=== PATIENT | male | born 1950 | race Caucasian/White ===

== ENCOUNTER 2023-09-01 10:10 | Inpatient (IN) | payer MEDICARE, SELFPAY ==
[2023-09-01] VITALS (9 sets, daily range): BP systolic 142–188; BP diastolic 80–106; PULSE 80–90; RESP 18–20; TEMP 36.8–39.1; O2SAT 91–96; BMI 41.1; BMI 39.6
[2023-09-01 10:21] LABS: Glucometer 213 mg/dL (74-106)
--- NOTE | 2023-09-01 10:24 | XR_ITS ---
The [place] [id number] Patient Name: FABY LEYVA MRN: [id number] date: 1950 Sex: M Assigned Patient Location: ER Current Patient Location: Accession/Order Number: [id number] Exam Date: 09/01/2023 11:20 Report Date: 09/01/2023 11:54 At the request of: HOMERO CEDILLO Procedure: XR shoulder RT min 2V STUDY: XR shoulder RT min 2V, [id number] HISTORY: fall COMPARISON: None FINDINGS: No acute fracture, dislocation, or suspicious osseous lesion. Moderate osteoarthritis of the acromioclavicular joint and mild osteoarthritis of the glenohumeral joint. Mild nonspecific hyperostosis at the deltoid tuberosity. XR/XR shoulder RT min 2V IMPRESSION: No acute osseous abnormality. Electronically authenticated by: ISAIAS NEAL Date: 09/01/2023 11:54
--- NOTE | 2023-09-01 10:24 | XR_ITS ---
The [address] [address] Patient Name: FABY LEYVA MRN: [id number] date: 1950 Sex: M Assigned Patient Location: ER Current Patient Location: ER Accession/Order Number: [id number] Exam Date: 09/01/2023 11:20 Report Date: 09/01/2023 11:46 At the request of: HOMERO CEDILLO Procedure: XR chest 1V EXAMINATION: XR chest 1V 09/01/2023 8:45 AM PST HISTORY: weak TECHNIQUE: Single frontal view of the chest acquired. COMPARISONS: None. FINDINGS: Lines/tubes/other: None. Heart and mediastinum: Cardiac silhouette is within normal limits for size. Bones: No acute osseous abnormality. Lungs: Mild streaky left basilar atelectasis and/or scarring. No pulmonary edema. Pleura: There is no significant pleural effusion or pneumothorax. Other: None. XR/XR chest 1V IMPRESSION: Mild left basilar atelectasis and/or scarring. Electronically authenticated by: ISAIAS NEAL Date: 09/01/2023 11:46
--- NOTE | 2023-09-01 10:24 | ECG_ITS ---
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
--- NOTE | 2023-09-01 10:25 | CT_ITS ---
[address] [address] Patient Name: FABY LEYVA MRN: [id number] date: 1950 Sex: M Assigned Patient Location: ER Current Patient Location: Accession/Order Number: [id number] Exam Date: 09/01/2023 11:20 Report Date: 09/01/2023 11:43 At the request of: HOMERO CEDILLO Procedure: CT head/brain wo con EXAMINATION: CT head/brain wo con 09/01/2023 11:20 AM EST HISTORY: weak COMPARISON: None. TECHNIQUE: Using multidetector thin collimation helical acquisition technique, axial, coronal and sagittal CT images from the skull base to the vertex were obtained without intravenous contrast. Dose reduction techniques were achieved by using automated exposure control and/or adjustment of mA and/or kV according to patient size and/or use of iterative reconstruction technique. FINDINGS: No intracranial hemorrhage, mass effect, or midline shift. The ventricles are proportionate to the cerebral sulci. The dia to white matter differentiation of the cerebral hemispheres is preserved. The basal cisterns are patent.There is moderate cerebral atrophy. The visualized paranasal sinuses are clear. The mastoid air cells are clear. Hyperostosis frontalis internus. Bilateral pseudophakia. CT/CT head/brain wo con IMPRESSION: No acute intracranial pathology. Electronically authenticated by: CLARK BAILEY Date: 09/01/2023 11:43
--- NOTE | 2023-09-01 10:25 | ED.GENADUL1 ---
HPI - General Adult General Chief complaint: Fall Stated complaint: GENERAL WEAKNESS/FALL Time Seen by Provider: 09/01/23 10:18 Mode of arrival: ambulance History of Present Illness HPI narrative: 73-year-old male presents to Emergency Department for weakness and a fall. He was transported here by paramedics, initially unaccompanied by his . He was reportedly on the floor for about five hours but the circumstances are not clear upon arrival. He seems to be complaining of some pain in the right shoulder. No further history is initially obtainable. Related Data Home Medications Medication Instructions Recorded Confirmed allopurinol 300 mg tablet 300 mg PO DAILY 09/01/23 09/01/23 amlodipine 5 mg tablet 5 mg PO DAILY 09/01/23 09/01/23 cholecalciferol (vitamin D3) 25 75 mcg PO DAILY 09/01/23 09/01/23 mcg (1,000 unit) capsule furosemide 20 mg tablet 20 mg PO DAILY 09/01/23 09/01/23 gabapentin 300 mg capsule 300 mg PO TID 09/01/23 09/01/23 glipizide 5 mg tablet 5 mg PO BID 09/01/23 09/01/23 lisinopril 20 mg tablet 20 mg PO DAILY 09/01/23 09/01/23 metoprolol tartrate 100 mg tablet 100 mg PO BID 09/01/23 09/01/23 pravastatin 80 mg tablet 80 mg PO DAILY 09/01/23 09/01/23 Allergies Allergy/AdvReac Type Severity Reaction Status Date / Time No Known Drug Allergies Allergy Verified 09/01/23 10:13 Review of Systems ROS Narrative A ten point review of systems is negative except as noted above. PFSH PFS Social History Smoking status: Never smoker Exam Narrative Exam Narrative: Nurses note and vital signs reviewed and patient is not hypoxic. General: The patient appears in no apparent distress. Patient is resting comfortably on cart. Skin: Warm, dry, no pallor noted. There is no rash noted. Head: Normocephalic, atraumatic Eye: Normal conjunctiva, no drainage, EOMI. PERRL Ears, Nose, Mouth, and Throat: oral mucosa is moist. Nares patent. Cardiovascular: Regular Rate and Rhythm Respiratory: Patient is in no distress, no accessory muscle use, lungs are clear to auscultation, no wheezing, rales or rhonchi. chest wall is nontender Back: non-tender, no CVA tenderness bilaterally to percussion. and no bruise or abrasion to his back GI: no tenderness to palpation, no masses appreciated. No rebound, guarding, or rigidity noted. Musculoskeletal: no palpable tenderness to his ankles knees or hips. Hips have fair range of motion actively. Both shoulders have full range of motion as well but the right shoulder seems to cause him some discomfort. There is no deformity or bruising. tiny abrasion present on the anterior left knee. Neurological: he moves all four extremities well. He is oriented to self and place. He was able to tell me the year but not right away, he had to think about it. He does not know the month. Psychiatric: Cooperative Constitutional Vital Signs, click to edit/add: Last Vital Signs Temp 98.3 F 09/01/23 13:13 Pulse 89 09/01/23 11:57 Resp 20 09/01/23 11:57 BP 142/80 H 09/01/23 11:57 Pulse Ox 95 09/01/23 11:57 O2 Del Method Room Air 09/01/23 11:04 Course Vital Signs Vital signs: Vital Signs Temperature 98.6 F 09/01/23 10:14 Pulse Rate 90 09/01/23 10:14 Respiratory Rate 20 09/01/23 10:14 Blood Pressure 184/99 H 09/01/23 10:14 Pulse Oximetry 91 L 09/01/23 10:14 Oxygen Delivery Method Room Air 09/01/23 10:14 Temperature 98.3 F 09/01/23 13:13 Pulse Rate 89 09/01/23 11:57 Respiratory Rate 20 09/01/23 11:57 Blood Pressure 142/80 H 09/01/23 11:57 Pulse Oximetry 95 09/01/23 11:57 Oxygen Delivery Method Room Air 09/01/23 11:04 Medical Decision Making MDM Narrative Medical decision making narrative: the patient presented with a fever and weakness. He was given antipyretic and now seems to be feeling improved. He was noted to have rhabdomyolysis without acute kidney injury and he's given IV fluids and he is being admitted. Findings are discussed with the patient. Differential Diagnosis Differential Diagnosis: pneumonia, urinary tract infection, dehydration Lab Data Labs: Lab Results 09/01/23 09/01/23 09/01/23 Range/Units 10:20 11:50 12:00 WBC 8.8 (4.0-11.0) 10^3/uL RBC 6.03 (4.70-6.10) 10^6/uL Hgb 19.0 H (14.0-18.0) g/dL Hct 54.1 H (42.0-54.0) % MCV 89.7 (80.0-94.0) fL MCH 31.5 (25.9-34.0) pg MCHC 35.1 (29.9-35.2) g/dL RDW 13.7 (11.0-15.0) % Plt Count 138 L (150-450) 10^3/uL MPV 10.3 (9.5-13.5) fL Seg Neuts % (Manual) 81.0 Band Neutrophils % 3.0 (0-5) % Lymphocytes % (Manual) 10.0 L (20.5-60.0) % Monocytes % (Manual) 6.0 (1.7-12.0) % Eosinophils % (Manual) 0.0 L (0.9-7.0) % Basophils % (Manual) 0.0 L (0.2-2.0) % Neutrophils # (Manual) 7.12 H (1.4-6.5) 10^3/uL Band Neutrophils # 0.3 (0.0-0.3) 10^3/uL Lymphocytes # (Manual) 0.88 L (1.20-3.80) 10^3/uL Monocytes # (Manual) 0.52 (0.30-0.80) 10^3/uL Eosinophils # (Manual) 0.00 (0.00-0.70) 10^3/uL Basophils # (Manual) 0.00 (0.00-0.10) 10^3/uL Sodium 138 (136-145) mmol/L Potassium 3.6 (3.5-5.1) mmol/L Chloride 103 (98-107) mmol/L Carbon Dioxide 23.2 (21.0-32.0) mmol/L Anion Gap 15.4 BUN 21.0 H (7.0-18.0) mg/dL Creatinine 1.30 (0.70-1.30) mg/dL Est GFR ( Amer) >60 (>=60) Est GFR (Non-Af Amer) 54 L (>=60) BUN/Creatinine Ratio 16.2 Glucose 233 H (74-106) mg/dL Calcium 8.9 (8.5-10.1) mg/dL Total Creatine Kinase 1065 H* (39-308) U/L Troponin I High Sens 23.8 (4.0-76.1) pg/mL Urine Color (YELLOW) Urine Clarity (CLEAR) Urine pH (5.0-9.0) Ur Specific [place] (1.005-1.025) Urine Protein (NEG/TRACE) mg/dL Urine Glucose (UA) (NEGATIVE) mg/dL Urine Ketones (NEGATIVE) mg/dL Urine Occult Blood (NEGATIVE) Urine Nitrite (NEGATIVE) Urine Bilirubin (NEGATIVE) Urine Urobilinogen (0.2-1.0) EU/dL Ur Leukocyte Esterase (NEGATIVE) Urine RBC (0-2) #/HPF Urine WBC (NONE SEEN) #/HPF Ur Squamous Epith Cells (NONE/RARE) #/LPF Urine Crystals (None Seen) #/HPF Urine Bacteria (NONE SEEN) #/HPF Urine Casts (NONE SEEN) #/LPF Urine Mucus (NONE SEEN) Ethanol Quant <3 mg/dL SARS-CoV-2 (PCR) Negative (NEGATIVE) POC Glucose 213 H (74-106) mg/dL 09/01/23 Range/Units 12:20 WBC (4.0-11.0) 10^3/uL RBC (4.70-6.10) 10^6/uL Hgb (14.0-18.0) g/dL Hct (42.0-54.0) % MCV (80.0-94.0) fL MCH (25.9-34.0) pg MCHC (29.9-35.2) g/dL RDW (11.0-15.0) % Plt Count (150-450) 10^3/uL MPV (9.5-13.5) fL Seg Neuts % (Manual) Band Neutrophils % (0-5) % Lymphocytes % (Manual) (20.5-60.0) % Monocytes % (Manual) (1.7-12.0) % Eosinophils % (Manual) (0.9-7.0) % Basophils % (Manual) (0.2-2.0) % Neutrophils # (Manual) (1.4-6.5) 10^3/uL Band Neutrophils # (0.0-0.3) 10^3/uL Lymphocytes # (Manual) (1.20-3.80) 10^3/uL Monocytes # (Manual) (0.30-0.80) 10^3/uL Eosinophils # (Manual) (0.00-0.70) 10^3/uL Basophils # (Manual) (0.00-0.10) 10^3/uL Sodium (136-145) mmol/L Potassium (3.5-5.1) mmol/L Chloride (98-107) mmol/L Carbon Dioxide (21.0-32.0) mmol/L Anion Gap BUN (7.0-18.0) mg/dL Creatinine (0.70-1.30) mg/dL Est GFR ( Amer) (>=60) Est GFR (Non-Af Amer) (>=60) BUN/Creatinine Ratio Glucose (74-106) mg/dL Calcium (8.5-10.1) mg/dL Total Creatine Kinase (39-308) U/L Troponin I High Sens (4.0-76.1) pg/mL Urine Color Yellow (YELLOW) Urine Clarity Clear (CLEAR) Urine pH 7.0 (5.0-9.0) Ur Specific [place] 1.020 (1.005-1.025) Urine Protein >=300 A (NEG/TRACE) mg/dL Urine Glucose (UA) Negative (NEGATIVE) mg/dL Urine Ketones Negative (NEGATIVE) mg/dL Urine Occult Blood Small A (NEGATIVE) Urine Nitrite Negative (NEGATIVE) Urine Bilirubin Negative (NEGATIVE) Urine Urobilinogen >=8.0 (0.2-1.0) EU/dL Ur Leukocyte Esterase Negative (NEGATIVE) Urine RBC 5-10 A (0-2) #/HPF Urine WBC 0-2 A (NONE SEEN) #/HPF Ur Squamous Epith Cells None seen (NONE/RARE) #/LPF Urine Crystals None seen (None Seen) #/HPF Urine Bacteria Trace A (NONE SEEN) #/HPF Urine Casts None seen (NONE SEEN) #/LPF Urine Mucus None seen (NONE SEEN) Ethanol Quant mg/dL SARS-CoV-2 (PCR) (NEGATIVE) POC Glucose (74-106) mg/dL Discharge Plan Discharge Chief Complaint: Fall Clinical Impression: Fever, Rhabdomyolysis Patient Disposition: Admitted As Inpatient Time of Disposition Decision: 13:16 Condition: Good Prescriptions / Home Meds: No Action allopurinol 300 mg tablet 300 mg PO DAILY amlodipine 5 mg tablet 5 mg PO DAILY cholecalciferol (vitamin D3) 25 mcg (1,000 unit) capsule 75 mcg PO DAILY furosemide 20 mg tablet 20 mg PO DAILY gabapentin 300 mg capsule 300 mg PO TID glipizide 5 mg tablet 5 mg PO BID lisinopril 20 mg tablet 20 mg PO DAILY metoprolol tartrate 100 mg tablet 100 mg PO BID pravastatin 80 mg tablet 80 mg PO DAILY Stand Alone Forms: Portal Instructions Referrals: Deep Abbasi DO [Primary Care Provider] - 1 week
--- NOTE | 2023-09-01 10:39 | PC.NURSE ---
Patient arrives at this time. She reports patient slid out of bed and was unable to get self up. reports no LOC. reports patient slid on to knees. reports patient had flu and covid vaccine yesterday, she reports patient had similar reaction two years ago after receiving covid vaccine.
--- NOTE | 2023-09-01 10:54 | PC.NURSE ---
On arrival patient slow to respond but does answer questions appropriately. arrives at this time and patient more talkative with present. Continues to be alert and oriented at this time.
[2023-09-01] MEDS: ACETAMINOPHEN 325 MG TABLET 650 MG PO ×2 (11:47→21:49)
[2023-09-01 12:12] LABS: Hematocrit 54.1 % (42.0-54.0); Mean Corpuscular HGB Conc 35.1 g/dL (29.9-35.2); Mean Corpuscular Hemoglobin 31.5 pg (25.9-34.0); Mean Corpuscular Volume 89.7 fL (80.0-94.0); Mean Platelet Volume 10.3 fL (9.5-13.5); Platelet Count 138 10^3/uL (150-450); Red Blood Count 6.03 10^6/uL (4.70-6.10); Red Cell Distribution Width 13.7 % (11.0-15.0); White Blood Count 8.8 10^3/uL (4.0-11.0)
[2023-09-01 12:36] LABS: Bilirubin Urine NEGATIVE (NEGATIVE); Blood Urine SMALL (NEGATIVE); Clarity Urine CLEAR (CLEAR); Color Urine YELLOW (YELLOW); Glucose Urine UA NEGATIVE (NEGATIVE); Ketones Urine NEGATIVE (NEGATIVE); Leukocyte Esterase Urine NEGATIVE (NEGATIVE); Nitrite Urine NEGATIVE (NEGATIVE); Protein Urine >=300 mg/dL (NEG/TRACE); Urobilinogen Urine >=8.0 EU/dL (0.2-1.0)
[2023-09-01 12:39] LABS: Anion Gap 15.4; BUN Creatinine Ratio 16.2; Calcium 8.9 mg/dL (8.5-10.1); Carbon Dioxide 23.2 mmol/L (21.0-32.0); Chloride 103 mmol/L (98-107); Estimated GFR (African America >60 (>=60); Estimated GFR (Non-African Ame 54 (>=60); Ethanol <3 mg/dL; Glucose 233 mg/dL (74-106); Potassium 3.6 mmol/L (3.5-5.1); Sodium 138 mmol/L (136-145); Troponin I High Sensitivity 23.8 pg/mL (4.0-76.1)
[2023-09-01 12:43] LABS: Creatine Kinase 1065 U/L (39-308)
[2023-09-01 12:47] LABS: Band Neutrophils Absolute 0.3 10^3/uL (0.0-0.3); Lymphocytes Absolute Manual 0.88 10^3/uL (1.20-3.80); Monocytes Absolute Manual 0.52 10^3/uL (0.30-0.80); Segmented Neut Absolute Manual 7.12 10^3/uL (1.4-6.5)
[2023-09-01 12:49] LABS: Bacteria Urine TRACE #/HPF (NONE SEEN); Cast Seen? NONE SEEN #/LPF (NONE SEEN); Crystals Seen? None Seen #/HPF (None Seen); Mucus Urine NONE SEEN (NONE SEEN); Squamous Epithelial Cell Urine NONE SEEN #/LPF (NONE/RARE); WBC Urine 0-2 #/HPF (NONE SEEN)
[2023-09-01 12:51] LABS: SARS-CoV-2 Ag NEGATIVE (NEGATIVE)
[2023-09-01] MEDS: 0.9 % SODIUM CHLORIDE 1,000 ML 125 ML IV (12:54)
[2023-09-01 14:01] LABS: Creatine Kinase 2647 U/L (39-308)
[2023-09-01 14:09] LABS: Magnesium 1.6 mg/dL (1.8-2.4); Phosphorus 2.1 mg/dL (2.6-4.7)
--- NOTE | 2023-09-01 14:55 | CM.NOTE ---
Medicare Outpatient Observation Notice discussed with pt, pt verbalizes understanding and signs paper. Original given to pt and copy placed on pt's chart.
[2023-09-01 15:50] LABS: Glucometer 157 mg/dL (74-106)
[2023-09-01] MEDS: GABAPENTIN 300 MG CAPSULE PO ×2 (15:51→21:49)
[2023-09-01] MEDS: ENOXAPARIN SODIUM 40 MG/0.4 ML SYRINGE SUBQ (15:52)
[2023-09-01] MEDS: LACTATED RINGER'S SOLUTION 1,000 ML 125 ML IV (15:52)
--- NOTE | 2023-09-01 15:57 | P.HP_ITS ---
<Statement entered by Shaikh Yasemin MD - 09/01/23 23:13> This documentation has been reviewed and approved. Patient was not seen but his chart reviewed. Case discussed with DARIN Fisher. Presented with weakness after fall at home. W/u consistent with rhabdomyolysis. Assessment and Plan Rhabdomyolysis Fever HTN T2 DM C/w IVF. C/w home meds. Monitor UO, renal fucntion. W/u for source of infection unrevealing. Monitor w/o abx. H&P: HPI History of Present Illness Chief complaint: GENERAL WEAKNESS/FALL Narrative: 09/01/23 1405 This is a 73-year-old male patient with a past medical history as outlined below including DM 2, HTN, peripheral neuropathy, and hyperlipidemia; who presented to the ED today after reportedly falling at home with prolonged downtime up to 5 hours per the ED report. The patient does not have any memory of falling and reports that his first memory after that was when the ambulance came to pick him up at the house. Work-up in the ED revealed mild dehydration, and elevated CPK levels consistent with rhabdomyolysis without NALDO. A COVID swab was negative. He was alert and oriented x3 in the ED. He became febrile after arrival in the ED but no infectious source was identified. A chest x-ray was unremarkable as was his UA. A CT of the head showed no acute disease and an x-ray of his shoulder, as he was complaining of shoulder pain, also showed no acute fracture. He is being admitted to observation to the hospitalist service. At the time of my exam the patient is resting comfortably in bed. He denies any chest pain, shortness of breath, nausea or vomiting, and only has mild right shoulder discomfort with range of motion. He is alert and oriented x3. He continues to have no memory of the events leading to his fall nor can he elicit why he was unable to get up and walk again. Apparently the patient had a COVID and influenza vaccine yesterday. The family reported to nursing that he had a similar episode with fevers and falls after receiving his previous vaccines last year. There is no evidence of focal deficit on exam. He denies any alcohol consumption. Review of Systems ROS Status of ROS 10 or more systems reviewed and unremark able except as noted in history and below [facility] Medical History (Updated 09/01/23 @ 16:15 by Natalia Jim NP) Hyperlipidemia ?E78.5 - Hyperlipidemia, unspecified (ICD-10) Gout ?M10.9 - Gout, unspecified (ICD-10) HTN (hypertension) ?I10 - Essential (primary) hypertension (ICD-10) DM2 (diabetes mellitus, type 2) ?E11.9 - Type 2 diabetes mellitus without complications (ICD-10) Social History Smoking status: Never smoker Meds Home Medications and Allergies Home Medications Medication Instructions Recorded Confirmed Type allopurinol 300 mg tablet 300 mg PO DAILY 09/01/23 09/01/23 History amlodipine 5 mg tablet 5 mg PO DAILY 09/01/23 09/01/23 History cholecalciferol (vitamin D3) 25 75 mcg PO DAILY 09/01/23 09/01/23 History mcg (1,000 unit) capsule cyclobenzaprine 10 mg tablet 10 mg PO DAILY 09/01/23 09/01/23 History furosemide 20 mg tablet 20 mg PO DAILY 09/01/23 09/01/23 History gabapentin 300 mg capsule 300 mg PO TID 09/01/23 09/01/23 History glipizide 5 mg tablet 5 mg PO BID 09/01/23 09/01/23 History lisinopril 20 mg tablet 20 mg PO DAILY 09/01/23 09/01/23 History metoprolol tartrate 100 mg tablet 100 mg PO BID 09/01/23 09/01/23 History pravastatin 80 mg tablet 80 mg PO DAILY 09/01/23 09/01/23 History Allergies Allergy/AdvReac Type Severity Reaction Status Date / Time No Known Drug Allergies Allergy Verified 09/01/23 10:13 Exam Constitutional Vital Signs, click to edit/add: Last Vital Signs Temp 98.3 F 09/01/23 13:13 Pulse 89 09/01/23 11:57 Resp 20 09/01/23 11:57 BP 142/80 H 09/01/23 11:57 Pulse Ox 95 09/01/23 11:57 O2 Del Method Room Air 09/01/23 11:04 Common normals: no apparent distress, oriented x3, alert and well nourished General appearance: cooperative Orientation/consciousness: Yes awake HENMT Common normals: normocephalic, head/scalp atraumatic, hearing grossly normal bilaterally, external nose normal and moist oral mucous membranes Head and scalp: normocephalic and atraumatic Eye Common normals: PERRL, EOMs intact bilaterally, conjunctivae normal and no scleral icterus Alignment: alignment normal Eyelid: eyelids normal Neck & C-Spine Common normals: full ROM, supple and no JVD Chest Common normals: inspection of chest normal Chest: symmetrical chest wall rise Respiratory Common normals: normal respiratory effort, no retractions, no use of accessory muscles and clear to auscultation bilaterally Effort & inspection: able to speak in complete sentences Cardio Common normals: no JVD, regular rate, regular rhythm, S1 normal heart sound, S2 normal heart sound, no gallops, no clicks, no murmurs, no rub and peripheral pulses 2+ throughout GI Common normals: Normal to inspection, nondistended, normoactive bowel sounds present, soft to palpation, non-tender, no hepatosplenomegaly, no masses and no bruits Bladder/kidney exam: bladder normal to palpation Extremity Common normals: normal capillary refill General: normal exam except as noted and edema (Trace bilat insteps); no clubbing and no cyanosis Neuro Matt Coma Scale: GCS not evaluated Common normals: CN's II-XII intact bilaterally, moves all extremities, no focal motor deficits and no sensory deficits noted Speech: speech normal Motor exam: strength 5/5 throughout Psych Common normals: mental status grossly normal, thought process normal, affect normal and activity/motor behavior normal Results Labs Labs: Short CBC 09/01/23 Range/Units 11:50 WBC 8.8 (4.0-11.0) 10^3/uL Hgb 19.0 H (14.0-18.0) g/dL Hct 54.1 H (42.0-54.0) % Plt Count 138 L (150-450) 10^3/uL BMP 09/01/23 11:50 Sodium 138 Potassium 3.6 Chloride 103 Carbon Dioxide 23.2 BUN 21.0 H Creatinine 1.30 Glucose 233 H Calcium 8.9 Cardiac Enzymes 09/01/23 09/01/23 Range/Units 11:50 13:29 Total Creatine Kinase 1065 H* 2647 H* (39-308) U/L Urine 09/01/23 Range/Units 12:20 Urine Color Yellow (YELLOW) Urine Clarity Clear (CLEAR) Urine pH 7.0 (5.0-9.0) Ur Specific [place] 1.020 (1.005-1.025) Urine Protein >=300 A (NEG/TRACE) mg/dL Urine Glucose (UA) Negative (NEGATIVE) mg/dL Pulse Oximetry Attestation: I have reviewed the pertinent pulse oximetry results. Imaging Chest x-ray: Attestation: I have reviewed the pertinent imaging results. Radiologist's impression: IMPRESSION: Mild left basilar atelectasis and/or scarring. Shoulder X-ray: Attestation: I have reviewed the pertinent imaging results. Radiologist's impression: IMPRESSION: No acute osseous abnormality. CT scan - head: Attestation: I have reviewed the pertinent imaging results. Radiologist's impression: IMPRESSION: No acute intracranial pathology. Assessment and Plan Assessment and Plan (1) Rhabdomyolysis: Assessment and Plan: ACUTE * Adm observation * Elevated CPK without NALOD on labs * LR at 125/hr to flush kidneys * Hold all renal toxic meds to avoid NALDO in presence of rhabdo * CMP, CPK in AM Qualifiers: Encounter type: initial encounter Rhabdomyolysis type: traumatic Qualified Code(s): T79.6XXA - Traumatic ischemia of muscle, initial encounter (2) Fall: Assessment and Plan: ACUTE * Unclear etiology * No neurologic deficits * CT brain unremarkable * Consider MRI brain pending clinical course * Neuro checks q4h per nursing * PT/OT eval and treat * Amb w/ assist Qualifiers: Encounter type: initial encounter Qualified Code(s): W19.XXXA - Unspecified fall, initial encounter (3) Fever: Assessment and Plan: ACUTE * Unknown origin * Suspect 2/2 COVID/Influenza vaccinations within 24 hrs * UA and CXR unremarkable * Blood cultures x 2 drawn in ED - pending * No evidence of URI at this time * COVID swab neg * No leukocytosis * CBC in AM Qualifiers: Fever type: post-vaccination Qualified Code(s): R50.83 - Po stvaccination fever
[2023-09-01 16:18] LABS: SARS-CoV-2 NAA NOT DETECTED (NOT DETECTE)
[2023-09-01] MEDS: INSULIN ASPART 300 UNIT/3 ML PEN SUBQ ×2 (17:30→21:49)
[2023-09-01] MEDS: HYDRALAZINE HCL 20 MG/ML VIAL 10 MG IVP (19:14)
[2023-09-01] MEDS: ATORVASTATIN CALCIUM 20 MG TABLET PO (21:49)
[2023-09-01] MEDS: METOPROLOL TARTRATE 100 MG TABLET PO (21:49)
[2023-09-01 21:51] LABS: Glucometer 164 mg/dL (74-106)
[2023-09-02] VITALS (9 sets, daily range): BP systolic 147–188; BP diastolic 76–92; PULSE 64–76; RESP 18–20; TEMP 36.8–37.4; O2SAT 91–95
[2023-09-02] MEDS: LACTATED RINGER'S SOLUTION 1,000 ML 125 ML IV ×2 (00:02→08:44)
[2023-09-02 05:16] LABS: Basophils Absolute Auto 0.1 10^3/uL (0.0-0.1); Basophils Percent Auto 0.8 % (0.2-2.0); Eosinophils Percent Auto 0.1 % (0.9-7.0); Hematocrit 52.3 % (42.0-54.0); Immature Granulocytes Abs Auto 0.03 10^3/uL (0.00-0.03); Immature Granulocytes Pct Auto 0.4 % (0.0-0.5); Lymphocytes Absolute Auto 1.1 10^3/uL (1.2-3.8); Lymphocytes Percent Auto 14.2 % (20.5-60.0); Mean Corpuscular HGB Conc 34.4 g/dL (29.9-35.2); Mean Corpuscular Hemoglobin 31.5 pg (25.9-34.0); Mean Corpuscular Volume 91.6 fL (80.0-94.0); Mean Platelet Volume 10.4 fL (9.5-13.5); Monocytes Absolute Auto 0.9 10^3/uL (0.3-0.8); Monocytes Percent Auto 11.5 % (1.7-12.0); Neutrophils Absolute Auto 5.5 10^3/uL (1.4-6.5); Platelet Count 125 10^3/uL (150-450); Red Blood Count 5.71 10^6/uL (4.70-6.10); Red Cell Distribution Width 13.9 % (11.0-15.0); White Blood Count 7.5 10^3/uL (4.0-11.0)
[2023-09-02] MEDS: GABAPENTIN 300 MG CAPSULE PO ×3 (05:26→21:29)
[2023-09-02 05:28] LABS: Alanine Aminotransferase 38 U/L (16-63); Albumin Globulin Ratio 0.9; Alkaline Phosphatase 126 U/L (46-116); Anion Gap 12.8; Aspartate Amino Transferase 112 U/L (15-37); BUN Creatinine Ratio 16.7; Bilirubin Total 4.8 mg/dL (0.2-1.0); Calcium 8.5 mg/dL (8.5-10.1); Carbon Dioxide 25.8 mmol/L (21.0-32.0); Chloride 101 mmol/L (98-107); Estimated GFR (African America >60 (>=60); Estimated GFR (Non-African Ame 53 (>=60); Globulin 3.2 g/dL; Glucose 159 mg/dL (74-106); Potassium 3.6 mmol/L (3.5-5.1); Sodium 136 mmol/L (136-145); Total Protein 6.2 g/dL (6.4-8.2)
[2023-09-02 05:35] LABS: Estimated Average Glucose 143 mg/dL; Glycohemoglobin A1C 6.6 % (4.5-6.2)
[2023-09-02 05:54] LABS: Creatine Kinase 4187 U/L (39-308)
[2023-09-02] MEDS: ACETAMINOPHEN 325 MG TABLET 650 MG PO ×2 (06:06→21:34)
[2023-09-02 07:33] LABS: Glucometer 155 mg/dL (74-106)
[2023-09-02 07:45] LABS: Adenovirus NOT DETECTED (NOT DETECTE); Bordetella parapertussis NOT DETECTED (NOT DETECTE); Coronavirus 229E NOT DETECTED (NOT DETECTE); Coronavirus HKU1 NOT DETECTED (NOT DETECTE); Coronavirus NL63 NOT DETECTED (NOT DETECTE); Coronavirus OC43 NOT DETECTED (NOT DETECTE); Human Metapneumovirus NOT DETECTED (NOT DETECTE); Human Rhinovirus/Enterovirus NOT DETECTED (NOT DETECTE); Influenza A NOT DETECTED (NOT DETECTE); Influenza B NOT DETECTED (NOT DETECTE); Mycoplasma pneumoniae NOT DETECTED (NOT DETECTE); Parainfluenza Virus 1 NOT DETECTED (NOT DETECTE); Parainfluenza Virus 2 NOT DETECTED (NOT DETECTE); Parainfluenza Virus 3 NOT DETECTED (NOT DETECTE); Parainfluenza Virus 4 NOT DETECTED (NOT DETECTE); Respiratory Syncytial Virus NOT DETECTED (NOT DETECTE); SARS-CoV-2 NOT DETECTED (NOT DETECTE)
[2023-09-02] MEDS: MAGNESIUM SULFATE IN WATER 2 GM/50 ML PREMIX IV (08:44)
[2023-09-02] MEDS: ALLOPURINOL 300 MG TABLET PO (08:45)
[2023-09-02] MEDS: METOPROLOL TARTRATE 100 MG TABLET PO ×2 (08:45→21:29)
[2023-09-02] MEDS: AMLODIPINE BESYLATE 5 MG TABLET PO (08:45)
[2023-09-02] MEDS: CYCLOBENZAPRINE HCL 10 MG TABLET PO (08:45)
[2023-09-02] MEDS: CHOLECALCIFEROL (VITAMIN D3) 25 MCG/1,000 UNITS TABLET 75 MCG PO (08:45)
--- NOTE | 2023-09-02 09:18 | CM.NOTE ---
Spoke with patient asking permission if needed to give information to his son Dave. Pt. voiced he gives permission to give luis felipe Acosta any medical information relating to his hospital stay. Luis Felipe Acosta is in room with patient at this time. PT and OT to evaluate patient later which will assist in determining discharge plan. Patient sitting up in chair with call light in reach and denies any other needs at this time.
[2023-09-02] MEDS: POTASSIUM PHOS/SODIUM PHOS 250 MG TABLET 2 TAB PO ×3 (10:23→17:04)
[2023-09-02 11:06] LABS: Glucometer 202 mg/dL (74-106)
[2023-09-02] MEDS: INSULIN ASPART 300 UNIT/3 ML PEN SUBQ ×3 (11:19→21:29)
--- NOTE | 2023-09-02 11:59 | CM.NOTE ---
Rounds made with Dr. Hazel, no discharge today. PT and OT will evaluate pt and Case Management will follow for any discharge needs.
--- NOTE | 2023-09-02 12:52 | P.PN_ITS ---
<Statement entered by Shaikh Yasemin MD - 09/02/23 13:55> This documentation has been reviewed and approved. Seen and examined. Chart reviewed, case discussed with Natalia. Agree with clinical findings and documentation Doing well. Feels better than yesterday. No CP, SOB, abdominal pain, urinary complaints, diarrhea Exam NAD, sitting on a recliner CTA b/l , normal RR Normal HR, no abnormal heart sounds Assessment and Plan Fever of unknown origin HTN Rhabdomyolysis CKD 2-3 CK continues to trend up. C/w IVF. Monitor UO, renal function closely. No source identified on w/u - likely viral infection vs vaccine related immune response. PT/OT eval Progress Note: Subjective Subjective Interval history: 09/02/23 0935 Patient is sitting up in a bedside chair at the time of my exam visiting with his . He reports feeling improved and stronger than on admission. He has complete memory of the events of the night except when he was sleeping. He denies any chest pain, shortness of breath, abdominal pain, or N/V/D. CK continues to rise today and thus we will continue IV fluid hydration. His renal function is slightly worsened today but remains near his baseline CKD 2/3A. He will remain in the hospital for at least another 24 to 48 hours to receive IV fluid administration. Exam Constitutional Vital Signs, click to edit/add: Last Vital Signs Temp 98.2 F 09/02/23 08:52 Pulse 70 09/02/23 05:44 Resp 18 09/02/23 05:44 BP 166/81 H 09/02/23 05:44 Pulse Ox 93 L 09/02/23 05:44 O2 Del Method Room Air 09/02/23 05:44 Common normals: no apparent distress, oriented x3 and alert General appearance: cooperative Orientation/consciousness: Yes awake HENKS Common normals: normocephalic, head/scalp atraumatic and hearing grossly normal bilaterally Eye Common normals: PERRL, EOMs intact bilaterally, conjunctivae normal and no scleral icterus General eye: normal appearance of both eyes Chest Common normals: inspection of chest normal Chest: symmetrical chest wall rise Respiratory Common normals: normal respiratory effort, no use of accessory muscles and clear to auscultation bilaterally Effort & inspection: able to speak in complete sentences Cardio Common normals: regular rate, regular rhythm, S1 normal heart sound, S2 normal heart sound, no murmurs and peripheral pulses 2+ throughout GI Common normals: Normal to inspection, nondistended, normoactive bowel sounds present, soft to palpation and no hepatosplenomegaly Palpation: tender (Mild, diffuse BLQ) Bladder/kidney exam: bladder normal to palpation Extremity Common normals: normal to inspection and no calf tenderness General: edema (trace bilat insteps/ankles); no clubbing and no cyanosis Neuro Common normals: CN's II-XII intact bilaterally, moves all extremities, no focal motor deficits and no sensory deficits noted Psych Common normals: mental status grossly normal Progress Note: Objective Labs Labs: Short CBC 09/02/23 Range/Units 04:43 WBC 7.5 (4.0-11.0) 10^3/uL Hgb 18.0 (14.0-18.0) g/dL Hct 52.3 (42.0-54.0) % Plt Count 125 L (150-450) 10^3/uL BMP 09/02/23 04:43 Sodium 136 Potassium 3.6 Chloride 101 Carbon Dioxide 25.8 BUN 22.0 H Creatinine 1.32 H Glucose 159 H Calcium 8.5 Cardiac Enzymes 09/01/23 09/02/23 Range/Units 13:29 04:46 Total Creatine Kinase 2647 H* 4187 H* (39-308) U/L Liver Function 09/02/23 Range/Units 04:43 Total Bilirubin 4.8 H (0.2-1.0) mg/dL AST 112 H (15-37) U/L ALT 38 (16-63) U/L Alkaline Phosphatase 126 H (46-116) U/L Albumin 3.0 L (3.4-5.0) g/dL Progress Note: A&P Assessment and Plan (1) Rhabdomyolysis: Assessment and Plan: ACUTE * CK 4187 today, up from 1067 on admission * Renal function remains stable at baseline CKD 2/3a so far * Continue LR at 125/hr this morning, then reduce to 100/hr to avoid fluid overload w/ home furosemide on hold * Continue to hold all renal toxic meds to avoid NALDO in presence of rhabdo * CMP, CPK in AM Qualifiers: Encounter type: initial encounter Rhabdomyolysis type: traumatic Qualified Code(s): T79.6XXA - Traumatic ischemia of muscle, initial encounter (2) Fall: Assessment and Plan: ACUTE * Unclear etiology * No neurologic deficits * CT brain unremarkable * Neuro checks q4h per nursing * PT/OT eval and treat * Amb w/ assist * Experienced similar weakness and fall after last COVID booster Qualifiers: Encounter type: initial encounter Qualified Code(s): W19.XXXA - Unspecified fall, initial encounter (3) Fever: Assessment and Plan: ACUTE * Recurrent isolated temp early this morning of 102.3 * Unknown origin * Suspect 2/2 COVID/Influenza vaccinations within 24 hrs * UA and CXR unremarkable * Blood cultures x 2 drawn in ED - pending * No evidence of URI at this time * Resp panel negative * COVID swab neg * No N/V/D, abdominal pain * No leukocytosis * No ABX administration unless source is identified * CBC in AM Qualifiers: Fever type: post-vaccination Qualified Code(s): R50.83 - Postvaccination fever (4) HTN (hypertension): Assessment and Plan: CHRONIC * Continue home amlodipine/lisinopril/lopressor. * Low threshold to hold KARENA if renal fx worsens Qualifiers: Hypertension type: primary hypertension Qualified Code(s): I10 - Essential (primary) hypertension (5) DM2 (diabetes mellitus, type 2): Assessment and Plan: CHRONIC * Hold home glipizide for now * ACHS glucometer checks * Med dose SSI glucose correction Qualifiers: Diabetes mellitus exterminator helper insulin use: without senior living use Diabetes mellitus complication status: with neurologic complications Diabetes mellitus complication detail: with unspecified neuropathy Qualified Code(s): E11.40 - Type 2 diabetes mellitus with diabetic neuropathy, unspecified (6) Hyperlipidemia: Assessment and Plan: CHRONIC * Continue home statin Qualifiers: Hyperlipidemia type: unspecified Qualified Code(s): E78.5 - Hyperlipidemia, unspecified (7) Gout: Assessment and Plan: CHRONIC * Continue home allpurinol Qualifiers: Gout site: unspecified site Gout etiology: unspecified cause Chronicity: chronic Presence of tophus: without tophus Qualified Code(s): M1A.9XX0 - Chronic gout, unspecified, without tophus (tophi) (8) Peripheral edema: Assessment and Plan: CHRONIC * Hold home furosemide for now d/t IVF administration and risk for NALDO
[2023-09-02] MEDS: ENOXAPARIN SODIUM 40 MG/0.4 ML SYRINGE SUBQ (14:02)
[2023-09-02 16:06] LABS: Glucometer 169 mg/dL (74-106)
--- NOTE | 2023-09-02 16:09 | CM.NOTE ---
Discussed with pt PT recommendations and discharge planning. Pt provided Medicare.gov 5 star rating for companies. Pt would like to discuss with eliud and will let Case Management know in the morning their decision.
[2023-09-02] MEDS: LACTATED RINGER'S SOLUTION 1,000 ML 100 ML IV (16:56)
[2023-09-02 20:49] LABS: Glucometer 181 mg/dL (74-106)
[2023-09-02] MEDS: ATORVASTATIN CALCIUM 20 MG TABLET PO (21:29)
[2023-09-02] MEDS: HYDRALAZINE HCL 20 MG/ML VIAL 10 MG IVP (21:34)
--- NOTE | 2023-09-02 22:50 | PC.NURSE ---
pt stomach is firm. Pt states his lower abdomen is tender. Active bowel sounds in bilateral upper quadrants, hypoactive bowel sounds in bilateral lower quadrants. Pt is passing gas, did not have a bowel movement but did have mucous discharge. tele-hospitalist made aware.
[2023-09-03] VITALS (8 sets, daily range): BP systolic 168–220; BP diastolic 71–100; PULSE 70–88; RESP 18–20; TEMP 36.7–36.9; O2SAT 92–95
[2023-09-03] MEDS: LACTATED RINGER'S SOLUTION 1,000 ML 100 ML IV (02:26)
[2023-09-03 04:53] LABS: Basophils Absolute Auto 0.1 10^3/uL (0.0-0.1); Eosinophils Absolute Auto 0.2 10^3/uL (0.0-0.7); Eosinophils Percent Auto 2.8 % (0.9-7.0); Hematocrit 46.9 % (42.0-54.0); Hemoglobin 16.5 g/dL (14.0-18.0); Immature Granulocytes Abs Auto 0.02 10^3/uL (0.00-0.03); Immature Granulocytes Pct Auto 0.3 % (0.0-0.5); Lymphocytes Absolute Auto 1.5 10^3/uL (1.2-3.8); Lymphocytes Percent Auto 24.2 % (20.5-60.0); Mean Corpuscular HGB Conc 35.2 g/dL (29.9-35.2); Mean Corpuscular Hemoglobin 31.7 pg (25.9-34.0); Mean Platelet Volume 10.4 fL (9.5-13.5); Monocytes Percent Auto 15.7 % (1.7-12.0); Neutrophils Absolute Auto 3.4 10^3/uL (1.4-6.5); Platelet Count 121 10^3/uL (150-450); Red Blood Count 5.21 10^6/uL (4.70-6.10); Red Cell Distribution Width 13.6 % (11.0-15.0); White Blood Count 6.1 10^3/uL (4.0-11.0)
[2023-09-03 05:13] LABS: Alanine Aminotransferase 44 U/L (16-63); Albumin Level 2.7 g/dL (3.4-5.0); Alkaline Phosphatase 101 U/L (46-116); Anion Gap 10.4; Aspartate Amino Transferase 105 U/L (15-37); BUN Creatinine Ratio 20.4; Bilirubin Total 3.1 mg/dL (0.2-1.0); Calcium 8.3 mg/dL (8.5-10.1); Carbon Dioxide 28.7 mmol/L (21.0-32.0); Chloride 101 mmol/L (98-107); Estimated GFR (African America >60 (>=60); Estimated GFR (Non-African Ame >60 (>=60); Globulin 2.8 g/dL; Glucose 149 mg/dL (74-106); Potassium 3.1 mmol/L (3.5-5.1); Sodium 137 mmol/L (136-145); Total Protein 5.5 g/dL (6.4-8.2)
[2023-09-03] MEDS: GABAPENTIN 300 MG CAPSULE PO ×3 (05:41→21:12)
[2023-09-03 07:32] LABS: Glucometer 145 mg/dL (74-106)
[2023-09-03] MEDS: AMLODIPINE BESYLATE 5 MG TABLET PO (08:01)
[2023-09-03] MEDS: CYCLOBENZAPRINE HCL 10 MG TABLET PO (08:01)
[2023-09-03] MEDS: CHOLECALCIFEROL (VITAMIN D3) 25 MCG/1,000 UNITS TABLET 75 MCG PO (08:01)
[2023-09-03] MEDS: ALLOPURINOL 300 MG TABLET PO (08:01)
[2023-09-03] MEDS: METOPROLOL TARTRATE 100 MG TABLET PO ×2 (08:01→21:12)
[2023-09-03] MEDS: INSULIN ASPART 300 UNIT/3 ML PEN SUBQ ×3 (08:04→21:18)
[2023-09-03] MEDS: POTASSIUM CHLORIDE 10 MEQ ER TABLET 40 MEQ PO (08:32)
[2023-09-03 08:38] LABS: Creatine Kinase 3233 U/L (39-308)
--- NOTE | 2023-09-03 10:22 | P.DS_ITS ---
<Statement entered by Shaikh Yasemin MD - 09/04/23 13:44> This documentation has been reviewed and approved. Seen and examined. Case d/w Natalia. Patient was planned for discharge but fell in the bathroom resulting in acute worsening of his low back pain. When seen in the morning, he was doing well and had no complaints to offer. Assessment and Plan Rhabdomyolysis Fall Acute on chronic LBP NALDO HTN Hold discharge. XR LS spine indicate disruption of anterior longitudinal ligament. MRI LS spine ordered as per Radiology Poorly controlled pain - will need continued hospital stay for pain control. DS: Providers Provider Date of admission: 09/01/23 13:13 Primary care physician: Deep Abbasi DO Consults: 09/01/23 13:11 Occupational Therapy Eval and Treat Routine Reason for consultation: Ambulatory dysfunction/weakness Physical Therapy Eval and Treat Routine Reason for consultation: Ambulatory dysfunction/weakness Discharging clinician: Natalia Jim DS: Diagnosis Discharge Diagnosis (1) Rhabdomyolysis: Qualifiers: Encounter type: initial encounter Rhabdomyolysis type: traumatic Qualified Code(s): T79.6XXA - Traumatic ischemia of muscle, initial encounter (2) Fall: Qualifiers: Encounter type: initial encounter Qualified Code(s): W19.XXXA - Unspecified fall, initial encounter (3) Fever: Qualifiers: Fever type: post-vaccination Qualified Code(s): R50.83 - Postvaccination fever (4) HTN (hypertension): Qualifiers: Hypertension type: primary hypertension Qualified Code(s): I10 - Essential (primary) hypertension (5) DM2 (diabetes mellitus, type 2): Qualifiers: Diabetes mellitus complication detail: with unspecified neuropathy Diabetes mellitus complication status: with neurologic complications Diabetes mellitus long chain quiller tender insulin use: without residential use Qualified Code(s): E11.40 - Type 2 diabetes mellitus with diabetic neuropathy, unspecified (6) Hyperlipidemia: Qualifiers: Hyperlipidemia type: unspecified Qualified Code(s): E78.5 - Hyperlipidemia, unspecified (7) Gout: Qualifiers: Chronicity: chronic Gout etiology: unspecified cause Gout site: unspecified site Presence of tophus: without tophus Qualified Code(s): M1A.9XX0 - Chronic gout, unspecified, without tophus (tophi) (8) Peripheral edema: DS: Summary Hospital Course Hospital Course: The patient was admitted with fever of unknown origin, weakness and rhabdomyolysis after suffering a fall at home. He was treated with IV fluids and his CPK and renal function were monitored closely. Once his CPK began to trend down and his renal function returned to baseline he was stable to be discharged. He is being discharged home in stable condition and should follow- up with his PCP within 5 to 7 days. He has had no further fevers for 48 hours and we suspect fevers are secondary to vaccinations obtained shortly before admission. ADDENDUM 1215: The pt was requesting a shower prior to discharge home. He was instructed to wait for nursing staff to assist him with a shower to ensure safety. Staff entered the room and found the pt had ambulated into the bathroom by himself and the door was locked. After unlocking the door they discovered he was lying on the ground. The pt reports he had completed his shower and was attempting to open the BR door when his feet slipped out from under him and he fell onto his buttocks/hip. He denies striking his head, loss of consciousness, prodromal sx including no dizziness. He confirms multiple times a mechanical slip and fall. He c/o lumbar back and pelvic pain. Denies neck or head pain. He is not on anticoagulation. XRs will be obtained of the lumbar spine and pelvis. D/c will be cancelled as pt has severe pain at this time and is unable to ambulate independently. Time Spent with Patient Time attestation: Total time spent providing and/or coordinating discharge services: Time spent: greater than 30 minutes Specific discharge activities: Physical exam, discussion of discharge plan, questions answered. Exam Constitutional Vital Signs, click to edit/add: Last Vital Signs Temp 98.4 F 09/03/23 05:41 Pulse 70 09/03/23 05:41 Resp 18 09/03/23 05:41 BP 168/83 H 09/03/23 05:41 Pulse Ox 92 L 09/03/23 05:41 O2 Del Method Room Air 09/03/23 05:41 Common normals: no apparent distress, oriented x3 and alert General appearance: cooperative Orientation/consciousness: Yes awake HENMT Common normals: normocephalic and head/scalp atraumatic Eye Common normals: PERRL, EOMs intact bilaterally, conjunctivae normal and no scleral icterus Neck & C-Spine Common normals: no JVD Respiratory Common normals: normal respiratory effort, no use of accessory muscles and clear to auscultation bilaterally Effort & inspection: able to speak in complete sentences and symmetric chest movement Cardio Common normals: no JVD, regular rate, regular rhythm, S1 normal heart sound, S2 normal heart sound, no murmurs and peripheral pulses 2+ throughout GI Common normals: Normal to inspection, nondistended, normoactive bowel sounds pre sent, soft to palpation and non-tender Bladder/kidney exam: bladder normal to palpation Extremity Common normals: normal to inspection, full ROM and normal capillary refill General: edema (Tr bilat insteps); no clubbing and no cyanosis Neuro Common normals: moves all extremities, no focal motor deficits and no sensory deficits noted Speech: speech normal Psych Common normals: mental status grossly normal and activity/motor behavior normal DS: Data Data Completed and Pending Labs on day of discharge: Labs from last 24 hours 09/03/23 09/03/23 09/02/23 07:32 04:40 20:47 WBC 6.1 RBC 5.21 Hgb 16.5 Hct 46.9 MCV 90.0 MCH 31.7 MCHC 35.2 RDW 13.6 Plt Count 121 L MPV 10.4 Neut % (Auto) 56.0 Lymph % (Auto) 24.2 Yancey % (Auto) 15.7 H Eos % (Auto) 2.8 Baso % (Auto) 1.0 Neut # (Auto) 3.4 Lymph # (Auto) 1.5 Yancey # (Auto) 1.0 H Eos # (Auto) 0.2 Baso # (Auto) 0.1 Abs Immat Gran (auto) 0.02 Imm/Tot Granulo (auto) 0.3 Sodium 137 Potassium 3.1 L Chloride 101 Carbon Dioxide 28.7 Anion Gap 10.4 BUN 21.0 H Creatinine 1.03 Est GFR ( Amer) >60 Est GFR (Non-Af Amer) >60 BUN/Creatinine Ratio 20.4 Glucose 149 H Calcium 8.3 L Total Bilirubin 3.1 H AST 105 H ALT 44 Alkaline Phosphatase 101 Total Creatine Kinase 3233 H* Total Protein 5.5 L Albumin 2.7 L Globulin 2.8 Albumin/Globulin Ratio 1.0 POC Glucose 145 H 181 H 09/02/23 09/02/23 16:05 11:06 WBC RBC Hgb Hct MCV MCH MCHC RDW Plt Count MPV Neut % (Auto) Lymph % (Auto) Yancey % (Auto) Eos % (Auto) Baso % (Auto) Neut # (Auto) Lymph # (Auto) Yancey # (Auto) Eos # (Auto) Baso # (Auto) Abs Immat Gran (auto) Imm/Tot Granulo (auto) Sodium Potassium Chloride Carbon Dioxide Anion Gap BUN Creatinine Est GFR ( Amer) Est GFR (Non-Af Amer) BUN/Creatinine Ratio Glucose Calcium Total Bilirubin AST ALT Alkaline Phosphatase Total Creatine Kinase Total Protein Albumin Globulin Albumin/Globulin Ratio POC Glucose 169 H 202 H Discharge Plan Discharge Disposition: Home, Self-Care Condition: Good Discharge Medications: Continued allopurinol 300 mg tablet 300 mg PO DAILY amlodipine 5 mg tablet 5 mg PO DAILY cholecalciferol (vitamin D3) 25 mcg (1,000 unit) capsule 75 mcg PO DAILY furosemide 20 mg tablet 20 mg PO DAILY gabapentin 300 mg capsule 300 mg PO TID Rx Instructions: per refill hx: last filled 06/15/23 for QTY 270 for 90 day supply glipizide 5 mg tablet 5 mg PO BID lisinopril 20 mg tablet 20 mg PO DAILY metoprolol tartrate 100 mg tablet 100 mg PO BID pravastatin 80 mg tablet 80 mg PO DAILY cyclobenzaprine 10 mg tablet 10 mg PO DAILY Rx Instructions: per refill hx: last filled 06/15/23 QTY 90 for 90 day supply Activity: increase activity as tolerated Diet: advance to your usual diet Patient Instructions: Rhabdomyolysis (DC), Fall Prevention (DC) Forms: Portal Instructions Follow Up Appointments: Follow up appt. with Dr. Abbasi on @ 10:30 office #: [phone]
--- NOTE | 2023-09-03 10:29 | CM.NOTE ---
Talked with pt and regarding discharge planning, both refuse HH services at this time. Pt and would rather do outpatient PT. Dr. Hazel signed order for pt to do outpatient PT. No other discharge needs at this time.
[2023-09-03 11:11] LABS: Glucometer 192 mg/dL (74-106)
--- NOTE | 2023-09-03 11:45 | PT.DAILY ---
Physical Therapy Daily Note PT Daily Note/Assess Start: 09/03/23 11:18 Freq: Status: Active Protocol: Document 09/03/23 11:18 PRAVINRYAN (Rec: 09/03/23 11:45 KAY [id number]) Physical Therapy Daily Note/Assessment Time In/Time Out Time In 10:45 Time Out 11:20 Pain In Pain N/A Pain Out Pain N/A Subjective Subjective Pt supine upon arrival. Agrees to PT this morning. Reports feeling better and would like to dc home. Therapeutic Exercise Time Therapeutic Exercise Minutes (minutes) 8 Therapeutic Exercise Units 1 Therapeutic Exercise Treatment Therapeutic Exercise Treatment Standing ex complete in // bars in therapy office. HR, marches, HS curls, hip flexion and hip abd 10x ea. Slow to complete these and requires occ rest break. Therapeutic Activity Time Therapeutic Activity Minutes (minutes) 15 Therapeutic Activity Units 1 Therapeutic Activity Treatment Bed Mobility Ability Standby Assistance Chair Transfer Ability Standby Assistance Therapeutic Activity Comments Pt performs supine>sit transfer with SBA but increased time and using handrails. Pt sits EOB 2 min to get bearings and to talk with therapist - unsupported without LOB. Sit>stand to RW SBA. Amb 100' in chambers down to therapy room with SBA and IV pole to follow. Pt performs stair training up/down 4 steps 2x with step to pattern performed and bilat UE support needed. Pt takes standing rest break in // bars before standing ex. Pt performs standing ex in // bars with bilat UE support. Pt then amb back to room 100' with RW, SBA with assist for IV pole. Pt uses restroom and is able to complete toilet transfer to sit SUP and is left using restroom with nursing notified . Total Physical Therapy Time Total Therapy Minutes 23 Total Physical Therapy Units 2 Summary Daily Note Summary Most goals met at this time. Did not attempted repeated sit >stands but was SBA for 1x. Gait endurance/distance improved and pt is safe with stair training while using bilat UE and step to pattern.
--- NOTE | 2023-09-03 12:21 | XR_ITS ---
The [address] [address] Patient Name: FABY LEYVA MRN: [id number] date: 1950 Sex: M Assigned Patient Location: [place] Current Patient Location: [place] Accession/Order Number: [id number] Exam Date: 09/03/2023 12:30 Report Date: 09/03/2023 13:31 At the request of: MARIELENA DOVER Procedure: XR lumbar spine 2-3V EXAMINATION: XR lumbar spine 2-3V HISTORY: slip and fall COMPARISON: No relevant comparison available. FINDINGS: BONES: Mild anterior wedging of the L1 and L2 vertebral bodies. Disruption of the anterior longitudinal ligament suspected at the L1-L2 level with asymmetric widening of the anterior disc space compared to the posterior disc space. Moderate to severe degenerative spondylosis and facet osteoarthropathy most significant L4-S1 DISC SPACES: Asymmetric anterior widening of the L1-L2 interspace PARASPINOUS: Negative. No paraspinous abnormality is seen. OTHER: Findings discussed with the ordering physician Dr. Hazel by telephone 1:26 PM. XR/XR lumbar spine 2-3V IMPRESSION: Asymmetric widening of the anterior L1-L2 interspace findings suspicious for disruption of the anterior longitudinal ligament. MRI follow-up is recommended Electronically authenticated by: JAKE DALLAS Date: 09/03/2023 13:31
--- NOTE | 2023-09-03 12:21 | XR_ITS ---
[address] [address] Patient Name: FABY LEYVA MRN: [id number] date: 1950 Sex: M Assigned Patient Location: [place] Current Patient Location: [place] Accession/Order Number: [id number] Exam Date: 09/03/2023 12:30 Report Date: 09/03/2023 13:23 At the request of: MARIELENA DOVER Procedure: XR hip BI w PEL 1V EXAMINATION: XR hip BI w PEL 1V HISTORY: slip and fall COMPARISON: No relevant comparison available. FINDINGS: RIGHT FINDINGS: BONES: No acute fracture or dislocation. Moderate to severe right hip osteoarthropathy with joint space narrowing sclerosis and marginal osteophyte formation. Moderate to severe degenerative changes of the visualized spine SOFT TISSUES: Negative. No visible soft tissue swelling. OTHER: Negative. LEFT FINDINGS: BONES: No acute fracture or dislocation. Moderate to severe left hip osteoarthropathy with joint space narrowing sclerosis and marginal osteophyte formation. Moderate to severe degenerative changes of the visualized spine SOFT TISSUES: Negative. No visible soft tissue swelling. OTHER: Negative. XR/XR hip BI w PEL 1V IMPRESSION: RIGHT CONCLUSION: Moderate to severe osteoarthritis LEFT CONCLUSION: Moderate to severe osteoarthritis Electronically authenticated by: JAKE DALLAS Date: 09/03/2023 13:23
[2023-09-03] MEDS: OXYCODONE HCL 5 MG TABLET PO (12:57)
[2023-09-03] MEDS: LACTATED RINGER'S SOLUTION 1,000 ML 75 ML IV (13:49)
[2023-09-03] MEDS: BACLOFEN 10 MG TABLET PO ×2 (14:17→21:12)
[2023-09-03] MEDS: LIDOCAINE 5% PATCH 1 PATCH TOPICAL (14:17)
[2023-09-03 16:10] LABS: Glucometer 273 mg/dL (74-106)
[2023-09-03] MEDS: MORPHINE SULFATE 2 MG/ML SYRINGE IV (16:46)
[2023-09-03 19:57] LABS: Glucometer 216 mg/dL (74-106)
[2023-09-03] MEDS: ATORVASTATIN CALCIUM 20 MG TABLET PO (21:12)
[2023-09-03] MEDS: HYDRALAZINE HCL 20 MG/ML VIAL 10 MG IVP (21:13)
[2023-09-04] VITALS (10 sets, daily range): BP systolic 173–199; BP diastolic 75–100; PULSE 80–82; RESP 18; TEMP 36.6–36.8; O2SAT 91–96
--- NOTE | 2023-09-04 | MR_ITS ---
The [address] [address] Patient Name: FABY LEYVA MRN: [id number] date: 1950 Sex: M Assigned Patient Location: MS Current Patient Location: MS Accession/Order Number: [id number] Exam Date: 09/04/2023 11:30 Report Date: 09/04/2023 13:56 At the request of: MARIELENA DOVER Procedure: MR lumbar spine wo con EXAM: MR lumbar spine wo con REASON FOR EXAM: Slip and fall, lumbar pain. TECHNIQUE: Multiplanar, multisequence imaging of the lumbar spine was performed without contrast COMPARISON: Plain radiographs yesterday. FINDINGS: Study degraded by motion limited number sequences. There is straightening normal cervical lordosis. There is widening of the L1-L2 intervertebral disc space. When correlated with recent radiograph, there is likely underlying dish with thin bridging osteophytes. Significant fluid is present within the intervertebral disc space. There is probable avulsion-type fracture involving the posterior L2 superior endplate. There is also fluid equivalent signal insinuating between the lamina of the L1 vertebral body likely reflecting mildly displaced laminar fractures. There is also likely fracture of ligamentum flavum. There is tear of the anterior longitudinal ligament at the L1-L2 level, There is also a tear of the posterior longitudinal ligament at the L1 superior endplate. There is small amount of epidural hematoma along the ventral margin of the spinal canal at the L1-L2 level, which results in mild spinal canal stenosis. This decompresses into the thecal sac with a fluid fluid level noted at the L5-S1 level likely reflecting intrathecal hemorrhage. The remaining vertebral body heights are maintained. The visualized bony pelvis is congruent. Partially imaged sclerotic lesion identified in the right posterior iliac bone, incompletely characterized. L1-L2: Again mild spinal canal stenosis secondary to epidural hematoma. Mild to moderate bilateral neural foraminal stenosis. L2-L3: Mild broad-based disc bulge with a small central disc protrusion. No severe spinal canal stenosis. Mild right and moderate left neural foraminal stenosis secondary to disc osteophyte complex and facet arthropathy. L3-L4: Diffuse broad-based disc bulge with moderate spinal canal stenosis. Moderate bilateral neural foraminal stenosis secondary to disc osteophyte complex and facet arthropathy. L4-L5: Broad-based disc bulge with moderate spinal canal stenosis. Moderate to severe bilateral neural foraminal stenosis. L5-S1: No focal disc herniation identified. Moderate to severe bilateral neural foraminal stenosis. MR/MR lumbar spine wo con IMPRESSION: 1. 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 There are also mildly displaced fractures of the likely L1 lamina and the ligamentum flavum at the L1 level. This is consistent with an unstable fracture and surgical consultation recommended if not already performed. Epidural hematoma is noted, results in mild spinal canal stenosis. Layering fluid at the S1 level likely represents intrathecal hemorrhage. Recommend CT scan for further characterization of the fractures. 2. Moderate multilevel degenerative disc disease and facet arthropathy, most significant at the L3-L4 and L4-L5 levels. No evidence of severe spinal canal stenosis. Electronically authenticated by: APURVA BO Date: 09/04/2023 13:56
[2023-09-04] MEDS: MORPHINE SULFATE 2 MG/ML SYRINGE IV ×2 (02:23→06:41)
[2023-09-04] MEDS: LACTATED RINGER'S SOLUTION 1,000 ML 75 ML IV (03:09)
[2023-09-04] MEDS: HYDRALAZINE HCL 20 MG/ML VIAL 10 MG IVP ×2 (03:09→11:25)
[2023-09-04] MEDS: BACLOFEN 10 MG TABLET PO ×2 (05:30→14:14)
[2023-09-04] MEDS: GABAPENTIN 300 MG CAPSULE PO ×2 (05:30→14:14)
[2023-09-04 06:05] LABS: Basophils Percent Auto 0.3 % (0.2-2.0); Eosinophils Percent Auto 0.1 % (0.9-7.0); Hematocrit 48.2 % (42.0-54.0); Hemoglobin 16.8 g/dL (14.0-18.0); Immature Granulocytes Abs Auto 0.04 10^3/uL (0.00-0.03); Immature Granulocytes Pct Auto 0.4 % (0.0-0.5); Lymphocytes Absolute Auto 0.9 10^3/uL (1.2-3.8); Lymphocytes Percent Auto 8.6 % (20.5-60.0); Mean Corpuscular HGB Conc 34.9 g/dL (29.9-35.2); Mean Corpuscular Hemoglobin 31.2 pg (25.9-34.0); Mean Corpuscular Volume 89.4 fL (80.0-94.0); Mean Platelet Volume 10.9 fL (9.5-13.5); Monocytes Percent Auto 9.6 % (1.7-12.0); Neutrophils Absolute Auto 8.1 10^3/uL (1.4-6.5); Platelet Count 122 10^3/uL (150-450); Red Blood Count 5.39 10^6/uL (4.70-6.10); Red Cell Distribution Width 13.4 % (11.0-15.0); White Blood Count 9.9 10^3/uL (4.0-11.0)
[2023-09-04 06:53] LABS: Alanine Aminotransferase 49 U/L (16-63); Albumin Globulin Ratio 0.8; Alkaline Phosphatase 104 U/L (46-116); Aspartate Amino Transferase 103 U/L (15-37); BUN Creatinine Ratio 19.8; Bilirubin Total 3.1 mg/dL (0.2-1.0); Calcium 8.7 mg/dL (8.5-10.1); Carbon Dioxide 26.7 mmol/L (21.0-32.0); Chloride 100 mmol/L (98-107); Estimated GFR (African America >60 (>=60); Estimated GFR (Non-African Ame >60 (>=60); Globulin 3.6 g/dL; Glucose 212 mg/dL (74-106); Potassium 3.7 mmol/L (3.5-5.1); Sodium 136 mmol/L (136-145); Total Protein 6.6 g/dL (6.4-8.2)
[2023-09-04 08:26] LABS: Glucometer 190 mg/dL (74-106)
[2023-09-04] MEDS: ALLOPURINOL 300 MG TABLET PO (09:27)
[2023-09-04] MEDS: METOPROLOL TARTRATE 100 MG TABLET PO (09:27)
[2023-09-04] MEDS: LISINOPRIL 20 MG TABLET PO (09:27)
[2023-09-04] MEDS: CHOLECALCIFEROL (VITAMIN D3) 25 MCG/1,000 UNITS TABLET 75 MCG PO (09:27)
[2023-09-04] MEDS: INSULIN ASPART 300 UNIT/3 ML PEN SUBQ (09:27)
[2023-09-04] MEDS: OXYCODONE HCL 5 MG TABLET PO (09:28)
[2023-09-04] MEDS: AMLODIPINE BESYLATE 5 MG TABLET 10 MG PO (09:28)
--- NOTE | 2023-09-04 09:30 | CM.NOTE ---
Rounding with Dr. Hazel. Son Dave and at bedside. Pt. complaining of increased back pain. Plan for MRI today. Await result to determine if any change is needed in discharge plan.
[2023-09-04 11:19] LABS: Glucometer 183 mg/dL (74-106)
[2023-09-04] MEDS: MORPHINE SULFATE 4 MG/ML VIAL IV ×3 (11:22→19:16)
--- NOTE | 2023-09-04 12:00 | PM.IMPN1 ---
Progress Note: A&P Assessment and Plan (1) Acute exacerbation of chronic low back pain: Assessment and Plan: Chronic LBP, acutely exacerbated after fall. XR LS spine indicated disruption of anterior longitudinal ligament. MRI LS spine ordered bt could not be done due to patient's inability to lay on his back Poorly controlled pain and has been needing IV narcotics with suboptimal relief. Increase Morphine to 4 mg. Increase Oxycodone to 10 mg. Added baclofen and lidocaine patch for pain F/u MRI LS spine (2) Fall: Assessment and Plan: Mechanical fall, no head trauma or LOC. Qualifiers: Encounter type: initial encounter Qualified Code(s): W19.XXXA - Unspecified fall, initial encounter (3) Rhabdomyolysis: Assessment and Plan: Had resolved with IVF. Plan was to discharge him but he fell in the bathroom Qualifiers: Encounter type: initial encounter Rhabdomyolysis type: traumatic Qualified Code(s): T79.6XXA - Traumatic ischemia of muscle, initial encounter (4) Fever: Assessment and Plan: likely viral etiology. Resolved. Qualifiers: Fever type: post-vaccination Qualified Code(s): R50.83 - Postvaccination fever (5) NALDO (acute kidney injury): Assessment and Plan: Baseline Cr is normal. Presnted with cr of 1.3 - resolved with IV hydration (6) HTN (hypertension): Assessment and Plan: Poorly controlled, above goal. Increase Amlodipine to 10 mg. Resume his Lisinopril that was withheld due to NALDO Hydralazine IV as needed. Qualifiers: Hypertension type: primary hypertension Qualified Code(s): I10 - Essential (primary) hypertension (7) DM2 (diabetes mellitus, type 2): Assessment and Plan: Sliding scale insulin while inpatient Qualifiers: Diabetes mellitus superintendent container terminal insulin use: without superintendent container terminal use Diabetes mellitus complication status: with neurologic complications Diabetes mellitus complication detail: with unspecified neuropathy Qualified Code(s): E11.40 - Type 2 diabetes mellitus with diabetic neuropathy, unspecified (8) Hyperlipidemia: Assessment and Plan: C/w statin Qualifiers: Hyperlipidemia type: unspecified Qualified Code(s): E78.5 - Hyperlipidemia, unspecified (9) Gout: Assessment and Plan: C/w allopurinol Qualifiers: Gout site: unspecified site Gout etiology: unspecified cause Chronicity: chronic Presence of tophus: without tophus Qualified Code(s): M1A.9XX0 - Chronic gout, unspecified, without tophus (tophi) Plan Patient admission status changed to inpatient as he has poorly controlled pain, requiring IV narcotics, poorly controlled HTN (BP in 180s/100) and needs continued hospital stay as a result. Internal Medicine - PN: Subj Subjective Interval history: Seen and examined. Patient was ready for discharge yesterday but slipped in the bathroom and fell. Overnight, he has had poorly controlled pain, and requiring IV narcotics for pain with no improvement. He is uncomfortable, in pain and as a result his BP too is above goal and elevated. Exam Constitutional Vital Signs, click to edit/add: Last Vital Signs Temp 97.8 F 09/04/23 05:20 Pulse 80 09/04/23 05:20 Resp 18 09/04/23 05:20 BP 197/85 H 09/04/23 11:25 Pulse Ox 93 L 09/04/23 11:29 O2 Del Method Room Air 09/04/23 05:20 Common normals: oriented x3 General appearance: in distress Nutritional appearance: obese Respiratory Common normals: normal respiratory effort and clear to auscultation bilaterally Effort & inspection: able to speak in complete sentences Cardio Common normals: regular rate, S1 normal heart sound and S2 normal heart sound Back & Pelvis Other: Severe back pain, unable to move and I was unable to examine his back Extremity Common normals: no clubbing, cyanosis or edema Internal Medicine - PN: Obj Da Labs Labs: Laboratory Results - last 24 hr 09/03/23 09/03/23 09/04/23 16:09 19:55 04:45 WBC 9.9 RBC 5.39 Hgb 16.8 Hct 48.2 MCV 89.4 MCH 31.2 MCHC 34.9 RDW 13.4 Plt Count 122 L MPV 10.9 Neut % (Auto) 81.0 H Lymph % (Auto) 8.6 L [place] % (Auto) 9.6 Eos % (Auto) 0.1 L Baso % (Auto) 0.3 Neut # (Auto) 8.1 H Lymph # (Auto) 0.9 L [place] # (Auto) 1.0 H Eos # (Auto) 0.0 Baso # (Auto) 0.0 Abs Immat Gran (auto) 0.04 H Imm/Tot Granulo (auto) 0.4 Sodium 136 Potassium 3.7 Chloride 100 Carbon Dioxide 26.7 Anion Gap 13.0 BUN 17.0 Creatinine 0.86 Est GFR ( Amer) >60 Est GFR (Non-Af Amer) >60 BUN/Creatinine Ratio 19.8 Glucose 212 H Calcium 8.7 Total Bilirubin 3.1 H AST 103 H ALT 49 Alkaline Phosphatase 104 Total Protein 6.6 Albumin 3.0 L Globulin 3.6 Albumin/Globulin Ratio 0.8 POC Glucose 273 H 216 H 09/04/23 09/04/23 08:25 11:18 WBC RBC Hgb Hct MCV MCH MCHC RDW Plt Count MPV Neut % (Auto) Lymph % (Auto) [place] % (Auto) Eos % (Auto) Baso % (Auto) Neut # (Auto) Lymph # (Auto) [place] # (Auto) Eos # (Auto) Baso # (Auto) Abs Immat Gran (auto) Imm/Tot Granulo (auto) Sodium Potassium Chloride Carbon Dioxide Anion Gap BUN Creatinine Est GFR ( Amer) Est GFR (Non-Af Amer) BUN/Creatinine Ratio Glucose Calcium Total Bilirubin AST ALT Alkaline Phosphatase Total Protein Albumin Globulin Albumin/Globulin Ratio POC Glucose 190 H 183 H
[2023-09-04] MEDS: ENOXAPARIN SODIUM 40 MG/0.4 ML SYRINGE SUBQ (14:14)
[2023-09-04] MEDS: LIDOCAINE 5% PATCH 1 PATCH TOPICAL (14:14)
--- NOTE | 2023-09-04 14:15 | CM.NOTE ---
Important Message from Medicare reviewed with patient and family. Copy place on chart and original given to patient. Denies any questions.
--- NOTE | 2023-09-04 15:25 | PC.NURSE ---
Previous discharge follow up appt with PCP has been cancelled since patient is transferring to [facility]
--- NOTE | 2023-09-04 15:46 | CM.NOTE ---
Pt will be transferred to higher level of care.
[2023-09-04 16:05] LABS: Glucometer 213 mg/dL (74-106)
--- NOTE | 2023-09-04 16:21 | PM.DS1 ---
DS: Providers Provider Date of admission: 09/04/23 11:58 Primary care physician: Deep Abbasi DO Consults: 09/01/23 13:11 Occupational Therapy Eval and Treat Routine Reason for consultation: Ambulatory dysfunction/weakness Physical Therapy Eval and Treat Routine Reason for consultation: Ambulatory dysfunction/weakness Attending physician on discharge: Shaikh Yasemin Discharging clinician: Shaikh Yasemin Anticipated date of discharge: 09/04/23 DS: Diagnosis Discharge Diagnosis (1) Lumbar vertebral fracture: Assessment and plan: due to fall, unstable fracture - accepted for transfer to [facility] Qualifiers: Lumbar vertebra fracture level: L1 Fracture type: closed Fracture morphology: burst- unstable Fracture healing: with nonunion (2) Spinal epidural hematoma: Assessment and plan: Due to trauma/fall. D/c Lovenox. Transfer to [facility] (3) Acute exacerbation of chronic low back pain: Assessment and plan: due to fall resulting in vertebral fracture/hematoma (4) Fall: Assessment and plan: Mechanical fall in the hospital Qualifiers: Encounter type: initial encounter Qualified Code(s): W19.XXXA - Unspecified fall, initial encounter (5) Rhabdomyolysis: Assessment and plan: resolved. Qualifiers: Encounter type: initial encounter Rhabdomyolysis type: traumatic Qualified Code(s): T79.6XXA - Traumatic ischemia of muscle, initial encounter (6) Fever: Assessment and plan: likely viral. No fever now. Negative COVID Qualifiers: Fever type: post-vaccination Qualified Code(s): R50.83 - Postvaccination fever (7) NALDO (acute kidney injury): Assessment and plan: resolved (8) HTN (hypertension): Assessment and plan: Poorly controlled since he was taken off of Lisinopril. Resumed. Qualifiers: Hypertension type: primary hypertension Qualified Code(s): I10 - Essential (primary) hypertension (9) DM2 (diabetes mellitus, type 2): Assessment and plan: On SSI whileinpatient. c Qualifiers: Diabetes mellitus termite exterminator helper insulin use: without termite exterminator helper use Diabetes mellitus complication status: with neurologic complications Diabetes mellitus complication detail: with unspecified neuropathy Qualified Code(s): E11.40 - Type 2 diabetes mellitus with diabetic neuropathy, unspecified (10) Hyperlipidemia: Assessment and plan: /w statinc Qualifiers: Hyperlipidemia type: unspecified Qualified Code(s): E78.5 - Hyperlipidemia, unspecified (11) Gout: Assessment and plan: /w allopurinol Qualifiers: Gout site: unspecified site Gout etiology: unspecified cause Chronicity: chronic Presence of tophus: without tophus Qualified Code(s): M1A.9XX0 - Chronic gout, unspecified, without tophus (tophi) DS: Summary Hospital Course Hospital Course: The patient was admitted with fever of unknown origin, weakness and rhabdomyolysis after suffering a fall at home. He was treated with IV fluids and his CPK and renal function were monitored closely. Once his CPK began to trend down and his renal function returned to baseline he was deemed stable for discharge. Unfortunately, patient had a mechanical fall in the restroom, did not hit his head or lost consciousness but complained of severe back pain for which LS XR and subsequently MRI LS spine was ordered that revealed unstable L1 fracture, epidural hematoma in lumbar region. Patient was on LOVENOX for DVT px. It was discontinued. On strict bed rest. Patient's case d/w NS and then trauma team at [facility]. He is accepted for transfer to [place] [facility] for trauma w/u Status at Discharge Functional status at discharge: bed bound Overall status at discharge: patient is not back to baseline Time Spent with Patient Time attestation: Total time spent providing and/or coordinating discharge services: Time spent: greater than 30 minutes Exam Constitutional Vital Signs, click to edit/add: Last Vital Signs Temp 98.3 F 09/04/23 14:33 Pulse 82 09/04/23 14:33 Resp 18 09/04/23 14:33 BP 173/75 H 09/04/23 14:33 Pulse Ox 92 L 09/04/23 15:00 O2 Del Method Room Air 09/04/23 14:33 Common normals: oriented x3 General appearance: in distress Nutritional appearance: obese Respiratory Common normals: normal respiratory effort and clear to auscultation bilaterally Effort & inspection: able to speak in complete sentences Cardio Common normals: regular rate, S1 normal heart sound and S2 normal heart sound Back & Pelvis Other: Severe back pain, unable to move and I was unable to examine his back Extremity Common normals: no clubbing, cyanosis or edema DS: Data Data Completed and Pending Labs on day of discharge: Labs from last 24 hours 09/04/23 09/04/23 09/04/23 16:03 11:18 08:25 WBC RBC Hgb Hct MCV MCH MCHC RDW Plt Count MPV Neut % (Auto) Lymph % (Auto) [place] % (Auto) Eos % (Auto) Baso % (Auto) Neut # (Auto) Lymph # (Auto) [place] # (Auto) Eos # (Auto) Baso # (Auto) Abs Immat Gran (auto) Imm/Tot Granulo (auto) Sodium Potassium Chloride Carbon Dioxide Anion Gap BUN Creatinine Est GFR ( Amer) Est GFR (Non-Af Amer) BUN/Creatinine Ratio Glucose Calcium Total Bilirubin AST ALT Alkaline Phosphatase Total Protein Albumin Globulin Albumin/Globulin Ratio POC Glucose 213 H 183 H 190 H 09/04/23 09/03/23 04:45 19:55 WBC 9.9 RBC 5.39 Hgb 16.8 Hct 48.2 MCV 89.4 MCH 31.2 MCHC 34.9 RDW 13.4 Plt Count 122 L MPV 10.9 Neut % (Auto) 81.0 H Lymph % (Auto) 8.6 L [place] % (Auto) 9.6 Eos % (Auto) 0.1 L Baso % (Auto) 0.3 Neut # (Auto) 8.1 H Lymph # (Auto) 0.9 L [place] # (Auto) 1.0 H Eos # (Auto) 0.0 Baso # (Auto) 0.0 Abs Immat Gran (auto) 0.04 H Imm/Tot Granulo (auto) 0.4 Sodium 136 Potassium 3.7 Chloride 100 Carbon Dioxide 26.7 Anion Gap 13.0 BUN 17.0 Creatinine 0.86 Est GFR ( Amer) >60 Est GFR (Non-Af Amer) >60 BUN/Creatinine Ratio 19.8 Glucose 212 H Calcium 8.7 Total Bilirubin 3.1 H AST 103 H ALT 49 Alkaline Phosphatase 104 Total Protein 6.6 Albumin 3.0 L Globulin 3.6 Albumin/Globulin Ratio 0.8 POC Glucose 216 H Preliminary micro results at discharge 09/01/23 11:50 - Preliminary Blood NO GROWTH AT 36-48 HOURS. FINAL TO FOLLOW. 09/01/23 11:00 Blood Culture Result 1 - Preliminary Blood NO GROWTH AT 36-48 HOURS. FINAL TO FOLLOW. Discharge Plan Discharge Disposition: [facility] Condition: Good
--- NOTE | 2023-09-04 20:08 | PC.NURSE ---
report called to [facility] ER. Nurse Stephenson. All questions answered.
--- OUTSIDE RECORDS SUMMARY | 2023-09-16 01:24 | XMS_ITS | CCD ---
Author Name Unknown Address [address] [place] [address] Organization [facility] Care Team Providers Care Teletray Operator Name Role Phone REQUEST, NONE LISTED Attending Unavaila ble REQUEST, NONE LISTED Consulting Unavaila ble REQUEST, NONE LISTED Admitting Unavaila ble REQUEST, NONE LISTED Admitting Unavaila ble REQUEST, NONE LISTED Attending Unavaila ble REQUEST, NONE LISTED Consulting Unavaila CADENCE Marina Attending Unavailable CADENCE NINA Consulting Unavailable CADENCE NINA Admitting Unavailable Deep Abbasi Unavailable Richard Escoto Admitting Unavailable NO FAMILY, PHYSICIAN Primary Care Unavailable Ana Dooley Consulting Unavailable Richard Escoto Attending Unavailable Nichole Renteria Consulting Unavailable Kiya Moon Consulting Unavailable Shanda Penn Consulting Unavailable Thalia Rizo Consulting Unavailable Georgina Villalta Consulting Unavailable Jerri Beaulieu Consulting Unavailable Julita Vang Consulting Unavailable Gladys Swann Consulting Unavailable Pawel Andrade Consulting Unavailable Tawanda Ziegler Consulting UnavailAlexandre Denton Consulting Unavailable Donna Ruff Consulting Unavailable Yuliya Mosley Consulting UnavailDuane Sandy Consulting Unavailable J Carlos Owusu Consulting Unavailable Rikki Bland Consulting Unavailable John Cabral Consulting Unavailable Deniz Penn Consulting Unavailable Yogesh Breaux Consulting Unavailable Gabriel Rodriges Consulting Unavailable Paz Stone Consulting Unavailable Joshua Kyle Consulting Unavailab Sergio Saravia Consulting Unavailable Rodney Huff Consulting Unavailable Wiley Mayberry Consulting Unavailable Yoana Ely Consulting Unavailable Sandeep Pineda Consulting Unavailable Chance Bello Consulting Unavailable Irma Peterson Consulting Unavailable Bakari Gao Consulting Unavailable Nabil Friedman Consulting Unavailable Tara Rea Consulting Unavailable Shanique Diaz Consulting Unavailable Jessica Blake Unavailable Nilson Wang Consulting Unavailable Vincenzo Porter Consulting Unavailable Leyda Conde Consulting Unavailable Sharyn Del Angel Consulting Unavailable Taryn Escoto Consulting Unavailable Medications Current Medications Medication Drug Class(es) Dates Sig (Normalized) Sig (Original) allopurinol 100 mg oral tablet (16 sources) Xanthine Oxidase Inhibitor take 1 tablet by mouth every twenty-four hours Allopurinol 100 MG 1 tablet Orally Once a day Active take 1 tablet by santino th every twenty-four hours Allopurinol 300 MG 1 tablet Orally Once a day Active amLODIPine 5 mg oral tablet (3 sources) Dihydropyridine Calcium Channel Gre[place]rio Start: 08-10-2023 take 1 tablet by mouth every twenty-four hours amLODIPine Besylate 5 MG 1 tablet Orally Once a day for 90 days Jul, Active Cholecalciferol (8 sources) Vitamin D take 3 capsules by mouth once daily Cholecalciferol 25 MCG (1000 UT) 3 capsules Orally Once a day for 90 days Active cyclobenzaprine hydrochloride 10 mg oral tablet (8 sources) Muscle Relaxant take 1 tablet by mouth every twenty-four hours Cyclobenzaprine HCl 10 MG 1 Tablet Orally Once a day for 90 days Active furosemide 20 mg oral tablet (8 sources) Loop Diuretic take 1 tablet by mouth every twenty-four hours Furosemide 20 MG 1 tablet Orally Once a day Active gabapentin 300 mg oral capsule (8 sources) Anti-epileptic Agent take 1 capsule by mouth three times daily Gabapentin 300 MG TAKE 1 CAPSULE BY MOUTH THREE TIMES A DAY FOR 90 DAYS Active glipiZIDE 5 mg oral tablet (8 sources) Sulfonylurea take 1 tablet by mouth every twelve hours glipiZIDE 5 MG 1 tablet Orally twice a day Active ammonium lactate 120 mg/ml topical lotion (8 sources) Ammonium Lactate 12 % 1 application Externally Twice a day Active Ammonium Lactate 12 % 1 application Externally Twice a day Active lisinopril 20 mg oral tablet (8 sources) Angiotensin Converting Enzyme Inhibitor take 1 tablet by mouth every twenty-four hours Lisinopril 20 MG 1 tablet Orally Once a day Active metoprolol tartrate 100 mg oral tablet (8 sources) beta-Adrenergic Gregorio take 1 tablet by mouth every twelve hours Metoprolol Tartrate 100 MG 1 tablet with food Orally Twice a day Active pravastatin sodium 80 mg oral tablet (8 sources) HMG-CoA Reductase Inhibitor take 1 tablet by mouth every twenty-four hours Pravastatin Sodium 80 MG 1 tablet Orally Once a day Active Problems Problem Classification Problem Date Documented Date Episodic/Chronic Diabetes mellitus with complications (20 sources) Type 2 diabetes mellitus; Translations: [Type 2 diabetes mellitus with hyperglycemia] Chronic Disorders of lipid metabolism (11 sources) Pure hypercholesterolemia; Translations: [Pure hypercholesterolemia, unspecified] Chronic Essential hypertension (20 sources) Hypertensive disorder; Translations: [Essential (primary) hypertension] Chronic Genitourinary symptoms and ill-defined conditions (1 source) Nocturia Episodic Hyperplasia of prostate (5 sources) Nocturia due to benign prostatic hypertrophy; Translations: [Benign prostatic hyperplasia with lower urinary tract symptoms] Chronic Immunizations and screening for infectious disease (4 sources) Encounter for immunization; Translations: [ENCOUNTER FOR IMMUNIZATION] Onset: 09-17-2021 Episodic Osteoarthritis (9 sources) Osteoarthritis of left knee joint; Translations: [Unilateral primary osteoarthritis, left knee] Chronic Other connective tissue disease (8 sources) H/O: gout; Translations: [Personal history of other diseases of the musculoskeletal system and connective tissue] Episodic Other connective tissue disease (5 sources) Personal history of other diseases of the musculoskeletal system and connective tissue Episodic Other diseases of veins and lymphatics (8 sources) Peripheral venous insufficiency; Translations: [Venous insufficiency (chronic) (peripheral)] Episodic Other diseases of veins and lymphatics (6 sources) Venous insufficiency (chronic) (peripheral) Episodic Other liver diseases (3 sources) Intrahepatic cholestasis; Translations: [Other specified diseases of liver] Chronic Other liver diseases (1 source) Other specified diseases of liver Chronic Other nutritional; endocrine; and metabolic disorders (8 sources) Morbid obesity; Translations: [Morbid (severe) obesity due to excess calories] Chronic Other nutritional; endocrine; and metabolic disorders (2 sources) Morbid (severe) obesity due to excess calories Chronic Other nutritional; endocrine; and metabolic disorders (3 sources) Severe obesity; Translations: [Morbid (severe) obesity due to excess calories] Chronic Other nutritional; endocrine; and metabolic disorders (3 sources) Body mass index 40+ - severely obese; Translations: [Body mass index (BMI) 40.0-44.9, adult] Chronic Other nutritional; endocrine; and metabolic disorders (1 source) Body mass index (BMI) 40.0-44.9, adult Chronic Other screening for suspected conditions (not mental disorders or infectious disease) (12 sources) Raised prostate specific antigen; Translations: [Elevated prostate specific antigen [PSA]] Episodic Spondylosis; intervertebral disc disorders; other back problems (4 sources) Lumbar spondylosis; Translations: [Spondylosis without myelopathy or radiculopathy, lumbar region] Chronic Results Test Name Value Interpretation Reference Range Facil ity Complete Blood Count Auto Di ffon 09-15-2023 Basophils (Bld) [#/Vol] 0.1 10*3/uL Normal 0.0-0.2 [facility] Comment on above: Result Comment: PERF ORMED BY: [place] [address] PATHOLOGIST MANAGER EQUITY SASKIA KENNEDY M.D. Performed By: #### C YAMILET CMP, PAB #### [address] Basophils/100 WBC (Bld) 0.4 % Normal . [facility] Comment on above: Performed By: #### C BC CMP, PAB #### [address] Eosinophils (Bld) [#/Vol] 0.1 10*3/uL Normal 0.0-0.45 [facility] Comment on above: Performed By: #### C BC CMP, PAB #### [address] Eosinophils/100 WBC (Bld) 1.1 % Normal . [facility] Comment on above: Performed By: #### C BC, CMP, PAB #### [address] Erythrocyte distribution wid th (RBC) [Ratio] 14.1 % Normal 12.0-14.8 [facility] Comment on above: Performed By: #### C BC, CMP, PAB #### [address] Hematocrit (Bld) [Volume fraction] 36.8 % Low 38.8-50.0 [facility] Comment on above: Performed By: #### C BC, CMP, PAB #### [facility] [address] [place] [address] [place] Hemoglobin (Bld) [Mass/Vol] 12.9 g/dL Low 13.0-17. 0 [facility] Comment on above: Performed By: #### C BC, CMP, PAB #### [facility] [address] Lymphocytes (Bld) [#/Vol] 1.7 10*3/uL Normal 1.00-4.8 [facility] Comment on above: Performed By: #### C BC, CMP, PAB #### [facility] [address] Lymphocytes/100 WBC (Bld) 12.8 % Normal . [facility] Comment on above: Performed By: #### C BC, CMP, PAB #### [facility] [address] [place] [address] [place] MCH (RBC) [Entitic mass] 31.7 pg Normal 27.5-35.2 [facility] Comment on above: Performed By: #### C BC, CMP, PAB #### [facility] [address] [place] [address] [place] MCV (RBC) [Entitic vol] 90.6 fL Normal 83.5-101 [facility] Comment on above: Performed By: #### C BC, CMP, PAB #### [facility] [address] Mean Corpuscular HGB Conc 35.0 g/dL Normal 32.5-35.6 [facility] Comment on above: Performed By: #### C BC, CMP, PAB #### [facility] [address] [place] [address] [place] Monocytes (Bld) [#/Vol] 1.2 10*3/uL High 0.0-0.8 [facility] Comment on above: Performed By: #### C BC, CMP, PAB #### [facility] [address] [place] [id number] [place] Monocytes/100 WBC (Bld) 9.0 % Normal . [facility] Comment on above: Performed By: #### C BC, CMP, PAB #### [facility] [address] Neutrophils (Bld) [#/Vol] 10.3 10*3/uL High 1.8-7.7 [facility] Comment on above: Performed By: #### C BC, CMP, PAB #### [facility] [address] Neutrophils/100 WBC (Bld) 76.7 % Normal . [facility] Comment on above: Performed By: #### C BC, CMP, PAB #### [facility] [address] NRBC% 0.1 /100{WBC} Normal 0-0.5 [facility] Comment on above: Performed By: #### C BC, CMP, PAB #### [address] Platelet mean volume (Bld) [Entitic vol] 7.7 fL Normal 6.6-10.1 [facility] Comment on above: Performed By: #### C BC, CMP, PAB #### [place] [address] [place] Platelets (Bld) [#/Vol] 300 10*3/uL Normal 150-450 [facility] Comment on above: Performed By: #### C BC, CMP, PAB #### [facility] [address] [place] [address] [place] RBC (Bld) [#/Vol] 4.06 10*6/uL Normal 3.90-5.60 [facility] Comment on above: Performed By: #### C BC, CMP, PAB #### [facility] [address] [place] [address] [place] WBC (Bld) [#/Vol] 13.4 10*3/uL High 4.1-10.5 [facility] Comment on above: Performed By: #### C BC, CMP, PAB #### [address] Comprehensive Metabolic Pane shabbri 09-15-2023 Albumin [Mass/Vol] 3.0 g/dL Low 3.5-5.7 [facility] Comment on above: Performed By: #### C MYLA WOODARD, PAB #### [facility] [address] Albumin/Globulin [Mass ratio] 1.3 {ratio} Normal [facility] Comment on above: Performed By: #### C MYLA WOODARD, PAB #### [facility] [address] ALP [Catalytic activity/Vol] 99 U/L Normal 34-104 [facility] Comment on above: Performed By: #### C MYLA WOODARD, PAB #### [address] ALT [Catalytic activity/Vol] 19 U/L Normal 7-52 [facility] Comment on above: Performed By: #### C MYLA WOODARD, PAB #### [address] Anion gap [Moles/Vol] 10.7 mmol/L Normal 6.0-15.0 [facility] Comment on above: Performed By: #### C MYLA WOODARD, PAB #### [address] AST [Catalytic activity/Vol] 18 U/L Normal 13-39 [facility] Comment on above: Performed By: #### C MYLA WOODARD, PAB #### [address] Bilirubin [Mass/Vol] 1.9 mg/dL High 0.3-1.0 [facility] Comment on above: Result Comment: Samp les from patients who have taken Naproxen have shown spurious elevation in Total Bilirubin levels. A metabolite of Naproxen, O-desmethylnaproxen, has been shown to interfere with the Jendrassik-Grof method for measuring Total Bilirubin. Performed By: #### C YAMILET CMP, PAB #### [address] Calcium [Mass/Vol] 8.9 mg/dL Normal 8.6-10.3 [facility] Comment on above: Performed By: #### C MYLA WOODARD, PAB #### [facility] [address] [place] [address] [place] Chloride [Moles/Vol] 99 mmol/L Normal 98-107 [facility] Comment on above: Performed By: #### C MYLA WOODARD, PAB #### [facility] [address] [place] [address] [place] CO2 [Moles/Vol] 28.2 mmol/L Normal 21.0-31.0 [facility] Comment on above: Performed By: #### C MYLA WOODARD, PAB #### [facility] [address] Creatinine [Mass/Vol] 0.80 mg/dL Normal 0.70-1.30 [facility] Comment on above: Performed By: #### C MYLA WOODARD, PAB #### [facility] [address] [place] [address] [place] Creatinine Clr Calc Pharmacy 118.72 [facility] Comment on above: Performed By: #### C MYLA WOODARD, PAB #### [facility] [address] [place] [address] [place] GFR/1.73 sq M.predicted MDRD (S/P/Bld) [Vol rate/Area] mL/min/{1.73_m2} Normal [facility] Comment on above: Performed By: #### C MYLA WOODARD, PAB #### [facility] [address] [place] [address] [place] Globulin (S) [Mass/Vol] 2.4 g/dL Normal [facility] Comment on above: Performed By: #### C MYLA WOODARD, PAB #### [facility] [address] [place] [address] [place] Glucose [Mass/Vol] 97 mg/dL Normal 70-100 [facility] Comment on above: Result Comment: [facility] Glucose Reference Range is dependent on time and content of last meal. Glucose of more than 200 mg/dL in a nonstressed, ambulatory subject supports the diagnosis of Diabetes Mellitus. ADA recommended reference range Performed By: #### C BC, CMP, PAB #### [facility] [address] [place] [id number] [place] Potassium [Moles/Vol] 3.9 mmol/L Normal 3.5-5.1 [facility] Comment on above: Performed By: #### C BC, CMP, PAB #### [facility] [address] [place] [id number] [facility] Protein [Mass/Vol] 5.4 g/dL Low 6.4-8.9 [facility] Comment on above: Performed By: #### C BC, CMP, PAB #### [facility] [address] Sodium [Moles/Vol] 134 mmol/L Low 136-145 [facility] Comment on above: Performed By: #### C BC, CMP, PAB #### [facility] [address] [place] [id number] [facility] Urea nitrogen [Mass/Vol] 24 mg/dL Normal 7-25 [facility] Comment on above: Performed By: #### C BC, CMP, PAB #### [facility] [address] Glucose Poct Glucometerson 1 11-16-2022 Glucose [Mass/Vol] 89 mg/dL Normal [facility] Comment on above: Result Comment: [facility] Glucose Reference Range is dependent on time and content of last meal. Glucose of more than 200 mg/dL in a nonstressed, ambulatory subject supports the diagnosis of Diabetes Mellitus. PERFORMED BY: [place] [address] PATHOLOGIST MANAGER EQUITY SASKIA KENNEDY M.D. Performed By: #### G LULS #### Point of Care testing , Prealbuminon 09-15-2023 Prealbumin [Mass/Vol] 14.9 mg/dL Low 17.0-34.0 [facility] Comment on above: Result Comment: PERF ORMED BY: [facility] [address] [place] [address] PATHOLOGIST MANAGER EQUITY SASKIA KENNEDY M.D. Performed By: #### C BC, CMP, PAB #### [facility] [address] Glucose Poct Glucometerson 1 11-15-2022 Commemt1 Glu2: Cleaned Meter [facility] Comment on above: Performed By: #### G LULS #### Point of Care testing , Commemt2 WILL NOTIFY DR/RN [facility] Comment on above: Result Comment: PERF ORMED BY: [facility] [address] [place] [address] PATHOLOGIST MANAGER EQUITY SASKIA KENNEDY M.D. Performed By: #### G LULS #### Point of Care testing , Glucose [Mass/Vol] 85 mg/dL [facility] Comment on above: Result Comment: [facility] Glucose Reference Range is dependent on time and content of last meal. Glucose of more than 200 mg/dL in a nonstressed, ambulatory subject supports the diagnosis of Diabetes Mellitus. Performed By: #### G LULS #### Point of Care testing , Vital Signs Date Time Vital Sign Value Performing Clinician Facility 08-10-2023 13:30-0500 Body height 177.8 cm Deep Abbasi Other [facility] Other 08-10-2023 13:30-0500 Body mass index (BMI) [Ratio] 43.59 kg/m2 [email or web address] Other [facility] Other 08-10-2023 13:30-0500 Body weight 137.8 kg [email or web address] Other [facility] Other 08-10-2023 13:30-0500 Diastolic blood pressure 97 mm[Hg] [email or web address] Other [facility] Other 08-10-2023 13:30-0500 Respiratory rate 16 /min [email or web address] Other [facility] Other 08-10-2023 13:30-0500 Systolic blood pressure 185 mm[Hg] Deep Ball Other [facility] Other 04-07-2023 13:30-0400 Body height 177.8 cm Deep Ball Other [facility] Other 04-07-2023 13:30-0400 Body mass index (BMI) [Ratio] 43.93 kg/m2 Deep Ball Other [facility] Other 04-07-2023 13:30-0400 Body weight 138.89 kg Deep Ball Other [facility] Other 04-07-2023 13:30-0400 Diastolic blood pressure 76 mm[Hg] Deep Ball Other [facility] Other 04-07-2023 13:30-0400 Respiratory rate 16 /min Deep Ball Other [facility] Other 04-07-2023 13:30-0400 Systolic blood pressure 130 mm[Hg] Deep Ball Other [facility] Other 10-21-2022 15:30-0500 Body height 177.8 cm Deep Ball Other [facility] Other 10-21-2022 15:30-0500 Body mass index (BMI) [Ratio] 44.36 kg/m2 Deep Ball Other [facility] Other 10-21-2022 15:30-0500 Body weight 140.25 kg Deep Ball Other [facility] Other 10-21-2022 15:30-0500 Diastolic blood pressure 86 mm[Hg] Deep Ball Other [facility] Other 10-21-2022 15:30-0500 Respiratory rate 16 /min Deep Abbasi Other [facility] Other 10-21-2022 15:30-0500 Systolic blood pressure 132 mm[Hg] Deep Abbasi Other [facility] Other Encounters Encounter Date Encounter Type Care Provider Facility Start: 09-14-2023 Evaluation and management of inpatient Richard Escoto Facility:[facility] Start: 09-09-2023 End: 09-09-2023 ambulatory Deep Abbasi Other [facility] Other Start: 09-09-2023 Telephone encounter Deep Ball [facility] Start: 08-10-2023 End: 08-10-2023 ambulatory Deep Ball Other [facility] Other Start: 08-10-2023 Patient encounter procedure Deep Ball [facility] Start: 08-10-2023 Telephone encounter Deep Ball [facility] Start: 04-07-2023 End: 04-07-2023 ambulatory Deep Elroy Other [facility] Other Start: 04-07-2023 Office outpatient vi sit 25 minutes Deep Ball [facility] Start: 01-16-2023 End: 01-16-2023 ambulatory Deep Ball Other [facility] Other Start: 01-16-2023 Telephone encounter Deep Ball [facility] Start: 11-25-2022 End: 11-25-2022 ambulatory Deep Ball Other [facility] Other Start: 11-25-2022 Telephone encounter Deep Ball [facility] Start: 10-28-2022 End: 10-28-2022 ambulatory Deep Ball Other [facility] Other Start: 10-28-2022 Telephone encounter Deep Abbasi [facility] Start: 10-21-2022 End: 10-21-2022 ambulatory Deep Abbasi Other [facility] Other Start: 10-21-2022 Office outpatient ne w 45 minutes Deep Abbasi [facility] Start: 09-17-2021 End: 09-18-2021 ambulatory CADENCE NINA Facility:[facility] Start: 12-18-2020 End: 12-19-2020 ambulatory NONE LISTED REQUEST Facility:[facility] Start: 11-26-2020 End: 11-27-[address] NONE LISTED REQUEST Facility: Payers Date Payer Category Payer Private Health Insurance [id number] 1958 Self-pay Medicare [id number] Unknown [id number] [id number] [id number] Unknown [id number] [id number] [id number] Unknown [id number] [id number] [id number] Unknown [id number] Social History Date Type Detail Facility Sex Assigned At [facility] Other History general Narrative - Reported 08-28-2023 Note Date & Type Note Facility 08-28-2023 History general N arrative - Reported Type Medical History Hypertension Medical History High cholesterol Surgical History Thoracolumbar spinal fusion: T1 1-L4 08/2023 [facility] Other Evaluation note 08-10-2023 Note Date & Type Note Facility 08-10-2023 Evaluation note Encounter Date Diagnosis Assessment Notes Jul, Primary hypertension (ICD-10 - I10) This patient is instructed to consume a healthy, low-fat, low-salt diet. They are also encouraged to continue exercise to achieve/maintain a normal BMI. Patient is instructed on home BP measurements: - rest for 5 minutes w/o talking- positioned w/ feet on floor and arm supported- average best 2/3 readings w/ goal < 135/85 _update office in couple weeks Jul, Type 2 diabetes mellitus with diabetic polyneuropathy, without long-term current use of insulin (ICD-10 - E11.42) Inspect feet daily for cuts and calluses.Recomme nd diabetic shoes and inserts to prevent callus formation.Fall precautions. Jul, Type 2 diabetes mellitus with hyperglycemia, without long-term current use of insulin (ICD-10 - E11.65) This patient is following a comprehensive diabetic treatment plan. They are checking their feet daily for calluses and nonhealing ulcers. They are being seen for yearly dilated eye examinations. Goals: SBP less than 130, LDL less than 100, FBS less than 140, A1C less than 7%. They are checking their BS daily, will which are reviewed at the office visit. Continue regular routine monitoring of A1C,] Microalbumin, Dilated eye exam and Foot exam Jul, Chronic venous insufficiency (ICD-10 - I87.2) Avoid salt and elevate lower extremities, support stockings, inspect legs and feet daily for blisters and ulcerations. Jul, Pure hypercholesterolemia (ICD-10 - E78.00) Instructed on diet and exercise with continued statin therapy.Discusse d the beneficial effects of lowering cholesterol in reducing the risk for cerebrovascular and cardiovascular disease. Jul, Medicare annual wellness visit, subsequent (ICD-10 - Z00.00) Personalized health advice was given to the beneficiary including a written plan for screenings discussed and provided. Advanced care planning reviewed and/or information given as requested. Additional counseling was provided here today in regards to, [ ]. The above visit was performed by [ ], under direct supervision of [ ]. Document reviewed and amended by provider signed below. Jul, Lumbar spondylosis (ICD-10 - M47.816) The patient is instructed to avoid bending, twisting or lifting. They are to use intermittent heat and ice as needed. They may schedule a massage or gentle manipulation. They may safely use Tylenol as needed. Jul, Morbid (severe) obesity due to excess calories (ICD-10 - E66.01) This patient has been instructed on a low-fat, high-fiber diet. They are instructed to reduce calories, portion sizes and snacks. It is recommended that they exercise for 30 minutes, 3-5 times weekly. Jul, Body mass index [BMI] 40.0-44.9, adult (ICD-10 - Z68.41) Jul, Colon cancer screening (ICD-10 - Z12.11) [facility], Screening PSA (prostate specific antigen) (ICD-10 - Z12.5) Will send for PSA and if none done, will schedule. May be ordered by Jul, Intrahepatic cholestasis (ICD-10 - K76.89) Elevate Alk Phos and Bilirubin w/ normal ALT/AST Liver/GB [facility] Other Evaluation note 04-07-2023 Note Date & Type Note Facility 04-07-2023 Evaluation note Encounter Date Diagnosis Assessment Notes Mar, Type 2 diabetes mellitus with hyperglycemia, without long-term current use of insulin (ICD-10 - E11.65) This patient is following a comprehensive diabetic treatment plan. They are checking their feet daily for calluses and nonhealing ulcers. They are being seen for yearly dilated eye examinations. Goals: SBP less than 130, LDL less than 100, FBS less than 140, AC and A1C less than 7%. They are checking their BS daily, will which are reviewed at the office visit. Continue regular routine monitoring of A1C,] Microalbumin, Dilated eye exam and Foot exam Mar, Primary hypertension (ICD-10 - I10) This patient is instructed to consume a healthy, low-fat, low-salt diet. They are also encouraged to continue exercise to achieve/maintai n a normal BMI. Mar, Type 2 diabetes mellitus with diabetic polyneuropathy, without long-term current use of insulin (ICD-10 - E11.42) Inspect feet daily for cuts and calluses.Recomm end diabetic shoes and inserts to prevent callus formation.Fall precautions. Mar, Pure hypercholesterolemia (ICD-10 - E78.00) Mar, Chronic venous insufficiency (ICD-10 - I87.2) Avoid salt and elevate lower extremities, support stockings, inspect legs and feet daily for blisters and ulcerations. Mar, Hx of gout (ICD-10 - Z87.39) Diet instructions, no flares in past year Continue urate lowering treatment Mar, Benign prostatic hyperplasia with lower urinary tract symptoms (ICD-10 - N40.1) Symptoms tolerable, PSA and CARLA yearly Mar, Nocturia (ICD-10 - R35.1) Mar, Elevated PSA (ICD-10 - R97.20) States was given medication to lower PSA He did not ever see a Urologist He denies hx of TRUS/bx or TURP [facility] Other Evaluation note 01-16-2023 Note Date & Type Note Facility 01-16-2023 Evaluation note Encounter Date Diagnosis Assessment Notes Dec, Chronic venous insufficiency (ICD-10 - I87.2) Dec, Hx of gout (ICD-10 - Z87.39) Dec, Type 2 diabetes mellitus with hyperglycemia, without long-term current use of insulin (ICD-10 - E11.65) [facility] Other Evaluation note 11-25-2022 Note Date & Type Note Facility 11-25-2022 Evaluation note Encounter Date Diagnosis Assessment Notes Oct, Hx of gout (ICD-10 - Z87.39) Oct, Type 2 diabetes mellitus with hyperglycemia, without long-term current use of insulin (ICD-10 - E11.65) Oct, Chronic venous insufficiency (ICD-10 - I87.2) Oct, Primary hypertension (ICD-10 - I10) Oct, Type 2 diabetes mellitus with diabetic polyneuropathy, without long-term current use of insulin (ICD-10 - E11.42) [facility] Other Evaluation note 10-28-2022 Note Date & Type Note Facility 10-28-2022 Evaluation note Encounter Date Diagnosis Assessment Notes Sep, Hx of gout (ICD-10 - Z87.39) Sep, Type 2 diabetes mellitus with hyperglycemia, without long-term current use of insulin (ICD-10 - E11.65) Sep, Chronic venous insufficiency (ICD-10 - I87.2) [facility] Other Evaluation note 10-21-2022 Note Date & Type Note Facility 10-21-2022 Evaluation note Encounter Date Diagnosis Assessment Notes Sep, Primary hypertension (ICD-10 - I10) This patient is instructed to consume a healthy, low-fat, low-salt diet. They are also encouraged to continue exercise to achieve/maintai n a normal BMI. Sep, Pure hypercholesterolemia (ICD-10 - E78.00) Diet and exercise Sep, Type 2 diabetes mellitus with hyperglycemia, without long-term current use of insulin (ICD-10 - E11.65) This patient is following a comprehensive diabetic treatment plan. They are checking their feet daily for calluses and nonhealing ulcers. They are being seen for yearly dilated eye examinations. Goals: SBP less than 130, LDL less than 100, FBS less than 140, AC and A1C less than 7%. They are checking their BS daily, will which are reviewed at the office visit. Last A1C 6.5% Jun, 2022 Sep, Type 2 diabetes mellitus with diabetic polyneuropathy, without long-term current use of insulin (ICD-10 - E11.42) Inspect feet daily for calluses and ulcerations. Recommended proper shoes and inserts to prevent callus formation. Fall precautions Sep, Chronic venous insufficiency (ICD-10 - I87.2) Avoid salt and elevate lower extremities, support stockings, inspect legs and feet daily for blisters and ulcerations. Sep, Primary osteoarthritis of left knee (ICD-10 - M17.12) Quad exercises, ice/heat and Voltaren Gel. XR to assess joint space Sep, Morbid obesity (ICD-10 - E66.01) This patient has been instructed on a low-fat, high-fiber diet. They are instructed to reduce calories, portion sizes and snacks. It is recommended that they exercise for 30 minutes, 3-5 times weekly. Sep, Elevated PSA (ICD-10 - R97.20) Hx of Urology referral w/o TRUS/Bx Sep, Hx of gout (ICD-10 - Z87.39) No acute gout attacks in past year. Diet instructions, continue urate lowering therapy [facility] Other Evaluation note Note Date & Type Note Facility Evaluation note No Information [facility] Other History general Narrative - Reported Note Date & Type Note Facility History general Narrative - Reported Type Medical History Hypertension Medical History High cholesterol [facility] Other Summary Purpose Family History No Family History Records FoundNo Family History Records Found Advance Directives No Advanced Directives Records FoundNo Advanced Directives Records Found Additional Source Comments (unrecognized sect ion and content) No Status Records FoundNo Status Records Found INFORMATION SOURCE (unrecogn ized section and content) DATE CREATED AUTHOR 10/11/2021 [facility] DATE CREATED AUTHOR AUTHOR'S ORGANIZ ATION 09/15/2023 [facility] REASON FOR VISIT (unrecogniz ed section and content) new/old patientPRESCRIPTION REFILLSprescription refillRefillsIndiana [facility] ResultsNo Information FOR RECORDS PERTAINING TO PATIENTS WHO ARE OR HAVE BEEN ENROLLED IN A CHEMICAL DEPENDENCY/SUBSTANCEABUSE PROGRAM, SOME INFORMATION MAY BE OMITTED. This clinical summary was aggregated from multiple sources. Caution should be exercised in using it in the provision of clinical care. This summary normalizes information from multiple sources, and as a consequence, information in this document may materially change the coding, format and clinical context of patient data. In addition, data may be omitted in some cases. CLINICAL DECISIONS SHOULD BE BASED ON THE PRIMARY CLINICAL RECORDS. [employer] provides no warranty or guarantee of the accuracy or completeness of information in this document.
== END 2023-09-04 20:09 | disposition short-term general hospital (02) | DRG 964 ==
LOC: ER 15:50 → MS 15:50
PROVIDERS: Nurse Practitioner; Admitting Provider Internal Medicine; Emergency Provider Emergency Medicine; PCP Internal Medicine; Visit Provider Internal Medicine
DX: T79.6XXA Traumatic ischemia of muscle, initial encounter (principal); N17.9 Acute kidney failure, unspecified; S34.101A Unspecified injury to L1 level of lumbar spinal cord, initial encounter; S32.012A Unstable burst fracture of first lumbar vertebra, initial encounter for closed fracture; M54.9 Dorsalgia, unspecified; G89.11 Acute pain due to trauma; G89.29 Other chronic pain; R29.6 Repeated falls; I10 Essential (primary) hypertension; R50.9 Fever, unspecified; E11.40 Type 2 diabetes mellitus with diabetic neuropathy, unspecified; E78.5 Hyperlipidemia, unspecified; M1A.9XX0 Chronic gout, unspecified, without tophus (tophi); M25.511 Pain in right shoulder; E86.0 Dehydration; W01.0XXA Fall on same level from slipping, tripping and stumbling without subsequent striking against object, initial encounter; Y93.E1 Activity, personal bathing and showering; Y92.231 Patient bathroom in hospital as the place of occurrence of the external cause; Z79.84 Long term (current) use of oral hypoglycemic drugs; Z79.899 Other long term (current) drug therapy
CPT/HCPCS: 0202U; 36415; 70450; 71045; 72100; 72148; 73030; 73523; 80048; 80053; 80320; 81001; 82550; 82948; 83036; 83735; 84100; 84484; 85025; 85027; 87040; 87635; 87811; 93005; 96361; 96365; 96372; 96375; 96376; 97110; 97163; 97165; 97530; 99285; G0378

== ENCOUNTER 2024-01-12 12:40 | Outpatient (OUT) | payer OTHER, SELFPAY ==
--- NOTE | 2024-01-12 12:55 | US_ITS ---
[address] [address] Patient Name: FABY LEYVA MRN: [id number] date: 1950 Sex: M Assigned Patient Location: US Current Patient Location: US Accession/Order Number: [id number] Exam Date: 01/12/2024 12:56 Report Date: 01/12/2024 14:40 At the request of: YEVGENIY SCHOFIELD Procedure: US venous doppler LE LT EXAM: US venous doppler LE LT HISTORY: Swelling Of Left Lower Extremity COMPARISON: None. TECHNIQUE: Grayscale, color and Doppler FINDINGS: Region: Left leg Thrombus: None Flow: Normal Compressibility: Normal Augmentation: Normal Other: Mild to moderate subcutaneous edema US/US venous doppler LE LT IMPRESSION: No deep or superficial vein thrombus in the left leg Electronically authenticated by: JAKE DALLAS Date: 01/12/2024 14:40
== END 2024-01-12 12:41 | disposition home or self-care (01) ==
LOC: US 12:41
PROVIDERS: PCP Internal Medicine; Visit Provider Internal Medicine
DX: M79.89 Other specified soft tissue disorders (principal)
CPT/HCPCS: 93971

== ENCOUNTER 2024-01-13 11:06 | Outpatient (RCR) | payer OTHER, SELFPAY | END 2024-02-09 12:41 | disposition home or self-care (01) | LOC: PT 11:06 | PROVIDERS: PCP Internal Medicine; Visit Provider Internal Medicine | DX: M54.50 Low back pain, unspecified (principal); R53.1 Weakness | CPT/HCPCS: 97110; 97112; 97162; 97530; G0283 ==

== ENCOUNTER 2025-01-31 14:43 | Outpatient (OUT) | payer OTHER, SELFPAY ==
[2025-01-31 15:47] LABS: Alanine Aminotransferase 28 U/L (16-63); Anion Gap 7.2; Aspartate Amino Transferase 15 U/L (15-37); BUN Creatinine Ratio 22.2; Calcium 9.1 mg/dL (8.5-10.1); Carbon Dioxide 29.8 mmol/L (21.0-32.0); Chloride 107 mmol/L (98-107); Chol HDL Ratio 3.1; Cholesterol 110 mg/dL (<=200); Estimated GFR (African America >60 (>=60 mL/min/1.73m^2); Estimated GFR (Non-African Ame 56 (>=60 mL/min/1.73m^2); Glucose 144 mg/dL (74-106); HDL Cholesterol 35 mg/dL (40-60); Sodium 140 mmol/L (136-145); Triglycerides 75 mg/dL (<=150)
== END 2025-01-31 14:44 | disposition home or self-care (01) ==
LOC: LAB 14:45
PROVIDERS: PCP Internal Medicine; Visit Provider Internal Medicine
DX: E78.00 Pure hypercholesterolemia, unspecified (principal); I10 Essential (primary) hypertension; E11.65 Type 2 diabetes mellitus with hyperglycemia
CPT/HCPCS: 36415; 80048; 80061; 84450; 84460

== ENCOUNTER 2025-08-07 14:07 | Outpatient (OUT) | payer MEDICARE, SELFPAY ==
--- OUTSIDE RECORDS SUMMARY | 2025-08-07 14:14 | XMS_ITS | Clinical Summary ---
Author Organization [employer] tem Address [id number] 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 [employer] Name Role Phone Deep Abbasi Primary Care Provider [phone] Allergies No known active allergies Medications MedicationSigDispense QuantityRefillsLast FilledStart DateEnd DateStatus allopurinoL (ZYLOPRIM) 300 mg tablet Take 1 tablet (300 mg total) by mouth in the morning.Active furosemide (LASIX) 20 mg tablet Take 1 tablet (20 mg total) by mouth daily.Active glipiZIDE (GLUCOTROL XL) 5 mg 24 hr tablet Take 2 tablets (10 mg total) by mouth in the morning.Active polyethylene glycol (GLYCOLAX) 17 gram packet Take 17 g by mouth in the morning and 17 g before bedtime.09/14/2023ctive Additional Information Patient not taking.Reported on 11/03/2023 sennosides-docusate sodium (SENOKOT-S) 8.6-50 mg Take 2 tablets by mouth nightly.09/14/2023ctive Additional Information Patient not taking.Reported on 02/02/2024 lidocaine (LIDODERM) 5 % Place 2 patches on the skin in the morning. Remove & Discard patch within 12 hours or as directed by MD.09/14/2023ctive Additional Information Patient not taking.Reported on 11/03/2023 famotidine (PEPCID) 20 mg tablet Take 1 tablet (20 mg total) by mouth in the morning and 1 tablet (20 mg total) before bedtime.09/14/2023ctive Additional Information Patient not taking.Reported on 11/03/2023 enoxaparin (LOVENOX) 40 mg/0.4 mL syringe Inject 0.4 mL (40 mg total) under the skin in the morning.09/14/2023ctive Additional Information Patient not taking.Reported on 11/03/2023 calcium carbonate-vitamin D3 (OSCAL 500 + D) 500 mg(1,250mg) -200 units per tablet Take 1 tablet by mouth in the morning and 1 tablet in the evening. Take with meals.09/14/2023ctive acetaminophen (TYLENOL EXTRA STRENGTH) 500 mg tablet Take 2 tablets (1,000 mg total) by mouth every 6 (six) hours.09/14/2023ctive amLODIPine (NORVASC) 5 mg tablet Take 2 tablets (10 mg total) by mouth in the morning.09/14/2023ctive Additional Information Patient not taking.Reported on 11/03/2023 carvediloL (COREG) 12.5 mg tablet Take 1 tablet (12.5 mg total) by mouth in the morning and 1 tablet (12.5 mg total) before bedtime.09/14/2023ctive hydrALAZINE (APRESOLINE) 10 mg tablet Take 1 tablet (10 mg total) by mouth every 6 (six) hours.09/14/2023ctive Additional Information Patient not taking.Reported on 02/02/2024 methocarbamoL (ROBAXIN-750) 750 mg tablet Indications:Muscle spasmTake 1 tablet (750 mg total) by mouth 3 (three) times a day. 90 tablet ctive cyclobenzaprine (FLEXERIL) 10 mg tablet Indications:S/P lumbar fusionTAKE 1 TABLET BY MOUTH 3 TIMES A DAY NEEDED FOR MUSCLE SPASMS FOR UP TO 10 DAYS. 30 tablet ctive celecoxib (CeleBREX) 200 mg capsule Indications:S/P lumbar fusiontake 1 capsule by mouth in the morning 30 capsule ctive Active Problems ProblemNoted DateDiagnosed DateClosed compression fracture of L1 lumbar vertebra, initial zgkfajvwl45/08/2023losed compression fracture of L2 lumbar vertebra, initial ytyhgeswa87/08/2023rimary minzdizesunm03/08/2023iabetes mellitus type 2 in obese09/04/2023 Overview (12/28/2023): replacing diagnoses that were inactivated after the 12/27 regulatory import Lumbar compression qepbpajg61/08/2023 Immunizations ImmunizationAdministration DatesNext DuePneumococcal Conjugate 20-valent 2023 Social History Tobacco UseTypesPacks/DayYears UsedDateSmoking Tobacco: FormerCigarettes Smokeless Tobacco: Never Tobacco Cessation:Counseling Given: Not Answered Alcohol UseStandard Drinks/WeekCommentsNot Currently0 (1 standard drink = 0.6 oz pure alcohol)AUDIT-CAnswerDate RecordedQ1: How often do you have a drink containing alcohol?Monthly or less09/05/2023Q2: How many drinks containing alcohol do you have on a typical day when you are drinking?1 or Q3: How often do you have six or more drinks on one occasion?Never09/05/2023HQ-2 AnswerDate RecordedTotal Arzyq96811/06/2022Housing InstabilityAnswerDate Recorded Are you worried or concerned that in the next two months you may not have stable housing that you own, rent or stay in as a part of a household?No09/05/2023 Hunger ScreeningAnswerDate RecordedWithin the past 12 months we worried whether our food would run out before we got money to buy more.Never True02/02/2024 Within the past 12 months the food we bought just didn't last and we didn't have money to get more.Never True02/02/2024Sex and Gender InformationValueDate RecordedSex Assigned at BirthNot on fileLegal VxtMxqq50/08/2023 3:15 PM EST Gender IdentityNot on fileSexual OrientationNot on file Last Filed Vital Signs Vital SignReadingTime TakenCommentsBlood Drbvsshw638/6602 2:09 PM EST Dkbbe637411/03/2023 2:09 PM BQLRarxkogprqe15.4 ??C (97.5 ??F)09/14/2023 3:37 PM ESTRespiratory Efak184811/14/2022 4:03 AM ESTOxygen Tdvjhklbbz15%09/14/2023 6:00 PM ESTInhaled Oxygen Concentration--Tzubjk677.1 kg (289 lb)02/02/2024 2:14 PM NDJGfrfuv986.9 cm (6')02/02/2024 2:14 PM EDTBody Mass Index39. 2:14 PM EDT Plan of Treatment Health MaintenanceDue DateLast DoneCommentsDiabetic Ophthalmology Exam1950 Statin Use: Huxuwael1950iabetic Foot Exam1969DTaP,Tdap and Td Vaccines (1 - Tdap)1970Abdominal Aortic Aneurysm (AAA) Ocezon6101/09/2016 Fall Risk Wqciyvfzt82/13/2016Zoster (Shingles) Vaccine (2 of 3)05/18/2019 03/23/2019, 11/23/2018Depression Ehtyvzrei74/dult BMI Tzrozyfgl21/03/2024Tobacco Jygcvdtcp67/OVID-19 Vaccine ( - season)/12/2022, 08/28/2023, 09/17/2021, Additional history existsInfluenza Rjxfomr78/09/2022RSV ( or age 60+ yrs) (1 - 1-dose 75+ series)2026 Goals GoalPatient Goal TypeAssociated ProblemsRecent ProgressPatient-Stated?Author home with self care Mckenzie Clark RN Note: Evaluation of progress towards goal: Patient stated he hopes he can go home after surgery, but we will wait for determination after surgery. Medical Devices ImplantedTypeAreaManufacturerDevice IdentifierShelf Expiration DateModel / Serial / LotCreo Fenestrated 30mm Implanted:Qty: 12 [facility] CapN/A: Spine [id number] / / Creo Tulip Fenestrated 6.5x45mm Implanted:Qty: 6 on 09/08/2023 by Lucio Green MD at [facility] CapN/A: Spine [id number] / / Cap Lck Creo Mis Spnl Ns - [id number] Implanted:Qty: 12 on 09/08/20[facility] ImplantN/A: Spine NxuqxkYzyhpr6778.0010 / / Creo Indra 5.4b202uw Implanted:Qty: 2 on 09/08/2023 [facility]: Spine [id number] / / Creo Fenestrated Screw Implanted:Qty: 6 on 09/08/2023 [facility]/A: Spine [id number] / / ExplantedTypeAreaManufacturerDevice IdentifierShelf Expiration DateModel / Serial / LotPin Perc Ster 150mm - [id number] Explanted:Qty: 1 [facility] ImplantN/A: Spine LumbarUSE MDTR MISSY FOR [id number] / / [id number] Insurance Advance Directives * Full Code (Latest Code Status on File) Date ActivatedDate HfgwlqhrfxrWajjlqmn85/8/2023 9:49 PM09/14/2023 8:26 PM Care Teams Team MemberRelationshipSpecialtyStart DateEnd Date Deep Abbasi DO [address] [place] [address] PCP - GeneralInternal Oauuyagg21/8/23
--- OUTSIDE RECORDS SUMMARY | 2025-08-07 14:21 | XMS_ITS | CCD ---
Author Organization [facility] Care Team Providers Care Receiving Supervisor Name Role Phone REQUEST, DR NONE LISTED Attending Unavaila ble REQUEST, NONE LISTED Consulting Unavaila ble REQUEST, NONE LISTED Admitting Unavaila ble REQUEST, NONE LISTED Admitting Unavaila ble REQUEST, NONE LISTED Attending Unavaila ble REQUEST, NONE LISTED Consulting Unavaila ble CADENCE NINA Attending Unavailable KELLE, CADENCE Consulting Unavailable CADENCE NINA Admitting Unavailable Deep Abbasi Unavailable NO FAMILY, PHYSICIAN Primary Care Provider Unava ilable MD Richard Escoto Admit Provider MD Richard Escoto Attending Provider LEEROY Dooley Other Provider Unavailable Dexter RN Nichole Other Provider Unavailable Red RN Kiya Other Provider Unavailable Isamar RN Shanda Other Provider Unavailable LEEROY Rizo Other Provider Unavailable LEEROY Villalta Other Provider Unavailable MD Jerri Beaulieu Other Provider Raisas, FERMÍN Rock Other Provider DO Gladys Swann Other Provider MD Pawel Andrade Other Provider DO Tawanda Ziegler Other Provider MD Alexandre Dunn Other Provider [phone] MD Donna Ruff Other Provider FERMÍN Mosley Other Provider MD Duane Aguila Other Provider MD J Carlos Owusu Other Provider MD Rikki Bland Other Provider MD John Cabral Other Provider DO Deniz Penn Other Provider MD Yogesh Breaux Other Provider MD Gabriel Rodriges Other Provider DARIN Stone-C Paz Slater Other Provider MD Joshua Kyle Other Provider MD Sergio Castro Other Provider MD Rodeny Huff Other Provider MD Wiley Mayberry Other Provider DO Yoana Ely Other Provider DO Sandeep Pineda Other Provider DO Chance Bello Other Provider FERMÍN Peterson Other Provider DO Bakari Gao Other Provider MD Nabil Friedman M Other Provider FERMÍN Rea Other Provider FERMÍN Diaz Other Provider MD Jessica Blake Other Provider MD Nilson Wang Other Provider FERMÍN Conde Other Provider DO Bean Yajuan Other Provider LEEROY Escoto Other Provider Unavailable Deep Abbasi DO Primary Care Provider DEEP ABBASI Primary Care Physician Deep Abbasi DO Primary Care Provider [phone] Deep Abbasi DO Attending Provider Cassius SIMS Attending Unavailable Cassius SIMS Attending Unavailable Cassius SIMS Attending Unavailable Cassius SIMS Admitting Unavailable Deep Abbasi DO Primary Care Provider Deep Abbasi DO Attending Provider [phone] Cassius Sims MD Attending Provider [phone] Deep Abbasi Primary Care Unavailable Celia, Cassius Attending Unavailable Celia, Cassius Admitting Unavailable DEEP ABBASI Referring Unavailable Cassius SIMS Attending Unavailable Cassius SIMS Attending Unavailable Cassius SIMS Attending Unavailable Cassius SIMS Admitting Unavailable Cassius SIMS Attending Unavailable Medications Current Medications MedicationDrug Class(es)DatesSig (Normalized)Sig (Original)allopurinol 100 mg oral tablet (20 sources)Xanthine Oxidase InhibitorStart: 27-49-7531vfrsbgwnonm 100 mg Tab 100 mg = 1 tab(s), Refills(s) 0 Start Date: 12/16/24 Status: Ordered Repeat nu mber: 1Start: 28-29-5427yske 1 tablet by mouth once dailyStart: 06-23-2024 End: 45-24-4501dkqf 1 tablet by mouth once dailyStart: 04-27-2024 End: 49-15-0532lxet 1 tablet by mouth once dailyAllopurinol 100 mg tablet Discontinued 100 MG PO Daily April 27, 2024 2:51pm June 23, 2024 2:40pm Start: 04-27-2024 End: 73-10-8906mvca 1 tablet by mouth once dailyAllopurinol 300 mg tablet Discontinued 300 MG PO Daily April 27, 2024 12:00am June 2342:40pm Start: 03-21-2024 End: 22-88-3136bjgi 1 tablet by mouth once dailyAllopurinol 100 mg tablet Discontinued 0 .ROUTE .COMPLEX March 21, 2024 1:09pm April 27, 2024 2:54pm TAKE 1 TABLET BY MOUTH EVERY DAY FOR 90 DAYSStart: 09-14-2023 End: 28-18-6889uqwb 1 tablet by mouth once dailyAllopurinol 300 mg Tablet Discontinued 300 MG PO Daily September 14, 2023 1:00am March 21, 2024 1:09pm take 1 tablet by mouth every twenty-four hoursAllopurinol 100 MG 1 tablet Orally Once a day ActiveamLODIPine 10 mg oral tablet (20 sources)Dihydropyridine Calcium Channel BlockerStart: 59-17-3654tyvh 1 tablet by mouth once dailyStart: 69-33-2205owzc 2 tablets by mouth in the morningamLODIPine (NORVASC) 5 mg tablet Take 2 tablets (10 mg total) by mouth in the morning. 09/14/2023 ActiveStart: 09-14-2023 End: 18-94-9541nfjr 1 tablet by mouth once dailyAmlodipine 10 mg Tablet Discontinued 10 MG PO Daily September 14, 2023 1:00am January 04, 2025 5:21pm Start: 17-26-2165enzn 1 tablet by mouth every twenty-four hoursamLODIPine Besylate 5 MG 1 tablet Orally Once a day for 90 days Jul, Activecalcium carbonate 1250 mg / cholecalciferol 200 unt oral tablet (8 sources)Vitamin DStart: 60-06-9933kakm 1 tablet by mouth once in the morning calcium carbonate-vitamin D3 (OSCAL 500 + D) 500 mg(1,250mg) -200 units per tablet Take 1 tablet bymouth in the morning and 1 tablet in the evening. Take with meals. 09/14/2023 ActiveStart: 09-14-2023 End: 87-44-7171uagm 1 tablet by mouth twice dailyCalcium Carbonate-Vitamin D3 500 mg-5 mcg (200 unit) Tablet Discontinued 1 TAB PO Twice daily September 14, 2023 1:00am April 27, 2024 2:51pmCalcium Carbonate / Vitamin D (8 sources)Calcium Carbonate-Vitamin D 500mg- Activecarvedilol 12.5 mg oral tablet (20 sources)alpha-Adrenergic Gregorio, beta-Adrenergic BlockerStart: 01-04-2025 take 1 tablet by mouth twice dailyStart: 09-14-2023 End: 03-06-3655ejtq 1 tablet by mouth twice daily at mealtimeCarvedilol 12.5 mg Tablet Discontinued 12.5 MG PO Twice daily September 14, 2023 1:00am January 04, 2025 5:22pm must administer with a meal/foodcelecoxib 200 mg oral capsule (12 sources)Nonsteroidal Anti-inflammatory DrugStart: 04-54-1762vzrj 1 capsule by mouth once dailycelecoxib 200 mg Cap 200 mg = 1 cap(s), Oral, Daily, # 90 cap(s), Refills(s) 0 Start Date: 12/16/24 Status: Ordered Quantity: 90.0 Unit: cap(s) Repeat number: 1Start: 32-07-0413khmc 1 capsule by mouth in the morning celecoxib (CeleBREX) 200 mg capsule Indications: S/P lumbar fusion take 1 capsule by mouth in the morning 30 capsule 2 06/22/2024 ActiveStart: 02-02-2024 End: 96-84-6918drmy 1 capsule by mouth once dailycholecalciferol 0.025 mg oral capsule (17 sources)Vitamin DStart: 39-86-9055ehpc 3 capsules by mouth once dailyStart: 04-27-2024 End: 64-75-6634xwjm 1 capsule by mouth once dailyCholecalciferol (Vitamin D3) 25 mcg (1,000 unit) capsule Discontinued 75 MCG PO Daily April 27, 2024 12:00am February 04, 2025 8:20amtake 3 capsules by mouth once dailyCVS D3 25 MCG (1000 UT) TAKE 3 CAPSULES BY MOUTH DAILY for 90 Activetake 3 capsules by mouth once daily Cholecalciferol 25 MCG (1000 UT) 3 capsules Orally Once a day for 90 days Active dutasteride 0.5 mg oral capsule (1 source)5-alpha Reductase InhibitorStart: 25-05-4295cjfl 1 capsule by mouth once dailydutasteride 0.5 mg Cap 0.5 mg = 1 cap(s), Oral, Daily, # 90 cap(s), Refills(s) 3, Pharmacy: [facility]/pharmacy #[id number], 178, cm, 04/24/25 11:24:00 EDT, Height/Length Dosing, 131.8, kg, 04/24/25 11:24:00 EDT,Weight Dosing Start Date: 04/24/25 Status: Ordered Quantity: 90.0 Unit: cap(s) Repeat number: 4 Indic ations: Benign prostatic hyperplasia with lower urinary tract symptoms;0.4 ml enoxaparin sodium 100 mg/ml prefilled syringe (15 sources)Low Molecular Weight HeparinStart: 93-81-4012kxlokr 0.4 mL by subcutaneous injection in the morningenoxaparin (LOVENOX) 40 mg/0.4 mL syringe Inject 0.4 mL (40 mg total) under the skin in the morning. 09/14/2023 Active Start: 09-14-2023 End: 52-16-8907worani 40 mg by subcutaneous injection once dailyEnoxaparin 40 mg/0.4 mL Syringe Discontinued 40 MG SUBCUT Daily September 14, 2023 1:00am 2023 1:38pmgabapentin 300 mg oral capsule (8 sources)Anti-epileptic Agenttake 1 capsule by mouth three times daily Gabapentin 300 MG TAKE 1 CAPSULE BY MOUTH THREE TIMES A DAY FOR 90 DAYS Active glipiZIDE 10 mg oral tablet (20 sources)SulfonylureaStart: 75-66-6386oejn 1 tablet by mouth once daily glipiZIDE 10 mg Tab 10 mg = 1 tab(s), Oral, Daily, # 90 tab(s), Refills(s) 0 Start Date: 12/16/24 Status: Ordered Quantity: 90.0 Unit: tab(s) Repeat number: 1 Start: 29-58-6666ltrz 1 tablet by mouth once daily at breakfastStart: 09-14-2023 End: 83-54-8564lblv 1 tablet by mouth once dailyGlipizide 10 mg Tablet Discontinued 10 MG PO Daily September 14, 2023 1:00am July 14, 2024 3:13pm take 2 tablets by mouth every twenty-four hours in the morningglipiZIDE (GLUCOTROL XL) 5 mg 24 hr tablet Take 2 tablets (10 mg total) by mouth in the morning. Activetake 1 tablet by mouth every twelve hoursglipiZIDE 5 MG 1 tablet Orally twice a day ActivehydrALAZINE hydrochloride 10 mg oral tablet (20 sources)Arteriolar VasodilatorStart: 15-93-8799avuo 1 tablet by mouth four times dailyhydrALAZINE 10 mg Tab 10 mg = 1 tab(s), Oral, QID, # 120 tab(s), Refills(s) 0 Start Date: 12/16/24 Status: Ordered Quantity: 120.0 Unit: tab(s) Repeat number: 1Start: 10-08-2024 End: 73-75-1970nspe 1 tablet by mouth every six hoursHydralazine 10 mg tablet Discontinued 0 .ROUTE .COMPLEX 360 October 08, 2024 9:59am December 08, 2024 12:51pm TAKE 1 TABLET BY MOUTH EVERY 6 HOURSStart: 10-06-2023 End: 80-43-3371gexv 1 tablet by mouth three times dailyHydralazine 50 mg Tablet Discontinued 50 MG PO Three times daily 0 October 06, 2023 1:00am November 07, 2023 1:38pmStart: 09-14-2023 End: 14-91-4938efrj 1 tablet by mouth every six hoursHydralazine 10 mg tablet Discontinued 10 MG PO Every 6 hours November 07, 2023 1:38pm October 08, 2024 9:59amStart: 09-14-2023 End: 93-95-8222uiok 1 tablet by mouth four times dailyHydralazine 10 mg Tablet Discontinued 10 MG PO Four times daily September 14, 2023 1:00am 2023 1:42pmammonium lactate 120 mg/ml topical lotion (8 sources)Ammonium Lactate 12 % 1 application Externally Twice a day Active Ammonium Lactate 12 % 1 application Externally Twice a day Activelisinopril 20 mg oral tablet (8 sources)Angiotensin Converting Enzyme Inhibitortake 1 tablet by mouth every twenty-four hoursLisinopril 20 MG 1 tablet Orally Once a day Activelosartan potassium 25 mg oral tablet (5 sources)Angiotensin 2 Receptor BlockerStart: 76-93-3933dxir 1 tablet by mouth twice dailyStart: 12-08-2024 End: 90-07-4425fxly 1 tablet by mouth twice dailyLosartan 25 mg tablet Discontinued 25 MG PO Twice daily 60 30 December 08, 2024 2:26pm May 26, 2 025 7:38ammetoprolol tartrate 100 mg oral tablet (8 sources)beta-Adrenergic Blockertake 1 tablet by mouth every twelve hours Metoprolol Tartrate 100 MG 1 tablet with food Orally Twice a day Active pantoprazole 40 mg delayed release oral tablet (20 sources)Proton Pump InhibitorStart: 84-00-5657Wyxolnrxfipb [address] Tab 40 mg = 1 tab(s), Refills(s) 0 Start Date: 12/16/24 Status: Ordered Repeatnumber: 1 Start: 33-53-0028jdfr 1 tablet by mouth twice dailyStart: 01-12-2024 End: 14-32-9155qgmc 1 tablet by mouth once dailyPantoprazole 40 mg tablet,delayed release (DR/EC) Discontinued 40 MG PO Daily 90 90 January 12, 2024 12:00am May 13, 2024 2:04pmStart: 68-50-9462Fyehsbpnsmuc Sodium 40 MG 1 tablet Orally Once a day, on an empty stomach, 30 minutes prior to bkfst for 30 days Sep, ActiveStart: 10-06-2023 End: 56-00-6883vkmz 1 tablet by mouth twice dailyPantoprazole 40 mg Tablet,Delayed Release (Dr/Ec) Discontinued 40 MG PO Twice daily 0 October 06, 2023 1:00am November 07, 2023 1:40pmPolyethylene Glycols (8 sources)Polyethylene Glycol - as directed Activepravastatin sodium 80 mg oral tablet (8 sources)HMG-CoA Reductase Inhibitortake 1 tablet by mouth every twenty-four hoursPravastatin Sodium 80 MG 1 tablet Orally Once a day Activetamsulosin hydrochloride 0.4 mg oral capsule (1 source)alpha-Adrenergic BlockerStart: 12-16-2024 End: 38-91-6021qbvomdnncz 0.4 mg Cap 0.4 mg = 1 cap(s), Oral, BID, Decrease to once a day if experiencing dizziness or lightheadedness., X 30 day(s), # 60 cap(s), Refills(s) 11, Pharmacy: [facility]/pharmacy #[id number], 178, cm, 12/16/24 10:11:00 EDT, Height/Length Dosing, 132, kg, 12/16/24 10:11:00 EDT, Weight Dosing Start D ate: 12/16/24 Stop Date: 12/11/25 Status: Ordered Quantity: 60.0 Unit: cap(s) Repeat number: 12 Completed/Discontinued Medications MedicationDrug Class(es)DatesSig (Normalized)Sig (Original)acetaminophen 500 mg oral tablet (20 sources)Start: 10-06-2023 End: 39-09-3130fxxd 2 tablets by mouth three times dailyAcetaminophen 500 mg Tablet Discontinued 1000 MG PO Three times daily 0 October 06, 2023 1:00am April 27, 2024 2:50pmStart: 10-06-2023 End: 75-07-1478hrzq 1000 mg by mouth three times dailyAcetaminophen Discontinued 1000 MG PO Three times daily 0 October 06, 2023 1:00am April 27, 2024 2:50pm Start: 48-69-6406hsiw 2 tablets by mouth every six hoursacetaminophen (TYLENOL EXTRA STRENGTH) 500 mg tablet Take 2 tablets (1,000 mg total) by mouth every6 (six) hours. 09/14/2023 Activealuminum hydroxide 40 mg/ml / magnesium hydroxide 40 mg/ml / simethicone 4 mg/ml oral suspension (6 sources)Start: 10-06-2023 End: 04-01-1393dief 1 mL by mouth every four hours as neededAlum-Mag Hydroxide- Simeth (Mag-Al Plus) 200-200-20 mg/5 mL Suspension Discontinued 30 ML PO Q4H as needed for Indigestion 0 October 06, 2023 1:00am November 07, 2023 1:37pm atorvastatin 20 mg oral tablet (8 sources)HMG-CoA Reductase InhibitorStart: 12-08-2024 End: 06-25-9476frrm 1 tablet by mouth once daily in the eveningAtorvastatin 20 mg tablet Discontinued 20 MG PO Every evening December 08, 2024 2:26pm December 18, 2024 4:29pmCalcium Carbonate / vitamin D3 (3 sources)Start: 09-14-2023 End: 51-83-3882tebx 1 tablet by mouth twice dailyCalcium Carbonate-Vitamin D3 Discontinued 1 TAB PO Twice daily September 14, 2023 1:00am April 27, 2024 2:51pmStart: 08-53-0530iwoo 1 tablet by mouth twice dailyCalcium Carbonate- Vitamin D3 Active 1 TAB PO Twice daily September 14, 2023 1:00amStart: 80-05-1317ssop 1 tablet by mouth twice dailyCalcium Carbonate-Vitamin D3 Active 1 TAB PO Twice daily September 14, 2023 12:00amCalcium Carbonate-Vitamin D3 500 mg-5 mcg (200 unit) Tablet (1 source)Start: 09-14-2023 End: 24-31-5196tvob 1 tablet by mouth twice dailyCalcium Carbonate-Vitamin D3 500 mg-5 mcg (200 unit) Tablet Discontinued 1 TAB PO Twice daily September 14, 2023 1:00am April 27, 2024 2:51pmCVS VITAMIN D3 25 MCG SOFTGEL (2 sources)Start: 10-32-5054gzzp 3 capsules by mouth once dailyCVS VITAMIN D3 25 MCG SOFTGEL CVS VITAMIN D3 25 MCG SOFTGEL, TAKE 3 CAPSULES BY MOUTH DAILY Start Date: 12/16/24 Status: Ordered Repeat number: 1cyclobenzaprine hydrochloride 10 mg oral tablet (20 sources)Muscle RelaxantStart: 06-23-2024 End: 88-33-4417vejd 1 tablet by mouth once dailyCyclobenzaprine 10 mg tablet Discontinued 0 .ROUTE .COMPLEX June 23, 2024 2:40pm July 04, 2024 4:49pm TAKE 1 TABLET BY MOUTH EVERY DAY FOR 90 DAYSStart: 05-06-2024 End: 73-60-0975ebee 1 tablet by mouth three times daily as needed for muscle spasmsCyclobenzaprine 10 mg tablet Discontinued 0 .ROUTE .COMPLEX May 06, 2024 8:56am June 23, 2024 2:40pm TAKE 1 TABLET BY MOUTH THREE TIMES A DAY NEEDED FOR MUSCLE SPASM FOR UP TO 10 DAYSStart: 03-01-2024 End: 81-64-5076pnpt 1 tablet by mouth three times dailyCyclobenzaprine 10 mg tablet Discontinued 10 MG PO Three times daily April 27, 2024 12:00am May 06, 2024 8:56amStart: 02-02-2024 End: 00-90-7954syouhkyingvqgts (FLEXERIL) 10 mg tablet Indications: S/P lumbar fusion Take 1 tablet (10 mg total) by mouth 3 (three) times a day as needed for muscle spasms for up to 10 days. This is an 10 day supply 30 tablet 1 02/02/2024 02/12/2024 ActiveStart: 10-06-2023 End: 76-81-9523jqwj 1 tablet by mouth every eight hours as needed for muscle spasmsCyclobenzaprine 10 mg Tablet Discontinued 10 MG PO Every 8 hours as needed for Spasms 0 October 06, 2023 1:00am November 07, 2023 1:37pmtake 1 tablet by mouth every twenty-four hoursCyclobenzaprine HCl 10 MG 1 Tablet Orally Once a day for 90 days Activediclofenac sodium 0.01 mg/mg topical gel (6 sources)Nonsteroidal Anti-inflammatory DrugStart: 10-06-2023 End: 14-23-9369auqio 1 g topically twice daily as needed for painDiclofenac Sodium 1 % Gel Discontinued 1 GM TOPICAL Twice daily as needed for pain 0 October 06, 2023 1:00am November 07, 2023 1:37pmStart: 10-06-2023 End: 60-69-9722hzlyx 1 g topically twice dailyDiclofenac Sodium Discontinued 1 GM TOPICAL Twice daily 0 October 06, 2023 1:00am November 07, 2023 1:37pm docusate sodium 100 mg oral capsule (12 sources)Start: 10-06-2023 End: 55-74-3751kggh 1 capsule by mouth twice dailyDocusate Sodium 100 mg Capsule Discontinued 100 MG PO Twice daily 0 October 06, 2023 1:00am November 07, 2023 1:38pmStart: 10-06-2023 End: 02-83-2078Xojdwukq Sodium (Enemeez) 283 mg/5 mL Enema Discontinued 283 MG MD Daily as needed for Constipation0 October 06, 2023 1:00am November 07, 2023 1:38pmdocusate sodium 50 mg / sennosides, halfway 8.6 mg oral tablet (20 sources)Start: 09-14-2023 End: 09-14-3457foij 2 tablets by mouth once daily at bedtimeSennosides-Docusate Sodium 8.6-50 mg Tablet Discontinued 2 TAB-CAP PO Daily at bedtime August 1:00am April 27, 2024 2:52pmtake 1 tablet by mouth every twelve hours Sennosides-Docusate Sodium 8.6-50 MG 1 tablet as needed Orally Twice a day Activefamotidine 20 mg oral tablet (15 sources)Histamine-2 Receptor AntagonistStart: 09-14-2023 End: 84-46-4706wipy 1 tablet by mouth twice dailyFamotidine 20 mg Tablet Discontinued 20 MG PO Twice daily September 14, 2023 1:00am October 06, 2023 10:21amFamotidine 20 MG 1 tablet Orally once in the am and once ion the pm Activefurosemide 20 mg oral tablet (20 sources)Loop DiureticStart: 09-14-2023 End: 87-99-7409fbbd 1 tablet by mouth once dailyFurosemide 20 mg Tablet Discontinued 20 MG PO Daily September 14, 2023 1:00am January 12, 2024 12:24pm L.Acid,Para-B.Bifidum-S.Therm (Risaquad) 8 billion cell Capsule (6 sources)Start: 10-06-2023 End: 67-58-7185dgvn 8 capsules by mouth once dailyL.Acid,Para-B.Bifidum-S.Therm (Risaquad) 8 billion cell Capsule Discontinued 1 CAP PO Daily 0 October 06, 2023 1:00am November 07, 2023 1:39pmStart: 59-28-7600hddb 8 capsules by mouth once dailyL.Acid,Para-B.Bifidum-S.Therm (Risaquad) 8 billion cell Capsule Active 1 CAP PO Daily 0 October 06, 2023 12:00amlactulose 667 mg/ml oral solution (6 sources)Osmotic LaxativeStart: 10-06-2023 End: 78-62-0268dekx 30 g by mouth once daily as needed for constipationLactulose 20 gram/30 mL Solution Discontinued 30 GM PO Daily as needed for Constipation 0 October 06, 2023 1:00am November 07, 2023 1:39pmlidocaine 0.05 mg/mg medicated patch (20 sources)Antiarrhythmic, Amide Local AnestheticStart: 09-14-2023 End: 46-69-1736Diznygkfy 5 % Adhesive Patch,Medicated Discontinued 2 PATCH September 14, 2023 1:00am September 14, 2023 6:49pmStart: 09-14-2023 End: 23-43-7261oetvewsiw (LIDODERM) 5 % Place 2 patches on the skin in the morning. Remove & Discard patch within 12 hours or as directed by . 09/14/2023 Activemelatonin 5 mg oral tablet (6 sources)Start: 10-06-2023 End: 22-88-2078qstu 1 tablet by mouth once daily at bedtimeMelatonin 5 mg Tablet Discontinued 5 MG PO Daily at bedtime 0 October 06, 2023 1:00am November 07, 2023 1:40pmmethocarbamol 750 mg oral tablet (20 sources)Muscle RelaxantStart: 64-73-4896exvh 1 tablet by mouth three times dailymethocarbamol 750 mg Tab 750 mg = 1 tab(s), TAKE 1 TABLET BY MOUTH 3 TIMES A DAY FOR 90 DAYS Start Date: 12/16/24 Status: Ordered Repeat number: 1Start: 01-74-0449grxg 1 tablet by mouth three times dailyStart: 06-27-2024 End: 12-24-1646pmew 1 tablet by mouth three times dailyMethocarbamol 750 mg tablet Discontinued 750 MG PO Three times daily June 27, 2024 12:00am Se ptember 2023 12:37pmStart: 11-03-2023 End: 10-02-9511vvzk 1 tablet by mouth three times dailyMethocarbamol 750 mg tablet Discontinued 750 MG PO Three times daily 270 90 January 12, 2024 12:00am February 17, 2024 6:09pmStart: 09-14-2023 End: 65-28-1877tezg 1 tablet by mouth three times dailyMethocarbamol 500 mg Tablet Discontinued 500 MG PO Three times daily September 14, 2023 1:00am Spenser langley 2023 10:21amoxyCODONE hydrochloride 5 mg oral tablet (9 sources)Opioid AgonistStart: 09-14-2023 End: 22-23-8290kigs 1 tablet by mouth every four hours as needed for pain Oxycodone (Roxicodone) 5 mg Tablet Discontinued 5 MG PO Q4H as needed for Pain September 14, 2023 1:00am October 06, 2023 10:21ampolyethylene glycol 3350 86890 mg powder for oral solution (17 sources)Osmotic LaxativeStart: 09-14-2023 End: 68-96-7025dbrx 17 g by mouth once dailyPolyethylene Glycol 3350 17 gram/dose powder Discontinued 17 GM PO Daily November 07, 2023 1:00amApril 2023 12:24pmStart: 09-14-2023 End: 63-06-0934brun 17 g by mouth twice dailyPolyethylene Glycol 3350 17 gram Powder In Packet Discontinued 17 GM PO Twice daily September 14, 2023 1:00am October 06, 2023 10:21ampotassium chloride 10 meq extended release oral tablet (19 sources)Start: 11-07-2023 End: 54-84-9123wuns 1 tablet by mouth twice dailyPotassium Chloride 10 mEq tablet extended release Discontinued 10 MEQ PO Twice daily October 1:40pm January 12, 2024 12:24pmStart: 09-14-2023 End: 45-93-1337gdxe 1 tablet by mouth once dailyPotassium Chloride 10 mEq Tablet Extended Release Discontinued 10 MEQ PO Daily September 14, 2023 1:00am November 07, 2023 1:42pmSennosides (Senna Laxative) 8.6 mg Tablet (4 sources)Start: 10-06-2023 End: 08-62-9408sxoi 2 tablets by mouth once daily as neededSennosides (Senna Laxative) 8.6 mg Tablet Discontinued 2 TAB PO DAILY@12 as needed for If no BM in 2 days 0 October 06, 2023 1:00am November 07, 2023 1:41pmStart: 10-06-2023 End: 06-20-8885kyik 2 tablets by mouth once dailySennosides (Senna Laxative) 8.6 mg Tablet Discontinued 2 TAB PO DAILY@12 0 October 06, 2023 1:00amFebr2023 1:41pmStart: 97-17-8897faua 2 tablets by mouth once dailySennosides (Senna Laxative) 8.6 mg Tablet Active 2 TAB PO DAILY@12 October 06, 2023 12:00amsennosides, halfway 8.6 mg oral tablet (2 sources)Start: 10-06-2023 End: 82-19-8255lcfl 2 tablets by mouth once daily as neededSennosides (Senna Laxative) 8.6 mg Tablet Discontinued 2 TAB PO DAILY@12 as needed for If no BM in 2 days 0 October 06, 2023 1:00am November 07, 2023 1:41pmtraZODone hydrochloride 50 mg oral tablet (3 sources)Serotonin Reuptake InhibitorStart: 12-05-2024 End: 94-27-4744lhxv 1 tablet by mouth once daily at bedtimeTrazodone 50 mg tablet Discontinued 50 MG PO Daily at bedtime December 05, 2024 12:00am April 19, 2025 2:56pm Problems Active Problems Problem ClassificationProblemDateDocumented DateEpisodic/ChronicAcute and unspecified renal failure (1 source)Acute renal failure ggdduuzz64-40-2712QgsbuitbYrjiqbkocdcmxc/social admission (7 sources)Other reduced mobility; Translations: [Impaired mobility and activities of daily living]22-34-0474GtldleogJqrmjolr mellitus with complications (20 sources)Type 2 diabetes mellitus; Translations: [Type 2 diabetes mellitus with hyperglycemia]Onset: 34-02-4843UdvqjjxMdwtslle mellitus without complication (1 source)Type 2 diabetes mellitus without complications; Translations: [Diabetes mellitus without mention ofcomplication, type II or unspecified type, not stated as uncontrolled]19-64-5921SehsrqjBmlsatrp of white blood cells (13 sources)Leukocytosis; Translations: [Elevated white blood cell count, unspecified]12-87-1770TksbrwuUmqbrzkfa of lipid metabolism (20 sources)Pure hypercholesterolemia; Translations: [Pure hypercholesterolemia, unspecified]Onset: 60-57-1306ZutassqMganpvbgul disorders (15 sources)Gastro-esophageal reflux disease with esophagitis; Translations: [Gastroesophageal reflux disease with esophagitis without hemorrhage]11-07-2023 ChronicEssential hypertension (20 sources)Hypertensive disorder; Translations: [Essential (primary) hypertension]Onset: 74-37-8613DxujyevWignzcpabrdpy symptoms and ill-defined conditions (1 source)NocturiaEpisodicGout and other crystal arthropathies (1 source)Hofl96-96-1662VfmmxsoOahngfavxvy of prostate (18 sources)Nocturia due to benign prostatic hypertrophy; Translations: [Benign prostatic hyperplasia with lower urinary tract symptoms]Onset: 29-11-8431Tljgeck Immunizations and screening for infectious disease (4 sources)Encounter for immunization; Translations: [ENCOUNTER FOR IMMUNIZATION]Onset: 54-64-8120BdejwawgOemyyesveyybxn (17 sources)Osteoarthritis of left knee joint; Translations: [Unilateral primary osteoarthritis, left knee]ChronicOther connective tissue disease (16 sources)H/O: gout; Translations: [Personal history of other diseases of the musculoskeletal system and connective tissue]EpisodicOther connective tissue disease (5 sources)Personal history of other diseases of the musculoskeletal system and connective tissueEpisodicOther connective tissue disease (11 sources)History of lumbar fusion; Translations: [Arthrodesis status] 88-11-9680CecnxtrvPowac connective tissue disease (1 source)Arthrodesis status; Translations: [Arthrodesis status]10-07-2023 EpisodicOther connective tissue disease (5 sources)Swelling of left lower limb; Translations: [Other specified soft tissue disorders]60-77-6176XditovoqAkodp diseases of veins and lymphatics (20 sources)Peripheral venous insufficiency; Translations: [Venous insufficiency (chronic) (peripheral)]34-79-5045UrlgjgbxRcuyl diseases of veins and lymphatics (11 sources)Venous insufficiency (chronic) (peripheral); Translations: [Venous (peripheral) insufficiency, unspecified]EpisodicOther fractures (6 sources)Fracture of lumbar spine; Translations: [Unspecified fracture of unspecified lumbar vertebra, initial encounter for closed fracture]09-15-2023 EpisodicOther fractures (1 source)Unspecified fracture of unspecified lumbar vertebra, initial encounter for closed fracture; Translations: [Closed fracture of lumbar vertebra without mention of spinal cord injury]88-56-3042QpoxkitcMpvoq fractures (2 sources)Wedge compression fracture of first lumbar vertebra, subsequent encounter for fracture with routinehealingEpisodicOther fractures (1 source)Wedge compression fracture of second lumbar vertebra, subsequent encounter for fracture with routine healingEpisodicOther liver diseases (11 sources)Intrahepatic cholestasis; Translations: [Other specified diseases of liver]ChronicOther liver diseases (1 source)Other specified diseases of liverChronicOther nutritional; endocrine; and metabolic disorders (16 sources)Morbid obesity; Translations: [Morbid (severe) obesity due to excess calories]ChronicOther nutritional; endocrine; and metabolic disorders (3 sources)Morbid (severe) obesity due to excess calories; Translations: [Morbid obesity]ChronicOther nutritional; endocrine; and metabolic disorders (11 sources)Severe obesity; Translations: [Morbid (severe) obesity due to excess calories]ChronicOther nutritional; endocrine; and metabolic disorders (12 sources)Body mass index 40+ - severely obese; Translations: [Body mass index (BMI) 40.0-44.9, adult]17-63-6265DbnudcxClkrp nutritional; endocrine; and metabolic disorders (1 source)Body mass index (BMI) 40.0-44.9, adultChronicOther screening for suspected conditions (not mental disorders or infectious disease) (20 sources)Raised prostate specific antigen; Translations: [Elevated prostate specific antigen [PSA]]Onset: 20-82-4696BdvmwphkYduewqhx codes; unclassified (2 sources)Tobacco ywpe34-90-1098YgynevarCchpnscxioe; intervertebral disc disorders; other back problems (20 sources)Lumbar spondylosis; Translations: [Spondylosis without myelopathy or radiculopathy, lumbar region]Chronic Past or Other Problems Problem ClassificationProblemDateDocumented DateEpisodic/ChronicEsophageal disorders (1 source)Esophageal disordersMood disorders (6 sources)Mood disordersOnset: [id number] connective tissue disease (1 source)Spasm; Translations: [Other muscle spasm]11-01-8048KxmpfyjmJoich fractures (12 sources)Compression fracture of lumbar spine; Translations: [Wedge compression fracture of first lumbar vertebra, initial encounter for closed fracture]Onset: [id number] fractures (6 sources)Compression fracture of L2; Translations: [Wedge compression fracture of second lumbar vertebra, initial encounter for closed fracture]Onset: [id number] Results Test NameValueInterpretationReference RangeFacilityPatient Letter FTMCon 04-45-4385Uahmhqr Letter FTMCPatient Letter FT July 05, 20[address]A [address] [place] [id number] : 1950 Dear Faby , We have been trying to reach you with no success. We have tried to get in contact with you regarding your MRI results, we have printed the results for you and they are enclosed. If you have any questions or concerns upon receiving this letter don't hesitate to reach out. We have you scheduled for an appointment with Dr. Sims on 10/30/2025. Sincerely, [facility] [address] [place] [id number] NormalPremier Health [facility] Hospital SouthProvider Letteron 06-08-2025 Provider LetterProvider Letter June 08, 2025 FABY HERRERA [address] [place] [address] : 1950 Dear Faby, We have been trying to reach you with no success. It is important that you return our call regarding a message from your provider upon receiving this letter. Also, at the time of your call, please provide us with your current information. Thank you for your prompt attention to this matter. Sincerely, [facility] [address] [place] [address] JifbfuWmvftoSelect Medical OhioHealth Rehabilitation Hospital - DublinMR prostate wo/w conon [id number] prostate wo/w [facility] [address] [place] [address] MRI Report Signed Patient: Faby Herrera MR#: [id number] : 1950 Acct:[id number] Age/Sex: 75 / M ADM Date: 05/30/25 Loc: Room: Type: [facility] Attending Dr: Cassius Sims MD Copies to: Cassius Sims MD Ordering Provider: Cassius Sims MD Date of Service: 05/30/25 MR/MR prostate wo/w con: R97.20 EXAMINATION: MR prostate wo/w con HISTORY: Elevated PSA. COMPARISON: NONE TECHNIQUE: Multiparametric imaging of the prostate gland was performed with IV contrast. FINDINGS: Prostate Dimensions: 6.3 x 5.4 x 6.8 cm. Prostate Volume: 120 mL. Peripheral Zone: Heterogenous inT2 signal suggestive of prior prostatitis. No suspicious T2 or ADC map abnormality is identified to suggest prostate malignancy. Central/Transitional Zone: BPH changes. Seminal Vesicles: Unremarkable Neurovascular bundles: Unremarkable. Lymphadenopathy: No evidence of lymphadenopathy. Bladder: No focal lesion. Bowel: Diverticulosis. Peritoneal Cavity: No free fluid. Bones: Sclerotic lesion involving the right iliac bone. MR/MR prostate wo/w con IMPRESSION: No MRI evidence of clinically significant prostate cancer. Sclerotic lesion involving the right iliac bone. Finding is nonspecific. A bony metastatic lesion cannot be excluded. Impression dictated by: Richard Gomez Jr., D.O. 05/31/2025 10:54 AM Dictation Location: [place] [address] Transcribed By: ANTHONY 05/31/25 1054 Dictated By: Richard Gomez Jr, DO 05/31/25 1050 Signed By: 05/31/25 1054NormC[facility] Clinic Tradition Hospital Physician GroupISTAT XRay CREon [id number] GFR>60.0NoECU Health Bertie Hospital Physician GroupComment on above:Result Comment: PERFORMED BY: [place] [address] PATHOLOGIST MEDIA THEORIST AND AUTHOR OF KERON RIZZO M.D.Performed By: #### ISCRE #### [facility] [address] [place] [address] USANo Panel InformationOrdered By: Cassius Sims on 45-45-2833Xymggvb Estimated GFR (eGFR)> 60.0[facility] Whole blood creatinine measurementOrdered By: Cassius Sims on 05-30-2025 Creatinine [Mass/Vol]1.2 mg/dLNormal0.6-1.3FDoctors Hospital Comment on above:ER/ESD physician is notified/shown all ISTAT results.Critical values may be confirmed by laboratorytesting ifdeemed necessary by ER attending doctor.Result Comment: ER/ESD physician is notified/shown all ISTAT results. Critical values may be confirmed by laboratory testing if deemed necessary by ER attending doctor.Performed By: #### ISCRE #### [facility] [address] [place], [place] [id number] USAAmbulatory Visit Summaryon [id number] Visit SummaryAmbulatory Visit Summary FABY HERRERA :1950 Visit Date:04/24/2025 Ambulatory Visit Instructions Your Diagnosis Elevated PSA BPH with obstruction/lower urinary tract symptoms Tests Performed MRI Pelvis (Soft Tissue) w/ + w/o contrast -- Results Pending -- Please visit your patient portal for your results or contact your primary care physician. Your Care Team Attending Physician - CELIA HINDS, Cassius Hawk Primary Care Physician - DEEP ABBASI DO This Is Your Medications List dutasteride (dutasteride 0.5 mg Cap) Contact prescribing physician if questions or concerns Misc Prescription ([facility] VITAMIN D3 25 MCG SOFTGEL) allopurinol (allopurinol 100 mg Tab) amlodipine (amLODIPine 10 mg Tab) carvedilol (carvedilol 12.5 mg Tab) celecoxib (celecoxib 200 mg Cap) glipiZIDE (glipiZIDE 10 mg Tab) hydrALAZINE (hydrALAZINE 10 mg Tab) methocarbamol (methocarbamol 750 mg Tab) pantoprazole (Pantoprazole [address] Tab) Procedures Performed History of lumbar spine surgery. Discharge Vitals Heart Rate (Peripheral) 70 Respiratory Rate 18 Blood Pressure 130/78 Height 178 cm Height 70 in Weight 131.8 kg Weight 290.569 lb BMI 41.6 What to do next Scheduled Follow-Up Appointments Thursday2025 10:00 AM EST With: Where: [facility] [address] [address]- Thursday2025 10:45 AM EST With: Cassius SIMS MD Where: [facility] [address] [address]- You Need to Schedule the Following Appointments Follow Up with Cassius SIMS MD, URL When: Comments: 6 mos w/ PSA and MRI Where: [facility] [address] [place] [address] , [facility] [place] [phone] You Need to Complete the Following PSA Free & Total, Blood, Routine collect, *Est. 10/25/25 +/- 28 day(s), Order for future visit,Lab Collect, Elevated PSA, Print Label By Order Location Medications What How Much When Why Instructions New dutasteride (dutasteride 0.5 mg Cap) 1 Capsules By Mouth Every day BPH with obstruction/lower urinary tract symptoms Refills: 3 Pickup at [facility]/pharmacy #[id number] Unchanged allopurinol (allopurinol 100 mg Tab) 1 Tablets Contact prescribing physician if questionsor concerns Unchanged amlodipine (amLODIPine 10 mg Tab) 1 Tablets By Mouth Every day Contact prescribing physician if questions or concerns Unchanged carvedilol (carvedilol 12.5 mg Tab) 1 Tablets By Mouth 2 times a day Contact prescribing physician if questions or concerns Unchanged celecoxib (celecoxib 200 mg Cap) 1 Capsules By Mouth Every day Contact prescribing physician if questions or concerns Unchanged glipiZIDE (glipiZIDE 10 mg Tab) 1 Tablets By Mouth Every day Contact prescribing physician if questions or concerns Unchanged hydrALAZINE (hydrALAZINE 10 mg Tab) 1 Tablets By Mouth 4 times a day Contact prescribing physician if questions or concerns Unchanged methocarbamol (methocarbamol 750 mg Tab) 1 Tablets TAKE 1 TABLET BY MOUTH 3 TIMES A DAY FOR 90 DAYS Contact prescribing physician if questions or concerns Unchanged Misc Prescription ([facility] VITAMIN D3 25 MCG SOFTGEL) TAKE 3 CAPSULES BY MOUTH DAILY Contact prescribing physician if questions or concerns Unchanged pantoprazole (Pantoprazole [address] Tab) 1 Tablets Contact prescribing physician if questions or concerns Pharmacy Information [facility]/pharmacy #[id number]: [address], [place] [phone] Allergies No Known Allergies Problems Ongoing - Any problem that you are currently receiving treatment for. Acute kidney injury BPH with obstruction/lower urinary tract symptoms Elevated PSA Gout Hypertensive disorder Morbid obesity with BMI of 40.0-44.9, adult Pure hypercholesterolemia Type 2 diabetes mellitus Patient Survey You may receive a survey via text or e-mail asking about your office visit. Please share your experience with us by completing your survey. We appreciate your feedback and thank you for choosing us for your care. Education Materials Magnetic Resonance Imaging Magnetic resonance imaging (MRI) is a painless test that produces detailed images of organs and tissues inside the body without using X-rays. During an MRI, strong magnets and radio waves work together to form images. MRI images may provide more details about a medical condition than X-rays, CT scans, and ultrasounds can provide. For a standard MRI, you will lie on a table that slides into a tunnel. In an open MRI, the tunnel will be open at the sides. In some cases, dye (contrast material) may be injected into your bloodstream to make the MRI images even clearer. Tell a health care provider about: ??? Any allergies you have. ??? All medicines you are taking, including vitamins, herbs, eye drops, creams, and zbon-apy-rzuhavv medicines. ??? A (more content not included)...[facility] DublinUrology Office/Clinic Noteon [id number] Office/Clinic NoteUrology Office/Clinic Note Chief Complaint pt here for follow up with PSA HPI Staff 75 year old male 4 month follow up with PSA Previous Dx: elevated PSA, BPH w/obstruction/ lower urinary tract symptoms PSA: 04/14/25 6.3 & 34.9% 09/07/24 - 5.85 05/07/22 - 5.13 11/06/21 - 5.84 Flomax BID pt is no longer taking as of 1 week ago due to irritation pt unable to give urine sample Pt complains of intermittent burning denies visible blood denies flank pain IPSS:12 History of Present Illness Tests reviewed: reviewed UA I have reviewed the previous health record information and history for this patient from Dr. Sims. I have reviewed and verified the staff HPI to be accurate for this encounter. Review of Systems PHQ Score Initial Depression Screen Score: 0 SCORE ROS - Provider Constitutional: denies weight loss, denies hot flashes. Eyes: denies eye problems. Gastrointestinal: denies nausea, denies vomiting. Cardiovascular: denies chest pain or angina. Integumentary: no dryness Musculoskeletal: denies musculoskeletal symptoms. ENMT: denies otolaryngeal symptoms. Respiratory: no shortness of breath. Heme/Lymph: denies easy bleeding tendency, denies easy bruising tendency. Psychiatric: no confusion, no anxiety. Genitourinary: See HPI. Physical Exam Vitals & Measurements HR: 70(Peripheral) RR: 18 BP: 130/78 HT: 70 in HT: 178 cm WT: 290.569 lb WT: 131.8 kg BMI: 41.6 General Appearance: alert, no distress, well nourished, well developed male. Assessment/Plan PMH: DMII, back surgery 1. Elevated PSA (R97.20: Elevated prostate specific antigen [PSA]) PSA: 11/06/21 - 5.84 05/07/22 - 5.13 09/07/24 - 5.85 04/14/25 - 6.3 & 35% CARLA 12/16/24: ~ 40 g, distant, no nodules. No prior prostate MRI or bx. PSA has increased from prior. Discussed management options including closer PSA monitoring vs prostate MRI which could lead to fusion bx if lesion was found. May proceed with prostate bx regardless given prostate MRIs can miss prostate cancer in 12-16% of patients. R/Bsof options discussed. Pt elects to proceed with prostate MRI. -Schedule prostate MRI. Will call pt w results. -F/u in 6 mos w/ PSA 2. BPH with obstruction/lower urinary tract symptoms (N40.1: Benign prostatic hyperplasia with lower urinary tract symptoms) IPSS 12 (14). Started Flomax 0.4 mg bid at prior OV. Noted a scrotal rash so decreased dosage to qd. Then stopped Flomax completely a few days ago, and rash appears to be subsiding. Discussed trying Dutasteride instead to help w urination. Advised pt max efficacy takes ~6 mos. Possible SEs discussed. -Start Dutasteride 0.5 mg qd. Rx sent to [facility]. Follow-up With When Contact Information CELIA HINDS, Cassius Hawk, URL [facility] [address], [place] [phone] Additional Instructions: 6 mos w/ PSA and MRI Patient Education Magnetic Resonance Imaging Prostate Cancer Screening I, Marie Javed, personally scribed for Dr. Sims on 04/24/2025 12:12:28. . Documentation recorded by the scribe, Marie Javed, accurately reflects the services(s) I performed and decisions made by me. Authenticated by Dr. Sims on 04/24/2025 12:13:11. Problem List/Past Medical History Ongoing Acute kidney injury BPH with obstruction/lower urinary tract symptoms Elevated PSA Gout Hypertensive disorder Morbid obesity with BMI of 40.0-44.9, adult Pure hypercholesterolemia Type 2 diabetes mellitus Historical No qualifying data Procedure/Surgical History History of lumbar spine surgery. Medications allopurinol 100 mg Tab, 100 mg= 1 tab(s) amLODIPine 10 mg Tab, 10 mg= 1 tab(s), Oral, Daily carvedilol 12.5 mg Tab, 12.5 mg= 1 tab(s), Oral, BID celecoxib 200 mg Cap, 200 mg= 1 cap(s), Oral, Daily [facility] VITAMIN D3 25 MCG SOFTGEL dutasteride 0.5 mg Cap, 0.5 mg= 1 cap(s), Oral, Daily, 3 refills glipiZIDE 10 mg Tab, 10 mg= 1 tab(s), Oral, Daily hydrALAZINE 10 mg Tab, 10 mg= 1 tab(s), Oral, QID methocarbamol 750 mg Tab, 750 mg= 1 tab(s) Pantoprazole [address] Tab, 40 mg= 1 tab(s) Allergies No Known Allergies Social History Tobacco 10 or more cigarettes (1/2 pack or more)/day in last 30 days Tobacco Use:. Never Smokeless Tobacco Use:. Cigarettes, Ready to change: No. Household tobacco concerns: No. Yes, 04/24/2025 Immunizations Vaccine Date Status pneumococcal 20-valent conjugate vaccine 2023 Recorded diphtheria/pertussis, acel/tetanus adult 06/04/2022 Recorded SARS-CoV-2 (COVID-19) mRNA BNT-162b2 vax 09/17/2021 Recorded SARS-CoV-2 (COVID-19) mRNA BNT-162b2 vax 12/18/2020 Recorded SARS-CoV-2 (COVID-19) mRNA BNT-162b2 vax 11/26/2020 Recorded zoster vaccine, inactivated 03/23/2019 Recorded zoster vaccine, inactivated 11/23/2018 Recorded pneumococcal 23-valent vaccine 04/16/2018 Recorded pneumococcal 13-valent vaccine 03/26/2016 RecordedSelect Medical OhioHealth Rehabilitation Hospital - DublinComment on above:Result Comment: Electronically Signed By: CELIA HINDS, Cassius Hawk\.br\Date and Time Signed: 04/24/25 12:13 EDT\.br\Electronically Co- Signed By: Marie Javed\.br\Date and Time Co-Signed: 04/24/25 12:12 EDT Cholesterol in LDL Calc [Mass/Vol]on 71-31-2246Qymncipqcki in LDL [Mass/Vol]60.0 mg/dLUniversity Hospitals Ahuja Medical CenterComment on above:<100 mg/dl AGTJOXF780- 129 mg/dl NEAR OR ABOVE CYYXLLA701-976 mg/dl BORDERLINE YFXZ938-771 mg/dl H IGH>190 mg/dl VERY HIGHCholesterol in VLDL Calc [Mass/Vol]on 01-31-2025 Cholesterol in VLDL [Mass/Vol]15.0 mg/dLUniversity Hospitals Ahuja Medical Center Estimated glomerular filtration rate (GFR) non- Americanon 01-31-2025 GFR/1.73 sq M.predicted among non-blacks MDRD (S/P/Bld) [Vol rate/Area]56 mL/min/{1.73_m2}Low>=60 mL/min/1.73m 2FDoctors Hospital Laboratory - Chemistry and Chemistry - challengeon 05-15-1783XPR [Catalytic activity/Vol]28 U/U67-12CmlpruukrUniversity Hospitals Ahuja Medical CenterAST [Catalytic activity/Vol]15 U/V73-98QfxfreubqUniversity Hospitals Ahuja Medical CenterCalcium [Mass/Vol]9.1 mg/dL8.5-10.1FDoctors HospitalChloride [Moles/Vol]107 mmol/L 98-107[facility]ja Medical CenterCholesterol [Mass/Vol]110 mg/dL<=200 [facility]huja Medical CenterCholesterol in HDL [Mass/Vol]35 mg/wZSuc21-32 [facility] Medical CenterComment on above:> or =60 mg/dl - LOW CARDIOVASCULAR RISK<40 mg/dl - HIGH CARDIOVASCULAR RISKCO2 [Moles/Vol]29.8 mmol/L21.0-32.0[facility]huja Medical CenterCreatinine [Mass/Vol]1.26 mg/dL 0.70-1.30[facility]huja Medical CenterGFR/1.73 sq M.predicted MDRD (S/P/Bld) [Vol rate/Area]mL/min/{1.73_m2}>=60 mL/min/1.73m 2FDoctors HospitalGlucose [Mass/Vol]144 mg/tGUryl50-406LkfocsatfUniversity Hospitals Ahuja Medical Center Potassium [Moles/Vol]4.0 mmol/L3.5-5.1FCity Hospitalodium [Moles/Vol]140 mmol/L901-076NbwyfeafhUniversity Hospitals Ahuja Medical CenterTriglyceride [Mass/Vol]75 mg/dL<=150University [facility]als Ahuja Medical CenterUrea nitrogen [Mass/Vol] 28.0 mg/dLHigh7.0-18.0[facility]ja Medical CenterUrea nitrogen/Creatinine [Mass ratio]22.2 mg/mgProMedica Flower Hospitalerum or plasma anion gap determinationon 24-83-2023Zzbqc gap [Moles/Vol]7.2 mmol/LFCity Hospitalerum or plasma total cholesterol/high density lipoprotein (HDL) cholesterol mass flavia 54-45-7841Wywoknbzyoi.total/Cholesterol in HDL [Mass ratio]3.1 {ratio}[facility]ja Medical CenterComment on above:3.3 - 4.4 LOW RISK4.4 - 7.1 AVERAGE RISK7.1 - 11.0 MODERATE RISK>11.0 HIGH RISKAmbulatory Visit Summaryon 47-44-3603Bnxwkbzylc Visit SummaryAmbulatory Visit Summary FABY HERRERA :1950 Visit Date:12/16/2024 Ambulatory Visit Instructions Your Diagnosis Elevated PSA BPH with obstruction/lower urinary tract symptoms Your Care Team Attending Physician - Cassius SIMS MD Primary Care Physician - DEEP ABBASI DO Referring Physician - DEEP ABBASI DO This Is Your Medications List tamsulosin (tamsulosin 0.4 mg Cap) Contact prescribing physician if questions or concerns Misc Prescription ([facility] VITAMIN D3 25 MCG SOFTGEL) allopurinol (allopurinol 100 mg Tab) amlodipine (amLODIPine 10 mg Tab) carvedilol (carvedilol 12.5 mg Tab) celecoxib (celecoxib 200 mg Cap) glipiZIDE (glipiZIDE 10 mg Tab) hydrALAZINE (hydrALAZINE 10 mg Tab) methocarbamol (methocarbamol 750 mg Tab) pantoprazole (Pantoprazole [address] Tab) Discharge Vitals Temperature (Oral) 37 ???C Heart Rate (Peripheral) 78 Respiratory Rate 18 Blood Pressure 132/68 Height 178 cm Height 70 in Weight 132 kg Weight 291.01 lb BMI 41.66 What to do next Scheduled Follow-Up Appointments Thursday 10:30 AM EDT With: Where: [facility] [address] [address]- Thursday 11:15 AM EDT With: Cassius SIMS MD Where: [facility] [address] [address]- You Need to Schedule the Following Appointments Follow Up with Cassius SIMS MD, URL When: Where: [facility] [address] [place] [address] , [facility] [place] [address] You Need to Complete the Following PSA Free & Total, Blood, Routine collect, 12/16/24, Order for future visit, Lab Collect, Elevated PSA BPH with obstruction/lower urinary tract symptoms, Print Label By Order Location Medications What How Much When Instructions New tamsulosin (tamsulosin 0.4 mg Cap) 1 Capsules By Mouth 2 times a day Duration: 30 Days Refills:11 Decrease to once a day if experiencing dizziness or lightheadedness. Pickup at [facility]/pharmacy #[id number] Unchanged allopurinol (allopurinol 100 mg Tab) 1 Tablets Contact prescribing physician if questionsor concerns Unchanged amlodipine (amLODIPine 10 mg Tab) 1 Tablets By Mouth Every day Contact prescribing physician if questions or concerns Unchanged carvedilol (carvedilol 12.5 mg Tab) 1 Tablets By Mouth 2 times a day Contact prescribing physician if questions or concerns Unchanged celecoxib (celecoxib 200 mg Cap) 1 Capsules By Mouth Every day Contact prescribing physician if questions or concerns Unchanged glipiZIDE (glipiZIDE 10 mg Tab) 1 Tablets By Mouth Every day Contact prescribing physician if questions or concerns Unchanged hydrALAZINE (hydrALAZINE 10 mg Tab) 1 Tablets By Mouth 4 times a day Contact prescribing physician if questions or concerns Unchanged methocarbamol (methocarbamol 750 mg Tab) 1 Tablets TAKE 1 TABLET BY MOUTH 3 TIMES A DAY FOR 90 DAYS Contact prescribing physician if questions or concerns Unchanged Misc Prescription ([facility] VITAMIN D3 25 MCG SOFTGEL) TAKE 3 CAPSULES BY MOUTH DAILY Contact prescribing physician if questions or concerns Unchanged pantoprazole (Pantoprazole [address] Tab) 1 Tablets Contact prescribing physician if questions or concerns Pharmacy Information [facility]/pharmacy #[id number]: [address], [place] [phone] Allergies No Known Allergies Problems Ongoing - Any problem that you are currently receiving treatment for. BPH with obstruction/lower urinary tract symptoms Patient Survey You may receive a survey via text or e-mail asking about your office visit. Please share your experience with us by completing your survey. We appreciate your feedback and thank you for choosing us for your care. Education Materials Prostate Cancer Screening Prostate cancer screening is testing that is done to check for the presence of prostate cancer in men. The prostate gland is a walnut-sized gland that is located below the bladder and in front of therectum in males. The function of the prostate is to add fluid to semen during ejaculation. Prostatecancer is one of the most common types of cancer in men. Who should have prostate cancer screening? Screening recommendations vary based on age and other risk factors, as well as between the professional organizations who make the recommendations. In general, screening is recommended if: ??? You are age 50 to 70 and have an average risk for prostate cancer. You should talk with your healthcare provider about your need for screening and how often screening should be done. Because most prostate cancers are slow growing and will not cause , screening in this age group is generally reserved for men who have a 10- to 15-year life expectancy. ??? You are younger than age 50, and you have these risk factors: ? Having a father, brother, (more content not included)...NormalFormerly [facility], [facility]er [facility] HospitalGlucose Glucometer (BldC) [Mass/Vol]Ordered By: Richard Esctoo on 69-23-1539Rkzpsjx [Mass/Vol]110 mg/dLUniversity Hospitals Ahuja Medical CenterComment on above:Random Glucose Reference Range is dependent on time and content of last meal. Glucose of more than 200 mg/dL in a nonstressed, ambulatory subject supports the diagnosis of Diabetes Mellitus.No Panel InformationOrdered By: Richard Escoto on 13-19-1156Wtiyivs Glucose CommentGlu2: cleaned meterUniversity Hospitals Ahuja Medical CenterBasophils Auto (Bld) [#/Vol]Ordered By: Richard Escoto on 94-04-1372Urfgyrfbs (Bld) [#/Vol]0.1 10*3/uL0.0-0.2FDoctors HospitalBasophils/100 WBC Auto (Bld)Ordered By: Richard Escoto on 09-30-2023 Basophils/100 WBC (Bld)0.9 %.[facility] Medical CenterCalcium [Mass/volume] in Serum or PlasmaOrdered By: Richard Escoto on 51-75-0292Sbvvzse [Mass/Vol]9.3 mg/dL8.6-10.3FDoctors HospitalCarbon dioxide, total [Moles/volume] in Serum or PlasmaOrdered By: Richard Escoto on 10-71-4472TF2 [Moles/Vol]30.5 mmol/L21.0-31.0[facility] Medical CenterChloride [Moles/volume] in Serum or PlasmaOrdered By: Richard Escoto on 00-79-1165Autifeqq [Moles/Vol]102 mmol/D10-725GkriaflbcUniversity Hospitals Ahuja Medical CenterCreatinine [Mass/volume] in Serum or PlasmaOrdered By: Richard Escoto on 95-52-5307Tapeiwggbs [Mass/Vol]1.08 mg/dL0.70-1.30[facility] Ahuja Medical CenterEosinophils Auto (Bld) [#/Vol]Ordered By: Richard Escoto on 98-46-3537Ghmejghvsac (Bld) [#/Vol]0.2 10*3/uL0.0-0.45[facility] Ahuja Medical CenterEosinophils/100 WBC Auto (Bld) Ordered By: Richard Escoto on 31-37-2129Ypdpyriwayv/100 WBC (Bld)3.5 %.[facility] Ahuja Medical CenterErythrocyte distribution width Auto (RBC) [Ratio]Ordered By: Richard Escoto on 79-94-6725Dqhptsbtbsp distribution width (RBC) [Ratio]14.7 % 12.0-14.8[facility]huja Medical CenterGlucose [Mass/volume] in Serum or PlasmaOrdered By: Richard Escoto on 78-07-8298Phlhndw [Mass/Vol]113 mg/hT94-357 [facility]ja Medical CenterComment on above:ADA recommended reference rangeRandom Glucose Reference Range is dependent on time and content of last meal. Glucose of more than 200 mg/dL in a nonstressed, ambulatory subject supports the diagnosisof Diabetes Mellitus.Hematocrit Auto (Bld) [Volume fraction]Ordered By: Richard Escoto on 92-23-5687Loljuprphs (Bld) [Volume fraction]37.1 %38.8-50.0[facility] Ahuja Medical CenterHemoglobin [Mass/volume] in BloodOrdered By: Richard Escoto on 81-11-2385Njpkqzxiwz (Bld) [Mass/Vol]12.8 g/dL13.0-17.0[facility]huja Medical CenterLeukocytes [#/volume] corrected for nucleated erythrocytes in Blood by Automated coun Ordered By: Richard Escoto on 62-03-5198GCU corrected for nucl RBC Auto (Bld) [#/Vol]5.9 10*3/uL4.1-10.5FDoctors HospitalLymphocytes Auto (Bld) [#/Vol]Ordered By: Richard Escoto on 20-07-8583Sppckvwihtd (Bld) [#/Vol]1.4 10*3/uL1.00-4.8[facility] Ahuja Medical CenterLymphocytes/100 WBC Auto (Bld) Ordered By: Richard Escoto on 75-91-5442Nrssugzkrgr/100 WBC (Bld)23.0 %.[facility] HospitalH Auto (RBC) [Entitic mass]Ordered By: Richard Escoto on 48-51-9599UOG (RBC) [Entitic mass]32.5 pg27.5-35.2FDoctors HospitalMCHC Auto (RBC) [Mass/Vol]Ordered By: Richard Escoto on 78-39-1801ZCCT (RBC) [Mass/Vol]34.4 g/dL32.5-35.6FDoctors HospitalMCV Auto (RBC) [Entitic vol]Ordered By: Richard Escoto on 18-32-6789LSM (RBC) [Entitic vol]94.4 fL83.5-101[facility] Medical CenterMonocytes Auto (Bld) [#/Vol]Ordered By: Richard Escoto on 29-05-6361Pkpaagxnj (Bld) [#/Vol]0.6 10*3/uL0.0-0.8[facility] Medical CenterMonocytes/100 WBC Auto (Bld)Ordered By: Richard Escoto on 18-92-5133Tbdtbmety/100 WBC (Bld)10.5 %.[facility] Neutrophils Auto (Bld) [#/Vol]Ordered By: Richard Escoto on 30-79-0602Kxdqfyoyhkv (Bld) [#/Vol]3.7 10*3/uL1.8-7.7FDoctors HospitalNeutrophils/100 WBC Auto (Bld)Ordered By: Richard Escoto on 05-24-3601Uzrlbwlvvmd/100 WBC (Bld) 62.1 %.[facility] Medical CenterNo Panel InformationOrdered By: Richard Escoto on 79-87-6250Kpzzzvhuo GFR (CKD-EPI)> 60.0 mL/MinUniversity Hospitals Ahuja Medical CenterPharmacy Creatinine Clearance (Chem86.85[facility]ja Medical CenterNucleated erythrocytes [Presence] in Blood by Automated countOrdered By: Richard Escoto on 06-07-6876Alindkuyv RBC Auto Ql (Bld)0.0 /100{WBC}0-0.5FDoctors HospitalPlatelet mean volume Auto (Bld) [Entitic vol]Ordered By: Richard Escoto on 68-20-5038Mdnkzmak mean volume (Bld) [Entitic vol]7.3 fL6.6-10.1 [facility] Medical CenterPlatelets Auto (Bld) [#/Vol]Ordered By: Richard Escoto on 80-48-2357Pfotqzpen (Bld) [#/Vol]206 10*3/tG967-082KicvpgoirUniversity Hospitals Ahuja Medical CenterPotassium [Moles/volume] in Serum or PlasmaOrdered By: Richard Escoto on 97-47-2435Onvpkgmrl [Moles/Vol]4.6 mmol/L3.5-5.1FDoctors HospitalRBC Auto (Bld) [#/Vol]Ordered By: Richard Escoto on 53-60-3952BVB (Bld) [#/Vol]3.93 10*6/uL3.90-5.60[facility]lower Hospitalerum or plasma anion gap determinationOrdered By: Richard Escoto on 50-92-7483Jepkd gap [Moles/Vol]10.1 mmol/L6.0-15.0[facility]lower Hospitalodium [Moles/volume] in Serum or PlasmaOrdered By: Richard Escoto on 09-91-3454Xarejm [Moles/Vol]138 mmol/K007-180YmfnipdptUniversity Hospitals Ahuja Medical CenterUrea nitrogen [Mass/volume] in Serum or PlasmaOrdered By: Richard Escoto on 92-65-4415Itbv nitrogen [Mass/Vol]26 mg/dL7-25[facility] Medical CenterWBC Auto (Bld) [#/Vol]Ordered By: Richard Escoto on 95-97-3133GZY (Bld) [#/Vol]5.9 10*3/uL 4.1-10.5FDoctors HospitalAutomated erythrocytes count in urine sediment (number/area)Ordered By: Richard Escoto on 87-92-9839KPE Auto (Urine sed) [#/Area]3-4 [HPF]0-4FDoctors HospitalAutomated leukocytes count in urine sediment (number/area)Ordered By: Richard Escoto on 23-66-2279KVL Auto (Urine sed) [#/Area]0-1 [HPF]0-4FDoctors HospitalBilirubin Test strip Ql (U)Ordered By: Richard Escoto on 81-28-8859Sjrdbipte Ql (U)Negative NegativeUniversity Hospitals Ahuja Medical CenterColor Auto (U)Ordered By: Richard Escoto on 42-23-2085Kohga (U)YellowYellowUniversity Hospitals Ahuja Medical CenterKetones Auto test strip (U) [Mass/Vol]Ordered By: Richard Escoto on 48-17-4496Zwkiiwl (U) [Mass/Vol]NegativeNegBrecksville VA / Crille HospitalLaboratory - UrinalysisOrdered By: Richard Escoto on 38-07-2096Vnqigcg casts LM Ql (Urine sed) None seen [LPF]0-8[facility]huja Medical CenterNitrite Test strip Ql (U) Ordered By: Richard Escoto on 56-68-5439Yrxamxb Ql (U)NegativeNegBrecksville VA / Crille HospitalProtein Auto test strip (U) [Mass/Vol]Ordered By: Richard Escoto on 06-18-2447Chnubpf (U) [Mass/Vol]NegativeNegAvita Health System Bucyrus Hospitalpecific gravity Auto test strip (U) [Rel density]Ordered By: Richard Escoto on 73-73-3186Lerhqbtd gravity (U) [Rel density]1.0181.001-1.030 [facility] Hospitalquamous epithelial cells detection in urine sediment by light microscopyOrdered By: Richard Escoto on 76-74-0691Trevjlusrx cells.squamous LM Ql (Urine sed)0-1 [HPF]0-2FDoctors Hospital Urine bacteria detection by automated methodOrdered By: Richard Escoto on 93-19-0767Eljeckaq Auto Ql (U)None seenNone SeenUniversity Hospitals Ahuja Medical CenterUrine clarity by refractometry automatedOrdered By: Richard Escoto on 46-40-4716Ayvnvwu Refractometry automated (U)ClearClearFDoctors HospitalUrine glucose measurement by automated test strip (mass/volume) Ordered By: Richard Escoto on 92-08-2032Wgmtfga Auto test strip (U) [Mass/Vol] Normal mg/dLNormUniversity Hospitals Cleveland Medical CenterUrine hemoglobin detection by automated test stripOrdered By: Richard Escoto on 56-50-1510Juxkwloedg Auto test strip Ql (U)NegativeNegativeUniversity Hospitals Ahuja Medical CenterUrine leukocyte esterase detection by automated test stripOrdered By: Richard Escoto on 09-29-2023 Leukocyte esterase Auto test strip Ql (U)1+NegativeUniversity Hospitals Ahuja Medical CenterUrobilinogen Auto test strip (U) [Mass/Vol]Ordered By: Richard Escoto on 29-23-7621Ttiefmupsded (U) [Mass/Vol]Normal mg/dLNormUniversity Hospitals Cleveland Medical CenterpH Auto test strip (U)Ordered By: Richard Escoto on 27-64-3748bZ (U) 5.5 [pH]5.0-9.0[facility] CenterNo Panel InformationOrdered By: Richard Escoto on 96-98-7672Ygvxbmn Glucose #[address]/[facility] HospitalUrine culture routineOrdered By: Ada Segura on 80-18-9695Oyglzgpj identified Cx Nom (U)Klebsiella variicolaUniversity Hospitals Ahuja Medical CenterAlanine aminotransferase [Enzymatic activity/volume] in Serum or PlasmaOrdered By: Richard Escoto on 19-75-6293VRP [Catalytic activity/Vol]19 U/L 7-52[facility] Medical CenterAlbumin [Mass/volume] in Serum or Plasma by Bromocresol green (BCG) dye binding methoOrdered By: Richard Ecsoto on 09-15-2023 Albumin BCG dye [Mass/Vol]3.0 g/dL3.5-5.7FDoctors Hospital Alkaline phosphatase [Enzymatic activity/volume] in Serum or PlasmaOrdered By: Richard Escoto on 41-33-4034AGR [Catalytic activity/Vol]99 U/T79-253GsnjdpqtgUniversity Hospitals Ahuja Medical CenterAspartate aminotransferase [Enzymatic activity/volume] in Serum or PlasmaOrdered By: Richard Escoto on 77-72-2164SHU [Catalytic activity/Vol]18 U/G34-98YybozignmUniversity Hospitals Ahuja Medical CenterBilirubin.total [Mass/volume] in Serum or PlasmaOrdered By: Richard Escoto on 03-31-3105Dcqisykah [Mass/Vol]1.9 mg/dL0.3-1.0[facility]ja Medical CenterComment on above: Samples from patients who have taken Naproxen have shown spurious elevation in Total Bilirubin levels. A metabolite of Naproxen, O-desmethylnaproxen, has been shown to interfere with the Jenbelaik-Michele method for measuring Total Bilirubin.Globulin Calc (S) [Mass/Vol]Ordered By: Richard Escoto on 09-15-2023 Globulin (S) [Mass/Vol]2.4 g/dLUniversity Hospitals Ahuja Medical CenterGlucose mean value [Mass/volume] in Blood Estimated from glycated hemoglobinOrdered By: Yuliya Mosley on 66-43-4391Thkthiv glucose Estimated from glycated hemoglobin (Bld) [Mass/Vol]151 mg/dLUniversity Hospitals Ahuja Medical CenterHemoglobin A1c percentageOrdered By: Yuliya Mosley on 39-33-2671SfH9h (Bld) [Mass fraction]6.9 %4.3-5.6FDoctors HospitalComment on above:Increased risk for diabetes: 5.7 - 6.4diabetes: >6.4glycemic control for adults with diabetes: <7.0Prealbumin [Mass/volume] in Serum or PlasmaOrdered By: Richard Escoto on 75-62-4736Lvjqjqodgb [Mass/Vol]14.9 mg/dL17.0-34.0[facility] Medical CenterProtein [Mass/volume] in Serum or PlasmaOrdered By: Richard Escoto on 91-15-3659Ukivzpw [Mass/Vol]5.4 g/dL6.4-8.9[facility] Serum or plasma albumin/globulin mass ratioOrdered By: Richard Escoto on 49-70-9555Vximvgl/Globulin [Mass ratio]1.3 {ratio}[facility] Vital Signs Date TimeVital SignValuePerforming DelmeaukvXzijxmff97-61-2627 16:10-0400Body .88 cmBenjamin Ball DO Work Phone: [facility]09-02-2025 16:10-0400 Body cfkjke258.82 kgBenjamin Ball DO Work Phone: [facility]07-23-2025 14:38-0400 Body bszirj283.8 cmBenjamin Ball DO Work Phone: [facility]07-23-2025 14:38-0400 Body mass index (BMI) [Ratio]41.6 kg/i7Vicgroos Ball DO Work Phone: [facility]07-23-2025 14:38-0400 Body juiprf818.65 kgBenjamin Ball DO Work Phone: [facility]07-23-2025 14:38-0400 Diastolic blood gazcssna80 mm[Hg]Deep Ball DO Work Phone: [facility]07-23-2025 14:38-0400 Heart rate77 /minBenjamin Ball DO Work Phone: [facility]07-23-2025 14:38-0400 Respiratory rate20 /minBenjamin Ball DO Work Phone: [phone]07-23-2025 14:38-0400 Systolic blood yfpflhbj780 mm[Hg]Deep Ball DO Work Phone: [facility]03-10-2025 13:29-0400 Body ypavxe748.8 cmUniversity Hospitals Ahuja Medical Center03-10-2025 13:29-0400Body mass index (BMI) [Ratio]41.8 kg/p4QceksejfvUniversity Hospitals Ahuja Medical Center03-10-2025 13:29-0400Body loghae649.44 kgUniversity Hospitals Ahuja Medical Center03-10-2025 13:29-0400Diastolic blood mm[Hg][facility] 12-05-2024 13:29-0400Heart rate74 /[facility] 12-05-2024 13:29-0400Respiratory rate12 /[facility] 12-05-2024 13:29-0400Systolic blood qyswgjis134 mm[Hg][facility]07-31-2024 14:22-0400Body zliilv333.8 cmUniversity Hospitals Ahuja Medical Center 04-27-2024 14:22-0400Body mass index (BMI) [Ratio]39.9 kg/w9AxizgcghmUniversity Hospitals Ahuja Medical Center07-31-2024 14:22-0400Body .09 [facility]07-31-2024 14:22-0400Diastolic blood qysjegim40 mm[Hg][facility]07-31-2024 14:22-0400Heart rate73 /[facility]07-31-2024 14:22-0400Respiratory rate12 /[facility]07-31-2024 14:22-0400Systolic blood mgclxigz425 mm[Hg][facility]05-07-2024 14:14-0400Body vkvuzk261.9 cmLucio Green MD Work Phone: [facility]05-07-2024 14:14-0400Body mass index (BMI) [Ratio]39.2 kg/c7RlcouLucio Green MD Work Phone: [facility]05-07-2024 14:140400Body ajsnhj573.09 kgLucio Green MD Work Phone: [facility]04-16-2024 11:52-0400Body asrtwr808.8 cmUniversity Hospitals Ahuja Medical Center04-16-2024 11:52-0400Body mass index (BMI) [Ratio]40.4 kg/s0QiinfqogqUniversity Hospitals Ahuja Medical Center04-16-2024 11:52-0400Body qpoqyc631.62 kgUniversity Hospitals Ahuja Medical Center04-16-2024 11:52-0400Diastolic blood qsyfjzbb98 mm[Hg][facility] 01-12-2024 11:52-0400Heart rate58 /[facility] 01-12-2024 11:52-0400Respiratory rate20 /[facility] 01-12-2024 11:52-0400Systolic blood nrhykifz983 mm[Hg][facility]02-06-2024 14:09-0500Body ofmtpn389.9 cmPjavier Garces 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 Phone: [facility]02-06-2024 14:09-0500Body mass index (BMI) [Ratio]39.2 kg/l5Ygcucaxu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 Phone: [facility]02-06-2024 14:09-0500Body vnwzur038.09 kg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 Phone: [facility]02-06-2024 14:090500Diastolic blood mm[Hg]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 Phone: [facility]02-06-2024 14:09-0500Heart rate 65 /min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 Phone: [facility]02-06-2024 14:090500Systolic blood mm[Hg]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 Phone: [facility]01-29-2024 15:00-0500Body xtusbz523.8 cmBenjamin Ball Other [facility]01-29-2024 15:00-0500 Body mass index (BMI) [Ratio]37.33 kg/n9Wgtodjat Ball Other [facility] [employer] Other 01-29-2024 15:00-0500Body hyuqpt384.03 kgBenjamin Ball Other [facility] [employer] Other 01-29-2024 15:00-0500Body .02 kgUniversity Hospitals Ahuja Medical Center01-29-2024 15:00-0500Diastolic blood uvxoikbu07 mm[Hg] Deep Ball Other [facility]01-29-2024 15:00-0500 Respiratory rate20 /minBenjamin Ball Other [employer] Other 01-29-2024 15:00-0500Systolic blood ybplaahr400 mm[Hg] Deep Chandu Other [facility]01-10-2024 11:08-0500 Body powxugvfzlt61.8 [degF]PHYSICIAN NO [facility] 10-07-2023 11:08-0500Diastolic blood eaqigpia72 mm[Hg]PHYSICIAN NO [facility]01-10-2024 11:08-0500Heart rate87 /minPHYSICIAN [facility]01-10-2024 11:08-0500Respiratory rate 18 /minPHYSICIAN [facility]01-10-2024 11:08-0500 SaO2% (BldA) [Mass fraction]97 %PHYSICIAN NO [facility]01-10-2024 11:08-0500Systolic blood pnphmeig458 mm[Hg]PHYSICIAN NO [facility]01-10-2024 07:03-0500Body yqzejm560.88 cm PHYSICIAN [facility]01-07-2024 05:54-0500Body vazvam659.9 kgPHYSICIAN [facility]11-13-2023 13:30-0500Body rsqokk729.8 cmBendhara Ball Other [employer] Other 11-13-2023 13:30-0500Body mass index (BMI) [Ratio] 43.59 kg/p5Oqbyryqa Ball Other [employer] Other 11-13-2023 13:30-0500Body zivupp687.8 kgBenjamin Ball Other [employer] Other 11-13-2023 13:30-0500Diastolic blood bdrqqufv12 mm[Hg] Deep Abbasi Other [employer] Other 11-13-2023 13:30-0500Respiratory rate16 /minBenjamin Ball Other [employer] Other 11-13-2023 13:30-0500Systolic blood wtjvkcry441 mm[Hg] Deep Ball Other [facility] [employer] Other 07-11-2023 13:30-0400Body jmqogv658.8 cmBenjamin Ball Other [employer] Other 07-11-2023 13:30-0400Body mass index (BMI) [Ratio] 43.93 kg/c4Lemffwua Ball Other [facility] [employer] Other 07-11-2023 13:30-0400Body .89 kgBenjamin Ball Other [employer] Other 07-11-2023 13:30-0400Diastolic blood ptykoqhh41 mm[Hg] Deep Ball Other [employer] Other 07-11-2023 13:30-0400Respiratory rate16 /minBenjamin Ball Other [employer] Other 07-11-2023 13:30-0400Systolic blood huryngsx666 mm[Hg] Deep Ball Other [employer] Other 01-24-2023 15:30-0500Body qqcaox013.8 cmBenjamin Ball Other [employer] Other 01-24-2023 15:30-0500Body mass index (BMI) [Ratio] 44.36 kg/q7Rcjaypgb Ball Other [place] [employer] Other 01-24-2023 15:30-0500Body bfmzup224.25 kgBenjamin Ball Other [facility] [employer] Other 01-24-2023 15:30-0500Diastolic blood mm[Hg] Deep Ball Other [facility] [employer] Other 01-24-2023 15:30-0500Respiratory rate16 /minBenjamin Ball Other [facility] [employer] Other 01-24-2023 15:30-0500Systolic blood ohdsugoh902 mm[Hg] Deep Ball Other [facility] [employer] Other Encounters Encounter DateEncounter TypeCare ProviderFacilityStart: 25-87-1646fiwhrzezsf Cassius SIMSFacility:[place]Start: 53-26-6717hhtvrsrbbePnbpcxt R WATERS Facility:[place]Start: 05-30-2025 End: 48-38-4706Uhegmwz encounter procedureCassius Sims MD-[facility] [place] Work Phone: Start: 05-30-2025 End: 26-11-4051xfidoakmkfGonwpuao Ball DO Work Phone: [facility] Work Phone: Start: 04-24-2025 End: 89-13-5843hlzfxivywgZweancc R WATERSFacility:[place]Start: 04-24-2025 End: 51-60-8468Cconyej encounter procedureCassius SIMS [facility] start: 04-19-2025 End: 37-11-7499ituuiduvkvGtrgzdxi Ball DO Work Phone: [facility] Work Phone: Start: 04-19-2025 End: 50-08-1857Kvtxnjk encounter procedureDeep Chandu DOOur [facility] Work Phone: Start: 04-14-2025 End: 46-90-6977qgnkuzlaxyTbsljfg R WATERSFacility:FTMCStart: 04-14-2025 End: 17-71-0036Itldrbt encounter procedureCassius SIMS [facility] [place] start: 81-88-9932Qjf-patient / Non-visitBeshlomo Chandu -[facility] [employer] Work Phone: Start: 12-16-2024 End: 52-55-5597glnaasjnxnXHJDKOJS CHANDUHaicility:[place]Start: 12-07-2024 ambulatoryBESHLOMO CHANDUcility:[place]Start: 12-05-2024 End: 42-99-7823llsndwsgdiSzeevhwgaCherrington Hospital Work Phone: Start: 12-05-2024 End: 61-90-8263Abzlpfl encounter procedureBlowing [facility] Physician GroupOur [facility] Work Phone: Start: 93-34-8693Ynexchy encounter procedureProMedica Flower Hospitaltart: 06-21-2024 End: 19-87-2670KbhrzhDmdoaDana Green MD Work Phone: [facility] NeuroSurgeryComment on above:S/P lumbar fusionStart: 04-27-2024 End: 20-98-4679dsiejlqcstBscmorlboClinton Memorial Hospital Work Phone: Start: 04-27-2024 End: 83-42-4822Cvstrhh encounter procedureBlowing Rock Hospital Physician GroupOur [facility] Work Phone: Start: 04-16-2024 End: 39-95-4849RivnxvBperbDana Green MD Work Phone: [facility] Physicians NeuroSurgeryComment on above:S/P lumbar fusionStart: 02-27-2024 End: 15-15-9907AhvateDniqk A Reinard MD Work Phone: [facility] Physicians NeuroSurgeryComment on above:S/P lumbar fusionStart: 02-02-2024 End: 19-53-5801Pwdwwt outpatient visit 15 minutesLucio Green MD Work Phone: [facility] Physicians NeuroSurgeryComment on above:S/P lumbar fusion (Primary Dx)Start: 01-12-2024 End: 02-49-8007aiepfqgwejTextojiqeCherrington Hospital Work Phone: Start: 01-12-2024 End: 66-14-4797Mhixolo encounter procedureYaneli Physician Group-[facility] Work Phone: Start: 11-09-2023 End: 29-03-5320dcxpsztdhnVwlugmkz Ball Other [employer] Other Start: 52-90-8619Sjecljkgz encounterBenjamin BallFPG [facility] Medical ClinicStart: 11-03-2023 End: 64-29-5997Vfqksp follow up visit related to original pxPatricia Garces 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 Phone: [facility] Physicians NeuroSurgeryComment on above:S/P lumbar fusion (Primary Dx); Muscle spasmStart: 10-26-2023 End: 54-33-3674izskmpkpedNnavsqkk Ball Other [employer] Other Start: 11-38-5146Kvkawn outpatient visit 25 minutes Deep BallFPG Ball Medical ClinicStart: 29-02-7267Arfhupvsm encounterBenjamin BallFPG [facility] ClinicStart: 10-26-2023 End: 82-97-1363Hkfhnwj encounter procedureYaneli Physician Group-Start: 10-13-2023 End: 22-12-8782nxjuisrdpqWwayzygu Ball Other [employer] Other Start: 30-50-0315Nncdtznqg encounterBenjamin BallFPG [facility] Medical ClinicStart: 10-08-2023 End: 69-16-8487zqccnzdncdHfkmifyy Ball Other [employer] Other Start: 99-39-4869Fqqtnyi nursing facility care/day 35 minutesBenjamin BallBellevue Care CenterStart: 10-07-2023 End: 74-26-1648kueacteffdToirjuaf Ball Other [employer] Other Start: 11-93-9024Biihffxnj encounterBenjamin BallFPG [facility] Medical ClinicStart: 75-20-4549Qtuxltcba encounterKrista Suraj RNProMedica Physicians NeuroSurgeryComment on above:AppointmentStart: 09-14-2023 End: 09-05-5778Oyqzwwkzbl and management of inpatientPHYSICIAN [facility] Work Phone: Start: 09-09-2023 End: 84-97-6999vddwgrhjkfRqzpgeeq Ball Other [employer] Other Start: 70-47-0425Fwympewew encounterBenjamin BallFPG [facility] Medical ClinicStart: 08-10-2023 End: 79-93-0058kfrmsovyrnYpgliexa Ball Other [employer] Other Start: 22-68-0827Grjcfcp encounter procedureBenjamin [facility] ClinicStart: 80-95-7050Sdhxfuthh encounterBenjamin [facility] ClinicStart: 04-07-2023 End: 32-08-3923axhoazyqeaVlvrbmhv Ball Other [employer] Other Start: 13-53-2203Xavrge outpatient visit 25 minutes [facility]: [facility]23 End: 45-32-9465impcjwlyikCwszewim Ball Other [employer] Other Start: 53-07-9438Xegglhnlz encounterBenjamin [facility] ClinicStart: 11-25-2022 End: 73-76-8302bxkglyddlqPjguzvtv Ball Other [employer] Other Start: 33-13-4129Tngeibdzv encounterBenjamin PatriceG [facility] ClinicStart: 10-28-2022 End: 30-87-8657kihwwtjtkpMzmjtfdp Ball Other [employer] Other Start: 34-33-4481Zxzqwtzkm encounterBenjamin BallLUDIVINAG [facility] ClinicStart: 10-21-2022 End: 42-27-0091plpymvozuyQgkffjgt Ball Other [employer] Other Start: 21-89-2845Kgbwgy outpatient new 45 minutes [facility]Start: 09-17-2021 End: 24-61-5523xqrhiwfbaoZLCPFG ROSSFacility:L5Obxzp: 12-18-2020 End: 17-93-4050epyufmhlcsKN NONE LISTED REQUESTFacility:C9Ixtvv: 11-26-2020 End: 14-76-8941apbuvunwyeWS NONE LISTED REQUESTFacility:H1 Procedures DateProcedureProcedure DetailPerforming ClinicianStart: 35-62-9003Amykfssorng of thoracic spinePHYSICIAN NO FAMILYStart: 51-63-2496Y-ray of lumbar spine, two or three viewsPHYSICIAN NO FAMILYStart: 62-22-5292Jtwgd X-ray of right hip PHYSICIAN NO FAMILYStart: 16-91-7823Xygud culturePHYSICIAN NO FAMILYStart: 91-08-0416YD of abdomen and pelvis without contrastPHYSICIAN NO FAMILYStart: 32-25-4641Zixva depression screening assessmentCher Ruelas RNHistory of operative procedure on lumbar spinal structurePajose SIMS Plan of Treatment DateCare ActivityDetailAuthorStart: 41-99-8750XQ Prostate WO and W contrast [facility]: 24-16-7323MO prostate wo/w conMR prostate wo/w [facility]: 67-53-9969Awocw BMI ScreeningAdult BMI ScreeningWVUMedicine [facility] Health SystemStart: 12-58-9531Pgwoijo ScreeningTobacco ScreeningWVUMedicine Barnesville Hospital Health SystemStart: 99-40-8478Fwibd BMI ScreeningAdult BMI ScreeningWVUMedicine Barnesville Hospital Health SystemStart: 40-19-9939Vgdxugt ScreeningTobacco ScreeningWVUMedicine [facility] Health SystemStart: 99-63-8254Dujuq BMI ScreeningAdult BMI ScreeningWVUMedicine Barnesville Hospital Health SystemStart: 37-26-7522Cfzkbsq ScreeningTobacco ScreeningWVUMedicine [facility] Health SystemStart: 69-82-7736Hkzanxoyvo ScreeningDepression ScreeningWVUMedicine [facility] Hospital Health SystemStart: 40-88-9333WKPDR-19 Vaccine ( season)COVID-19 Vaccine ( season)[facility] SystemStart: 07-58-8867Xwaozwqfz vaccinationInfluenza VaccineKnox Community Hospital SystemStart: 02-02-2024 End: 78-70-3392Ubpxzbj encounter zzhihklbd01/07/2024 2:10 PM EDT Office Visit [facility] [address] [place] [phone] Lucio Green MD [address] [place] [address] [address] [place] [phone] [facility] Start: 02-01-2024 End: 13-59-7571AX Lumbar spine Views AP W right bending and W left bendingX-ray spine lumbar flexion and extension only 2 to 3 views Imaging Routine S/P lumbar fusion Expected: 02/01/2024 (Approximate), Expires: 11/03/2024Pro[facility] Shicon SystemComment on above:Expected: 02/01/2024 (Approximate), Expires: 11/03/2024 Start: 02-01-2024 End: 94-08-5793UM Thoracic spine 2 ViewsX-ray spine thoracic 2 views Imaging Routine S/P lumbar fusion Expected: 02/01/2024 (Approximate), Expires: 11/03/2024[facility] Work Phone: Comment on above:Expected: 02/01/2024 (Approximate), Expires: 11/03/2024Start: 98-10-3133QMHWI-19 Vaccine ()COVID- 19 Vaccine ()[facility]: 10-27-2023 End: 43-93-2480Egilhuc encounter gkbnnnaji01/30/2024 1:45 PM EST Office Visit [facility] [address] [place] [phone] Lucio Green MD [address] [place] [address] [address] [place] [phone] [facility] Start: 65-38-8485WjjgfirquProMedica Flower Hospitaltart: 09-22-2023 Administration of prophylactic treatmentProMedica Flower Hospitaltart: 11-29-9538MznunjbcmProMedica Flower Hospitaltart: 81-12-7738Wevknltf admission [facility]: 94-88-1507Gqvpbgiw to 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 [facility]: 67-62-9744Bqwvqwxnz vaccinationInfluenza VaccineProSouthview Medical Center SystemStart: 73-54-5311Cyvhhmavhamxam of varicella zoster vaccineZoster (Shingles) Vaccine (2 of 3)[facility] SystemStart: 71-73-3921Pyapvbmac aortic aneurysm screeningAbdominal Aortic Aneurysm (AAA) ScreenKnox Community Hospital SystemStart: 13-26-3995Gunl Risk ScreeningFall Risk ScreeningKnox Community Hospital SystemStart: 11-44-6645Uisdlitiskzxwb of varicella zoster vaccineZoster (Shingles) Vaccine (1 of 2)[facility] SystemStart: 13-74-3916WMnO,Tdap and Td Vaccines (1 - Tdap)DTaP,Tdap and Td Vaccines (1 - Tdap)[facility] SystemStart: 62-89-4032Tmahg BMI Follow Up PlanAdult BMI Follow Up PlanProSouthview Medical Center SystemStart: 81-22-6123Kyzlhlcp foot examination Diabetic Foot ExamProSouthview Medical Center SystemStart: 21-15-8162Tvtbrgcp screening Diabetic Ophthalmology ExamKnox Community Hospital SystemStart: 1951Medicare Annual Wellness VisitMedicare Annual Wellness VisitTriHealth [facility]The [facility] Work Phone: us Lower extremity vein [facility] Immunizations Immunization DateImmunizationNotesCare BmofjyrqUspvurnk96-50-2162lcqpypsww virus vaccine, unspecified formulationLucio Green MD Work Phone: [facility] HospitalDamurr38-03-7191Xlzgzczeleeh Conjugate 20-valentKrista [facility]09-07-2022tetanus toxoid, reduced diphtheria toxoid, and acellular pertussis vaccine, adsorbed Cassius SIMS [facility]12-21-2021SARS-CoV-2 (COVID-19) mRNA BNT-162b2 williamxBrysonFactabasesegundo SIMS [facility]03-23-2021SARS-CoV-2 (COVID-19) mRNA BNT-162b2 williamxBrysonFactabasesegundo SIMS [facility]03-01-2021SARS-CoV-2 (COVID-19) mRNA BNT-162b2 williamxCassius SIMS [facility]06-26-2019zoster vaccine recombinantCassius SIMS [facility]06-26-2019zoster vaccine, unspecified formulationPaiain Garces 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 Phone: [facility]02-26-2019zoster vaccine recombinantCassius SIMS [facility]07-20-2018pneumococcal polysaccharide vaccine, 23 valentPatrick SIMS [facility]06-29-2016pneumococcal conjugate vaccine, 13 valentPatrick SIMS [facility] Payers DatePayer CategoryPayerPolicy [id number] [id number] [id number] 2023Medicare [id number] [id number] 2.840.1.754057.3.57[id number] 2.16840.1.097887.3.57[id number] 2.16.840.1.741355.3.57[id number] 2.16.840.1.624076.3.57[id number] 2.16840.1.709553.3.57[id number] 2.16.840.1.59[id number] 2.16.840.1.699773.3.579.2.593 [id number] 2.16.840.1.8[id number] 2.16.840.1.1[id number] 2.16.840.1.054078.3.579.2.531 Social History DateTypeDetailFacilityStart: 09-05-2023 End: 32-69-1633Agx Assigned At [facility] [employer] Other Start: 09-15-2023 End: 93-71-4432Nlbnktu smoking status NHISNeeating [facility] smoked tobacco (finding) [facility]: 00-26-1189Mue [facility] At [facility]art: 09-08-2023 End: 02-83-3007Swwoifu smoking status NHISEx-smokerProRiverview Regional [facility] Health System History of tobacco useCurrent smokerProRiverview Regional Medical Center Health SystemHistory of tobacco useCigarette SmokerProSouthview Medical Center SystemStart: 09-08-2023 End: 95-41-2011Zebxqoe use and exposureSmokeless tobacco non-userProRiverview Regional [facility] Health SystemStart: 09-09-2023 End: 88-85-2478Nspdcsm intakeEx-drinker (finding)[facility] SystemStart: 09-05-2023 End: 13-11-3992Yarcvui of Social functionProMedica Health SystemHow often to you have a drink containing alcohol?Monthly or lessProMedica Health SystemHow many standard drinks containing alcohol do you have on a typical day?1 or 2ProMedmonroe county hospital Health SystemHow often do you have 6 or more drinks on 1 occasion?NeverProMedica Health SystemAdolescent depression screening mevpgqoylk9FxiPzeaaoTriHealth [facility]ull[facility] Start: 84-40-4869Ghl Assigned At BirthNot on fileNovant Health / NHRMCtart: 03-27-2021 End: 14-10-2227KqqHfjo (finding)[facility]tart: 12-16-2024 End: 24-85-2875Btjnevt smoking statusHeavy tobacco smoker (finding)[facility] Centerexual OrientationExec[facility] Medical Equipment Procedure CodeEquipment CodeEquipment Original TextEquipment IdentifierDatesCreo Tulip Fenestrated [id number]: 99-36-0269Ojp Lck Creo Mis Spnl Ns - [id number]_thnDgkbw: 97-69-2943Dgai Indra [id number]_impStart: 18-37-4215Oiyu Fenestrated [id number]_qzoKppar: 97-90-4783Aohm Fenestrated 30mm [id number]: 09-08-2023 Goals DatePatient GoalDesired Activity/StatePersonal health goalComment on above: Evaluation of progress towards goal: Patient stated he hopes he can go home after surgery, but we will wait for determination after surgery. Functional Status KonaTyhxrrvzxlTyuvwnRunqbrrw11-20-4865Mfronlnyxb statusPatient is Progressing Toward [facility] Work Phone: [phone]zgrblf statusDisability Status Patient is Progressing Toward [facility] Work Phone: Mental Status PtexEmlojbslckHykapgYwqabwai87-33-3801Thzbbsvyr functionCognitive Status Patient at [facility] Work Phone: Clinical Notes 10-21-2022 to 04-24-2025 Note Date & BwtkYdufSulpbred48-98-9691 Hospital Discharge instructions Patient Education 04/24/2025 12:11:50 Magnetic Resonance Imaging Magnetic Resonance Imaging Magnetic resonance imaging (MRI) is a painless test that produces detailed images of organs and tissues inside the body without using X-rays. During an MRI, strong magnets and radio waves work together to form images. MRI images may provide more details about a medical condition than X-rays, CT scans, and ultrasounds can provide. For a standard MRI, you will lie on a table that slides into a tunnel. In an open MRI, the tunnel will be open at the sides. In some cases, dye (contrast material) may be injected into your bloodstream to make the MRI images even clearer. Tell a health care provider about: Any allergies you have. All medicines you are taking, including vitamins, herbs, eye drops, creams, and exjz-eds-lqkxdal medicines. Any surgeries you have had. Any medical conditions you have. Any metal you may have in your body. The magnets used in an MRI can cause metal objects in your body to move. Metal can also make it difficult to get clear images. Objects that may contain metal include: ?Any joint replacement (prosthesis), such as an artificial knee or hip. ?An implanted defibrillator, pacemaker, or neurostimulator. ?A metallic ear implant (cochlear implant). ?An artificial heart valve. ?A metallic object in the eye. ?Metal splinters. ?Bullet fragments. ?A port for delivering insulin or chemotherapy. Any tattoos you have. Some of the darker inks can cause problems with testing. Whether you are using a control implant such as an intrauterine device (IUD). Whether you are , may be , or are . Any fear of cramped spaces (claustrophobia). If this is a problem, it usually can be managed with medicines given prior to the MRI. What are the risks? Generally, this is a safe test. However, problems may occur, such as: If you have metal in your body and it is close to the area being tested, it may be hard to get high-quality images. If you are , you should avoid MRI tests during the first three months of . An MRI may affect an unborn baby. If dye is used: ?You may need to stop until the dye leaves your body naturally, if this applies. ?There is a risk of an allergic reaction to the dye. You can take medicines to prevent this reaction or to treat it if you have allergy symptoms. ?The dye can cause damage to your kidneys. Drinking plenty of water before and after the procedure can help prevent this problem. What happens before the procedure? You will be asked to remove all metal, including: ?A watch, jewelry (including jewelry in piercings), and other metal objects. ?Hearing aids. ?Dentures. ?An underwire bra. ?Makeup. Some makeup contains small amounts of metal. Braces and fillings are normally not a problem. If you are , ask your health care provider if you need to pump before your test. You may need to stop temporarily if dye will be used. What happens during the procedure? You may be given earplugs or headphones to listen to music. The MRI machine can be noisy. You will lie flat on your back on a long table. If dye will be used, an IV will be inserted into one of your veins. Dye will be injected into your IV and travel through your bloodstream. The table will slide into a tunnel that has magnets inside. When you are inside the tunnel, you will still be able to talk to your health care provider. You will be asked to lie very still while images are taken. Your health care provider will tell youwhen you can move. You may have to wait a few minutes to make sure that the images produced during the test are clear. When all images are produced, the table will slide out of the tunnel. The procedure can last from 30 minutes to over an hour. The procedure may vary among health care providers and hospitals. What can I expect after the procedure? You may be taken to a recovery area if sedation medicines were used. Your blood pressure, heart rate, breathing rate, and blood oxygen level will be monitored until you leave the hospital or clinic. If dye was used: ?It will leave your body through your urine within a day. You may be told to drink plenty of fluidsto help flush the dye out of your system. ?Do not breastfeed your child until your health care provider says that this is safe. Follow these instructions at home: You may return to your normal activities right away, or as told by your health care provider. It is up to you to get your test results. Ask your health care provider, or the department that is doing the test, when your results will be ready. Keep all follow-up visits. This is important. Talk with your health care provider about what your test results mean. Summary Magnetic resonance imaging (MRI) is a painless test that produces detailed pictures of the inside of your body without using X-rays. Strong magnets and radio waves work together to form very detailedand clear images. In some cases, dye (contrast material) may be injected into your body to make MRI images even clearer. Before your MRI, be sure to tell your health care provider about any metal you may have in your body. Talk with your health care provider about what your test results mean. This information is not intended to replace advice given to you by your health care provider. Make sure you discuss any questions you have with your health care provider. Document Revised: 05/28/2022 Document Reviewed: 01/16/2021 [employer] Patient Education 2023 [employer]. 04/24/2025 12:11:41 Prostate Cancer Screening Prostate Cancer Screening Prostate cancer screening is testing that is done to check for the presence of prostate cancer in men. The prostate gland is a walnut-sized gland that is located below the bladder and in front of therectum in males. The function of the prostate is to add fluid to semen during ejaculation. Prostatecancer is one of the most common types of cancer in men. Who should have prostate cancer screening? Screening recommendations vary based on age and other risk factors, as well as between the professional organizations who make the recommendations. In general, screening is recommended if: You are age 50 to 70 and have an average risk for prostate cancer. You should talk with your healthcare provider about your need for screening and how often screening should be done. Because most prostate cancers are slow growing and will not cause , screening in this age group is generally reserved for men who have a 10- to 15-year life expectancy. You are younger than age 50, and you have these risk factors: ?Having a father, brother, or uncle who has been diagnosed with prostate cancer. The risk is higherif your family member's cancer occurred at an early age or if you have multiple family members withprostate cancer at an early age. ?Being a male who is Black or is of [place] or sub-Saharan descent. In general, screening is not recommended if: You are younger than age 40. You are between the ages of 40 and 49 and you have no risk factors. You are 70 years of age or older. At this age, the risks that screening can cause are greater than the benefits that it may provide. If you are at high risk for prostate cancer, your health care provider may recommend that you have screenings more often or that you start screening at a younger age. How is screening for prostate cancer done? The recommended prostate cancer screening test is a blood test called the prostate-specific antigen(PSA) test. PSA is a protein that is made in the prostate. As you age, your prostate naturally produces more PSA. Abnormally high PSA levels may be caused by: Prostate cancer. An enlarged prostate that is not caused by cancer (benign prostatic hyperplasia, or BPH). This condition is very common in older men. A prostate gland infection (prostatitis) or urinary tract infection. Certain medicines such as male hormones (like testosterone) or other medicines that raise testosterone levels. A rectal exam may be done as part of prostate cancer screening to help provide information about the size of your prostate gland. When a rectal exam is performed, it should be done after the PSA level is drawn to avoid any effect on the results. Depending on the PSA results, you may need more tests, such as: A physical exam to check the size of your prostate gland, if not done as part of screening. Blood and imaging tests. A procedure to remove tissue samples from your prostate gland for testing (biopsy). This is the only way to know for certain if you have prostate cancer. What are the benefits of prostate cancer screening? Screening can help to identify cancer at an early stage, before symptoms start and when the cancer can be treated more easily. There is a small chance that screening may lower your risk of dying from prostate cancer. The chance is small because prostate cancer is a slow-growing cancer, and most men with prostate cancer from a different cause. What are the risks of prostate cancer screening? The main risk of prostate cancer screening is diagnosing and treating prostate cancer that would never have caused any symptoms or problems. This is called overdiagnosisand overtreatment. PSA screening cannot tell you if your PSA is high due to cancer or a different cause. A prostate biopsy is the only procedure to diagnose prostate cancer. Even the results of a biopsy may not tell you if your cancer needs to be treated. Slow-growing prostate cancer may not need any treatment other than monitoring, so diagnosing and treating it may cause unnecessary stress or other side effects. Questions to ask your health care provider When should I start prostate cancer screening? What is my risk for prostate cancer? How often do I need screening? What type of screening tests do I need? How do I get my test results? What do my results mean? Do I need treatment? Where to find more information The [employer]: www.cancer.org [employer]: www.auanet.org Contact a health care provider if: You have difficulty urinating. You have pain when you urinate or ejaculate. You have blood in your urine or semen. You have pain in your back or in the area of your prostate. Summary Prostate cancer is a common type of cancer in men. The prostate gland is located below the bladder and in front of the rectum. This gland adds fluid to semen during ejaculation. Prostate cancer screening may identify cancer at an early stage, when the cancer can be treated more easily and is less likely to have spread to other areas of the body. The prostate-specific antigen (PSA) test is the recommended screening test for prostate cancer, butit has associated risks. Discuss the risks and benefits of prostate cancer screening with your health care provider. If you are age 70 or older, the risks that screening can cause are greater than the benefits that it may provide. This information is not intended to replace advice given to you by your health care provider. Make sure you discuss any questions you have with your health care provider. Document Revised: 03/10/2022 Document Reviewed: 03/10/2022 [employer] Patient Education 2023 [employer]. Follow Up Care 12/16/2024 10:56:59 With:CELIA HINDS, Cassius Hawk, URL Address: [facility] [address] , [place] [address]- [phone] When: Unknown Comments:6 mos w/ PSA and MRI [facility] Jazmine 07-28-2025 NotePatient Education Oncology Prostate Cancer Screening Prostate cancer screening is testing that is done to check for the presence of prostate cancer in men. The prostate gland is a walnut-sized gland that is located below the bladder and in front of therectum in males. The function of the prostate is to add fluid to semen during ejaculation. Prostatecancer is one of the most common types of cancer in men. Who should have prostate cancer screening? Screening recommendations vary based on age and other risk factors, as well as between the professional organizations who make the recommendations. In general, screening is recommended if: ??? You are age 50 to 70 and have an average risk for prostate cancer. You should talk with your health care provider about your need for screening and how often screening should be done. Because most prostate cancers are slow growing and will not cause , screening in this age group is generally reserved for men who have a 10- to 15-year life expectancy. ??? You are younger than age 50, and you have these risk factors: ? Having a father, brother, or uncle who has been diagnosed with prostate cancer. The risk is higher if your family member's cancer occurred at an early age or if you have multiple family members with prostate cancer at an early age. ? Being a male who is Black or is of [place] or sub-Saharan descent. In general, screening is not recommended if: ??? You are younger than age 40. ??? You are between the ages of 40 and 49 and you have no risk factors. ??? You are 70 years of age or older. At this age, the risks that screening can cause are greater than the benefits that it may provide. If you are at high risk for prostate cancer, your health care provider may recommend that you have screenings more often or that you start screening at a younger age. How is screening for prostate cancer done? The recommended prostate cancer screening test is a blood test called the prostate-specific antigen(PSA) test. PSA is a protein that is made in the prostate. As you age, your prostate naturally produces more PSA. Abnormally high PSA levels may be caused by: ??? Prostate cancer. ??? An enlarged prostate that is not caused by cancer (benign prostatic hyperplasia, or BPH). This condition is very common in older men. ??? A prostate gland infection (prostatitis) or urinary tract infection. ??? Certain medicines such as male hormones (like testosterone) or other medicines that raise testosterone levels. A rectal exam may be done as part of prostate cancer screening to help provide information about the size of your prostate gland. When a rectal exam is performed, it should be done after the PSA level is drawn to avoid any effect on the results. Depending on the PSA results, you may need more tests, such as: ??? A physical exam to check the size of your prostate gland, if not done as part of screening. ??? Blood and imaging tests. ??? A procedure to remove tissue samples from your prostate gland for testing (biopsy). This is theonly way to know for certain if you have prostate cancer. What are the benefits of prostate cancer screening? Screening can help to identify cancer at an early stage, before symptoms start and when the cancer can be treated more easily. ??? There is a small chance that screening may lower your risk of dying from prostate cancer. The chance is small because prostate cancer is a slow-growing cancer, and most men with prostate cancer from a different cause. What are the risks of prostate cancer screening? The main risk of prostate cancer screening is diagnosing and treating prostate cancer that would never have caused any symptoms or problems. This is called overdiagnosisand overtreatment. PSA screening cannot tell you if your PSA is high due to cancer or a different cause. A prostate biopsy is the only procedure to diagnose prostate cancer. Even the results of a biopsy may not tell you if your cancer needs to be treated. Slow-growing prostate cancer may not need any treatment other than monitoring, so diagnosing and treating it may cause unnecessary stress or other side effects. Questions to ask your health care provider ??? When should I start prostate cancer screening? What is my risk for prostate cancer? How often do I need screening? What type of screening tests do I need? How do I get my test results? What do my results mean? Do I need treatment? Where to find more information ??? The [place] [employer]: www.cancer.org ??? [place] [employer]: www.auanet.org Contact a health care provider if: ??? You have difficulty urinating. ??? You have pain when you urinate or ejaculate. ??? You have blood in your urine or semen. ??? You have pain in your back or in the area of your prostate. Summary ??? Prostate cancer is a common type of cancer in men. The prostate gland (more content not included)...[facility]07-23[facility] Evaluation note* Diagnosis Onset Date Resolution Status Admit Date Benign prostatic hyperplasia with lower urinary tract symptoms acuteJuly 2024 2:28pmElevated cholesterolacuteJuly 2024 2:28pm Elevated PSAacuteJuly 2024 2:28pmGastroesophageal reflux disease with esophagitis without hemorrhageacuteJuly 2024 2:28pmLumbar spondylosisacute April 19, 2025 2:28pmPrimary hypertensionacuteJuly 2024 2:28pmType 2 diabetes mellitus with diabetic polyneuropathyacuteJuly 2024 2:28pmType 2 diabetes mellitus with hyperglycemiaacuteJuly 2024 2:28pm [facility] Work Phone: [phone] 157-886403-21-2025 NoteUrology Office/Clinic Note Chief Complaint referral- elevated PSA HPI Staff Referral for elevated PSA. PSA: 09/07/24 - 5. pt denies any urinary issues. pt states he usually gets up around 3x nightly. History of Present Illness Tests reviewed: UA, referral records, PSAs I have reviewed the previous health record information and history for this patient from external provider. I have reviewed and verified the staff HPI to be accurate for this encounter. Review of Systems PHQ Score Initial Depression Screen Score: 0 SCORE ROS - Provider Constitutional: denies weight loss, denies hot flashes. Eyes: denies eye problems. Gastrointestinal: denies nausea, denies vomiting. Cardiovascular: denies chest pain or angina. Integumentary: no dryness Musculoskeletal: denies musculoskeletal symptoms. ENMT: denies otolaryngeal symptoms. Respiratory: no shortness of breath. Heme/Lymph: denies easy bleeding tendency, denies easy bruising tendency. Psychiatric: no confusion, no anxiety. Genitourinary: See HPI. Physical Exam Vitals & Measurements T: 37 ???C(Oral) HR: 78(Peripheral) RR: 18 BP: 132/68 HT: 70 in HT: 178 cm WT: 291.01 lb WT: 132 kg BMI: 41.66 General Appearance: alert, no distress, well nourished, well developed male. CARLA ~ 40 g, distant, no nodules. Assessment/Plan Faby is a 74 yo M new pt referred by Dr Abbasi d/t elevated PSA. PMH: DMII, back surgery 1. Elevated PSA (R97.20: Elevated prostate specific antigen [PSA]) PSA: [place]07[place] [facility] [place] PSA is elevated for his age. Has been following with Dr Elder Abbasi since 2022, [facility]. Will cont monitoring to establish a longer track record. Pt agreeable. CARLA ~ 40 g, distant, no nodules. Follow up 4 mos with PSA F&T (nurse visit) or sooner if needed. Pt understands and agrees with plan. -Obtain other PSA levels either from [place] or through Dr Abbasi 2. BPH with obstruction/lower urinary tract symptoms (N40.1: Benign prostatic hyperplasia with lower urinary tract symptoms) UA neg. IPSS 14. No BPH or bladder meds. Denies gross hematuria. No hx of UTI. Offered to start Flomax which will help his stream. Pt would like to try. -Start Flomax 0.4 mg bid. SEs discussed. Stop taking and notify office if experiencing persistent dizziness/lightheadedness. Sent to [facility]. Follow-up With When Contact Information CELIA HINDS, Cassius Hawk, [facility] [address], [place] [address]- Additional Instructions: 4 mos with PSA F&T (nurse visit) Patient Education Prostate Cancer Screening Benign Prostatic Hyperplasia ILexi, personally scribed for Dr. Sims on 12/16/2024 10:56:11. . Documentation recorded by the scribe, Lexi Esparza, accurately reflects the services(s) I performed and decisions made by me. Authenticated by Dr. Sims on 12/16/2024 10:57:42. Problem List/Past Medical History Ongoing BPH with obstruction/lower urinary tract symptoms Historical No qualifying data Medications allopurinol 100 mg Tab, 100 mg= 1 tab(s) amLODIPine 10 mg Tab, 10 mg= 1 tab(s), Oral, Daily carvedilol 12.5 mg Tab, 12.5 mg= 1 tab(s), Oral, BID celecoxib 200 mg Cap, 200 mg= 1 cap(s), Oral, Daily [facility] VITAMIN D3 25 MCG SOFTGEL glipiZIDE 10 mg Tab, 10 mg= 1 tab(s), Oral, Daily hydrALAZINE 10 mg Tab, 10 mg= 1 tab(s), Oral, QID methocarbamol 750 mg Tab, 750 mg= 1 tab(s) Pantoprazole [address] Tab, 40 mg= 1 tab(s) Allergies No Known Allergies Social History Tobacco 10 or more cigarettes (1/2 pack or more)/day in last 30 days Tobacco Use:. Never Smokeless Tobacco Use:. Cigarettes, Ready to change: No. Household tobacco concerns: No. Yes, 12/16/2024 Lab Results Ambulatory Point of Care Results Bilirubin Urine Dipstick: Negative (12/16/24 09:56:00) Blood Urine Dipstick: Negative (12/16/24 09:56:00) Glucose Urine Dipstick: Negative (12/16/24 09:56:00) Ketones Urine Dipstick: Negative (12/16/24 09:56:00) Leukocytes Urine Dipstick: Negative (12/16/24 09:56:00) Nitrite Urine Dipstick: Negative (12/16/24 09:56:00) Protein Urine Dipstick: 2+ (100 mg/dl) (12/16/24 09:56:00) Specific [place] Urine Dipstick: >=1.030 (12/16/24 09:56:00) Urine Appearance Urine Dipstick: Clear (12/16/24 09:56:00) Urine Color Urine Dipstick: Yellow (12/16/24 09:56:00) Urobilinogen Urine Dipstick: Normal 0.2-1 EU/dl (12/16/24 09:56:00) pH Urine Dipstick: 5.5 (12/16/24 09:56:00)[facility] above:Result Comment: Electronically Signed By: Cassius SIMS MD\.br\Date and Time Signed: 12/16/24 10:57 EDT\.br\Electronically Co-Signed By: Lexi Esparza\.br\Date and Time Co-Signed: 12/16/24 10:56 [id number] NotePatient Education Oncology Prostate Cancer Screening Prostate cancer screening is testing that is done to check for the presence of prostate cancer in men. The prostate gland is a walnut-sized gland that is located below the bladder and in front of therectum in males. The function of the prostate is to add fluid to semen during ejaculation. Prostatecancer is one of the most common types of cancer in men. Who should have prostate cancer screening? Screening recommendations vary based on age and other risk factors, as well as between the professional organizations who make the recommendations. In general, screening is recommended if: ??? You are age 50 to 70 and have an average risk for prostate cancer. You should talk with your health care provider about your need for screening and how often screening should be done. Because most prostate cancers are slow growing and will not cause , screening in this age group is generally reserved for men who have a 10- to 15-year life expectancy. ??? You are younger than age 50, and you have these risk factors: ? Having a father, brother, or uncle who has been diagnosed with prostate cancer. The risk is higher if your family member's cancer occurred at an early age or if you have multiple family members with prostate cancer at an early age. ? Being a male who is Black or is of [place] or sub-Saharan descent. In general, screening is not recommended if: ??? You are younger than age 40. ??? You are between the ages of 40 and 49 and you have no risk factors. ??? You are 70 years of age or older. At this age, the risks that screening can cause are greater than the benefits that it may provide. If you are at high risk for prostate cancer, your health care provider may recommend that you have screenings more often or that you start screening at a younger age. How is screening for prostate cancer done? The recommended prostate cancer screening test is a blood test called the prostate-specific antigen(PSA) test. PSA is a protein that is made in the prostate. As you age, your prostate naturally produces more PSA. Abnormally high PSA levels may be caused by: ??? Prostate cancer. ??? An enlarged prostate that is not caused by cancer (benign prostatic hyperplasia, or BPH). This condition is very common in older men. ??? A prostate gland infection (prostatitis) or urinary tract infection. ??? Certain medicines such as male hormones (like testosterone) or other medicines that raise testosterone levels. A rectal exam may be done as part of prostate cancer screening to help provide information about the size of your prostate gland. When a rectal exam is performed, it should be done after the PSA level is drawn to avoid any effect on the results. Depending on the PSA results, you may need more tests, such as: ??? A physical exam to check the size of your prostate gland, if not done as part of screening. ??? Blood and imaging tests. ??? A procedure to remove tissue samples from your prostate gland for testing (biopsy). This is theonly way to know for certain if you have prostate cancer. What are the benefits of prostate cancer screening? Screening can help to identify cancer at an early stage, before symptoms start and when the cancer can be treated more easily. ??? There is a small chance that screening may lower your risk of dying from prostate cancer. The chance is small because prostate cancer is a slow-growing cancer, and most men with prostate cancer from a different cause. What are the risks of prostate cancer screening? The main risk of prostate cancer screening is diagnosing and treating prostate cancer that would never have caused any symptoms or problems. This is called overdiagnosisand overtreatment. PSA screening cannot tell you if your PSA is high due to cancer or a different cause. A prostate biopsy is the only procedure to diagnose prostate cancer. Even the results of a biopsy may not tell you if your cancer needs to be treated. Slow-growing prostate cancer may not need any treatment other than monitoring, so diagnosing and treating it may cause unnecessary stress or other side effects. Questions to ask your health care provider ??? When should I start prostate cancer screening? What is my risk for prostate cancer? How often do I need screening? What type of screening tests do I need? How do I get my test results? What do my results mean? Do I need treatment? Where to find more information ??? The [place] Cancer [employer]: www.cancer.org ??? [place] U[employer] Association: www.auanet.org Contact a health care provider if: ??? You have difficulty urinating. ??? You have pain when you urinate or ejaculate. ??? You have blood in your urine or semen. ??? You have pain in your back or in the area of your prostate. Summary ??? Prostate cancer is a common type of cancer in men. The prostate gland (more content not included)...[facility]05-07-2024 History of Present illness Narrative* Lucio Green MD - 02/02/2024 2:10 PM EDT Images from the original note were not included. [facility] [address] [place] [address], [address] [place] [address] * CHART NOTE ? 02/02/2024 Patient: Faby Herrera 1950 [id number] Nurse Practitioner: 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 SIGN BUILDER SUPERVISOR Physician: Lucio Green MD, FAANS IMPRESSION / PLAN 74 y.o. male with routine post-op recovery and resolution of pre-operative symptoms. HISTORY OF PRESENT ILLNESS 74 y.o. male presents to the clinic as a follow up S/P T11-L4 fusion on 09-08-2023. Patient notes that he has been feeling well and recovering well with resolution of his pre-operative symptoms. Patient's imaging was discussed and reviewed to their understanding in office today. Denies loss of public relations associate strength, saddle anesthesia, urinary or bowel dysfunction, weakness, numbness or tingling, radicular symptoms, and loss of balance. Patient presents in a wheelchair. Patient is diabetic and a former smoker. PAST MEDICAL HISTORY Past Medical History: Diagnosis Date Arrhythmia pvcs Arthritis Benign prostatic hyperplasia Cataract Chronic constipation Dental disease upper and lower full set Diabetes mellitus type 2, controlled (CMS-HCC) Difficult intravenous access Fractures back GERD (gastroesophageal reflux disease) Gout Hematoma back Hyperlipidemia Hypertension Injury of back Obesity Peripheral edema Rash Snoring PAST SURGICAL HISTORY Past Surgical History: Procedure Laterality Date CATARACT EXTRACTION, BILATERAL EYE SURGERY STEALTH POSTERIOR PERCUTANEOUS FUSION LUMBAR T11-L4 N/A 09/08/2023 Performed by Lucio Green MD at [facility] SOCIAL HISTORY Social History Socioeconomic History Marital status: Spouse name: Not on file Number of children: Not on file Years of education: Not on file Highest education level: Not on file Occupational History Not on file Tobacco Use Smoking status: Former Types: Cigarettes Smokeless tobacco: Never Vaping Use Vaping status: Never Used Substance and Sexual Activity Alcohol use: Not Currently Drug use: Never Sexual activity: Yes Partners: Female Other Topics Concern Not on file Social History Narrative Not on file Social Determinants of Health Financial Resource Strain: Not on file Food Insecurity: No Food Insecurity (09/05/2023) Hunger Screening Food Insecurity - Worry: Never True Food Insecurity - Inability: Never True Transportation Needs: Not on file Physical Activity: Not on file Stress: Not on file Social Connections: Not on file Interpersonal Safety: Not on file Housing Instability: Low Risk (09/05/2023) Housing Instability Housing Instability: No REVIEW OF SYSTEMS ROS Positive Findings: Negative otherwise noted in the HPI PHYSICAL EXAMINATION Alert Oriented No percussion tenderness along spine Absent Lhermitte's Absent Spurling ROM of the neck is normal No weakness No pathological reflexes No atrophy No fasciculations Sensation to light touch is normal in anderson dermatomes Gait is within normal limits BAYLEE is negative SLR is negative MRI / IMAGES I reviewed the imaging studies independently and critical findings were anotated for the patient. Xray of thoracic and lumbar spine demonstrated stable postoperative changes. Electronically Signed By: Lucio Green MD This note was created with the assistance of a speech recognition program with the goal of generating a timely record of the patient encounter. Inadvertent computerized tram operator errors related to syntax, spelling, homophones, and/or inaudibility may be present. Scribe Statement: Scribed for and in the presence of Lucio Green MD by Jackson Morales. Provider Statement: I, Lucio Green MD personally performed the services described in the documentation, as scribedby Jackson Morales in my presence, and it is both accurate and complete documented in this encounterTri[facility] History of Present illness Narrative* 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 APRN-SIGN BUILDER SUPERVISOR - 11/03/2023 1:30 PM EST Images from the original note were not included. [facility] [address] [place] [address], [address] [place] [address] * CHART NOTE ? 11/03/2023 Patient: Faby Herrera 1950 [id number] Physician: Lucio Green MD CHIEF COMPLAINT Post-op. HISTORY OF PRESENT ILLNESS 73 year old male presents to the clinic as a post-op patient S/P T11-L4 fusion on 09-08-2023. He states his low back feel tight and solid . He denies any numbness, tingling or weakness. Denies loss of public relations associate strength, saddle anesthesia, urinary or bowel dysfunction, weakness, numbness or tingling, radicular symptoms, and loss of balance. Patient uses walker for ambulation. Patient is diabetic and former smoker. No relevant surgical Hx. ALLERGIES No Known Allergies MEDICATIONS Current Outpatient Medications: acetaminophen (TYLENOL EXTRA STRENGTH) 500 mg tablet, Take 2 tablets (1,000 mg total) by mouth every 6 (six) hours., Disp: , Rfl: allopurinoL (ZYLOPRIM) 300 mg tablet, Take 1 tablet (300 mg total) by mouth in the morning., Disp: , Rfl: calcium carbonate-vitamin D3 (OSCAL 500 + D) 500 mg(1,250mg) -200 units per tablet, Take 1 tablet by mouth in the morning and 1 tablet in the evening. Take with meals., Disp: , Rfl: carvediloL (COREG) 12.5 mg tablet, Take 1 tablet (12.5 mg total) by mouth in the morning and 1 tablet (12.5 mg total) before bedtime., Disp: , Rfl: furosemide (LASIX) 20 mg tablet, Take 1 tablet (20 mg total) by mouth daily., Disp: , Rfl: glipiZIDE (GLUCOTROL XL) 5 mg 24 hr tablet, Take 2 tablets (10 mg total) by mouth in the morning., Disp: , Rfl: hydrALAZINE (APRESOLINE) 10 mg tablet, Take 1 tablet (10 mg total) by mouth every 6 (six) hours., Disp: , Rfl: sennosides-docusate sodium (SENOKOT-S) 8.6-50 mg, Take 2 tablets by mouth nightly., Disp: , Rfl: amLODIPine (NORVASC) 5 mg tablet, Take 2 tablets (10 mg total) by mouth in the morning. (Patient not taking: Reported on 11/03/2023), Disp: , Rfl: enoxaparin (LOVENOX) 40 mg/0.4 mL syringe, Inject 0.4 mL (40 mg total) under the skin in the morning. (Patient not taking: Reported on 11/03/2023), Disp: , Rfl: famotidine (PEPCID) 20 mg tablet, Take 1 tablet (20 mg total) by mouth in the morning and 1 tablet (20 mg total) before bedtime. (Patient not taking: Reported on 11/03/2023), Disp: , Rfl: lidocaine (LIDODERM) 5 %, Place 2 patches on the skin in the morning. Remove & Discard patch within 12 hours or as directed by MD. (Patient not taking: Reported on 11/03/2023), Disp: , Rfl: methocarbamoL (ROBAXIN-750) 750 mg tablet, Take 1 tablet (750 mg total) by mouth 3 (three) times a day., Disp: 90 tablet, Rfl: 1 polyethylene glycol (GLYCOLAX) 17 gram packet, Take 17 g by mouth in the morning and 17 g before bedtime. (Patient not taking: Reported on 11/03/2023), Disp: , Rfl: VITAL SIGNS BP 116/66 (BP Site: Left Arm, BP Postition: Sitting, BP CUFF SIZE: L (13-17 inches)) Pulse 65 Ht 182.9 cm (6') Wt 131.1 kg (289 lb) BMI 39.20 kg/m PHYSICAL EXAMINATION Neurologic Exam Mental Status Oriented to person, place, and time. Level of consciousness: alert Knowledge: good. Motor Exam Muscle bulk: normal Overall muscle tone: normal Strength Strength 5/5 throughout. Sensory Exam Light touch normal. Gait, Coordination, and Reflexes Reflexes Reflexes 2+ except as noted. Right patellar: 1+ Left patellar: 1+ Right Esparza: absent Left Esparza: absent Right ankle clonus: absent Left ankle clonus: absent Antalgic gait - in wheelchair for office visit. Using walker at home. Surgical wound is well approximated well healed without signs or symptoms of infection. There is noredness, edema or drainage. MRI / IMAGES X-ray lumbar spine 09-08-2023 IMPRESSION: [place], intraoperative imaging of the spinal hardware without convincing evidence of hardware-related complication or malalignment. L1 fracture is better assessed on the prior CT. IMPRESSION / PLAN 73 year old male presents to the clinic as a post-op patient S/P T11-L4 fusion on 09-08-2023. He states his low back feel tight and solid . He denies any numbness, tingling or weakness. PLAN: 1. Robaxin 750 mg 3 times a day as needed. 2. Lumbar flexion-extension x-rays to be completed in 3 months. 3. Thoracic x-rays to be completed in 3 months. 4. Refer to physical therapy. Follow up in 3 months. Electronically Signed By: 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 CNP This note was created with the assistance of a speech recognition program with the goal of generating a timely record of the patient encounter. Inadvertent computerized tram operator errors related to syntax, spelling, homophones, and/or inaudibility may be present. Scribe Statement: Scribed for and in the presence of HALEY Caputo by Jackson Morales. HALEY Caputo 11/03/23 1648 HALEY Caputo 11/03/23 1649 documented in this encounterProMedica Bay Park HospitalCapee group [id number] Evaluation note* Encounter Date Diagnosis Assessment Notes Treatment Notes Treatment Clinical Notes Sep, Primary hypertension (ICD-10 - I 10) This patient is instructed to consume a healthy, low-fat, low-salt diet. They are also encouraged to continue exercise to achieve/maintain a normal BMI. Patient is instructed on home BP measurements: - rest for 5 minutes w/o talking.- positioned w/ feet on floor and arm supported.- average best 2/3 readings w/ goal < 135/85.- update office w/ homereadings in 2 weeks. Will attempt to d/c Hydralazine. Recheck labs to assess GFR Sep,Type 2 diabetes mellitus with hyperglycemia, without long-term current use of insulin (ICD-10 - E11.65)This patient is following a comprehensive diabetic treatment [...] office visit. Continue regular routine monitoring of A1C,Microalbumin, Dilated eye exam and Foot exam May be due for A1C Sep,Type 2 diabetes mellitus with diabetic polyneuropathy, without long- term current use of insulin (ICD-10 - E11.42)Inspect feet daily for cuts and calluses.Recommend diabetic shoes and inserts to prevent callus formation.Fall precautions. Sep,ompression fracture of L1 vertebra with routine healing, subsequent encounter (ICD-10 - S32.010D)Slowly improving Fall precautions, MRADL w/ walker. Encouraged to walk every hour at home. Continue PT/OT Sep,ure hypercholesterolemia (ICD-10 - E78.00)Instructed on diet and exercise with continued statin therapy.Discussed the beneficial effects of lo wering cholesterol in reducing the risk for cerebrovascular and cardiovascular disease. Sep,hronic venous insufficiency (ICD-10 - I87.2)Avoid salt and elevate lower extremities, support stockings, inspect legs and feet daily for blisters and ulcerations. Moisturizers daily, Cortisone OTC for itching and erythematous rash Sep,Gastroesophageal reflux disease with esophagitis without hemorrhage (ICD-10 - K21.00)Avoid lying flat after eating. Avoid eating 2 hours prior to bedtime. Smaller, frequent meals may be better tolerated.Weight loss if overweight.PPI with any heartburn.Monitor for dysphagia. Sep,Lumbar spondylosis (ICD-10 - M47.816)The patient is instructed to avoid bending, twisting or lifting. They are to use intermittent heat and ice as needed. They may schedule a massage or gentle manipulation. They may safely use Tylenol as needed. Sep,Leukocytosis, unspecified type (ICD-10 - D72.829)Initially discovered in [place] after transfer. No s/s intercurrent infection. Denies use of steroids as well as any fever or chills. Repeat CBC while recovering in [place] was normal w/ normal differential [employer] Other 01-11-2024 Evaluation note* Encounter Date Diagnosis Assessment Notes Treatment Notes Treatment Clinical Notes Sep, Compression fracture of L1 vertebra with routine healing, subsequent encounter (ICD-10 - S32.010D) Continue aggressive therapy. Increase activity as tolerated. Use assistive device for stability Fall precautions. Sep,ompression fracture of L2 vertebra with routine healing, subsequent encounter (ICD-10 - S32.020D)Continue aggressive therapy. Increase activity as tolerated. Use assistive device for stability Fall precautions. Sep,rimary hypertension (ICD-10 - I10)This patient is instructed to consume a healthy, low-fat, low-salt diet. They are also encouraged to continue exercise to achieve/maintain a normal BMI. Sep,Type 2 diabetes mellitus with hyperglycemia, without long-term current use of insulin (ICD-10 - E11.65)This patient is following a comprehensive diabetic treatment [...] Microalbumin, Dilated eye exam and Foot exam Sep,Type 2 diabetes mellitus with diabetic polyneuropathy, without long- term current use of insulin (ICD-10 - E11.42)Inspect feet daily for cuts and calluses.Recommend diabetic shoes and inserts to prevent callus formation.Fall precautions. Sep,ure hypercholesterolemia (ICD-10 - E78.00)Instructed on diet and exercise with continued statin therapy.Discussed the beneficial effects of lo wering cholesterol in reducing the risk for cerebrovascular and cardiovascular disease. Sep,hronic venous insufficiency (ICD-10 - I87.2)Avoid salt and elevate lower extremities, support stockings, inspect legs and feet daily for blisters and ulcerations. Sep,Lumbar spondylosis (ICD-10 - M47.816)The patient is instructed to avoid bending, twisting or lifting. They are to use intermittent heat and ice as needed. They may schedule a massage or gentle manipulation. They may safely use Tylenol as needed. [employer] Other 2024 Progress note Author Richard Escoto [facility] October 05, 2023 1:00pmNote Date/TimeJan2023 12:31[place] [id number] Physiatry(Rehab) Progress Note Signed Patient: Faby Herrera MR#: [id number] : 1950 Acct:[id number] Age/Sex: 73 / M Adm Date: 3 Loc: 5T Room: 9P4585-5 Type: ADM IN Attending Dr: Richard Escoto MD Copies to: ~ <Ada Segura APRN - Last Filed: 10/05/23 12:31> Date of Service: 10/05/2023 Subjective <Ada Segura APRN - Last Filed: 10/05/23 12:31> Subjective Narrative: Mr. Herrera is a 73 year old male with past medical history of hypertension, hyperlipidemia, type 2 diabetes, obesity, admitted to [facility] inpatient rehab with functional decline secondary to L1-L2 fracture s/p T11-L4 fusion. Patient reports sustaining a fall at home after receiving COVID and flu boosters. He was unable to get off the floor even with assistance from his family. Patient was [facility] andadmitted for further workup. Unfortunately, he sustained another fall while in the hospital bathroom. He thinks he is lost his footing and fell onto his right side. Denies head injury/loss of consciousness. Imaging was obtained which demonstrated acute transverse fracture of the lower endplate of L1 with findingshighly suggestive of interruption of anterior spinal ligament. He was transferred to [facility] for neurosurgical services. On 09/08/2023 patient underwent percutaneous T11-L4 fusion with pedicle screws and dual rods. No major complications postoperatively. Antihypertensive regimen was adjusted by inpatient cardiology. Patient had also developed mild leukocytosis with unremarkable infectious workup. Patient was recommended acute rehab for strengthening. On arrival he is alert, oriented, cooperative with assessment. He is resting in bed on his right side reports no major discomfort at rest. Back incision is covered with dry dressingwith scant sanguinous drainage on the dressing and surrounding p ostoperative ecchymosis.. He denies tenderness to palpation. Reports no cardiopulmonary complaints. BP reasonably controlled at this time. Admits to constipation for 4 to 5 days. Some abdominal discomfort but no nauseaor vomiting. He willreceive a laxative today. Abdominal x-ray if no result orpersisting abdominal discomfort or other GI symptoms. Interval History: Patient seen and evaluated in his room. Alert, oriented, pleasant. Reports no acute events over theweekend. Back pain is mild. Incisions appear healed. His vitals are stable. No cardiopulmonary concerns. No GI/ complaints. Planning to discharge to SNF per patient/family request. Pre-CERT pending. Review of Systems <Ada SeguraFERMÍN - Last Filed: 10/05/23 12:31> Review of Systems All other systems reviewed & are negative unless noted below or in HPI Exam <Ada SeguraFERMÍN - Last Filed: 10/05/23 12:31> Physical Exam Vital Signs: Temp Pulse Resp BP Pulse Ox O2 Del Method 97.7 F 90 18 128/66 95 Room Air 10/05/23 05:12 10/05/23 05:12 10/05/23 05:12 10/05/23 05:12 10/05/23 05:12 10/05/23 11:02 Narrative: General: Awake, alert, oriented x3 HENT: Normal to inspection, normocephalic, atraumatic Eyes: PERRL, normal conjunctiva and sclera Neck: Normal ROM, normal visual inspection. Trachea midline. Cardio: Regular heart rate and rhythm Respiratory: Clear to auscultation bilaterally. Normal respiratory effort. No respiratory distress. GI: Abdomen soft, nontender, nondistended, active bowel sounds x4 quadrants : No issues Skin: Thoracic back incisions healed without signs of drainage, surrounding erythema or tenderness on palpation. Neuro: CN II-XII intact. Strength 3+ /5 bilateral lower extremities, some numbness bilaterally. Extremities: No edema, erythema, cyanosis Psych: Mood and affect appropriate. Normal speech. Objective <Ada SeguraFERMÍN - Last Filed: 10/05/23 12:31> Labs 09/30/23 05:41 09/30/23 05:41 Labs: Laboratory Results - last 24 hr 10/04/23 10/05/23 15:45 05:12 POC Glucose 97 119 POC Glucose Comment Glu2: cleaned meter Medications and Allergies Allergies and Active Meds: Allergies No Known Allergies Allergy (Verified 09/14/23 21:24) Active Medications Generic Name Dose Route Start Last Admin Trade Name Freq PRN Reason Stop Dose Admin Acetaminophen 1,000 mg 09/18/23 14:00 10/05/23 09:52 Acetaminophen 500 Mg Tablet PO 09/17/24 13:59 1,000 mg TID HOMER Administration Al Hydrox/Mg Hydrox/Simethicone 30 ml 09/14/23 17:55 Mag Hydrox/Al Hydrox/Simeth 30 Ml Udc PO 09/13/24 17:54 Q4H PRN Indigestion Allopurinol 300 mg 09/15/23 09:00 10/05/23 09:52 Allopurinol 300 Mg Tablet PO 09/14/24 08:59 300 mg DAILY HOMER Administration Amlodipine Besylate 10 mg 09/15/23 09:00 10/05/23 09:52 Amlodipine 10 Mg Tablet PO 09/14/24 08:59 10 mg DAILY HOMER Administration Bisacodyl 10 mg 09/14/23 17:55 Bisacodyl 10 Mg Supp.Rect MD 09/13/24 17:54 DAILY PRN Constipation Calcium Carbonate 1 tab 09/14/23 21:00 10/05/23 09:52 Calcium Carbonate/Vitamin D3 500 Mg/200 Unit Tablet PO 09/13/24 20:59 1 tab BID HOMER Administration Carvedilol 12.5 mg 09/14/23 21:00 10/05/23 09:52 Carvedilol 12.5 Mg Tablet PO 09/13/24 20:59 12.5 mg BID HOMER Administration Cyclobenzaprine HCl 10 mg 09/25/23 12:18 10/02/23 22:09 Cyclobenzaprine 10 Mg Tablet PO 09/23/24 13:59 10 mg Q8HR PRN Administration Spasms Diclofenac Sodium 1 gm 09/17/23 11:45 10/01/23 21:53 Diclofenac Sodium 1% Gel 100 Gm Tube TOPICAL 09/16/24 11:44 1 gm BID PRN Administration pain Docusate Sodium 283 mg 09/14/23 17:55 Docusate Enema 283 Mg/5 Ml Enema MD 09/13/24 17:54 DAILY PRN Constipation Docusate Sodium 100 mg 09/22/23 21:00 10/05/23 09:51 Docusate 100 Mg Capsule PO 09/21/24 20:59 100 mg BID HOMER Administration Enoxaparin Sodium 40 mg 09/15/23 09:00 10/05/23 09:52 Enoxaparin 40 Mg/0.4 Ml Syringe SUBCUT 09/14/24 08:59 40 mg DAILY HOMER Administration Furosemide 20 mg 09/15/23 09:00 10/05/23 09:51 Furosemide 20 Mg Tablet PO 09/14/24 08:59 20 mg DAILY HOMER Administration Glipizide 10 mg 09/15/23 08:00 10/05/23 09:51 Glipizide 5 Mg Tablet PO 09/14/24 07:59 10 mg DAILY@0800 HOMER Administration Hydralazine HCl 50 mg 10/04/23 22:00 10/05/23 09:51 Hydralazine 50 Mg Tablet PO 10/03/24 21:59 50 mg TID HOMER Administration Lact Acid/Bifidobact/Lact Paracas/Streptoc Th 1 cap 09/20/23 11:30 10/05/23 09:52 L. Acidophilus/Strept/La P-Carter 1 Cap Capsule PO 09/19/24 11:29 1 cap DAILY HOMER Administration Lactulose 30 gm 09/14/23 17:55 09/23/23 12:05 Lactulose 20 Gm/30 Ml Udc PO 09/13/24 17:54 30 gm DAILY PRN Administration Constipation Lidocaine 2 patch 10/03/23 12:11 Lidocaine 4% Adh..Patch TOPICAL 09/14/24 08:59 DAILY PRN Pain Melatonin 5 mg 09/27/23 22:00 10/04/23 21:47 Melatonin 5 Mg Tablet PO 09/26/24 21:59 5 mg QHS HOMER Administration Oxycodone HCl 5 mg 09/16/23 09:37 09/26/23 08:48 Oxycodone Ir 5 Mg Tablet PO 5 mg Q4H PRN Administration Pain Scale 7 - 10 Pantoprazole Sodium 40 mg 09/16/23 10:00 10/05/23 09:52 Pantoprazole 40 Mg Tablet.Dr PO 09/15/24 09:59 40 mg BID HOMER Administration Polyethylene Glycol 17 gm 09/14/23 21:00 09/20/23 08:30 Polyethylene Glycol 3350 17 Gm Powd.Pack PO 09/13/24 20:59 17 gm BID HOMER Administration Potassium Chloride 10 meq 09/15/23 09:00 10/05/23 09:52 Potassium Chloride Er 10 Meq Tablet.Er PO 09/14/24 08:59 10 meq DAILY HOMER Administration Senna/Docusate Sodium 2 tab 09/14/23 22:00 10/04/23 21:47 Sennosides/Docusate 8.6-50mg 1 Tab Tablet PO 09/13/24 21:59 2 tab QHS HOMER Administration Sennosides 2 tab 09/15/23 12:00 Sennosides 8.6 Mg Tablet PO 09/14/24 11:59 DAILY@12 PRN If no BM in 2 days Sodium Chloride 0 ml 09/14/23 17:55 Sodium Chloride 0.9 % 10 Ml Syringe IV-PUSH 09/13/24 17:54 PRN PRN Flush Assessment/Plan <Ada Segura APRN - Last Filed: 10/05/23 12:31> Assessment/Plan (1) Lumbar vertebral fracture: (2) S/P lumbar fusion: (3) Diabetes mellitus, type 2: (4) Hypertension: (5) Obesity, morbid, BMI 40.0-49.9: (6) Impaired mobility and activities of daily living: (7) Leukocytosis: Plan Patient is a 73-year-old male presented to acute inpatient rehabilitation unit with functional decline secondary to L1 and L2 fracture s/p T11-L4 fusion. * Clinically stable. * Improving in therapy. SBA with transfers. Ambulatory functional distances using a walker. Able todo stairs. * Still requesting SNF placement. Insurance pre-CERT pending. Patient education Pressure ulcer prophylaxis; encourage mobilization, frequent postural changes, pressure-relief techniques DVT prophylaxis Encourage deep breathing exercise incentive spirometry. Monitor bladder. Toileting schedule. Continue current bladder management, with scans as needed and CIC if needed. Start bowel care program every day to obtain continence, prevent ileus. Maintain fall precautions Gait and balance retraining Functional training and self-care and home management, including activities of daily living and instrumental activities of daily living Provision of the necessary gait aids and functional adaptive equipment to enhance the patient's a functional mandaen Ensure adequate nutrition and hydration Sleep: No issues Discharge planning: SNF pending insurance per family request due to limited support at home. I spent greater than 15 minutes for services, including [id number] encounter with the patient, discussion of the case, plan of care, and exam; and [id number] activities, such as reviewing pertinent risk management consultant documentation, recent therapy notes, laboratory and radiology studies, and discussion of case with care team including physician, nursing, pillowcase folder, and therapists. More than 50 % of time was spent on patient/family counseling or coordination ofcare. <Richard Escoto MD - Last Filed: 01/08/24 13:00> Assessment/Plan (1) Lumbar vertebral fracture: (2) S/P lumbar fusion: (3) Diabetes mellitus, type 2: (4) Hypertension: (5) Obesity, morbid, BMI 40.0-49.9: (6) Impaired mobility and activities of daily living: (7) Leukocytosis: Plan Patient is a 73-year-old male presented to acute inpatient rehabilitation unit with functional decline secondary to L1 and L2 fracture s/p T11-L4 fusion. * Clinically stable. * Improving in therapy. SBA with transfers. Ambulatory functional distances using a walker. Able todo stairs. * Still requesting SNF placement. Insurance pre-CERT pending. Patient education Pressure ulcer prophylaxis; encourage mobilization, frequent postural changes, pressure-relief techniques DVT prophylaxis Encourage deep breathing exercise incentive spirometry. Monitor bladder. Toileting schedule. Continue current bladder management, with scans as needed and CIC if needed. Start bowel care program every day to obtain continence, prevent ileus. Maintain fall precautions Gait and balance retraining Functional training and self-care and home management, including activities of daily living and instrumental activities of daily living Provision of the necessary gait aids and functional adaptive equipment to enhance the patient's a functional mandaen Ensure adequate nutrition and hydration Sleep: No issues Discharge planning: SNF pending insurance per family request due to limited support at home. I spent greater than 15 minutes for services, including [id number] encounter with the patient, discussion of the case, plan of care, and exam; and [id number]-fy-[id number] activities, such as reviewing pertinent risk management consultant documentation, recent therapy notes, laboratory and radiology studies, and discussion of case with care team including physician, nursing, pillowcase folder, and therapists. More than 50 % of time was spent on patient/family counseling or coordination ofcare. I completed a substantive portion of this encounter, the medical decision makingportion of this note in its entirety, including Allied health note review, nursing note review, risk management consultant note review,discussion with nursing and case management, and more than 50% of my time was spent on counseling and coordination of care, time spent 30 minutes Patient was personally seen by me, Dr. Escoto, on the day of encounter, reviewed the history and therelevant portions of the chart, including current orders, allied health and risk management consultant notes, labs/imaging and performed anderson elements of exam and I formulated the plan of care and facilitated the medical decision making. Documented By: Ada Segura APRN 10/05/23 1 225 Signed By: <Electronically signed by FERMÍN Segura> 10/05/23 1231 <Electronically signed by Richard Escoto MD> 10/05/23 1300 [facility] Work Phone: 1(901) 906-568201-07-2024 Progress note Author Yuliya Mosley [facility] October 04, 2023 6:22pmNote Date/TimeJan2023 6:21[place] [address] Hospitalist Progress Note Signed Patient: Faby Herrera MR#: [id number] : 1950 Acct:[id number] Age/Sex: 73 / M Adm Date: 3 Loc: Room: [address] [place] [address] Type: ADM IN Attending Dr: Richard Escoto MD Copies to: ~ Date of Service: 10/04/2023 Subjective Subjective Narrative: Patient is seen and examined on follow-up. He continues to work with therapy. He endorses low back pain however is not taking any narcotics since September 26 vitals reviewed BP is not optimally controlled 140s to 160s over the last coupleof days, afebrile no hypoxia. Labs reviewed from September 30 hemoglobin stable at12.8 and no leukocytosis, BMP normal electrolytes and renal function. Exam Physical Exam Vital Signs: Temp Pulse Resp BP Pulse Ox O2 Del Method 98.2 F 83 17 165/83 H 97 Room Air 10/04/23 16:10/04/23 16:10/04/23 16:10/04/23 16:10/04/23 16:10/04/23 16:00 Narrative: CONST- alert, in bed, no acute distress CARDIAC- RRR no abnormal heart tones PULM- diminished without wheeze or rhonchi, RA, no accessory muscle use or coughnoted ABD- S/NT, NABS, obese EXTREM- no edema BLE, calves nontender SKIN- W/D, good turgor, mid back spinal incision well-approximated with evolvingecchymosis Objective Lab Results 09/30/23 05:41 09/30/23 05:41 Meds Allergies and Active Meds Allergies No Known Allergies Allergy (Verified 09/14/23 21:24) Active Meds: Active Medications Generic Name Dose Route Start Last Admin Trade Name Natalie PRN Reason Stop Dose Admin Acetaminophen 1,000 mg 09/18/23 14:00 10/04/23 15:12 Acetaminophen 500 Mg Tablet PO 09/17/24 13:59 1,000 mg TID HOMER Administration Al Hydrox/Mg Hydrox/Simethicone 30 ml 09/14/23 17:55 Mag Hydrox/Al Hydrox/Simeth 30 Ml Udc PO 09/13/24 17:54 Q4H PRN Indigestion Allopurinol 300 mg 09/15/23 09:00 10/04/23 08:55 Allopurinol 300 Mg Tablet PO 09/14/24 08:59 300 mg DAILY HOMER Administration Amlodipine Besylate 10 mg 09/15/23 09:00 10/04/23 08:55 Amlodipine 10 Mg Tablet PO 09/14/24 08:59 10 mg DAILY HOMER Administration Bisacodyl 10 mg 09/14/23 17:55 Bisacodyl 10 Mg Supp.Rect MD 09/13/24 17:54 DAILY PRN Constipation Calcium Carbonate 1 tab 09/14/23 21:00 10/04/23 08:56 Calcium Carbonate/Vitamin D3 500 Mg/200 Unit Tablet PO 09/13/24 20:59 1 tab BID HOMER Administration Carvedilol 12.5 mg 09/14/23 21:00 10/04/23 08:55 Carvedilol 12.5 Mg Tablet PO 09/13/24 20:59 12.5 mg BID HOMER Administration Cyclobenzaprine HCl 10 mg 09/25/23 12:18 10/02/23 22:09 Cyclobenzaprine 10 Mg Tablet PO 09/23/24 13:59 10 mg Q8HR PRN Administration Spasms Diclofenac Sodium 1 gm 09/17/23 11:45 10/01/23 21:53 Diclofenac Sodium 1% Gel 100 Gm Tube TOPICAL 09/16/24 11:44 1 gm BID PRN Administration pain Docusate Sodium 283 mg 09/14/23 17:55 Docusate Enema 283 Mg/5 Ml Enema MD 09/13/24 17:54 DAILY PRN Constipation Docusate Sodium 100 mg 09/22/23 21:00 10/04/23 08:55 Docusate 100 Mg Capsule PO 09/21/24 20:59 100 mg BID HOMER Administration Enoxaparin Sodium 40 mg 09/15/23 09:00 10/04/23 08:54 Enoxaparin 40 Mg/0.4 Ml Syringe SUBCUT 09/14/24 08:59 40 mg DAILY HOMER Administration Furosemide 20 mg 09/15/23 09:00 10/04/23 08:55 Furosemide 20 Mg Tablet PO 09/14/24 08:59 20 mg DAILY HOMER Administration Glipizide 10 mg 09/15/23 08:00 10/04/23 08:55 Glipizide 5 Mg Tablet PO 09/14/24 07:59 10 mg DAILY@0800 HOMER Administration Hydralazine HCl 25 mg 09/15/23 22:00 10/04/23 14:04 Hydralazine 25 Mg Tablet PO 09/14/24 21:59 25 mg TID HOMER Administration Lact Acid/Bifidobact/Lact Paracas/Streptoc Th 1 cap 09/20/23 11:30 10/04/23 08:55 L. Acidophilus/Strept/La P-Carter 1 Cap Capsule PO 09/19/24 11:29 1 cap DAILY HOMER Administration Lactulose 30 gm 09/14/23 17:55 09/23/23 12:05 Lactulose 20 Gm/30 Ml Udc PO 09/13/24 17:54 30 gm DAILY PRN Administration Constipation Lidocaine 2 patch 10/03/23 12:11 Lidocaine 4% Adh..Patch TOPICAL 09/14/24 08:59 DAILY PRN Pain Melatonin 5 mg 09/27/23 22:00 10/03/23 20:10 Melatonin 5 Mg Tablet PO 09/26/24 21:59 5 mg QHS HOMER Administration Oxycodone HCl 5 mg 09/16/23 09:37 09/26/23 08:48 Oxycodone Ir 5 Mg Tablet PO 5 mg Q4H PRN Administration Pain Scale 7 - 10 Pantoprazole Sodium 40 mg 09/16/23 10:00 10/04/23 08:55 Pantoprazole 40 Mg Tablet.Dr PO 09/15/24 09:59 40 mg BID HOMER Administration Polyethylene Glycol 17 gm 09/14/23 21:00 09/20/23 08:30 Polyethylene Glycol 3350 17 Gm Powd.Pack PO 09/13/24 20:59 17 gm BID HOMER Administration Potassium Chloride 10 meq 09/15/23 09:00 10/04/23 08:55 Potassium Chloride Er 10 Meq Tablet.Er PO 09/14/24 08:59 10 meq DAILY HOMER Administration Senna/Docusate Sodium 2 tab 09/14/23 22:00 10/03/23 20:11 Sennosides/Docusate 8.6-50mg 1 Tab Tablet PO 09/13/24 21:59 Not Given QHS HOMER Sennosides 2 tab 09/15/23 12:00 Sennosides 8.6 Mg Tablet PO 09/14/24 11:59 DAILY@12 PRN If no BM in 2 days Sodium Chloride 0 ml 09/14/23 17:55 Sodium Chloride 0.9 % 10 Ml Syringe IV-PUSH 09/13/24 17:54 PRN PRN Flush A&P - Hospitalist Assessment/Plan (1) Hypertension: (2) Diabetes mellitus, type 2: (3) S/P lumbar fusion: Plan [place] Lumbar vertebral fracture s/p T11-L4 fusion 09/08/2023 -Further POC per PMR team for rehabilitative therapy, pain control bowel regimen, DVT PPx, surgicalwound care -please address any postoperative questions/concerns to neurosurgery team at [facility] Chronic conditions 1. Hypertension-on amlodipine, carvedilol, furosemide, hydralazine, BP not optimally controlled will increase hydralazine 2. Diabetes-glipizide, SSI coverage and fingerstick, check A1c 6.9. Blood sugars reviewed, controlled, continue to monitor 3. Gout?allopurinol Documented By: Yuliya Mosley APRN 04/20 1735 Signed By: <Electronically signed by FERMÍN Mosley> 10/04/23 1822 [facility] Work Phone: 1(889) 406-652901-06-2024 Progress note Author Richard Escoto [facility] October 03, 2023 10:54amNote Date/TimeJanuary 2023 7:58[place] [address] Physiatry(Rehab) Progress Note Signed Patient: Faby Herrera MR#: [id number] : 1950 Acct:[id number] Age/Sex: 73 / M Adm Date: 3 Loc: 5T Room: 2X7666-2 Type: ADM IN Attending Dr: Richard Escoto MD Copies to: ~ Date of Service: 10/03/2023 Subjective Subjective Narrative: Mr. Herrera is a 73 year old male with past medical history of hypertension, hyperlipidemia, type 2 diabetes, obesity, admitted to [facility] inpatient rehab with functional decline secondary to L1-L2 fracture s/p T11-L4 fusion. Patient reports sustaining a fall at home after receiving COVID and flu boosters. He was unable to get off the floor even with assistance from his family. Patient was [facility] andadmitted for further workup. Unfortunately, he sustained another fall while in the hospital bathroom. He thinks he is lost his footing and fell onto his right side. Denies head injury/loss of consciousness. Imaging was obtained which demonstrated acute transverse fracture of the lower endplate of L1 with findingshighly suggestive of interruption of anterior spinal ligament. He was transferred to [facility] for neurosurgical services. On 09/08/2023 patient underwent percutaneous T11-L4 fusion with pedicle screws and dual rods. No major complications postoperatively. Antihypertensive regimen was adjusted by inpatient cardiology. Patient had also developed mild leukocytosis with unremarkable infectious workup. Patient was recommended acute rehab for strengthening. On arrival he is alert, oriented, cooperative with assessment. He is resting in bed on his right side reports no major discomfort at rest. Back incision is covered with dry dressingwith scant sanguinous drainage on the dressing and surrounding p ostoperative ecchymosis.. He denies tenderness to palpation. Reports no cardiopulmonary complaints. BP reasonably controlled at this time. Admits to constipation for 4 to 5 days. Some abdominal discomfort but no nauseaor vomiting. He willreceive a laxative today. Abdominal x-ray if no result orpersisting abdominal discomfort or other GI symptoms. Interval History: No new issues overnight. Vitals stable. Family requesting SNF for additional therapy. Ambulatory SBA. Moving bowel/bladder. Pain worse when lying flat. Review of Systems Review of Systems All other systems reviewed & are negative unless noted below or in HPI Exam Physical Exam Vital Signs: Temp Pulse Resp BP Pulse Ox O2 Del Method 98.1 F 97 H 18 123/69 96 Room Air 10/03/23 06:13 10/03/23 06:13 10/03/23 06:13 10/03/23 06:13 10/03/23 06:13 10/03/23 06:13 Narrative: General: Awake, alert, oriented x3 HENT: Normal to inspection, normocephalic, atraumatic Eyes: PERRL, normal conjunctiva and sclera Neck: Normal ROM, normal visual inspection. Trachea midline. Cardio: Regular heart rate and rhythm Respiratory: Clear to auscultation bilaterally. Normal respiratory effort. No respiratory distress. GI: Abdomen soft, nontender, nondistended, active bowel sounds x4 quadrants : No issues Skin: Thoracic back incision, covered with dry dressing. Neuro: CN II-XII intact. Strength 5 /5 bilateral lower extremities, some numbness bilaterally. Limited ROM. Extremities: No edema, erythema, cyanosis Psych: Mood and affect appropriate. Normal speech. Objective Labs 09/30/23 05:41 09/30/23 05:41 Labs: Laboratory Results - last 24 hr 10/02/23 10/03/23 16:36 06:12 POC Glucose 131 114 POC Glucose Comment Glu2: cleaned meter Glu2: cleaned meter Medications and Allergies Allergies and Active Meds: Allergies No Known Allergies Allergy (Verified 09/14/23 21:24) Active Medications Generic Name Dose Route Start Last Admin Trade Name Freq PRN Reason Stop Dose Admin Acetaminophen 1,000 mg 09/18/23 14:00 10/02/23 22:09 Acetaminophen 500 Mg Tablet PO 09/17/24 13:59 1,000 mg TID HOMER Administration Al Hydrox/Mg Hydrox/Simethicone 30 ml 09/14/23 17:55 Mag Hydrox/Al Hydrox/Simeth 30 Ml Udc PO 09/13/24 17:54 Q4H PRN Indigestion Allopurinol 300 mg 09/15/23 09:00 10/02/23 08:58 Allopurinol 300 Mg Tablet PO 09/14/24 08:59 300 mg DAILY HOMER Administration Amlodipine Besylate 10 mg 09/15/23 09:00 10/02/23 08:57 Amlodipine 10 Mg Tablet PO 09/14/24 08:59 10 mg DAILY HOMER Administration Bisacodyl 10 mg 09/14/23 17:55 Bisacodyl 10 Mg Supp.Rect MD 09/13/24 17:54 DAILY PRN Constipation Calcium Carbonate 1 tab 09/14/23 21:00 10/02/23 22:10 Calcium Carbonate/Vitamin D3 500 Mg/200 Unit Tablet PO 09/13/24 20:59 1 tab BID HOMER Administration Carvedilol 12.5 mg 09/14/23 21:00 10/02/23 22:10 Carvedilol 12.5 Mg Tablet PO 09/13/24 20:59 12.5 mg BID HOMER Administration Cyclobenzaprine HCl 10 mg 09/25/23 12:18 10/02/23 22:09 Cyclobenzaprine 10 Mg Tablet PO 09/23/24 13:59 10 mg Q8HR PRN Administration Spasms Diclofenac Sodium 1 gm 09/17/23 11:45 10/01/23 21:53 Diclofenac Sodium 1% Gel 100 Gm Tube TOPICAL 09/16/24 11:44 1 gm BID PRN Administration pain Docusate Sodium 283 mg 09/14/23 17:55 Docusate Enema 283 Mg/5 Ml Enema MD 09/13/24 17:54 DAILY PRN Constipation Docusate Sodium 100 mg 09/22/23 21:00 10/02/23 22:10 Docusate 100 Mg Capsule PO 09/21/24 20:59 100 mg BID HOMER Administration Enoxaparin Sodium 40 mg 09/15/23 09:00 10/02/23 08:59 Enoxaparin 40 Mg/0.4 Ml Syringe SUBCUT 09/14/24 08:59 40 mg DAILY HOMER Administration Furosemide 20 mg 09/15/23 09:00 10/02/23 08:57 Furosemide 20 Mg Tablet PO 09/14/24 08:59 20 mg DAILY HOMER Administration Glipizide 10 mg 09/15/23 08:00 10/02/23 08:58 Glipizide 5 Mg Tablet PO 09/14/24 07:59 10 mg DAILY@0800 HOMER Administration Hydralazine HCl 25 mg 09/15/23 22:00 10/02/23 22:10 Hydralazine 25 Mg Tablet PO 09/14/24 21:59 25 mg TID HOMER Administration Lact Acid/Bifidobact/Lact Paracas/Streptoc Th 1 cap 09/20/23 11:30 10/02/23 08:58 L. Acidophilus/Strept/La P-Carter 1 Cap Capsule PO 09/19/24 11:29 1 cap DAILY HOMER Administration Lactulose 30 gm 09/14/23 17:55 09/23/23 12:05 Lactulose 20 Gm/30 Ml Udc PO 09/13/24 17:54 30 gm DAILY PRN Administration Constipation Lidocaine 2 patch 09/15/23 09:00 10/02/23 08:59 Lidocaine 4% Adh..Patch TOPICAL 09/14/24 08:59 2 patch DAILY HOMER Administration Melatonin 5 mg 09/27/23 22:00 10/02/23 22:08 Melatonin 5 Mg Tablet PO 09/26/24 21:59 5 mg QHS HOMER Administration Oxycodone HCl 5 mg 09/16/23 09:37 09/26/23 08:48 Oxycodone Ir 5 Mg Tablet PO 5 mg Q4H PRN Administration Pain Scale 7 - 10 Pantoprazole Sodium 40 mg 09/16/23 10:00 10/02/23 22:10 Pantoprazole 40 Mg Tablet.Dr PO 09/15/24 09:59 40 mg BID HOMER Administration Polyethylene Glycol 17 gm 09/14/23 21:00 09/20/23 08:30 Polyethylene Glycol 3350 17 Gm Powd.Pack PO 09/13/24 20:59 17 gm BID HOMER Administration Potassium Chloride 10 meq 09/15/23 09:00 10/02/23 08:57 Potassium Chloride Er 10 Meq Tablet.Er PO 09/14/24 08:59 10 meq DAILY HOMER Administration Senna/Docusate Sodium 2 tab 09/14/23 22:00 10/02/23 22:10 Sennosides/Docusate 8.6-50mg 1 Tab Tablet PO 09/13/24 21:59 2 tab QHS HOMER Administration Sennosides 2 tab 09/15/23 12:00 Sennosides 8.6 Mg Tablet PO 09/14/24 11:59 DAILY@12 PRN If no BM in 2 days Sodium Chloride 0 ml 09/14/23 17:55 Sodium Chloride 0.9 % 10 Ml Syringe IV-PUSH 09/13/24 17:54 PRN PRN Flush Assessment/Plan Assessment/Plan (1) Lumbar vertebral fracture: (2) S/P lumbar fusion: (3) Diabetes mellitus, type 2: (4) Hypertension: (5) Obesity, morbid, BMI 40.0-49.9: (6) Impaired mobility and activities of daily living: (7) Leukocytosis: Plan Patient is a 73-year-old male presented to acute inpatient rehabilitation unit with functional decline secondary to L1 and L2 fracture s/p T11-L4 fusion. * Progressed, nearly at functional goals. * Ambulatory 220' standby assist, advised of likely SNF denial by insurance. Patient education Pressure ulcer prophylaxis; encourage mobilization, frequent postural changes, pressure-relief techniques DVT prophylaxis Encourage deep breathing exercise incentive spirometry. Monitor bladder. Toileting schedule. Continue current bladder management, with scans as needed and CIC if needed. Start bowel care program every day to obtain continence, prevent ileus. Maintain fall precautions Gait and balance retraining Functional training and self-care and home management, including activities of daily living and instrumental activities of daily living Provision of the necessary gait aids and functional adaptive equipment to enhance the patient's a functional mandaen Ensure adequate nutrition and hydration Sleep: No issues Discharge planning: SNF pending insurance per family request due to limited support at home. I spent greater than 25 minutes for services, including [id number] encounter with the patient, discussion of the case, plan of care, and exam; and [id number] activities, such as reviewing pertinent risk management consultant documentation, recent therapy notes, laboratory and radiology studies, and discussion of case with care team including physician, nursing, pillowcase folder, and therapists. More than 50 % of time was spent on patient/family counseling or coordination ofcare. Documented By: Richard Escoto MD 10/03/23 0758 Signed By: <Electronically signed by Richard Escoto MD> 10/03/23 105 [facility] Work Phone: [phone]) 979-946701-04-2024 Progress note Author Alejandro Jeong [facility] October 01, 2023 12:53pmNote Date/TimeJan2023 12:53pm[place] [address] Physiatry(Rehab) Progress Note Signed Patient: Faby Herrera MR#: [id number] : 1950 Acct:[id number] Age/Sex: 73 / M Adm Date: 3 Loc: Room: 0V3552-6 Type: ADM IN Attending Dr: Richard Escoto MD Copies to: ~ Date of Service: 10/01/2023 Subjective Subjective Narrative: Mr. Herrera is a 73 year old male with past medical history of hypertension, hyperlipidemia, type 2 diabetes, obesity, admitted to [facility] inpatient rehab with functional decline secondary to L1-L2 fracture s/p T11-L4 fusion. Patient reports sustaining a fall at home after receiving COVID and flu boosters. He was unable to get off the floor even with assistance from his family. [facility] andad[facility] for further workup. Unfortunately, he sustained another fall while in the hospital bathroom. He thinks he is lost his footing and fell onto his right side. Denies head injury/loss of consciousness. Imaging was obtained which demonstrated acute transverse fracture of the lower endplate of L1 with findingshighly suggestive of interruption of anterior spinal ligament. He was transferred to [facility] for neurosurgical services. On 09/08/2023 patient underwent percutaneous T11-L4 fusion with pedicle screws and dual rods. No major complications postoperatively. Antihypertensive regimen was adjusted by inpatient cardiology. Patient had also developed mild leukocytosis with unremarkable infectious workup. Patient was recommended acute rehab for strengthening. On arrival he is alert, oriented, cooperative with assessment. He is resting in bed on his right side reports no major discomfort at rest. Back incision is covered with dry dressingwith scant sanguinous drainage on the dressing and surrounding p ostoperative ecchymosis.. He denies tenderness to palpation. Reports no cardiopulmonary complaints. BP reasonably controlled at this time. Admits to constipation for 4 to 5 days. Some abdominal discomfort but no nauseaor vomiting. He willreceive a laxative today. Abdominal x-ray if no result orpersisting abdominal discomfort or other GI symptoms. Interval History: Don was seen and evaluated at bedside. Sitting comfortably in recliner in no distress today. He hasno major concerns. Notes that pain is better controlled. Tolerating therapy. Review of Systems Review of Systems All other systems reviewed & are negative unless noted below or in HPI Exam Physical Exam Vital Signs: Temp Pulse Resp BP Pulse Ox O2 Del Method 97.7 F 88 16 101/65 96 Room Air 10/01/23 06:00 10/01/23 06:00 10/01/23 06:00 10/01/23 09:17 10/01/23 06:00 10/01/23 09:00 Narrative: General: Awake, alert, oriented x3 HENT: Normal to inspection, normocephalic, atraumatic Eyes: PERRL, normal conjunctiva and sclera Neck: Normal ROM, normal visual inspection. Trachea midline. Cardio: Extremities well perfused Respiratory: Normal respiratory effort. No respiratory distress. GI: Abdomen soft, nontender, nondistended : No issues Skin: Clean, dry, intact Neuro: CN II-XII intact. Strength 4+ /5 bilateral lower extremities, some numbness bilaterally. Extremities: No edema, erythema, cyanosis Psych: Mood and affect appropriate. Normal speech. Objective Labs 09/30/23 05:41 09/30/23 05:41 Labs: Laboratory Results - last 24 hr 09/30/23 10/01/23 16:45 05:54 POC Glucose 87 105 Medications and Allergies Allergies and Active Meds: Allergies No Known Allergies Allergy (Verified 09/14/23 21:24) Active Medications Generic Name Dose Route Start Last Admin Trade Name Freq PRN Reason Stop Dose Admin Acetaminophen 1,000 mg 09/18/23 14:00 10/01/23 09:13 Acetaminophen 500 Mg Tablet PO 09/17/24 13:59 1,000 mg TID HOMER Administration Al Hydrox/Mg Hydrox/Simethicone 30 ml 09/14/23 17:55 Mag Hydrox/Al Hydrox/Simeth 30 Ml Udc PO 09/13/24 17:54 Q4H PRN Indigestion Allopurinol 300 mg 09/15/23 09:00 10/01/23 09:14 Allopurinol 300 Mg Tablet PO 09/14/24 08:59 300 mg DAILY HOMER Administration Amlodipine Besylate 10 mg 09/15/23 09:00 10/01/23 10:29 Amlodipine 10 Mg Tablet PO 09/14/24 08:59 Not Given DAILY HOMER Bisacodyl 10 mg 09/14/23 17:55 Bisacodyl 10 Mg Supp.Rect MD 09/13/24 17:54 DAILY PRN Constipation Calcium Carbonate 1 tab 09/14/23 21:00 10/01/23 09:14 Calcium Carbonate/Vitamin D3 500 Mg/200 Unit Tablet PO 09/13/24 20:59 1 tab BID HOMER Administration Carvedilol 12.5 mg 09/14/23 21:00 10/01/23 10:30 Carvedilol 12.5 Mg Tablet PO 09/13/24 20:59 Not Given BID HOMER Cyclobenzaprine HCl 10 mg 09/25/23 12:18 10/01/23 05:58 Cyclobenzaprine 10 Mg Tablet PO 09/23/24 13:59 10 mg Q8HR PRN Administration Spasms Diclofenac Sodium 1 gm 09/17/23 11:45 09/29/23 22:15 Diclofenac Sodium 1% Gel 100 Gm Tube TOPICAL 09/16/24 11:44 1 gm BID PRN Administration pain Docusate Sodium 283 mg 09/14/23 17:55 Docusate Enema 283 Mg/5 Ml Enema MD 09/13/24 17:54 DAILY PRN Constipation Docusate Sodium 100 mg 09/22/23 21:00 10/01/23 09:14 Docusate 100 Mg Capsule PO 09/21/24 20:59 100 mg BID HOMER Administration Enoxaparin Sodium 40 mg 09/15/23 09:00 10/01/23 09:14 Enoxaparin 40 Mg/0.4 Ml Syringe SUBCUT 09/14/24 08:59 40 mg DAILY HOMER Administration Furosemide 20 mg 09/15/23 09:00 10/01/23 09:13 Furosemide 20 Mg Tablet PO 09/14/24 08:59 20 mg DAILY HOMER Administration Glipizide 10 mg 09/15/23 08:00 10/01/23 09:14 Glipizide 5 Mg Tablet PO 09/14/24 07:59 10 mg DAILY@0800 HOMER Administration Hydralazine HCl 25 mg 09/15/23 22:00 10/01/23 10:30 Hydralazine 25 Mg Tablet PO 09/14/24 21:59 Not Given TID HOMER Lact Acid/Bifidobact/Lact Paracas/Streptoc Th 1 cap 09/20/23 11:30 10/01/23 09:13 L. Acidophilus/Strept/La P-Carter 1 Cap Capsule PO 09/19/24 11:29 1 cap DAILY HOMER Administration Lactulose 30 gm 09/14/23 17:55 09/23/23 12:05 Lactulose 20 Gm/30 Ml Udc PO 09/13/24 17:54 30 gm DAILY PRN Administration Constipation Lidocaine 2 patch 09/15/23 09:00 10/01/23 09:15 Lidocaine 4% Adh..Patch TOPICAL 09/14/24 08:59 2 patch DAILY HOMER Administration Melatonin 5 mg 09/27/23 22:00 09/30/23 20:41 Melatonin 5 Mg Tablet PO 09/26/24 21:59 5 mg QHS HOMER Administration Oxycodone HCl 5 mg 09/16/23 09:37 09/26/23 08:48 Oxycodone Ir 5 Mg Tablet PO 5 mg Q4H PRN Administration Pain Scale 7 - 10 Pantoprazole Sodium 40 mg 09/16/23 10:00 10/01/23 09:15 Pantoprazole 40 Mg Tablet. PO 09/15/24 09:59 40 mg BID HOMER Administration Polyethylene Glycol 17 gm 09/14/23 21:00 09/20/23 08:30 Polyethylene Glycol 3350 17 Gm Powd.Pack PO 09/13/24 20:59 17 gm BID HOMER Administration Potassium Chloride 10 meq 09/15/23 09:00 10/01/23 09:15 Potassium Chloride Er 10 Meq Tablet.Er PO 09/14/24 08:59 10 meq DAILY HOMER Administration Senna/Docusate Sodium 2 tab 09/14/23 22:00 09/30/23 20:40 Sennosides/Docusate 8.6-50mg 1 Tab Tablet PO 09/13/24 21:59 2 tab QHS HOMER Administration Sennosides 2 tab 09/15/23 12:00 Sennosides 8.6 Mg Tablet PO 09/14/24 11:59 DAILY@12 PRN If no BM in 2 days Sodium Chloride 0 ml 09/14/23 17:55 Sodium Chloride 0.9 % 10 Ml Syringe IV-PUSH 09/13/24 17:54 PRN PRN Flush Assessment/Plan Assessment/Plan (1) Lumbar vertebral fracture: (2) S/P lumbar fusion: (3) Diabetes mellitus, type 2: (4) Hypertension: (5) Obesity, morbid, BMI 40.0-49.9: (6) Impaired mobility and activities of daily living: (7) Leukocytosis: Plan Patient is a 73-year-old male presented to acute inpatient rehabilitation unit with functional decline secondary to L1 and L2 fracture s/p T11-L4 fusion. * Interval imaging t/l spine unremarkable, redemonstrates fracture at L1 * DC planned 10/04, Home vs SNF. FI today * Difficulty obtaining hospital bed due to insurance barrier. * Ambulatory 150' Patient education Pressure ulcer prophylaxis; encourage mobilization, frequent postural changes, pressure-relief techniques DVT prophylaxis Encourage deep breathing exercise incentive spirometry. Monitor bladder. Toileting schedule. Continue current bladder management, with scans as needed and CIC if needed. Start bowel care program every day to obtain continence, prevent ileus. Maintain fall precautions Gait and balance retraining Functional training and self-care and home management, including activities of daily living and instrumental activities of daily living Provision of the necessary gait aids and functional adaptive equipment to enhance the patient's a functional mandaen Ensure adequate nutrition and hydration Sleep: No issues Discharge planning: Home with family 10/04 pending hospital bed. I spent greater than 25 minutes for services, including [id number] encounter with the patient, discussion of the case, plan of care, and exam; and [id number] activities, such as reviewing pertinent risk management consultant documentation, recent therapy notes, laboratory and radiology studies, and discussion of case with care team including physician, nursing, pillowcase folder, and therapists. More than 50 % of time was spent on patient/family counseling or coordination ofcare. Documented By: Alejandro Jeong MD [id number] Signed By: <Electronically signed by Alejandro Jeong MD> 10/01/23 1253 [facility] Work Phone: [phone]) 446-135601-03-2024 Progress note Author Richard Escoto [facility] September 30, 2023 1:04pmNote Date/TimeJan2023 10:51[place] [address] Physiatry(Rehab) Progress Note Signed Patient: Faby Herrera MR#: [id number] : 1950 Acct:[id number] Age/Sex: 73 / M Adm Date: 3 Loc: Room: [id number] Type: ADM IN Attending Dr: Richard Escoto MD Copies to: ~ Date of Service: 09/30/2023 Subjective Subjective Narrative: Mr. Herrera is a 73 year old male with past medical history of hypertension, hyperlipidemia, type 2 diabetes, obesity, admitted to [facility] inpatient rehab with functional decline secondary to L1-L2 fracture s/p T11-L4 fusion. Patient reports sustaining a fall at home after receiving COVID and flu boosters. He was unable to get off the floor even with assistance from his family. Patient was brought to [facility] andadmitted for further workup. Unfortunately, he sustained another fall while in the hospital bathroom. He thinks he is lost his footing and fell onto his right side. Denies head injury/loss of consciousness. Imaging was obtained which demonstrated acute transverse fracture of the lower endplate of L1 with findingshighly suggestive of interruption of anterior spinal ligament. He was transferred to [facility] for neurosurgical services. On 09/08/2023 patient underwent percutaneous T11-L4 fusion with pedicle screws and dual rods. No major complications postoperatively. Antihypertensive regimen was adjusted by inpatient cardiology. Patient had also developed mild leukocytosis with unremarkable infectious workup. Patient was recommended acute rehab for strengthening. On arrival he is alert, oriented, cooperative with assessment. He is resting in bed on his right side reports no major discomfort at rest. Back incision is covered with dry dressingwith scant sanguinous drainage on the dressing and surrounding p ostoperative ecchymosis.. He denies tenderness to palpation. Reports no cardiopulmonary complaints. BP reasonably controlled at this time. Admits to constipation for 4 to 5 days. Some abdominal discomfort but no nauseaor vomiting. He willreceive a laxative today. Abdominal x-ray if no result orpersisting abdominal discomfort or other GI symptoms. Interval History: Repeat UA negative. Labs stable. Imaging reviewed, unremarkable. Stable hardware. Spasms persist. Difficulty lying flat. Ambulatory 150'. Review of Systems Review of Systems All other systems reviewed & are negative unless noted below or in HPI Exam Physical Exam Vital Signs: Temp Pulse Resp BP Pulse Ox O2 Del Method 97.8 F 80 18 152/77 H 96 Room Air 09/30/23 04:59 09/30/23 04:59 09/30/23 04:59 09/30/23 06:40 09/30/23 04:59 09/30/23 04:59 Narrative: General: Awake, alert, oriented x3 HENT: Normal to inspection, normocephalic, atraumatic Eyes: PERRL, normal conjunctiva and sclera Neck: Normal ROM, normal visual inspection. Trachea midline. Cardio: Regular heart rate and rhythm Respiratory: Clear to auscultation bilaterally. Normal respiratory effort. No respiratory distress. GI: Abdomen soft, nontender, nondistended, active bowel sounds x4 quadrants : No issues Skin: Thoracic back incision, covered with dry dressing. Neuro: CN II-XII intact. Strength 5 /5 bilateral lower extremities, some numbness bilaterally. Limited ROM. Extremities: No edema, erythema, cyanosis Psych: Mood and affect appropriate. Normal speech. Objective Labs 09/30/23 05:41 09/30/23 05:41 Labs: Laboratory Results - last 24 hr 09/29/23 09/29/23 09/30/23 12:15 16:02 05:36 Corrected WBC Uncorrected WBC Count RBC Hgb Hct MCV MCH MCHC RDW Plt Count MPV Neut % (Auto) Lymph % (Auto) [place] % (Auto) Eos % (Auto) Baso % (Auto) Nucleat RBC Rel Count Neut # (Auto) Lymph # (Auto) [place] # (Auto) Eos # (Auto) Baso # (Auto) PHA Creatinine Clear Sodium Potassium Chloride Carbon Dioxide Anion Gap BUN Creatinine Est GFR (CKD-EPI) Glucose POC Glucose 105 102 POC Glucose Comment Glu2: cleaned meter Calcium Urine Color Yellow Urine Appearance Clear Urine pH 5.5 Ur Specific [place] 1.018 Urine Protein Negative Urine Glucose (UA) Normal Urine Ketones Negative Urine Occult Blood Negative Urine Nitrite Negative Urine Bilirubin Negative Urine Urobilinogen Normal Ur Leukocyte Esterase 1+ H Urine RBC 3-4 Urine WBC 0-1 Ur Squamous Epith Cells 0-1 Urine Bacteria None seen Hyaline Casts None seen 09/30/23 09/30/23 05:41 05:41 Corrected WBC 5.9 Uncorrected WBC Count 5.9 RBC 3.93 Hgb 12.8 L Hct 37.1 L MCV 94.4 MCH 32.5 MCHC 34.4 RDW 14.7 Plt Count 206 MPV 7.3 Neut % (Auto) 62.1 Lymph % (Auto) 23.0 [place] % (Auto) 10.5 Eos % (Auto) 3.5 Baso % (Auto) 0.9 Nucleat RBC Rel Count 0.0 Neut # (Auto) 3.7 Lymph # (Auto) 1.4 [place] # (Auto) 0.6 Eos # (Auto) 0.2 Baso # (Auto) 0.1 PHA Creatinine Clear 86.85 Sodium 138 Potassium 4.6 Chloride 102 Carbon Dioxide 30.5 Anion Gap 10.1 BUN 26 H Creatinine 1.08 Est GFR (CKD-EPI) > 60.0 Glucose 113 H POC Glucose POC Glucose Comment Calcium 9.3 Urine Color Urine Appearance Urine pH Ur Specific [place] Urine Protein Urine Glucose (UA) Urine Ketones Urine Occult Blood Urine Nitrite Urine Bilirubin Urine Urobilinogen Ur Leukocyte Esterase Urine RBC Urine WBC Ur Squamous Epith Cells Urine Bacteria Hyaline Casts Medications and Allergies Allergies and Active Meds: Allergies No Known Allergies Allergy (Verified 09/14/23 21:24) Active Medications Generic Name Dose Route Start Last Admin Trade Name Freq PRN Reason Stop Dose Admin Acetaminophen 1,000 mg 09/18/23 14:00 09/30/23 08:12 Acetaminophen 500 Mg Tablet PO 09/17/24 13:59 1,000 mg TID HOMER Administration Al Hydrox/Mg Hydrox/Simethicone 30 ml 09/14/23 17:55 Mag Hydrox/Al Hydrox/Simeth 30 Ml Udc PO 09/13/24 17:54 Q4H PRN Indigestion Allopurinol 300 mg 09/15/23 09:00 09/30/23 08:11 Allopurinol 300 Mg Tablet PO 09/14/24 08:59 300 mg DAILY HOMER Administration Amlodipine Besylate 10 mg 09/15/23 09:00 09/30/23 05:40 Amlodipine 10 Mg Tablet PO 09/14/24 08:59 10 mg DAILY HOMER Administration Bisacodyl 10 mg 09/14/23 17:55 Bisacodyl 10 Mg Supp.Rect MD 09/13/24 17:54 DAILY PRN Constipation Calcium Carbonate 1 tab 09/14/23 21:00 09/30/23 08:12 Calcium Carbonate/Vitamin D3 500 Mg/200 Unit Tablet PO 09/13/24 20:59 1 tab BID HOMER Administration Carvedilol 12.5 mg 09/14/23 21:00 09/30/23 08:11 Carvedilol 12.5 Mg Tablet PO 09/13/24 20:59 12.5 mg BID HOMER Administration Cyclobenzaprine HCl 10 mg 09/25/23 12:18 09/30/23 08:12 Cyclobenzaprine 10 Mg Tablet PO 09/23/24 13:59 10 mg Q8HR PRN Administration Spasms Diclofenac Sodium 1 gm 09/17/23 11:45 09/29/23 22:15 Diclofenac Sodium 1% Gel 100 Gm Tube TOPICAL 09/16/24 11:44 1 gm BID PRN Administration pain Docusate Sodium 283 mg 09/14/23 17:55 Docusate Enema 283 Mg/5 Ml Enema MD 09/13/24 17:54 DAILY PRN Constipation Docusate Sodium 100 mg 09/22/23 21:00 09/30/23 08:11 Docusate 100 Mg Capsule PO 09/21/24 20:59 100 mg BID HOMER Administration Enoxaparin Sodium 40 mg 09/15/23 09:00 09/30/23 08:10 Enoxaparin 40 Mg/0.4 Ml Syringe SUBCUT 09/14/24 08:59 40 mg DAILY HOMER Administration Furosemide 20 mg 09/15/23 09:00 09/30/23 08:11 Furosemide 20 Mg Tablet PO 09/14/24 08:59 20 mg DAILY HOMER Administration Glipizide 10 mg 09/15/23 08:00 09/30/23 08:11 Glipizide 5 Mg Tablet PO 09/14/24 07:59 10 mg DAILY@0800 HOMER Administration Hydralazine HCl 25 mg 09/15/23 22:00 09/30/23 08:11 Hydralazine 25 Mg Tablet PO 09/14/24 21:59 25 mg TID HOMER Administration Lact Acid/Bifidobact/Lact Paracas/Streptoc Th 1 cap 09/20/23 11:30 09/30/23 08:11 L. Acidophilus/Strept/La P-Carter 1 Cap Capsule PO 09/19/24 11:29 1 cap DAILY HOMER Administration Lactulose 30 gm 09/14/23 17:55 09/23/23 12:05 Lactulose 20 Gm/30 Ml Udc PO 09/13/24 17:54 30 gm DAILY PRN Administration Constipation Lidocaine 2 patch 09/15/23 09:00 09/30/23 08:10 Lidocaine 4% Adh..Patch TOPICAL 09/14/24 08:59 2 patch DAILY HOMER Administration Melatonin 5 mg 09/27/23 22:00 09/29/23 22:12 Melatonin 5 Mg Tablet PO 09/26/24 21:59 5 mg QHS HOMER Administration Oxycodone HCl 5 mg 09/16/23 09:37 12/30/23 08:48 Oxycodone Ir 5 Mg Tablet PO 5 mg Q4H PRN Administration Pain Scale 7 - 10 Pantoprazole Sodium 40 mg 09/16/23 10:00 09/30/23 08:11 Pantoprazole 40 Mg Tablet.Dr PO 09/15/24 09:59 40 mg BID HOMER Administration Polyethylene Glycol 17 gm 09/14/23 21:00 09/20/23 08:30 Polyethylene Glycol 3350 17 Gm Powd.Pack PO 09/13/24 20:59 17 gm BID HOMER Administration Potassium Chloride 10 meq 09/15/23 09:00 09/30/23 08:12 Potassium Chloride Er 10 Meq Tablet.Er PO 09/14/24 08:59 10 meq DAILY HOMER Administration Senna/Docusate Sodium 2 tab 09/14/23 22:00 09/29/23 22:12 Sennosides/Docusate 8.6-50mg 1 Tab Tablet PO 09/13/24 21:59 2 tab QHS HOMER Administration Sennosides 2 tab 09/15/23 12:00 Sennosides 8.6 Mg Tablet PO 09/14/24 11:59 DAILY@12 PRN If no BM in 2 days Sodium Chloride 0 ml 09/14/23 17:55 Sodium Chloride 0.9 % 10 Ml Syringe IV-PUSH 09/13/24 17:54 PRN PRN Flush Assessment/Plan Assessment/Plan (1) Lumbar vertebral fracture: (2) S/P lumbar fusion: (3) Diabetes mellitus, type 2: (4) Hypertension: (5) Obesity, morbid, BMI 40.0-49.9: (6) Impaired mobility and activities of daily living: (7) Leukocytosis: Plan Patient is a 73-year-old male presented to acute inpatient rehabilitation unit with functional decline secondary to L1 and L2 fracture s/p T11-L4 fusion. * Interval imaging t/l spine unremarkable, redemonstrates fracture at L1 * UA negative * CBC/BMP stable. * Goal is home this weekend * Difficulty obtaining hospital bed due to insurance barrier. * Ambulatory 150' Patient education Pressure ulcer prophylaxis; encourage mobilization, frequent postural changes, pressure-relief techniques DVT prophylaxis Encourage deep breathing exercise incentive spirometry. Monitor bladder. Toileting schedule. Continue current bladder management, with scans as needed and CIC if needed. Start bowel care program every day to obtain continence, prevent ileus. Maintain fall precautions Gait and balance retraining Functional training and self-care and home management, including activities of daily living and instrumental activities of daily living Provision of the necessary gait aids and functional adaptive equipment to enhance the patient's a functional mandaen Ensure adequate nutrition and hydration Sleep: No issues Discharge planning: Home with family 1/7 pending hospital bed. I spent greater than 35 minutes for services, including [id number] encounter with the patient, discussion of the case, plan of care, and exam; and npcjzem-qk-[id number] activities, such as reviewing pertinent risk management consultant documentation, recent therapy notes, laboratory and radiology studies, and discussion of case with care team including physician, nursing, pillowcase folder, and therapists. More than 50 % of time was spent on patient/family counseling or coordination ofcare. Documented By: Richard Escoto MD 09/30/23 1050 Signed By: <Electronically signed by Richard Escoto MD> 09/30/23 1304 [facility] Work Phone: 1(353) 251-167501-03-2024 Hospital Discharge instructionsAmbulatory Orders* Initiate Home Health Time Frame: 09/30/23, Location: Determined By Patient Additional Instructions -Code status: Full code. -Allergies: NKA/NKDA. -Activity: Ambulate as tolerated. No lifting, bending, carrying, twisting, or bending for 2 weeks after surgery. Avoid strenuous activity. No driving until cleared by physician, may ride in car. -Diet: Diabetic, 2000 calories a day, carb consistent diet. -Check fingerstick blood sugars twice daily, prior to breakfast and dinner. -Administer pills whole in applesauce. -Wound care to posterior back incision: May leave open to air as long as there is no drainage present. May shower, but no soaking/submerging, or scrubbing incision until fully healed, or told otherwise by Surgeon. -PT/OT to evaluate and treat at shelter facility.[facility] Work Phone: 1(248) 465-700801-02-2024 Progress note Author Richard Escoto [facility] September 29, 2023 2:10pmNote Date/TimeJan2023 2:10pm[place] [address] Physiatry(Rehab) Progress Note Signed Patient: Faby Herrera MR#: [id number] : 1950 Acct:[id number] Age/Sex: 73 / M Adm Date: 3 Loc: 5T Room: 9S9224-5 Type: ADM IN Attending Dr: Richard Escoto MD Copies to: ~ Date of Service: 09/29/2023 Subjective Subjective Narrative: Mr. Herrera is a 73 year old male with past medical history of hypertension, hyperlipidemia, type 2 diabetes, obesity, admitted to [facility] inpatient rehab with functional decline secondary to L1-L2 fracture s/p T11-L4 fusion. Patient reports sustaining a fall at home after receiving COVID and flu boosters. He was unable to get off the floor even with assistance from his family. Patient was [facility] andadmitted for further workup. Unfortunately, he sustained another fall while in the hospital bathroom. He thinks he is lost his footing and fell onto his right side. Denies head injury/loss of consciousness. Imaging was obtained which demonstrated acute transverse fracture of the lower endplate of L1 with findingshighly suggestive of interruption of anterior spinal ligament. He was transferred to [facility] for neurosurgical services. On 09/08/2023 patient underwent percutaneous T11-L4 fusion with pedicle screws and dual rods. No major complications postoperatively. Antihypertensive regimen was adjusted by inpatient cardiology. Patient had also developed mild leukocytosis with unremarkable infectious workup. Patient was recommended acute rehab for strengthening. On arrival he is alert, oriented, cooperative with assessment. He is resting in bed on his right side reports no major discomfort at rest. Back incision is covered with dry dressingwith scant sanguinous drainage on the dressing and surrounding p ostoperative ecchymosis.. He denies tenderness to palpation. Reports no cardiopulmonary complaints. BP reasonably controlled at this time. Admits to constipation for 4 to 5 days. Some abdominal discomfort but no nauseaor vomiting. He willreceive a laxative today. Abdominal x-ray if no result orpersisting abdominal discomfort or other GI symptoms. Interval History: Family instruction went well today. Reviewed at team meeting. Goal is home end of week/weekend pending obtaining hospital bed. CM working to arrange. Otherwise stable and improving. Review of Systems Review of Systems All other systems reviewed & are negative unless noted below or in HPI Exam Physical Exam Vital Signs: Temp Pulse Resp BP Pulse Ox O2 Del Method 98.0 F 82 18 158/80 H 95 Room Air 09/29/23 04:28 09/29/23 04:28 09/29/23 04:28 09/29/23 08:58 09/29/23 04:28 09/29/23 08:50 Narrative: General: Awake, alert, oriented x3 HENT: Normal to inspection, normocephalic, atraumatic Eyes: PERRL, normal conjunctiva and sclera Neck: Normal ROM, normal visual inspection. Trachea midline. Cardio: Regular heart rate and rhythm Respiratory: Clear to auscultation bilaterally. Normal respiratory effort. No respiratory distress. GI: Abdomen soft, nontender, nondistended, active bowel sounds x4 quadrants : No issues Skin: Thoracic back incision, covered with dry dressing. Neuro: CN II-XII intact. Strength 4+ /5 bilateral lower extremities, some numbness bilaterally. Extremities: No edema, erythema, cyanosis Psych: Mood and affect appropriate. Normal speech. Objective Labs 09/25/23 05:05 09/25/23 05:05 Labs: Laboratory Results - last 24 hr 09/28/23 09/29/23 09/29/23 16:31 06:33 12:15 POC Glucose 240 120 POC Glucose Comment Glu2: cleaned meter Urine Color Yellow Urine Appearance Clear Urine pH 5.5 Ur Specific [place] 1.018 Urine Protein Negative Urine Glucose (UA) Normal Urine Ketones Negative Urine Occult Blood Negative Urine Nitrite Negative Urine Bilirubin Negative Urine Urobilinogen Normal Ur Leukocyte Esterase 1+ H Urine RBC 3-4 Urine WBC 0-1 Ur Squamous Epith Cells 0-1 Urine Bacteria None seen Hyaline Casts None seen Medications and Allergies Allergies and Active Meds: Allergies No Known Allergies Allergy (Verified 09/14/23 21:24) Active Medications Generic Name Dose Route Start Last Admin Trade Name Freq PRN Reason Stop Dose Admin Acetaminophen 1,000 mg 09/18/23 14:00 09/29/23 08:53 Acetaminophen 500 Mg Tablet PO 09/17/24 13:59 1,000 mg TID HOMER Administration Al Hydrox/Mg Hydrox/Simethicone 30 ml 09/14/23 17:55 Mag Hydrox/Al Hydrox/Simeth 30 Ml Udc PO 09/13/24 17:54 Q4H PRN Indigestion Allopurinol 300 mg 09/15/23 09:00 09/29/23 08:53 Allopurinol 300 Mg Tablet PO 09/14/24 08:59 300 mg DAILY HOMER Administration Amlodipine Besylate 10 mg 09/15/23 09:00 09/29/23 08:53 Amlodipine 10 Mg Tablet PO 09/14/24 08:59 10 mg DAILY HOMER Administration Bisacodyl 10 mg 09/14/23 17:55 Bisacodyl 10 Mg Supp.Rect MD 09/13/24 17:54 DAILY PRN Constipation Calcium Carbonate 1 tab 09/14/23 21:00 09/29/23 08:53 Calcium Carbonate/Vitamin D3 500 Mg/200 Unit Tablet PO 09/13/24 20:59 1 tab BID HOMER Administration Carvedilol 12.5 mg 09/14/23 21:00 09/29/23 08:53 Carvedilol 12.5 Mg Tablet PO 09/13/24 20:59 12.5 mg BID HOMER Administration Cyclobenzaprine HCl 10 mg 09/25/23 12:18 09/29/23 08:53 Cyclobenzaprine 10 Mg Tablet PO 09/23/24 13:59 10 mg Q8HR PRN Administration Spasms Diclofenac Sodium 1 gm 09/17/23 11:45 09/19/23 09:59 Diclofenac Sodium 1% Gel 100 Gm Tube TOPICAL 09/16/24 11:44 1 gm BID PRN Administration pain Docusate Sodium 283 mg 09/14/23 17:55 Docusate Enema 283 Mg/5 Ml Enema MD 09/13/24 17:54 DAILY PRN Constipation Docusate Sodium 100 mg 09/22/23 21:00 09/29/23 08:52 Docusate 100 Mg Capsule PO 09/21/24 20:59 100 mg BID HOMER Administration Enoxaparin Sodium 40 mg 09/15/23 09:00 09/29/23 08:53 Enoxaparin 40 Mg/0.4 Ml Syringe SUBCUT 09/14/24 08:59 40 mg DAILY HOMER Administration Furosemide 20 mg 09/15/23 09:00 09/29/23 08:53 Furosemide 20 Mg Tablet PO 09/14/24 08:59 20 mg DAILY HOMER Administration Glipizide 10 mg 09/15/23 08:00 09/29/23 08:53 Glipizide 5 Mg Tablet PO 09/14/24 07:59 10 mg DAILY@0800 HOMER Administration Hydralazine HCl 25 mg 09/15/23 22:00 09/29/23 08:53 Hydralazine 25 Mg Tablet PO 09/14/24 21:59 25 mg TID HOMER Administration Lact Acid/Bifidobact/Lact [place]as/Streptoc Th 1 cap 09/20/23 11:30 09/29/23 08:53 L. Acidophilus/Strept/La P-Carter 1 Cap Capsule PO 09/19/24 11:29 1 cap DAILY HOMER Administration Lactulose 30 gm 09/14/23 17:55 09/23/23 12:05 Lactulose 20 Gm/30 Ml Udc PO 09/13/24 17:54 30 gm DAILY PRN Administration Constipation Lidocaine 2 patch 09/15/23 09:00 09/29/23 08:53 Lidocaine 4% Adh..Patch TOPICAL 09/14/24 08:59 2 patch DAILY HOMER Administration Melatonin 5 mg 09/27/23 22:00 09/28/23 20:33 Melatonin 5 Mg Tablet PO 09/26/24 21:59 5 mg QHS HOMER Administration Oxycodone HCl 5 mg 09/16/23 09:37 09/26/23 08:48 Oxycodone Ir 5 Mg Tablet PO 5 mg Q4H PRN Administration Pain Scale 7 - 10 Pantoprazole Sodium 40 mg 09/16/23 10:00 09/29/23 08:53 Pantoprazole 40 Mg Tablet.Dr PO 09/15/24 09:59 40 mg BID HOMER Administration Polyethylene Glycol 17 gm 09/14/23 21:00 09/20/23 08:30 Polyethylene Glycol 3350 17 Gm Powd.Pack PO 09/13/24 20:59 17 gm BID HOMER Administration Potassium Chloride 10 meq 09/15/23 09:00 09/29/23 08:52 Potassium Chloride Er 10 Meq Tablet.Er PO 09/14/24 08:59 10 meq DAILY HOMER Administration Senna/Docusate Sodium 2 tab 09/14/23 22:00 09/28/23 20:33 Sennosides/Docusate 8.6-50mg 1 Tab Tablet PO 09/13/24 21:59 2 tab QHS HOMER Administration Sennosides 2 tab 09/15/23 12:00 Sennosides 8.6 Mg Tablet PO 09/14/24 11:59 DAILY@12 PRN If no BM in 2 days Sodium Chloride 0 ml 09/14/23 17:55 Sodium Chloride 0.9 % 10 Ml Syringe IV-PUSH 09/13/24 17:54 PRN PRN Flush Assessment/Plan Assessment/Plan (1) Lumbar vertebral fracture: (2) S/P lumbar fusion: (3) Diabetes mellitus, type 2: (4) Hypertension: (5) Obesity, morbid, BMI 40.0-49.9: (6) Impaired mobility and activities of daily living: (7) Leukocytosis: Plan Patient is a 73-year-old male presented to acute inpatient rehabilitation unit with functional decline secondary to L1 and L2 fracture s/p T11-L4 fusion. * Can repeat UA, still symptomatic per patient * Check interval imaging T/L spine prior to discharge * Reviewed at team meeting and progressing * Goal is home this weekend Patient education Pressure ulcer prophylaxis; encourage mobilization, frequent postural changes, pressure-relief techniques DVT prophylaxis Encourage deep breathing exercise incentive spirometry. Monitor bladder. Toileting schedule. Continue current bladder management, with scans as needed and CIC if needed. Start bowel care program every day to obtain continence, prevent ileus. Maintain fall precautions Gait and balance retraining Functional training and self-care and home management, including activities of daily living and instrumental activities of daily living Provision of the necessary gait aids and functional adaptive equipment to enhance the patient's a functional mandaen Ensure adequate nutrition and hydration Sleep: No issues Discharge planning: Home with family 1/7 pending hospital bed. I spent greater than 35 minutes for services, including [id number] encounter with the patient, discussion of the case, plan of care, and exam; and nycipoh-vz-[id number] activities, such as reviewing pertinent risk management consultant documentation, recent therapy notes, laboratory and radiology studies, and discussion of case with care team including physician, nursing, pillowcase folder, and therapists. More than 50 % of time was spent on patient/family counseling or coordination ofcare. Documented By: Richard Escoto MD 09/29/23 5777 Signed By: <Electronically signed by Richard Escoto MD> 09/29/23 1410 [facility] Work Phone: [phone] 251-433601-02-2024 Progress note Author Richard Escoto [facility] Joanna 2nd, 2024 12:42pmNote Date/TimeDecember 2022 12:18pm[place] [address] Physiatry(Rehab) Progress Note Signed with Addenda Patient: Faby Herrera MR#: [id number] : 1950 Acct:[id number] Age/Sex: 73 / M Adm Date: 3 Loc: Room: [address] [place] [address] Type: ADM IN Attending Dr: Richard Escoto MD Copies to: ~ ADDENDUM1 Hospital bed was prescribed due to patient requiring frequent and immediate changes in body positioning for pain alleviation that is not feasible in a standard bed due impaired bed mobility related to L1-L2 fracture s/p T11-L4 fusion. Addendum Documented By: Richard Escoto MD 09/29/23 1242 Addendum Signed By: <Electronically signed by Richard Escoto MD> 09/29/23 1242 Date of Service: 09/25/2023 Subjective Subjective Narrative: Mr. Herrera is a 73 year old male with past medical history of hypertension, hyperlipidemia, type 2 diabetes, obesity, admitted to [facility] inpatient rehab with functional decline secondary to L1-L2 fracture s/p T11-L4 fusion. Patient reports sustaining a fall at home after receiving COVID and flu boosters. He was unable to get off the floor even with assistance from his family. Patient was brought to [facility] andadmitted for further workup. Unfortunately, he sustained another fall while in the hospital bathroom. He thinks he is lost his footing and fell onto his right side. Denies head injury/loss of consciousness. Imaging was obtained which demonstrated acute transverse fracture of the lower endplate of L1 with findingshighly suggestive of interruption of anterior spinal ligament. He was transferred to [facility] for neurosurgical services. On 09/08/2023 patient underwent percutaneous T11-L4 fusion with pedicle screws and dual rods. No major complications postoperatively. Antihypertensive regimen was adjusted by inpatient cardiology. Patient had also developed mild leukocytosis with unremarkable infectious workup. Patient was recommended acute rehab for strengthening. On arrival he is alert, oriented, cooperative with assessment. He is resting in bed on his right side reports no major discomfort at rest. Back incision is covered with dry dressingwith scant sanguinous drainage on the dressing and surrounding p ostoperative ecchymosis.. He denies tenderness to palpation. Reports no cardiopulmonary complaints. BP reasonably controlled at this time. Admits to constipation for 4 to 5 days. Some abdominal discomfort but no nauseaor vomiting. He willreceive a laxative today. Abdominal x-ray if no result orpersisting abdominal discomfort or other GI symptoms. Interval History: / back pain, reports some intermittent pain with urination. Otherwise no events overnight. Stable. Improving slowly with therapy. Review of Systems Review of Systems All other systems reviewed & are negative unless noted below or in HPI Exam Physical Exam Vital Signs: Temp Pulse Resp BP Pulse Ox O2 Del Method 98.0 F 75 16 163/82 H 98 Room Air 09/25/23 06:26 09/25/23 08:30 09/25/23 06:26 09/25/23 08:30 09/25/23 08:30 09/25/23 08:30 Narrative: General: Awake, alert, oriented x3 HENT: Normal to inspection, normocephalic, atraumatic Eyes: PERRL, normal conjunctiva and sclera Neck: Normal ROM, normal visual inspection. Trachea midline. Cardio: Regular heart rate and rhythm Respiratory: Clear to auscultation bilaterally. Normal respiratory effort. No respiratory distress. GI: Abdomen soft, nontender, nondistended, active bowel sounds x4 quadrants : No issues Skin: Thoracic back incision, covered with dry dressing. Scant dried sanguinousdrainage noted on the dressing. Neuro: CN II-XII intact. Strength 4+ /5 bilateral lower extremities, some numbness bilaterally. Extremities: No edema, erythema, cyanosis Psych: Mood and affect appropriate. Normal speech. Objective Labs 09/25/23 05:05 09/25/23 05:05 Labs: Laboratory Results - last 24 hr 09/24/23 09/24/23 09/25/23 16:50 17:50 05:05 Corrected WBC 7.4 Uncorrected WBC Count 7.4 RBC 3.88 L Hgb 12.4 L Hct 35.8 L MCV 92.3 MCH 32.0 MCHC 34.6 RDW 15.1 H Plt Count 282 MPV 7.3 Neut % (Auto) 64.7 Lymph % (Auto) 21.2 [place] % (Auto) 11.5 Eos % (Auto) 1.7 Baso % (Auto) 0.9 Nucleat RBC Rel Count 0.0 Neut # (Auto) 4.8 Lymph # (Auto) 1.6 [place] # (Auto) 0.9 H Eos # (Auto) 0.1 Baso # (Auto) 0.1 PHA Creatinine Clear Sodium Potassium Chloride Carbon Dioxide Anion Gap BUN Creatinine Est GFR (CKD-EPI) Glucose POC Glucose 61 100 POC Glucose Comment Cleaned meter Will notify dr/rn Calcium 09/25/23 09/25/23 05:05 06:23 Corrected WBC Uncorrected WBC Count RBC Hgb Hct MCV MCH MCHC RDW Plt Count MPV Neut % (Auto) Lymph % (Auto) [place] % (Auto) Eos % (Auto) Baso % (Auto) Nucleat RBC Rel Count Neut # (Auto) Lymph # (Auto) [place] # (Auto) Eos # (Auto) Baso # (Auto) PHA Creatinine Clear 72.07 Sodium 131 L Potassium 4.5 Chloride 98 Carbon Dioxide 27.0 Anion Gap 10.5 BUN 30 H Creatinine 1.29 Est GFR (CKD-EPI) 58.912 Glucose 100 POC Glucose 101 POC Glucose Comment Calcium 8.9 Medications and Allergies Allergies and Active Meds: Allergies No Known Allergies Allergy (Verified 09/14/23 21:24) Active Medications Generic Name Dose Route Start Last Admin Trade Name Freq PRN Reason Stop Dose Admin Acetaminophen 1,000 mg 09/18/23 14:00 09/25/23 08:33 Acetaminophen 500 Mg Tablet PO 09/17/24 13:59 1,000 mg TID HOMER Administration Al Hydrox/Mg Hydrox/Simethicone 30 ml 09/14/23 17:55 Mag Hydrox/Al Hydrox/Simeth 30 Ml Udc PO 09/13/24 17:54 Q4H PRN Indigestion Allopurinol 300 mg 09/15/23 09:00 09/25/23 08:33 Allopurinol 300 Mg Tablet PO 09/14/24 08:59 300 mg DAILY HOMER Administration Amlodipine Besylate 10 mg 09/15/23 09:00 09/25/23 08:32 Amlodipine 10 Mg Tablet PO 09/14/24 08:59 10 mg DAILY HOMER Administration Bisacodyl 10 mg 09/14/23 17:55 Bisacodyl 10 Mg Supp.Rect MD 12/17/24 17:54 DAILY PRN Constipation Calcium Carbonate 1 tab 09/14/23 21:00 09/25/23 08:33 Calcium Carbonate/Vitamin D3 500 Mg/200 Unit Tablet PO 09/13/24 20:59 1 tab BID HOMER Administration Carvedilol 12.5 mg 09/14/23 21:00 09/25/23 08:33 Carvedilol 12.5 Mg Tablet PO 09/13/24 20:59 12.5 mg BID HOMER Administration Cyclobenzaprine HCl 10 mg 09/24/23 14:00 09/25/23 06:26 Cyclobenzaprine 10 Mg Tablet PO 09/23/24 13:59 10 mg Q8HR HOMER Administration Diclofenac Sodium 1 gm 09/17/23 11:45 09/19/23 09:59 Diclofenac Sodium 1% Gel 100 Gm Tube TOPICAL 09/16/24 11:44 1 gm BID PRN Administration pain Docusate Sodium 283 mg 09/14/23 17:55 Docusate Enema 283 Mg/5 Ml Enema MD 09/13/24 17:54 DAILY PRN Constipation Docusate Sodium 100 mg 09/22/23 21:00 09/25/23 08:33 Docusate 100 Mg Capsule PO 09/21/24 20:59 100 mg BID HOMER Administration Enoxaparin Sodium 40 mg 09/15/23 09:00 09/25/23 08:32 Enoxaparin 40 Mg/0.4 Ml Syringe SUBCUT 09/14/24 08:59 40 mg DAILY HOMER Administration Furosemide 20 mg 09/15/23 09:00 09/25/23 08:33 Furosemide 20 Mg Tablet PO 09/14/24 08:59 20 mg DAILY HOMER Administration Glipizide 10 mg 09/15/23 08:00 09/25/23 08:33 Glipizide 5 Mg Tablet PO 09/14/24 07:59 10 mg DAILY@0800 HOMER Administration Hydralazine HCl 25 mg 09/15/23 22:00 09/25/23 08:32 Hydralazine 25 Mg Tablet PO 09/14/24 21:59 25 mg TID HOMER Administration Lact Acid/Bifidobact/Lact [place]/Streptoc Th 1 cap 09/20/23 11:30 09/25/23 08:33 L. Acidophilus/Strept/La P-Carter 1 Cap Capsule PO 09/19/24 11:29 1 cap DAILY HOMER Administration Lactulose 30 gm 09/14/23 17:55 09/23/23 12:05 Lactulose 20 Gm/30 Ml Udc PO 09/13/24 17:54 30 gm DAILY PRN Administration Constipation Lidocaine 2 patch 09/15/23 09:00 09/25/23 08:32 Lidocaine 4% Adh..Patch TOPICAL 09/14/24 08:59 2 patch DAILY HOMER Administration Oxycodone HCl 5 mg 09/16/23 09:37 09/24/23 09:01 Oxycodone Ir 5 Mg Tablet PO 5 mg Q4H PRN Administration Pain Scale 7 - 10 Pantoprazole Sodium 40 mg 09/16/23 10:00 09/25/23 08:32 Pantoprazole 40 Mg Tablet.Dr PO 09/15/24 09:59 40 mg BID HOMER Administration Polyethylene Glycol 17 gm 09/14/23 21:00 09/20/23 08:30 Polyethylene Glycol 3350 17 Gm Powd.Pack PO 09/13/24 20:59 17 gm BID HOMER Administration Potassium Chloride 10 meq 09/15/23 09:00 09/25/23 08:32 Potassium Chloride Er 10 Meq Tablet.Er PO 09/14/24 08:59 10 meq DAILY HOMER Administration Senna/Docusate Sodium 2 tab 09/14/23 22:00 09/24/23 21:38 Sennosides/Docusate 8.6-50mg 1 Tab Tablet PO 09/13/24 21:59 2 tab QHS HOMER Administration Sennosides 2 tab 09/15/23 12:00 Sennosides 8.6 Mg Tablet PO 09/14/24 11:59 DAILY@12 PRN If no BM in 2 days Sodium Chloride 0 ml 09/14/23 17:55 Sodium Chloride 0.9 % 10 Ml Syringe IV-PUSH 09/13/24 17:54 PRN PRN Flush Trimethoprim/Sulfamethoxazole 1 tab 09/19/23 10:30 09/25/23 08:32 Sulfamethoxazole/Tmp 800-160mg 1 Tab Tablet PO 09/26/23 10:29 1 tab BID HOMER Administration Assessment/Plan Assessment/Plan (1) Lumbar vertebral fracture: (2) S/P lumbar fusion: (3) Diabetes mellitus, type 2: (4) Hypertension: (5) Obesity, morbid, BMI 40.0-49.9: (6) Impaired mobility and activities of daily living: (7) Leukocytosis: Plan Patient is a 73-year-old male presented to acute inpatient rehabilitation unit with functional decline secondary to L1 and L2 fracture s/p T11-L4 fusion. * Change flexeril to prn to avoid oversedation * Complete abx for UTI * Labs reviewed/stable * Ambulatory and able to do a few stairs. Patient education Pressure ulcer prophylaxis; encourage mobilization, frequent postural changes, pressure-relief techniques DVT prophylaxis Encourage deep breathing exercise incentive spirometry. Monitor bladder. Toileting schedule. Continue current bladder management, with scans as needed and CIC if needed. Start bowel care program every day to obtain continence, prevent ileus. Maintain fall precautions Gait and balance retraining Functional training and self-care and home management, including activities of daily living and instrumental activities of daily living Provision of the necessary gait aids and functional adaptive equipment to enhance the patient's a functional mandaen Ensure adequate nutrition and hydration Sleep: No issues Discharge planning: Home with family next week. I spent greater than 35 minutes for services, including kjul-[id number] encounter with the patient, discussion of the case, plan of care, and exam; and [id number] activities, such as reviewing pertinent risk management consultant documentation, recent therapy notes, laboratory and radiology studies, and discussion of case with care team including physician, nursing, pillowcase folder, and therapists. More than 50 % of time was spent on patient/family counseling or coordination ofcare. Documented By: Richard Escoto MD 09/25/231216 Signed By: <Electronically signed by Richard Escoto MD> 09/25/231217 [facility] Work Phone: 1([phone]) 674-785712-31-2023 Progress note Author Alejandro Jeong [facility] September 27, 2023 5:27pmNote Date/TimeDecemb2022 5:27pm[place] [address] Physiatry(Rehab) Progress Note Signed Patient: Faby Herrera MR#: [id number] : 1950 Acct:[id number] Age/Sex: 73 / M Adm Date: 3 Loc: Room: [address] [place] [address] Type: ADM IN Attending Dr: Richard Escoto MD Copies to: ~ Date of Service: 09/27/2023 Subjective Subjective Narrative: Mr. Herrera is a 73 year old male with past medical history of hypertension, hyperlipidemia, type 2 diabetes, obesity, admitted to [facility] inpatient rehab with functional decline secondary to L1-L2 fracture s/p T11-L4 fusion. Patient reports sustaining a fall at home after receiving COVID and flu boosters. He was unable to get off the floor even with assistance from his family. Patient was brought to [facility] andad[facility] for [facility]up. Unfortunately, he sustained another fall while in the hospital bathroom. He thinks he is lost his footing and fell onto his right side. Denies head injury/loss of consciousness. Imaging was obtained which demonstrated acute transverse fracture of the lower endplate of L1 with findingshighly suggestive of interruption of anterior spinal ligament. He was transferred to [facility] for neurosurgical services. On 09/08/2023 patient underwent percutaneous T11-L4 fusion with pedicle screws and dual rods. No major complications postoperatively. Antihypertensive regimen was adjusted by inpatient cardiology. Patient had also developed mild leukocytosis with unremarkable infectious workup. Patient was recommended acute rehab for strengthening. On arrival he is alert, oriented, cooperative with assessment. He is resting in bed on his right side reports no major discomfort at rest. Back incision is covered with dry dressingwith scant sanguinous drainage on the dressing and surrounding p ostoperative ecchymosis.. He denies tenderness to palpation. Reports no cardiopulmonary complaints. BP reasonably controlled at this time. Admits to constipation for 4 to 5 days. Some abdominal discomfort but no nauseaor vomiting. He willreceive a laxative today. Abdominal x-ray if no result orpersisting abdominal discomfort or other GI symptoms. Interval History: Patient seen and evaluated today. In no distress. Continues to admit to back pain, although improves with pain medication. No SOB, chest pain, fever, chills.Admits to poor sleep. Tolerating therapy. Review of Systems Review of Systems All other systems reviewed & are negative unless noted below or in HPI Exam Physical Exam Vital Signs: Temp Pulse Resp BP Pulse Ox O2 Del Method 97.2 F L 78 18 123/70 96 Room Air 09/27/23 15:12 09/27/23 15:12 09/27/23 15:12 09/27/23 15:12 09/27/23 15:12 09/27/23 15:12 Narrative: General: Awake, alert, oriented x3 HENT: Normal to inspection, normocephalic, atraumatic Eyes: PERRL, normal conjunctiva and sclera Neck: Normal ROM, normal visual inspection. Trachea midline. Cardio: Extremities well perfused Respiratory: Normal respiratory effort. No respiratory distress. GI: Abdomen soft, nontender, nondistended, active bowel sounds x4 quadrants : No issues Skin: Thoracic back incision, covered with dry dressing. Scant dried sanguinousdrainage noted on the dressing. Neuro: CN II-XII intact. Strength 4+ /5 bilateral lower extremities, some numbness bilaterally. Extremities: No edema, erythema, cyanosis Psych: Mood and affect appropriate. Normal speech. Objective Labs 09/25/23 05:05 09/25/23 05:05 Labs: Laboratory Results - last 24 hr 09/27/23 09/27/23 05:33 16:49 POC Glucose 101 71 POC Glucose Comment Glu2: cleaned meter Medications and Allergies Allergies and Active Meds: Allergies No Known Allergies Allergy (Verified 09/14/23 21:24) Active Medications Generic Name Dose Route Start Last Admin Trade Name Freq PRN Reason Stop Dose Admin Acetaminophen 1,000 mg 09/18/23 14:00 09/27/23 15:13 Acetaminophen 500 Mg Tablet PO 09/17/24 13:59 1,000 mg TID HOMER Administration Al Hydrox/Mg Hydrox/Simethicone 30 ml 09/14/23 17:55 Mag Hydrox/Al Hydrox/Simeth 30 Ml Udc PO 09/13/24 17:54 Q4H PRN Indigestion Allopurinol 300 mg 09/15/23 09:00 09/27/23 08:50 Allopurinol 300 Mg Tablet PO 09/14/24 08:59 300 mg DAILY HOMER Administration Amlodipine Besylate 10 mg 09/15/23 09:00 09/27/23 08:51 Amlodipine 10 Mg Tablet PO 09/14/24 08:59 10 mg DAILY HOMER Administration Bisacodyl 10 mg 09/14/23 17:55 Bisacodyl 10 Mg Supp.Rect MD 09/13/24 17:54 DAILY PRN Constipation Calcium Carbonate 1 tab 09/14/23 21:00 09/27/23 08:50 Calcium Carbonate/Vitamin D3 500 Mg/200 Unit Tablet PO 09/13/24 20:59 1 tab BID HOMER Administration Carvedilol 12.5 mg 09/14/23 21:00 09/27/23 08:50 Carvedilol 12.5 Mg Tablet PO 09/13/24 20:59 12.5 mg BID HOMER Administration Cyclobenzaprine HCl 10 mg 09/25/23 12:18 09/27/23 06:29 Cyclobenzaprine 10 Mg Tablet PO 09/23/24 13:59 10 mg Q8HR PRN Administration Spasms Diclofenac Sodium 1 gm 09/17/23 11:45 09/19/23 09:59 Diclofenac Sodium 1% Gel 100 Gm Tube TOPICAL 09/16/24 11:44 1 gm BID PRN Administration pain Docusate Sodium 283 mg 09/14/23 17:55 Docusate Enema 283 Mg/5 Ml Enema MD 09/13/24 17:54 DAILY PRN Constipation Docusate Sodium 100 mg 09/22/23 21:00 09/27/23 08:50 Docusate 100 Mg Capsule PO 09/21/24 20:59 100 mg BID HOMER Administration Enoxaparin Sodium 40 mg 09/15/23 09:00 09/27/23 08:51 Enoxaparin 40 Mg/0.4 Ml Syringe SUBCUT 09/14/24 08:59 40 mg DAILY HOMER Administration Furosemide 20 mg 09/15/23 09:00 09/27/23 08:51 Furosemide 20 Mg Tablet PO 09/14/24 08:59 20 mg DAILY HOMER Administration Glipizide 10 mg 09/15/23 08:00 09/27/23 08:51 Glipizide 5 Mg Tablet PO 09/14/24 07:59 10 mg DAILY@0800 HOMER Administration Hydralazine HCl 25 mg 09/15/23 22:00 09/27/23 15:13 Hydralazine 25 Mg Tablet PO 09/14/24 21:59 25 mg TID HOMER Administration Lact Acid/Bifidobact/Lact Paracas/Streptoc Th 1 cap 09/20/23 11:30 09/27/23 08:50 L. Acidophilus/Strept/La P-Carter 1 Cap Capsule PO 09/19/24 11:29 1 cap DAILY HOMER Administration Lactulose 30 gm 09/14/23 17:55 12/27/23 12:05 Lactulose 20 Gm/30 Ml Udc PO 09/13/24 17:54 30 gm DAILY PRN Administration Constipation Lidocaine 2 patch 09/15/23 09:00 09/27/23 08:51 Lidocaine 4% Adh..Patch TOPICAL 09/14/24 08:59 2 patch DAILY HOMER Administration Melatonin 5 mg 09/27/23 22:00 Melatonin 5 Mg Tablet PO 09/26/24 21:59 QHS HOMER Oxycodone HCl 5 mg 09/16/23 09:37 09/26/23 08:48 Oxycodone Ir 5 Mg Tablet PO 5 mg Q4H PRN Administration Pain Scale 7 - 10 Pantoprazole Sodium 40 mg 09/16/23 10:00 09/27/23 08:51 Pantoprazole 40 Mg Tablet.Dr PO 09/15/24 09:59 40 mg BID HOMER Administration Polyethylene Glycol 17 gm 09/14/23 21:00 09/20/23 08:30 Polyethylene Glycol 3350 17 Gm Powd.Pack PO 09/13/24 20:59 17 gm BID HOMER Administration Potassium Chloride 10 meq 09/15/23 09:00 09/27/23 08:51 Potassium Chloride Er 10 Meq Tablet.Er PO 09/14/24 08:59 10 meq DAILY HOMER Administration Senna/Docusate Sodium 2 tab 09/14/23 22:00 09/26/23 22:16 Sennosides/Docusate 8.6-50mg 1 Tab Tablet PO 09/13/24 21:59 2 tab QHS HOMER Administration Sennosides 2 tab 09/15/23 12:00 Sennosides 8.6 Mg Tablet PO 09/14/24 11:59 DAILY@12 PRN If no BM in 2 days Sodium Chloride 0 ml 09/14/23 17:55 Sodium Chloride 0.9 % 10 Ml Syringe IV-PUSH 09/13/24 17:54 PRN PRN Flush Assessment/Plan Assessment/Plan (1) Lumbar vertebral fracture: (2) S/P lumbar fusion: (3) Diabetes mellitus, type 2: (4) Hypertension: (5) Obesity, morbid, BMI 40.0-49.9: (6) Impaired mobility and activities of daily living: (7) Leukocytosis: Plan Patient is a 73-year-old male presented to acute inpatient rehabilitation unit with functional decline secondary to L1 and L2 fracture s/p T11-L4 fusion. * Add melatonin for poor sleep * Labs reviewed/stable * Continue current pain regimen * Ambulatory and able to do a few stairs. Patient education Pressure ulcer prophylaxis; encourage mobilization, frequent postural changes, pressure-relief techniques DVT prophylaxis Encourage deep breathing exercise incentive spirometry. Monitor bladder. Toileting schedule. Continue current bladder management, with scans as needed and CIC if needed. Start bowel care program every day to obtain continence, prevent ileus. Maintain fall precautions Gait and balance retraining Functional training and self-care and home management, including activities of daily living and instrumental activities of daily living Provision of the necessary gait aids and functional adaptive equipment to enhance the patient's a functional mandaen Ensure adequate nutrition and hydration Sleep: No issues Discharge planning: Home with family next week. I spent greater than 25 minutes for services, including [id number] encounter with the patient, discussion of the case, plan of care, and exam; and [id number] activities, such as reviewing pertinent risk management consultant documentation, recent therapy notes, laboratory and radiology studies, and discussion of case with care team including physician, nursing, pillowcase folder, and therapists. More than 50 % of time was spent on patient/family counseling or coordination ofcare. Documented By: Alejandro Jeong MD [id number] Signed By: <Electronically signed by Alejandro Jeong MD> 09/27/231726 [facility] Work Phone: [phone]) 150-694312-28-2023 Progress note Author Richard Escoto [facility] September 24, 2023 12:31pmNote Date/TimeDecemb2022 10:18[place] [address] Physiatry(Rehab) Progress Note Signed Patient: Faby Herrera MR#: [id number] : 1950 Acct:[id number] Age/Sex: 73 / M Adm Date: 3 Loc: 5T Room: [address] [place] [address] Type: ADM IN Attending Dr: Richard Escoto MD Copies to: ~ Date of Service: 09/24/2023 Subjective Subjective Narrative: Mr. Herrera is a 73 year old male with past medical history of hypertension, hyperlipidemia, type 2 diabetes, obesity, admitted to [facility] inpatient rehab with functional decline secondary to L1-L2 fracture s/p T11-L4 fusion. Patient reports sustaining a fall at home after receiving COVID and flu boosters. He was unable to get off the floor even with assistance from his family. Patient was brought to [facility] andadmitted for further workup. Unfortunately, he sustained another fall while in the hospital bathroom. He thinks he is lost his footing and fell onto his right side. Denies head injury/loss of consciousness. Imaging was obtained which demonstrated acute transverse fracture of the lower endplate of L1 with findingshighly suggestive of interruption of anterior spinal ligament. He was transferred to [facility] for neurosurgical services. On 09/08/2023 patient underwent percutaneous T11-L4 fusion with pedicle screws and dual rods. No major complications postoperatively. Antihypertensive regimen was adjusted by inpatient cardiology. Patient had also developed mild leukocytosis with unremarkable infectious workup. Patient was recommended acute rehab for strengthening. On arrival he is alert, oriented, cooperative with assessment. He is resting in bed on his right side reports no major discomfort at rest. Back incision is covered with dry dressingwith scant sanguinous drainage on the dressing and surrounding p ostoperative ecchymosis.. He denies tenderness to palpation. Reports no cardiopulmonary complaints. BP reasonably controlled at this time. Admits to constipation for 4 to 5 days. Some abdominal discomfort but no nauseaor vomiting. He willreceive a laxative today. Abdominal x-ray if no result orpersisting abdominal discomfort or other GI symptoms. Interval History: No acute events overnight. Reports increased back tightness despite scheduled robaxin. Neuro examunchanged, bowel/bladder intact. Vitals stable. Afebrile. Review of Systems Review of Systems All other systems reviewed & are negative unless noted below or in HPI Exam Physical Exam Vital Signs: Temp Pulse Resp BP Pulse Ox O2 Del Method 97.9 F 72 16 118/70 96 Room Air 09/24/23 06:26 09/24/23 08:55 09/24/23 06:26 09/24/23 08:55 09/24/23 08:55 09/24/23 08:55 Narrative: General: Awake, alert, oriented x3 HENT: Normal to inspection, normocephalic, atraumatic Eyes: PERRL, normal conjunctiva and sclera Neck: Normal ROM, normal visual inspection. Trachea midline. Cardio: Regular heart rate and rhythm Respiratory: Clear to auscultation bilaterally. Normal respiratory effort. No respiratory distress. GI: Abdomen soft, nontender, nondistended, active bowel sounds x4 quadrants : No issues Skin: Thoracic back incision, covered with dry dressing. Scant dried sanguinousdrainage noted on the dressing. Neuro: CN II-XII intact. Strength 4+ /5 bilateral lower extremities, some numbness bilaterally. Extremities: No edema, erythema, cyanosis Psych: Mood and affect appropriate. Normal speech. Objective Labs 09/19/23 04:57 09/19/23 04:57 Labs: Laboratory Results - last 24 hr 09/23/23 09/23/23 09/24/23 11:04 16:04 06:18 POC Glucose 163 104 87 Medications and Allergies Allergies and Active Meds: Allergies No Known Allergies Allergy (Verified 09/14/23 21:24) Active Medications Generic Name Dose Route Start Last Admin Trade Name Freq PRN Reason Stop Dose Admin Acetaminophen 1,000 mg 09/18/23 14:00 09/24/23 09:00 Acetaminophen 500 Mg Tablet PO 09/17/24 13:59 1,000 mg TID HOMER Administration Al Hydrox/Mg Hydrox/Simethicone 30 ml 09/14/23 17:55 Mag Hydrox/Al Hydrox/Simeth 30 Ml Udc PO 09/13/24 17:54 Q4H PRN Indigestion Allopurinol 300 mg 09/15/23 09:00 09/24/23 09:00 Allopurinol 300 Mg Tablet PO 09/14/24 08:59 300 mg DAILY HOMER Administration Amlodipine Besylate 10 mg 09/15/23 09:00 09/24/23 09:00 Amlodipine 10 Mg Tablet PO 09/14/24 08:59 10 mg DAILY HOMER Administration Bisacodyl 10 mg 09/14/23 17:55 Bisacodyl 10 Mg Supp.Rect MD 09/13/24 17:54 DAILY PRN Constipation Calcium Carbonate 1 tab 09/14/23 21:00 09/24/23 08:59 Calcium Carbonate/Vitamin D3 500 Mg/200 Unit Tablet PO 09/13/24 20:59 1 tab BID HOMER Administration Carvedilol 12.5 mg 09/14/23 21:00 09/24/23 09:00 Carvedilol 12.5 Mg Tablet PO 09/13/24 20:59 12.5 mg BID HOMER Administration Diclofenac Sodium 1 gm 09/17/23 11:45 09/19/23 09:59 Diclofenac Sodium 1% Gel 100 Gm Tube TOPICAL 09/16/24 11:44 1 gm BID PRN Administration pain Docusate Sodium 283 mg 09/14/23 17:55 Docusate Enema 283 Mg/5 Ml Enema MD 09/13/24 17:54 DAILY PRN Constipation Docusate Sodium 100 mg 09/22/23 21:00 09/24/23 08:59 Docusate 100 Mg Capsule PO 09/21/24 20:59 100 mg BID HOMER Administration Enoxaparin Sodium 40 mg 09/15/23 09:00 09/24/23 09:01 Enoxaparin 40 Mg/0.4 Ml Syringe SUBCUT 09/14/24 08:59 40 mg DAILY HOMER Administration Furosemide 20 mg 09/15/23 09:00 09/24/23 09:00 Furosemide 20 Mg Tablet PO 09/14/24 08:59 20 mg DAILY HOMER Administration Glipizide 10 mg 09/15/23 08:00 09/24/23 08:59 Glipizide 5 Mg Tablet PO 09/14/24 07:59 10 mg DAILY@0800 HOMER Administration Hydralazine HCl 25 mg 09/15/23 22:00 09/24/23 08:59 Hydralazine 25 Mg Tablet PO 09/14/24 21:59 25 mg TID HOMER Administration Lact Acid/Bifidobact/Lact Paracas/Streptoc Th 1 cap 09/20/23 11:30 09/24/23 09:00 L. Acidophilus/Strept/La P-Carter 1 Cap Capsule PO 09/19/24 11:29 1 cap DAILY HOMER Administration Lactulose 30 gm 09/14/23 17:55 09/23/23 12:05 Lactulose 20 Gm/30 Ml Udc PO 09/13/24 17:54 30 gm DAILY PRN Administration Constipation Lidocaine 2 patch 09/15/23 09:00 09/24/23 09:01 Lidocaine 4% Adh..Patch TOPICAL 09/14/24 08:59 2 patch DAILY HOMER Administration Methocarbamol 500 mg 09/14/23 22:00 09/24/23 09:01 Methocarbamol 500 Mg Tablet PO 09/13/24 21:59 500 mg TID HOMER Administration Oxycodone HCl 5 mg 09/16/23 09:37 09/24/23 09:01 Oxycodone Ir 5 Mg Tablet PO 5 mg Q4H PRN Administration Pain Scale 7 - 10 Pantoprazole Sodium 40 mg 09/16/23 10:00 09/24/23 09:00 Pantoprazole 40 Mg Tablet.Dr PO 09/15/24 09:59 40 mg BID HOMER Administration Polyethylene Glycol 17 gm 09/14/23 21:00 09/20/23 08:30 Polyethylene Glycol 3350 17 Gm Powd.Pack PO 09/13/24 20:59 17 gm BID HOMER Administration Potassium Chloride 10 meq 09/15/23 09:00 09/24/23 09:00 Potassium Chloride Er 10 Meq Tablet.Er PO 09/14/24 08:59 10 meq DAILY HOMER Administration Senna/Docusate Sodium 2 tab 09/14/23 22:00 09/23/23 21:29 Sennosides/Docusate 8.6-50mg 1 Tab Tablet PO 09/13/24 21:59 Not Given QHS HOMER Sennosides 2 tab 09/15/23 12:00 Sennosides 8.6 Mg Tablet PO 09/14/24 11:59 DAILY@12 PRN If no BM in 2 days Sodium Chloride 0 ml 09/14/23 17:55 Sodium Chloride 0.9 % 10 Ml Syringe IV-PUSH 09/13/24 17:54 PRN PRN Flush Trimethoprim/Sulfamethoxazole 1 tab 09/19/23 10:30 09/24/23 09:00 Sulfamethoxazole/Tmp 800-160mg 1 Tab Tablet PO 09/26/23 10:29 1 tab BID HOMER Administration Assessment/Plan Assessment/Plan (1) Lumbar vertebral fracture: (2) S/P lumbar fusion: (3) Diabetes mellitus, type 2: (4) Hypertension: (5) Obesity, morbid, BMI 40.0-49.9: (6) Impaired mobility and activities of daily living: (7) Leukocytosis: Plan Patient is a 73-year-old male presented to acute inpatient rehabilitation unit with functional decline secondary to L1 and L2 fracture s/p T11-L4 fusion. * D/c Robaxin, start flexeril, monitor for improvement in spasms * If no improvement consider repeat imaging, if unremarkable could think about TrP injections * Check labs tomorrow. Patient education Pressure ulcer prophylaxis; encourage mobilization, frequent postural changes, pressure-relief techniques DVT prophylaxis Encourage deep breathing exercise incentive spirometry. Monitor bladder. Toileting schedule. Continue current bladder management, with scans as needed and CIC if needed. Start bowel care program every day to obtain continence, prevent ileus. Maintain fall precautions Gait and balance retraining Functional training and self-care and home management, including activities of daily living and instrumental activities of daily living Provision of the necessary gait aids and functional adaptive equipment to enhance the patient's a functional mandaen Ensure adequate nutrition and hydration Sleep: No issues Discharge planning: Home with family next week. I spent greater than 35 minutes for services, including [id number] encounter with the patient, discussion of the case, plan of care, and exam; and [id number] activities, such as reviewing pertinent risk management consultant documentation, recent therapy notes, laboratory and radiology studies, and discussion of case with care team including physician, nursing, pillowcase folder, and therapists. More than 50 % of time was spent on patient/family counseling or coordination ofcare. Documented By: Richard Escoto MD 09/24/23 1018 Signed By: <Electronically signed by Richard Escoto MD> 09/24/23 1231 [facility] Work Phone: [phone] 767-658912-28-2023 Progress note Author Richard Escoto [facility] September 24, 2023 8:52amNote Date/TimeDecemb2022 12:57pm[place] [address] Physiatry(Rehab) Progress Note Signed Patient: Faby Herrera MR#: [id number] : 1950 Acct:[id number] Age/Sex: 73 / M Adm Date: 3 Loc: Room: 9X7914-3 Type: ADM IN Attending Dr: Richard Escoto MD Copies to: ~ Date of Service: 09/23/2023 Subjective Subjective Narrative: Mr. Herrera is a 73 year old male with past medical history of hypertension, hyperlipidemia, type 2 diabetes, obesity, admitted to [facility] inpatient rehab with functional decline secondary to L1-L2 fracture s/p T11-L4 fusion. Patient reports sustaining a fall at home after receiving COVID and flu boosters. He was unable to get off the floor even with assistance from his family. Patient was brought to [facility] andadmitted for further workup. Unfortunately, he sustained another fall while in the hospital bathroom. He thinks he is lost his footing and fell onto his right side. Denies head injury/loss of consciousness. Imaging was obtained which demonstrated acute transverse fracture of the lower endplate of L1 with findingshighly suggestive of interruption of anterior spinal ligament. He was transferred to [facility] for neurosurgical services. On 09/08/2023 patient underwent percutaneous T11-L4 fusion with pedicle screws and dual rods. No major complications postoperatively. Antihypertensive regimen was adjusted by inpatient cardiology. Patient had also developed mild leukocytosis with unremarkable infectious workup. Patient was recommended acute rehab for strengthening. On arrival he is alert, oriented, cooperative with assessment. He is resting in bed on his right side reports no major discomfort at rest. Back incision is covered with dry dressingwith scant sanguinous drainage on the dressing and surrounding p ostoperative ecchymosis.. He denies tenderness to palpation. Reports no cardiopulmonary complaints. BP reasonably controlled at this time. Admits to constipation for 4 to 5 days. Some abdominal discomfort but no nauseaor vomiting. He willreceive a laxative today. Abdominal x-ray if no result orpersisting abdominal discomfort or other GI symptoms. Interval History: No acute events this weekend. Pain is improving, vitals are stable. He states abdominal pain is better with moving lovenox injections to different location. He is improving with therapy. [id number]' standby assist. Review of Systems Review of Systems All other systems reviewed & are negative unless noted below or in HPI Exam Physical Exam Vital Signs: Temp Pulse Resp BP Pulse Ox O2 Del Method 97.8 F 71 20 149/77 H 94 L Room Air 09/23/23 05:00 09/23/23 05:00 09/23/23 05:00 09/23/23 05:00 09/23/23 05:00 09/23/23 05:00 Narrative: General: Awake, alert, oriented x3 HENT: Normal to inspection, normocephalic, atraumatic Eyes: PERRL, normal conjunctiva and sclera Neck: Normal ROM, normal visual inspection. Trachea midline. Cardio: Regular heart rate and rhythm Respiratory: Clear to auscultation bilaterally. Normal respiratory effort. No respiratory distress. GI: Abdomen soft, nontender, nondistended, active bowel sounds x4 quadrants : No issues Skin: Thoracic back incision, covered with dry dressing. Scant dried sanguinousdrainage noted on the dressing. Neuro: CN II-XII intact. Strength 4+ /5 bilateral lower extremities, some numbness bilaterally. Extremities: No edema, erythema, cyanosis Psych: Mood and affect appropriate. Normal speech. Objective Labs 09/19/23 04:57 09/19/23 04:57 Labs: Laboratory Results - last 24 hr 09/22/23 09/22/23 09/22/23 16:13 20:16 20:42 POC Glucose 98 59 L* 97 POC Glucose Comment Will repeat test Glu2: cleaned meter 09/23/23 09/23/23 09/23/23 05:06 07:19 11:04 POC Glucose 88 101 163 POC Glucose Comment Medications and Allergies Allergies and Active Meds: Allergies No Known Allergies Allergy (Verified 09/14/23 21:24) Active Medications Generic Name Dose Route Start Last Admin Trade Name Freq PRN Reason Stop Dose Admin Acetaminophen 1,000 mg 09/18/23 14:00 09/23/23 08:11 Acetaminophen 500 Mg Tablet PO 09/17/24 13:59 1,000 mg TID HOMER Administration Al Hydrox/Mg Hydrox/Simethicone 30 ml 09/14/23 17:55 Mag Hydrox/Al Hydrox/Simeth 30 Ml Udc PO 09/13/24 17:54 Q4H PRN Indigestion Allopurinol 300 mg 09/15/23 09:00 09/23/23 09:23 Allopurinol 300 Mg Tablet PO 09/14/24 08:59 300 mg DAILY HOMER Administration Amlodipine Besylate 10 mg 09/15/23 09:00 09/23/23 09:22 Amlodipine 10 Mg Tablet PO 09/14/24 08:59 10 mg DAILY HOMER Administration Bisacodyl 10 mg 09/14/23 17:55 Bisacodyl 10 Mg Supp.Rect MD 09/13/24 17:54 DAILY PRN Constipation Calcium Carbonate 1 tab 09/14/23 21:00 09/23/23 09:22 Calcium Carbonate/Vitamin D3 500 Mg/200 Unit Tablet PO 09/13/24 20:59 1 tab BID HOMER Administration Carvedilol 12.5 mg 09/14/23 21:00 09/23/23 09:22 Carvedilol 12.5 Mg Tablet PO 09/13/24 20:59 12.5 mg BID HOMER Administration Diclofenac Sodium 1 gm 09/17/23 11:45 09/19/23 09:59 Diclofenac Sodium 1% Gel 100 Gm Tube TOPICAL 09/16/24 11:44 1 gm BID PRN Administration pain Docusate Sodium 283 mg 09/14/23 17:55 Docusate Enema 283 Mg/5 Ml Enema MD 09/13/24 17:54 DAILY PRN Constipation Docusate Sodium 100 mg 09/22/23 21:00 09/23/23 09:23 Docusate 100 Mg Capsule PO 09/21/24 20:59 100 mg BID HOMER Administration Enoxaparin Sodium 40 mg 09/15/23 09:00 09/23/23 09:23 Enoxaparin 40 Mg/0.4 Ml Syringe SUBCUT 09/14/24 08:59 40 mg DAILY HOMER Administration Furosemide 20 mg 09/15/23 09:00 09/23/23 09:22 Furosemide 20 Mg Tablet PO 09/14/24 08:59 20 mg DAILY HOMER Administration Glipizide 10 mg 09/15/23 08:00 09/23/23 09:22 Glipizide 5 Mg Tablet PO 09/14/24 07:59 10 mg DAILY@0800 HOMER Administration Hydralazine HCl 25 mg 09/15/23 22:00 09/23/23 09:22 Hydralazine 25 Mg Tablet PO 09/14/24 21:59 25 mg TID HOMER Administration Insulin Aspart 0 units 09/15/23 22:00 09/23/23 12:00 Insulin Aspart 300 Units/3 Ml Insuln.Pen SUBCUT 09/14/24 21:59 2 units ACHS HOMER Administration Protocol Lact Acid/Bifidobact/Lact Paracas/Streptoc Th 1 cap 09/20/23 11:30 09/23/23 09:21 L. Acidophilus/Strept/La P-Carter 1 Cap Capsule PO 09/19/24 11:29 1 cap DAILY HOMER Administration Lactulose 30 gm 09/14/23 17:55 09/23/23 12:05 Lactulose 20 Gm/30 Ml Udc PO 09/13/24 17:54 30 gm DAILY PRN Administration Constipation Lidocaine 2 patch 09/15/23 09:00 09/23/23 08:11 Lidocaine 4% Adh..Patch TOPICAL 09/14/24 08:59 2 patch DAILY HOMER Administration Methocarbamol 500 mg 09/14/23 22:00 09/23/23 09:22 Methocarbamol 500 Mg Tablet PO 09/13/24 21:59 500 mg TID HOMER Administration Oxycodone HCl 5 mg 09/16/23 09:37 09/23/23 08:08 Oxycodone Ir 5 Mg Tablet PO 5 mg Q4H PRN Administration Pain Scale 7 - 10 Pantoprazole Sodium 40 mg 09/16/23 10:00 09/23/23 09:21 Pantoprazole 40 Mg Tablet.Dr PO 09/15/24 09:59 40 mg BID HOMER Administration Polyethylene Glycol 17 gm 09/14/23 21:00 09/20/23 08:30 Polyethylene Glycol 3350 17 Gm Powd.Pack PO 09/13/24 20:59 17 gm BID HOMER Administration Potassium Chloride 10 meq 09/15/23 09:00 09/23/23 09:22 Potassium Chloride Er 10 Meq Tablet.Er PO 09/14/24 08:59 10 meq DAILY HOMER Administration Senna/Docusate Sodium 2 tab 09/14/23 22:00 09/22/23 21:21 Sennosides/Docusate 8.6-50mg 1 Tab Tablet PO 09/13/24 21:59 2 tab QHS HOMER Administration Sennosides 2 tab 09/15/23 12:00 Sennosides 8.6 Mg Tablet PO 09/14/24 11:59 DAILY@12 PRN If no BM in 2 days Sodium Chloride 0 ml 09/14/23 17:55 Sodium Chloride 0.9 % 10 Ml Syringe IV-PUSH 09/13/24 17:54 PRN PRN Flush Trimethoprim/Sulfamethoxazole 1 tab 09/19/23 10:30 09/23/23 09:21 Sulfamethoxazole/Tmp 800-160mg 1 Tab Tablet PO 09/26/23 10:29 1 tab BID HOMER Administration Assessment/Plan Assessment/Plan (1) Lumbar vertebral fracture: (2) S/P lumbar fusion: (3) Diabetes mellitus, type 2: (4) Hypertension: (5) Obesity, morbid, BMI 40.0-49.9: (6) Impaired mobility and activities of daily living: (7) Leukocytosis: Plan Patient is a 73-year-old male presented to acute inpatient rehabilitation unit with functional decline secondary to L1 and L2 fracture s/p T11-L4 fusion. * Continues to progress to goals * Pain control improving * Can d/c achs finger stick and sliding scale insulin. * Complete bactrim 09/26 * Ambulatory 60' * Discharge planning for next week ongoing * CBC/BMP this week Patient education Pressure ulcer prophylaxis; encourage mobilization, frequent postural changes, pressure-relief techniques DVT prophylaxis Encourage deep breathing exercise incentive spirometry. Monitor bladder. Toileting schedule. Continue current bladder management, with scans as needed and CIC if needed. Start bowel care program every day to obtain continence, prevent ileus. Maintain fall precautions Gait and balance retraining Functional training and self-care and home management, including activities of daily living and instrumental activities of daily living Provision of the necessary gait aids and functional adaptive equipment to enhance the patient's a functional mandaen Ensure adequate nutrition and hydration Sleep: No issues Discharge planning: Home with family in 7 to 14 days. I spent greater than 25 minutes for services, including [id number] encounter with the patient, discussion of the case, plan of care, and exam; and [id number] activities, such as reviewing pertinent risk management consultant documentation, recent therapy notes, laboratory and radiology studies, and discussion of case with care team including physician, nursing, pillowcase folder, and therapists. More than 50 % of time was spent on patient/family counseling or coordination ofcare. Documented By: Richard Escoto MD 09/23/23 1257 Signed By: <Electronically signed by Richard Escoto MD> 09/24/23 0852 [facility] Work Phone: [phone]) 898-416212-28-2023 Miscellaneous Notes* Telephone Encounter - Cher Ruelas RN - 09/24/2023 9:49 AM EST Ashley from [facility] calls stating that Fbay will still be in rehab- asking to take out sutures. Informed that this will be fine as long as incision is healing without signs of infection and is wellapproximated. She states that his incision is healing well. [facility] Telephone encounter Note* Telephone Encounter - Cher Ruelas RN - 09/24/2023 9:49 AM EST Ashley from [facility] calls stating that Faby will still be in rehab- asking to take out sutures. Informed that this will be fine as long as incision is healing without signs of infection and is wellapproximated. She states that his incision is healing well. [facility]12-27-2023 Progress note Author Richard Escoto [facility] September 23, 2023 12:49pmNote Date/TimeDecember 2022 11:53[place] [address] Physiatry(Rehab) Progress Note Signed Patient: Faby Herrera MR#: [id number] : 1950 Acct:[id number] Age/Sex: 73 / M Adm Date: 3 Loc: Room: [address] [place] [address] Type: ADM IN Attending Dr: Richard Escoto MD Copies to: ~ Date of Service: 09/20/2023 Subjective Subjective Narrative: Mr. Herrera is a 73 year old male with past medical history of hypertension, hyperlipidemia, type 2 diabetes, obesity, admitted to [facility] inpatient rehab with functional decline secondary to L1-L2 fracture s/p T11-L4 fusion. Patient reports sustaining a fall at home after receiving COVID and flu boosters. He was unable to get off the floor even with assistance from his family. Patient [facility] andad[facility] for further workup. Unfortunately, he sustained another fall while in the hospital bathroom. He thinks he is lost his footing and fell onto his right side. Denies head injury/loss of consciousness. Imaging was obtained which demonstrated acute transverse fracture of the lower endplate of L1 with findingshighly suggestive of interruption of anterior spinal ligament. He was transferred to [facility] for neurosurgical services. On 09/08/2023 patient underwent percutaneous T11-L4 fusion with pedicle screws and dual rods. No major complications postoperatively. Antihypertensive regimen was adjusted by inpatient cardiology. Patient had also developed mild leukocytosis with unremarkable infectious workup. Patient was recommended acute rehab for strengthening. On arrival he is alert, oriented, cooperative with assessment. He is resting in bed on his right side reports no major discomfort at rest. Back incision is covered with dry dressingwith scant sanguinous drainage on the dressing and surrounding p ostoperative ecchymosis.. He denies tenderness to palpation. Reports no cardiopulmonary complaints. BP reasonably controlled at this time. Admits to constipation for 4 to 5 days. Some abdominal discomfort but no nauseaor vomiting. He willreceive a laxative today. Abdominal x-ray if no result orpersisting abdominal discomfort or other GI symptoms. Interval History: Is resting in bed on exam. Family at the bedside. Patient reports no acute concerns or complaints this morning. He is still having mid back pain, more so with activity. Abdominal pain is resolving. He had been asking nurses to administer Lovenox into his arms which zack is helping. Discussed UA results and the need for antibiotic, verbalizes understanding. Complaining of loose BMs. No nausea, vomiting, abdominal cramping. Will adjustbowel regimen. May also add probiotic while on Bactrim. Review of Systems Review of Systems All other systems reviewed & are negative unless noted below or in HPI Exam Physical Exam Vital Signs: Temp Pulse Resp BP Pulse Ox O2 Del Method 97.6 F 69 18 165/82 H 96 Room Air 09/20/23 05:00 09/20/23 05:00 09/20/23 05:00 09/20/23 05:00 09/20/23 05:00 09/20/23 07:13 Narrative: General: Awake, alert, oriented x3 HENT: Normal to inspection, normocephalic, atraumatic Eyes: PERRL, normal conjunctiva and sclera Neck: Normal ROM, normal visual inspection. Trachea midline. Cardio: Regular heart rate and rhythm Respiratory: Clear to auscultation bilaterally. Normal respiratory effort. No respiratory distress. GI: Abdomen soft, nontender, nondistended, active bowel sounds x4 quadrants : No issues Skin: Thoracic back incision, covered with dry dressing. Scant dried sanguinousdrainage noted on the dressing. Neuro: CN II-XII intact. Strength 3+ /5 bilateral lower extremities, some numbness bilaterally. Extremities: No edema, erythema, cyanosis Psych: Mood and affect appropriate. Normal speech. Objective Labs 09/19/23 04:57 09/19/23 04:57 Labs: Laboratory Results - last 24 hr 09/19/23 09/19/23 09/20/23 16:08 20:09 05:48 POC Glucose 107 123 113 POC Glucose Comment Glu2: cleaned meter 09/20/23 11:26 POC Glucose 151 POC Glucose Comment Additional Results Results Comments: I reviewed clinical lab tests, radiology reports and obtained and summated medical records and haveordered follow up lab tests and imaging studies as needed for rehabilitation care. Medications and Allergies Allergies and Active Meds: Allergies No Known Allergies Allergy (Verified 09/14/23 21:24) Active Medications Generic Name Dose Route Start Last Admin Trade Name Freq PRN Reason Stop Dose Admin Acetaminophen 1,000 mg 09/18/23 14:00 09/20/23 08:29 Acetaminophen 500 Mg Tablet PO 09/17/24 13:59 1,000 mg TID HOMER Administration Al Hydrox/Mg Hydrox/Simethicone 30 ml 09/14/23 17:55 Mag Hydrox/Al Hydrox/Simeth 30 Ml Udc PO 09/13/24 17:54 Q4H PRN Indigestion Allopurinol 300 mg 09/15/23 09:00 09/20/23 08:28 Allopurinol 300 Mg Tablet PO 09/14/24 08:59 300 mg DAILY HOMER Administration Amlodipine Besylate 10 mg 09/15/23 09:00 09/20/23 08:29 Amlodipine 10 Mg Tablet PO 09/14/24 08:59 10 mg DAILY HOMER Administration Bisacodyl 10 mg 09/14/23 17:55 Bisacodyl 10 Mg Supp.Rect MD 09/13/24 17:54 DAILY PRN Constipation Calcium Carbonate 1 tab 09/14/23 21:00 09/20/23 08:29 Calcium Carbonate/Vitamin D3 500 Mg/200 Unit Tablet PO 09/13/24 20:59 1 tab BID HOMER Administration Carvedilol 12.5 mg 09/14/23 21:00 09/20/23 08:28 Carvedilol 12.5 Mg Tablet PO 09/13/24 20:59 12.5 mg BID HOMER Administration Diclofenac Sodium 1 gm 09/17/23 11:45 09/19/23 09:59 Diclofenac Sodium 1% Gel 100 Gm Tube TOPICAL 09/16/24 11:44 1 gm BID PRN Administration pain Docusate Sodium 100 mg 09/14/23 17:55 Docusate 100 Mg Capsule PO 09/13/24 17:54 BID PRN Constipation Docusate Sodium 283 mg 09/14/23 17:55 Docusate Enema 283 Mg/5 Ml Enema MD 09/13/24 17:54 DAILY PRN Constipation Enoxaparin Sodium 40 mg 09/15/23 09:00 09/20/23 08:31 Enoxaparin 40 Mg/0.4 Ml Syringe SUBCUT 09/14/24 08:59 40 mg DAILY HOMER Administration Furosemide 20 mg 09/15/23 09:00 09/20/23 08:28 Furosemide 20 Mg Tablet PO 09/14/24 08:59 20 mg DAILY HOMER Administration Glipizide 10 mg 09/15/23 08:00 09/20/23 08:28 Glipizide 5 Mg Tablet PO 09/14/24 07:59 10 mg DAILY@0800 HOMER Administration Hydralazine HCl 25 mg 09/15/23 22:00 09/20/23 08:28 Hydralazine 25 Mg Tablet PO 09/14/24 21:59 25 mg TID HOMER Administration Insulin Aspart 0 units 09/15/23 22:00 09/20/23 11:33 Insulin Aspart 300 Units/3 Ml Insuln.Pen SUBCUT 09/14/24 21:59 2 units ACHS HOMER Administration Protocol Lact Acid/Bifidobact/Lact Paracas/Streptoc Th 1 cap 09/20/23 11:30 09/20/23 11:33 L. Acidophilus/Strept/La P-Carter 1 Cap Capsule PO 09/19/24 11:29 1 cap DAILY HOMER Administration Lactulose 30 gm 09/14/23 17:55 Lactulose 20 Gm/30 Ml Udc PO 09/13/24 17:54 DAILY PRN Constipation Lidocaine 2 patch 09/15/23 09:00 09/20/23 08:32 Lidocaine 4% Adh..Patch TOPICAL 09/14/24 08:59 2 patch DAILY HOMER Administration Methocarbamol 500 mg 09/14/23 22:00 09/20/23 08:29 Methocarbamol 500 Mg Tablet PO 09/13/24 21:59 500 mg TID HOMER Administration Oxycodone HCl 5 mg 09/16/23 09:37 09/19/23 21:42 Oxycodone Ir 5 Mg Tablet PO 5 mg Q4H PRN Administration Pain Scale 7 - 10 Pantoprazole Sodium 40 mg 09/16/23 10:00 09/20/23 08:29 Pantoprazole 40 Mg Tablet.Dr PO 09/15/24 09:59 40 mg BID HOMER Administration Polyethylene Glycol 17 gm 09/14/23 21:00 09/20/23 08:30 Polyethylene Glycol 3350 17 Gm Powd.Pack PO 09/13/24 20:59 17 gm BID HOMER Administration Potassium Chloride 10 meq 09/15/23 09:00 09/20/23 08:29 Potassium Chloride Er 10 Meq Tablet.Er PO 09/14/24 08:59 10 meq DAILY HOMER Administration Senna/Docusate Sodium 2 tab 09/14/23 22:00 09/19/23 21:44 Sennosides/Docusate 8.6-50mg 1 Tab Tablet PO 09/13/24 21:59 Not Given QHS HOMER Sennosides 2 tab 09/15/23 12:00 Sennosides 8.6 Mg Tablet PO 09/14/24 11:59 DAILY@12 PRN If no BM in 2 days Sodium Chloride 0 ml 09/14/23 17:55 Sodium Chloride 0.9 % 10 Ml Syringe IV-PUSH 09/13/24 17:54 PRN PRN Flush Trimethoprim/Sulfamethoxazole 1 tab 09/19/23 10:30 09/20/23 08:29 Sulfamethoxazole/Tmp 800-160mg 1 Tab Tablet PO 1 tab BID HOMER Administration Assessment/Plan Assessment/Plan (1) Lumbar vertebral fracture: (2) S/P lumbar fusion: (3) Diabetes mellitus, type 2: (4) Hypertension: (5) Obesity, morbid, BMI 40.0-49.9: (6) Impaired mobility and activities of daily living: (7) Leukocytosis: Plan Patient is a 73-year-old male presented to acute inpatient rehabilitation unit with functional decline secondary to L1 and L2 fracture s/p T11-L4 fusion. * UA positive. C&S demonstrating > 100,000 colonies of Klebsiella. Was started on Bactrim yesterday, susceptible. Continue for 7 days. * C/O loose bowel movements. Hold MiraLAX. Add probiotic while on Bactrim. * Continue current pain regimen. * Recent labs noted. * Tolerating therapy. Ambulatory 32 feet with rolling walker and CGA. Min A/CGA with transfers and bed mobility. Patient education Pressure ulcer prophylaxis; encourage mobilization, frequent postural changes, pressure-relief techniques DVT prophylaxis Encourage deep breathing exercise incentive spirometry. Monitor bladder. Toileting schedule. Continue current bladder management, with scans as needed and CIC if needed. Start bowel care program every day to obtain continence, prevent ileus. Maintain fall precautions Gait and balance retraining Functional training and self-care and home management, including activities of daily living and instrumental activities of daily living Provision of the necessary gait aids and functional adaptive equipment to enhance the patient's a functional mandaen Ensure adequate nutrition and hydration Sleep: No issues Discharge planning: Home with family in 7 to 14 days. I spent greater than 15 minutes for services, including ezia-[id number] encounter with the patient, discussion of the case, plan of care, and exam; and [id number] activities, such as reviewing pertinent risk management consultant documentation, recent therapy notes, laboratory and radiology studies, and discussion of case with care team including physician, nursing, pillowcase folder, and therapists. More than 50 % of time was spent on patient/family counseling or coordination ofcare. I reviewed the history and the relevant portions of the chart, including currentorders, allied health and risk management consultant notes, labs/imaging and plan of care as above. Documented By: Ada Segura APRN 09/20/23 1 148 Signed By: <Electronically signed by FERMÍN Segura> 09/20/23 1153 <Electronically signed by Richard Escoto MD> 09/23/23 1249 [facility] Work Phone: 1(202) 291-300512-27-2023 Progress note Author Richard Escoto [facility] September 23, 2023 12:31pmNote Date/TimeDecember 2022 10:21[place] [id number] Physiatry(Rehab) Progress Note Signed Patient: Faby Herrera MR#: [id number] : 1950 Acct:[id number] Age/Sex: 73 / M Adm Date: 3 Loc: 5T Room: 0Y7289-1 Type: ADM IN Attending Dr: Richard Escoto MD Copies to: ~ Date of Service: 09/22/2023 Subjective Subjective Narrative: Mr. Herrera is a 73 year old male with past medical history of hypertension, hyperlipidemia, type 2 diabetes, obesity, admitted to [facility] inpatient rehab with functional decline secondary to L1-L2 fracture s/p T11-L4 fusion. Patient reports sustaining a fall at home after receiving COVID and flu boosters. He was unable to get off the floor even with assistance from his family. Patient was brought to [facility] andadmitted for further workup. Unfortunately, he sustained another fall while in the hospital bathroom. He thinks he is lost his footing and fell onto his right side. Denies head injury/loss of consciousness. Imaging was obtained which demonstrated acute transverse fracture of the lower endplate of L1 with findingshighly suggestive of interruption of anterior spinal ligament. He was transferred to [facility] for neurosurgical services. On 09/08/2023 patient underwent percutaneous T11-L4 fusion with pedicle screws and dual rods. No major complications postoperatively. Antihypertensive regimen was adjusted by inpatient cardiology. Patient had also developed mild leukocytosis with unremarkable infectious workup. Patient was recommended acute rehab for strengthening. On arrival he is alert, oriented, cooperative with assessment. He is resting in bed on his right side reports no major discomfort at rest. Back incision is covered with dry dressingwith scant sanguinous drainage on the dressing and surrounding p ostoperative ecchymosis.. He denies tenderness to palpation. Reports no cardiopulmonary complaints. BP reasonably controlled at this time. Admits to constipation for 4 to 5 days. Some abdominal discomfort but no nauseaor vomiting. He willreceive a laxative today. Abdominal x-ray if no result orpersisting abdominal discomfort or other GI symptoms. Interval History: Patient seen and evaluated in his room. Observed transferring from his bed to [facility] using a wheeled walker with assistance from therapy. States he is feelingmarginally better, although does admit tocontinued back pain despite the pain medication. I did emphasize pain medication will help to dull the pain but likely will not provide 100% relief, he understands. He denies any muscle spasms at this time. Surgical incisions appear unremarkable, well-approximated without any drainage or surrounding erythema. There is a large hematoma to the left lower back which is nontender to palpation. Will monitor. Otherwise, has no complaints or concerns. Working with therapy. Ambulatory short distances with a rolling walker and contact-guard assist. CGA/min assist with transfers. Review of Systems Review of Systems All other systems reviewed & are negative unless noted below or in HPI Exam Physical Exam Vital Signs: Temp Pulse Resp BP Pulse Ox O2 Del Method 97.6 F 74 20 151/64 H 95 Room Air 09/22/23 05:00 09/22/23 05:00 09/22/23 05:00 09/22/23 05:00 09/22/23 05:00 09/22/23 05:00 Narrative: General: Awake, alert, oriented x3 HENT: Normal to inspection, normocephalic, atraumatic Eyes: PERRL, normal conjunctiva and sclera Neck: Normal ROM, normal visual inspection. Trachea midline. Cardio: Regular heart rate and rhythm Respiratory: Clear to auscultation bilaterally. Normal respiratory effort. No respiratory distress. GI: Abdomen soft, nontender, nondistended, active bowel sounds x4 quadrants : No issues Skin: Thoracic back incision, covered with dry dressing. Scant dried sanguinousdrainage noted on the dressing. Neuro: CN II-XII intact. Strength 3+ /5 bilateral lower extremities, some numbness bilaterally. Extremities: No edema, erythema, cyanosis Psych: Mood and affect appropriate. Normal speech. Objective Labs 09/19/23 04:57 09/19/23 04:57 Labs: Laboratory Results - last 24 hr 09/21/23 09/21/23 09/21/23 11:07 16:48 20:12 POC Glucose 162 94 76 09/22/23 05:12 POC Glucose 95 Additional Results Results Comments: I reviewed clinical lab tests, radiology reports and obtained and summated medical records and haveordered follow up lab tests and imaging studies as needed for rehabilitation care. Medications and Allergies Allergies and Active Meds: Allergies No Known Allergies Allergy (Verified 09/14/23 21:24) Active Medications Generic Name Dose Route Start Last Admin Trade Name Freq PRN Reason Stop Dose Admin Acetaminophen 1,000 mg 09/18/23 14:00 09/22/23 08:46 Acetaminophen 500 Mg Tablet PO 09/17/24 13:59 1,000 mg TID HOMER Administration Al Hydrox/Mg Hydrox/Simethicone 30 ml 09/14/23 17:55 Mag Hydrox/Al Hydrox/Simeth 30 Ml Udc PO 09/13/24 17:54 Q4H PRN Indigestion Allopurinol 300 mg 09/15/23 09:00 09/22/23 08:47 Allopurinol 300 Mg Tablet PO 09/14/24 08:59 300 mg DAILY HOMER Administration Amlodipine Besylate 10 mg 09/15/23 09:00 09/22/23 08:47 Amlodipine 10 Mg Tablet PO 09/14/24 08:59 10 mg DAILY HOMER Administration Bisacodyl 10 mg 09/14/23 17:55 Bisacodyl 10 Mg Supp.Rect MD 09/13/24 17:54 DAILY PRN Constipation Calcium Carbonate 1 tab 09/14/23 21:00 09/22/23 08:46 Calcium Carbonate/Vitamin D3 500 Mg/200 Unit Tablet PO 09/13/24 20:59 1 tab BID HOMER Administration Carvedilol 12.5 mg 09/14/23 21:00 09/22/23 08:47 Carvedilol 12.5 Mg Tablet PO 09/13/24 20:59 12.5 mg BID HOMER Administration Diclofenac Sodium 1 gm 09/17/23 11:45 09/19/23 09:59 Diclofenac Sodium 1% Gel 100 Gm Tube TOPICAL 09/16/24 11:44 1 gm BID PRN Administration pain Docusate Sodium 100 mg 09/14/23 17:55 Docusate 100 Mg Capsule PO 09/13/24 17:54 BID PRN Constipation Docusate Sodium 283 mg 09/14/23 17:55 Docusate Enema 283 Mg/5 Ml Enema MD 09/13/24 17:54 DAILY PRN Constipation Enoxaparin Sodium 40 mg 09/15/23 09:00 09/22/23 08:49 Enoxaparin 40 Mg/0.4 Ml Syringe SUBCUT 09/14/24 08:59 40 mg DAILY HOMER Administration Furosemide 20 mg 09/15/23 09:00 09/22/23 08:47 Furosemide 20 Mg Tablet PO 09/14/24 08:59 20 mg DAILY HOMER Administration Glipizide 10 mg 09/15/23 08:00 09/22/23 08:47 Glipizide 5 Mg Tablet PO 09/14/24 07:59 10 mg DAILY@0800 HOMER Administration Hydralazine HCl 25 mg 09/15/23 22:00 09/22/23 08:47 Hydralazine 25 Mg Tablet PO 09/14/24 21:59 25 mg TID HOMER Administration Insulin Aspart 0 units 09/15/23 22:00 09/22/23 08:45 Insulin Aspart 300 Units/3 Ml Insuln.Pen SUBCUT 09/14/24 21:59 Not Given ACHS HOMER Protocol Lact Acid/Bifidobact/Lact Paracas/Streptoc Th 1 cap 09/20/23 11:30 09/22/23 08:46 L. Acidophilus/Strept/La P-Carter 1 Cap Capsule PO 09/19/24 11:29 1 cap DAILY HOMER Administration Lactulose 30 gm 09/14/23 17:55 Lactulose 20 Gm/30 Ml Udc PO 09/13/24 17:54 DAILY PRN Constipation Lidocaine 2 patch 09/15/23 09:00 09/22/23 08:48 Lidocaine 4% Adh..Patch TOPICAL 09/14/24 08:59 2 patch DAILY HOMER Administration Methocarbamol 500 mg 09/14/23 22:00 09/22/23 08:47 Methocarbamol 500 Mg Tablet PO 09/13/24 21:59 500 mg TID HOMER Administration Oxycodone HCl 5 mg 09/16/23 09:37 09/22/23 05:24 Oxycodone Ir 5 Mg Tablet PO 5 mg Q4H PRN Administration Pain Scale 7 - 10 Pantoprazole Sodium 40 mg 09/16/23 10:00 09/22/23 08:47 Pantoprazole 40 Mg Tablet.Dr PO 09/15/24 09:59 40 mg BID HOMER Administration Polyethylene Glycol 17 gm 09/14/23 21:00 09/20/23 08:30 Polyethylene Glycol 3350 17 Gm Powd.Pack PO 09/13/24 20:59 17 gm BID HOMER Administration Potassium Chloride 10 meq 09/15/23 09:00 09/22/23 08:46 Potassium Chloride Er 10 Meq Tablet.Er PO 09/14/24 08:59 10 meq DAILY HOMER Administration Senna/Docusate Sodium 2 tab 09/14/23 22:00 09/21/23 21:18 Sennosides/Docusate 8.6-50mg 1 Tab Tablet PO 09/13/24 21:59 2 tab QHS HOMER Administration Sennosides 2 tab 09/15/23 12:00 Sennosides 8.6 Mg Tablet PO 09/14/24 11:59 DAILY@12 PRN If no BM in 2 days Sodium Chloride 0 ml 09/14/23 17:55 Sodium Chloride 0.9 % 10 Ml Syringe IV-PUSH 09/13/24 17:54 PRN PRN Flush Trimethoprim/Sulfamethoxazole 1 tab 09/19/23 10:30 09/22/23 08:47 Sulfamethoxazole/Tmp 800-160mg 1 Tab Tablet PO 1 tab BID HOMER Administration Assessment/Plan Assessment/Plan (1) Lumbar vertebral fracture: (2) S/P lumbar fusion: (3) Diabetes mellitus, type 2: (4) Hypertension: (5) Obesity, morbid, BMI 40.0-49.9: (6) Impaired mobility and activities of daily living: (7) Leukocytosis: Plan Patient is a 73-year-old male presented to acute inpatient rehabilitation unit with functional decline secondary to L1 and L2 fracture s/p T11-L4 fusion. * Tolerating p.o. antibiotic. Continue through 09/26. * Blood glucose well-controlled. * Progressing towards goals in therapy. Patient education Pressure ulcer prophylaxis; encourage mobilization, frequent postural changes, pressure-relief techniques DVT prophylaxis Encourage deep breathing exercise incentive spirometry. Monitor bladder. Toileting schedule. Continue current bladder management, with scans as needed and CIC if needed. Start bowel care program every day to obtain continence, prevent ileus. Maintain fall precautions Gait and balance retraining Functional training and self-care and home management, including activities of daily living and instrumental activities of daily living Provision of the necessary gait aids and functional adaptive equipment to enhance the patient's a functional mandaen Ensure adequate nutrition and hydration Sleep: No issues Discharge planning: Home with family in 7 to 14 days. I spent greater than 15 minutes for services, including [id number] encounter with the patient, discussion of the case, plan of care, and exam; and [id number] activities, such as reviewing pertinent risk management consultant documentation, recent therapy notes, laboratory and radiology studies, and discussion of case with care team including physician, nursing, pillowcase folder, and therapists. More than 50 % of time was spent on patient/family counseling or coordination ofcare. I reviewed the history and the relevant portions of the chart, including currentorders, allied health and risk management consultant notes, labs/imaging and plan of care as above. Documented By: Ada Segura APRN 09/22/23 1 017 Signed By: <Electronically signed by FERMÍN Segura> 09/22/23 1023 <Electronically signed by Richard Escoto MD> 09/23/23 1231 [facility] Work Phone: 1(265) 564-405012-27-2023 Progress note Author Richard Escoto [facility] September 23, 2023 12:27pmNote Date/TimeDecember 2022 11:45[place] [address] Physiatry(Rehab) Progress Note Signed Patient: Faby Herrera MR#: [id number] : 1950 Acct:[id number] Age/Sex: 73 / M Adm Date: 3 Loc: Room: 1A6961-5 Type: ADM IN Attending Dr: Richard Escoto MD Copies to: ~ Date of Service: 09/18/2023 Subjective Subjective Narrative: Mr. Herrera is a 73 year old male with past medical history of hypertension, hyperlipidemia, type 2 diabetes, obesity, admitted to [facility] inpatient rehab with functional decline secondary to L1-L2 fracture s/p T11-L4 fusion. Patient reports sustaining a fall at home after receiving COVID and flu boosters. He was unable to get off the floor even with assistance from his family. Patient [facility] andad[facility] for further workup. Unfortunately, he sustained another fall while in the hospital bathroom. He thinks he is lost his footing and fell onto his right side. Denies head injury/loss of consciousness. Imaging was obtained which demonstrated acute transverse fracture of the lower endplate of L1 with findingshighly suggestive of interruption of anterior spinal ligament. He was transferred to [facility] for neurosurgical services. On 09/08/2023 patient underwent percutaneous T11-L4 fusion with pedicle screws and dual rods. No major complications postoperatively. Antihypertensive regimen was adjusted by inpatient cardiology. Patient had also developed mild leukocytosis with unremarkable infectious workup. Patient was recommended acute rehab for strengthening. On arrival he is alert, oriented, cooperative with assessment. He is resting in bed on his right side reports no major discomfort at rest. Back incision is covered with dry dressingwith scant sanguinous drainage on the dressing and surrounding p ostoperative ecchymosis.. He denies tenderness to palpation. Reports no cardiopulmonary complaints. BP reasonably controlled at this time. Admits to constipation for 4 to 5 days. Some abdominal discomfort but no nauseaor vomiting. He willreceive a laxative today. Abdominal x-ray if no result orpersisting abdominal discomfort or other GI symptoms. Interval History: Patient seen and evaluated in his room while resting in bed. He is alert, oriented, cooperative with assessment. Continues to complain of generalized abdominal pain, more so superficially and to touch. There are several medium sized hematomas to lower abdomen from Lovenox injections. He does have active bowel sounds in all 4 quadrants. Had a bowel movement yesterday. Abdominal CT results from 2 days ago reviewed, nonspecific. Will repeat labs and UA. Patient also admits to continued mid?lower back pain which appears to be limiting to therapy. This morning he only agreed to supine exercises due to significant discomfort. I did discuss this with the patient, he was encouraged to participate as much as he can, verbalizes understanding. Review of Systems Review of Systems All other systems reviewed & are negative unless noted below or in HPI Exam Physical Exam Vital Signs: Temp Pulse Resp BP Pulse Ox O2 Del Method 97.9 F 70 20 178/94 H 97 Room Air 09/18/23 07:03 09/18/23 09:07 09/18/23 07:03 09/18/23 09:07 09/18/23 09:07 09/18/23 09:07 Narrative: General: Awake, alert, oriented x3 HENT: Normal to inspection, normocephalic, atraumatic Eyes: PERRL, normal conjunctiva and sclera Neck: Normal ROM, normal visual inspection. Trachea midline. Cardio: Regular heart rate and rhythm Respiratory: Clear to auscultation bilaterally. Normal respiratory effort. No respiratory distress. GI: Abdomen soft, nontender, nondistended, active bowel sounds x4 quadrants : No issues Skin: Thoracic back incision, covered with dry dressing. Scant dried sanguinousdrainage noted on the dressing. Neuro: CN II-XII intact. Strength 3+ /5 bilateral lower extremities, some numbness bilaterally. Extremities: No edema, erythema, cyanosis Psych: Mood and affect appropriate. Normal speech. Objective Labs 09/17/23 05:35 09/15/23 05:03 Labs: Laboratory Results - last 24 hr 09/17/23 09/17/23 09/17/23 16:11 17:10 17:50 POC Glucose 71 65 125 09/17/23 09/18/23 20:44 06:38 POC Glucose 112 136 Additional Results Results Comments: I reviewed clinical lab tests, radiology reports and obtained and summated medical records and haveordered follow up lab tests and imaging studies as needed for rehabilitation care. Medications and Allergies Allergies and Active Meds: Allergies No Known Allergies Allergy (Verified 09/14/23 21:24) Active Medications Generic Name Dose Route Start Last Admin Trade Name Freq PRN Reason Stop Dose Admin Acetaminophen 500 mg 09/14/23 17:55 09/16/23 22:46 Acetaminophen 500 Mg Tablet PO 09/13/24 17:54 500 mg Q4H PRN Administration Pain Al Hydrox/Mg Hydrox/Simethicone 30 ml 09/14/23 17:55 Mag Hydrox/Al Hydrox/Simeth 30 Ml Udc PO 09/13/24 17:54 Q4H PRN Indigestion Allopurinol 300 mg 09/15/23 09:00 09/18/23 09:09 Allopurinol 300 Mg Tablet PO 09/14/24 08:59 300 mg DAILY HOMER Administration Amlodipine Besylate 10 mg 09/15/23 09:00 09/18/23 09:09 Amlodipine 10 Mg Tablet PO 09/14/24 08:59 10 mg DAILY HOMER Administration Bisacodyl 10 mg 09/14/23 17:55 Bisacodyl 10 Mg Supp.Rect MD 09/13/24 17:54 DAILY PRN Constipation Calcium Carbonate 1 tab 09/14/23 21:00 09/18/23 09:09 Calcium Carbonate/Vitamin D3 500 Mg/200 Unit Tablet PO 09/13/24 20:59 1 tab BID HOMER Administration Carvedilol 12.5 mg 09/14/23 21:00 09/18/23 09:09 Carvedilol 12.5 Mg Tablet PO 09/13/24 20:59 12.5 mg BID HOMER Administration Diclofenac Sodium 1 gm 09/17/23 11:45 09/17/23 12:09 Diclofenac Sodium 1% Gel 100 Gm Tube TOPICAL 09/16/24 11:44 1 gm BID PRN Administration pain Docusate Sodium 100 mg 09/14/23 17:55 Docusate 100 Mg Capsule PO 09/13/24 17:54 BID PRN Constipation Docusate Sodium 283 mg 09/14/23 17:55 Docusate Enema 283 Mg/5 Ml Enema MD 09/13/24 17:54 DAILY PRN Constipation Enoxaparin Sodium 40 mg 09/15/23 09:00 09/18/23 09:09 Enoxaparin 40 Mg/0.4 Ml Syringe SUBCUT 09/14/24 08:59 40 mg DAILY HOMER Administration Furosemide 20 mg 09/15/23 09:00 09/18/23 09:09 Furosemide 20 Mg Tablet PO 09/14/24 08:59 20 mg DAILY HOMER Administration Glipizide 10 mg 09/15/23 08:00 09/18/23 09:09 Glipizide 5 Mg Tablet PO 09/14/24 07:59 10 mg DAILY@0800 HOMER Administration Hydralazine HCl 25 mg 09/15/23 22:00 09/18/23 09:08 Hydralazine 25 Mg Tablet PO 09/14/24 21:59 25 mg TID HOMER Administration Insulin Aspart 0 units 09/15/23 22:00 09/18/23 07:46 Insulin Aspart 300 Units/3 Ml Insuln.Pen SUBCUT 09/14/24 21:59 Not Given ACHS [facility] Protocol Lactulose 30 gm 09/14/23 17:55 Lactulose 20 Gm/30 Ml Udc PO 09/13/24 17:54 DAILY PRN Constipation Lidocaine 2 patch 09/15/23 09:00 09/18/23 09:10 Lidocaine 4% Adh..Patch TOPICAL 09/14/24 08:59 2 patch DAILY HOMER Administration Methocarbamol 500 mg 09/14/23 22:00 09/18/23 09:08 Methocarbamol 500 Mg Tablet PO 09/13/24 21:59 500 mg TID HOMER Administration Oxycodone HCl 5 mg 09/16/23 09:37 09/18/23 09:08 Oxycodone Ir 5 Mg Tablet PO 5 mg Q4H PRN Administration Pain Scale 7 - 10 Pantoprazole Sodium 40 mg 09/16/23 10:00 09/18/23 09:09 Pantoprazole 40 Mg Tablet. PO 09/15/24 09:59 40 mg BID HOMER Administration Polyethylene Glycol 17 gm 09/14/23 21:00 09/18/23 09:09 Polyethylene Glycol 3350 17 Gm Powd.Pack PO 09/13/24 20:59 17 gm BID HOMER Administration Potassium Chloride 10 meq 09/15/23 09:00 09/18/23 09:08 Potassium Chloride Er 10 Meq Tablet.Er PO 09/14/24 08:59 10 meq DAILY HOMER Administration Senna/Docusate Sodium 2 tab 09/14/23 22:00 09/17/23 23:00 Sennosides/Docusate 8.6-50mg 1 Tab Tablet PO 09/13/24 21:59 2 tab QHS HOMER Administration Sennosides 2 tab 09/15/23 12:00 Sennosides 8.6 Mg Tablet PO 09/14/24 11:59 DAILY@12 PRN If no BM in 2 days Sodium Chloride 0 ml 09/14/23 17:55 Sodium Chloride 0.9 % 10 Ml Syringe IV-PUSH 09/13/24 17:54 PRN PRN Flush Assessment/Plan Assessment/Plan (1) Lumbar vertebral fracture: (2) S/P lumbar fusion: (3) Diabetes mellitus, type 2: (4) Hypertension: (5) Obesity, morbid, BMI 40.0-49.9: (6) Impaired mobility and activities of daily living: (7) Leukocytosis: Plan Patient is a 73-year-old male presented to acute inpatient rehabilitation unit with functional decline secondary to L1 and L2 fracture s/p T11-L4 fusion. * Continued abdominal pain which appears to be superficial and possibly related to several hematomas caused by Lovenox injections. He is moving bowels regularly. Abdomen is nondistended and soft to palpation and overall benign. Abdominal CT from 09/16 shows minute lymph nodes and retroperitoneal edema in the lower abdomen which is nonspecific but may be infectious/reactive. Will obtain repeat CBCand BMP and a UA. Monitor symptoms closely. Initiate infectious workup if elevated WBC or fever. * Continues to complain of uncontrolled back pain. Will schedule Tylenol 3 times daily.. Also complains of right hip pain. Apparently he injured it when he fell. There is a large bruise over the greater trochanter. He believes that the hip was x-rayed at [place] right before he was transferred to [facility]. Will try to obtain the imaging results. If unavailable, okay to repeat right hip x-ray. Patient education Pressure ulcer prophylaxis; encourage mobilization, frequent postural changes, pressure-relief techniques DVT prophylaxis Encourage deep breathing exercise incentive spirometry. Monitor bladder. Toileting schedule. Continue current bladder management, with scans as needed and CIC if needed. Start bowel care program every day to obtain continence, prevent ileus. Maintain fall precautions Gait and balance retraining Functional training and self-care and home management, including activities of daily living and instrumental activities of daily living Provision of the necessary gait aids and functional adaptive equipment to enhance the patient's a functional mandaen Ensure adequate nutrition and hydration Sleep: No issues Discharge planning: Home with family in 7 to 14 days. I spent greater than 15 minutes for services, including [id number] encounter with the patient, discussion of the case, plan of care, and exam; and eaiyuyw-ry-mbdu activities, such as reviewing pertinent risk management consultant documentation, recent therapy notes, laboratory and radiology studies, and discussion of case with care team including physician, nursing, pillowcase folder, and therapists. More than 50 % of time was spent on patient/family counseling or coordination ofcare. I completed a substantive portion of this encounter, the medical decision makingportion of this note in its entirety, including Allied health note review, nursing note review, risk management consultant note review,discussion with nursing and case management, and more than 50% of my time was spent on counseling and coordination of care, time spent 26 minutes Patient was personally seen by me, Dr. Escoto, on the day of encounter, reviewed the history and therelevant portions of the chart, including current orders, allied health and risk management consultant notes, labs/imaging and performed anderson elements of exam and I formulated the plan of care and facilitated the medical decision making. Documented By: Ada Segura APRN 09/18/23 1 143 Signed By: <Electronically signed by FERMÍN Segura> 09/18/23 1201 <Electronically signed by Richard Escoto MD> 09/23/23 1227 [facility] Work Phone: 1(167) 438-415012-26-2023 Progress note Author Nabil Friedman [facility] September 22, 2023 3:26pmNote Date/TimeDecember 2022 2:47[place] [address] Hospitalist Progress Note Signed Patient: Faby Herrera MR#: [id number] : 1950 Acct:[id number] Age/Sex: 73 / M Adm Date: 3 Loc: Room: [address] [place] [address] Type: ADM IN Attending Dr: Richard Escoto MD Copies to: ~ Date of Service: 09/22/2023 Subjective Subjective Narrative: . Patient seen and examined on follow-up. Resting comfortably in bed, states that he continues to do well with physical therapy, however still having moderately high pain with activity and muscle spasms pain. Reviewed blood pressures, uncontrolled, discussed that this was likely due to pain. Will mo nitor for now, if continues will adjust medications. Patient agreeable. Exam Physical Exam Vital Signs: Temp Pulse Resp BP Pulse Ox O2 Del Method 97.6 F 74 20 151/64 H 95 Room Air 09/22/23 05:00 09/22/23 05:00 09/22/23 05:00 09/22/23 05:00 09/22/23 05:00 09/22/23 05:00 Narrative: CONST-obese, resting comfortably in bed CARDIAC-normal rate, regular rhythm, normal S1 & S2. PULM-diminished without wheeze or rhonchi, RA, no accessory muscle use or cough noted ABD - Soft. Bowel sounds are normal. No distention No tenderness EXTREM-no edema BLE calves nontender SKIN-mid back spinal incision occluded by dressing Objective Lab Results 09/19/23 04:57 09/19/23 04:57 Meds Allergies and Active Meds Allergies No Known Allergies Allergy (Verified 09/14/23 21:24) Active Meds: Active Medications Generic Name Dose Route Start Last Admin Trade Name Freq PRN Reason Stop Dose Admin Acetaminophen 1,000 mg 09/18/23 14:00 09/22/23 14:22 Acetaminophen 500 Mg Tablet PO 09/17/24 13:59 1,000 mg TID HOMER Administration Al Hydrox/Mg Hydrox/Simethicone 30 ml 09/14/23 17:55 Mag Hydrox/Al Hydrox/Simeth 30 Ml Udc PO 09/13/24 17:54 Q4H PRN Indigestion Allopurinol 300 mg 09/15/23 09:00 09/22/23 08:47 Allopurinol 300 Mg Tablet PO 09/14/24 08:59 300 mg DAILY HOMER Administration Amlodipine Besylate 10 mg 09/15/23 09:00 09/22/23 08:47 Amlodipine 10 Mg Tablet PO 09/14/24 08:59 10 mg DAILY HOMER Administration Bisacodyl 10 mg 09/14/23 17:55 Bisacodyl 10 Mg Supp.Rect MD 09/13/24 17:54 DAILY PRN Constipation Calcium Carbonate 1 tab 09/14/23 21:00 09/22/23 08:46 Calcium Carbonate/Vitamin D3 500 Mg/200 Unit Tablet PO 09/13/24 20:59 1 tab BID HOMER Administration Carvedilol 12.5 mg 09/14/23 21:00 09/22/23 08:47 Carvedilol 12.5 Mg Tablet PO 09/13/24 20:59 12.5 mg BID HOMER Administration Diclofenac Sodium 1 gm 09/17/23 11:45 09/19/23 09:59 Diclofenac Sodium 1% Gel 100 Gm Tube TOPICAL 09/16/24 11:44 1 gm BID PRN Administration pain Docusate Sodium 283 mg 09/14/23 17:55 Docusate Enema 283 Mg/5 Ml Enema MD 09/13/24 17:54 DAILY PRN Constipation Docusate Sodium 100 mg 09/22/23 21:00 Docusate 100 Mg Capsule PO 09/21/24 20:59 BID HOMER Enoxaparin Sodium 40 mg 09/15/23 09:00 09/22/23 08:49 Enoxaparin 40 Mg/0.4 Ml Syringe SUBCUT 09/14/24 08:59 40 mg DAILY HOMER Administration Furosemide 20 mg 09/15/23 09:00 09/22/23 08:47 Furosemide 20 Mg Tablet PO 09/14/24 08:59 20 mg DAILY HOMER Administration Glipizide 10 mg 09/15/23 08:00 09/22/23 08:47 Glipizide 5 Mg Tablet PO 09/14/24 07:59 10 mg DAILY@0800 HOMER Administration Hydralazine HCl 25 mg 09/15/23 22:00 09/22/23 14:22 Hydralazine 25 Mg Tablet PO 09/14/24 21:59 25 mg TID HOMER Administration Insulin Aspart 0 units 09/15/23 22:00 09/22/23 12:11 Insulin Aspart 300 Units/3 Ml Insuln.Pen SUBCUT 09/14/24 21:59 2 units ACHS HOMER Administration Protocol Lact Acid/Bifidobact/Lact [place]/Streptoc Th 1 cap 09/20/23 11:30 09/22/23 08:46 L. Acidophilus/Strept/La P-Carter 1 Cap Capsule PO 09/19/24 11:29 1 cap DAILY HOMER Administration Lactulose 30 gm 09/14/23 17:55 Lactulose 20 Gm/30 Ml Udc PO 09/13/24 17:54 DAILY PRN Constipation Lidocaine 2 patch 09/15/23 09:00 09/22/23 08:48 Lidocaine 4% Adh..Patch TOPICAL 09/14/24 08:59 2 patch DAILY HOMER Administration Methocarbamol 500 mg 09/14/23 22:00 09/22/23 14:22 Methocarbamol 500 Mg Tablet PO 09/13/24 21:59 500 mg TID HOMER Administration Oxycodone HCl 5 mg 09/16/23 09:37 09/22/23 12:10 Oxycodone Ir 5 Mg Tablet PO 5 mg Q4H PRN Administration Pain Scale 7 - 10 Pantoprazole Sodium 40 mg 09/16/23 10:00 09/22/23 08:47 Pantoprazole 40 Mg Tablet.Dr PO 09/15/24 09:59 40 mg BID HOMER Administration Polyethylene Glycol 17 gm 09/14/23 21:00 09/20/23 08:30 Polyethylene Glycol 3350 17 Gm Powd.Pack PO 09/13/24 20:59 17 gm BID HOMER Administration Potassium Chloride 10 meq 09/15/23 09:00 09/22/23 08:46 Potassium Chloride Er 10 Meq Tablet.Er PO 09/14/24 08:59 10 meq DAILY HOMER Administration Senna/Docusate Sodium 2 tab 09/14/23 22:00 09/21/23 21:18 Sennosides/Docusate 8.6-50mg 1 Tab Tablet PO 09/13/24 21:59 2 tab QHS HOMER Administration Sennosides 2 tab 09/15/23 12:00 Sennosides 8.6 Mg Tablet PO 09/14/24 11:59 DAILY@12 PRN If no BM in 2 days Sodium Chloride 0 ml 09/14/23 17:55 Sodium Chloride 0.9 % 10 Ml Syringe IV-PUSH 09/13/24 17:54 PRN PRN Flush Trimethoprim/Sulfamethoxazole 1 tab 09/19/23 10:30 09/22/23 08:47 Sulfamethoxazole/Tmp 800-160mg 1 Tab Tablet PO 09/26/23 10:29 1 tab BID HOMER Administration A&P - Hospitalist Assessment/Plan (1) Hypertension: (2) Diabetes mellitus, type 2: (3) S/P lumbar fusion: [place] Lumbar vertebral fracture s/p T11-L4 fusion 09/08/2023 -Further POC per PMR team for rehabilitative therapy, pain control bowel regimen, DVT PPx, surgicalwound care -please address any postoperative questions/concerns to neurosurgery team at [facility] Chronic conditions 1. Hypertension-on amlodipine, carvedilol, furosemide, hydralazine, BP uncontrolled, likely due to pain, will monitor for now will increase hydralazine if continues. 2. Diabetes-glipizide, SSI coverage and fingerstick, check A1c 6.9. Blood sugars reviewed, controlled, continue to monitor 3. Gout?allopurinol Documented By: Irma Peterson APRN 09/22/23 1442 Signed By: <Electronically signed by FERMÍN Peterson> 09/22/23 1511 <Electronically signed by Nabil Friedman MD> 09/22/23 1526 [facility] Work Phone: 1(432) 853-648712-21-2023 Consult note Author Joshua Kyle [facility] September 17, 2023 5:09pmNote Date/TimeDecember 2022 4:[address] [place] [address] Hospitalist Consult Note Signed Patient: Faby Herrera MR#: [id number] : 1950 Acct:[id number] Age/Sex: 73 / M Adm Date: 3 Loc: Room: [address] [place] [address] Type: ADM IN Attending Dr: Richard Escoto MD Copies to: JoshuaMD Richard Valerio MD Lynn A Stackhouse-Roby, APRN NO FAMILY PHYSICIAN~ HPI DATE OF CONSULTATION: 09/15/23 REQUESTING PROVIDER: Richard Escoto Consult Narrative Reason for Consult: Diabetes management HPI: This is a 73-year-old male past medical NephrAmine for diabetes, gout, hypertension. Presented to [facility] rehab unit September 14 and transfer from [facility]. Patient initially presented to [facility] after sustaining a fall at home due to weakness felt to be secondary to vac cinations for influenza and COVID. The patient unfortunately had a fall while in hospital at [place] as well, and imaging demonstrated L1 acute transfer fracture lower endplate highly suggestive of interruption of anterior spinal ligament, subsequently transferred to [facility] for neurosurgical services. September 08 and underwent percutaneous T11-L4 fusion with pedicle screws and dual rods. He was seen by cardiology there for management of hypertension and medication adjustments were made. He had postoperative leukocytosis with infectious workup unremarkable. He was seen by therapy italo mitchell with recommendations for ongoing rehabilitation, subsequently transferred to the inpatient rehab unit here at [facility] September 14. Hospitalist team is now consulted for ongoing management of diabetes. Patient seen and examined. He endorsed no significant postoperative pain. Denies chest pain or palpitations. No cough, dyspnea, or pain with inspiration. Endorses constipation. No abdominal pain or indigestion, diarrhea, nausea or vomiting. No dysuria or retention. No headache or dizziness. No fevers or chills. Review of Systems Review of Systems All other systems reviewed & are negative unless noted below or in HPI [facility] Medical History Compression fracture Diabetes mellitus, type 2 Hypertension Social History Smoking Status: Never smoker Substance Use Type: None Meds Medications and Allergies Allergies No Known Allergies Allergy (Verified 09/14/23 21:24) Home Medications allopurinol 300 mg tablet 300 mg PO DAILY 09/14/23 [History Confirmed 09/14/23] amlodipine 10 mg tablet 10 mg PO DAILY 09/14/23 [History Confirmed 09/14/23] calcium carbonate 500 mg-vitamin D3 5 mcg (200 unit) tablet 1 tab PO BID 09/14/23 [History Confirmed 09/14/23] carvedilol 12.5 mg tablet 12.5 mg PO BID 09/14/23 [History Confirmed 09/14/23] enoxaparin 40 mg/0.4 mL subcutaneous syringe 40 mg subcut DAILY 09/14/23 [History Confirmed 09/14/23] famotidine 20 mg tablet 20 mg PO BID 09/14/23 [History Confirmed 09/14/23] furosemide 20 mg tablet 20 mg PO DAILY 09/14/23 [History Confirmed 09/14/23] glipizide 10 mg tablet 10 mg PO DAILY 09/14/23 [History Confirmed 09/14/23] hydralazine 10 mg tablet 10 mg PO QID 09/14/23 [History Confirmed 09/14/23] lidocaine 5 % topical patch 2 patch topical DAILY 09/14/23 [History Confirmed 09/14/23] methocarbamol 500 mg tablet 500 mg PO TID 09/14/23 [History Confirmed 09/14/23] oxycodone 5 mg tablet 5 mg PO Q4H PRN Pain 09/14/23 [History Confirmed 09/14/23] polyethylene glycol 3350 17 gram oral powder packet 17 g PO BID 09/14/23 [History Confirmed 09/14/23] potassium chloride 10 mEq tablet,extended release 10 meq PO DAILY 09/14/23 [History Confirmed 09/14/23] sennosides 8.6 mg-docusate sodium 50 mg tablet 2 tab-cap PO QHS 09/14/23 [History Confirmed 09/14/23] Active Medications: Active Medications Generic Name Dose Route Start Last Admin Trade Name Freq PRN Reason Stop Dose Admin Acetaminophen 500 mg 09/14/23 17:55 Acetaminophen 500 Mg Tablet PO 09/13/24 17:54 Q4H PRN Pain Al Hydrox/Mg Hydrox/Simethicone 30 ml 09/14/23 17:55 Mag Hydrox/Al Hydrox/Simeth 30 Ml Udc PO 09/13/24 17:54 Q4H PRN Indigestion Allopurinol 300 mg 09/15/23 09:00 09/15/23 08:06 Allopurinol 300 Mg Tablet PO 09/14/24 08:59 300 mg DAILY HOMER Administration Amlodipine Besylate 10 mg 09/15/23 09:00 09/15/23 08:06 Amlodipine 10 Mg Tablet PO 09/14/24 08:59 10 mg DAILY HOMER Administration Bisacodyl 10 mg 09/14/23 17:55 Bisacodyl 10 Mg Supp.Rect MD 09/13/24 17:54 DAILY PRN Constipation Calcium Carbonate 1 tab 09/14/23 21:00 09/15/23 08:06 Calcium Carbonate/Vitamin D3 500 Mg/200 Unit Tablet PO 09/13/24 20:59 1 tab BID HOMER Administration Carvedilol 12.5 mg 09/14/23 21:00 09/15/23 08:06 Carvedilol 12.5 Mg Tablet PO 09/13/24 20:59 12.5 mg BID HOMER Administration Docusate Sodium 100 mg 09/14/23 17:55 Docusate 100 Mg Capsule PO 09/13/24 17:54 BID PRN Constipation Docusate Sodium 283 mg 09/14/23 17:55 Docusate Enema 283 Mg/5 Ml Enema MD 09/13/24 17:54 DAILY PRN Constipation Enoxaparin Sodium 40 mg 09/15/23 09:00 09/15/23 08:06 Enoxaparin 40 Mg/0.4 Ml Syringe SUBCUT 09/14/24 08:59 40 mg DAILY HOMER Administration Famotidine 20 mg 09/14/23 21:00 09/15/23 08:06 Famotidine 20 Mg Tablet PO 09/13/24 20:59 20 mg BID HOMER Administration Furosemide 20 mg 09/15/23 09:00 09/15/23 08:05 Furosemide 20 Mg Tablet PO 09/14/24 08:59 20 mg DAILY HOMER Administration Glipizide 10 mg 09/15/23 08:00 09/15/23 08:06 Glipizide 5 Mg Tablet PO 09/14/24 07:59 10 mg DAILY@0800 HOMER Administration Hydralazine HCl 10 mg 09/14/23 18:00 09/15/23 08:06 Hydralazine 10 Mg Tablet PO 09/13/24 17:59 10 mg QID HOMER Administration Lactulose 30 gm 09/14/23 17:55 Lactulose 20 Gm/30 Ml Udc PO 09/13/24 17:54 DAILY PRN Constipation Lidocaine 2 patch 09/15/23 09:00 09/15/23 08:07 Lidocaine 4% Adh..Patch TOPICAL 09/14/24 08:59 2 patch DAILY HOMER Administration Methocarbamol 500 mg 09/14/23 22:00 09/15/23 08:06 Methocarbamol 500 Mg Tablet PO 09/13/24 21:59 500 mg TID HOMER Administration Oxycodone HCl 5 mg 09/14/23 17:53 09/14/23 22:35 Oxycodone Ir 5 Mg Tablet PO 5 mg Q4H PRN Administration Pain Polyethylene Glycol 17 gm 09/14/23 21:00 09/15/23 08:07 Polyethylene Glycol 3350 17 Gm Powd.Pack PO 09/13/24 20:59 Not Given BID HOMER Potassium Chloride 10 meq 09/15/23 09:00 09/15/23 08:06 Potassium Chloride Er 10 Meq Tablet.Er PO 09/14/24 08:59 10 meq DAILY HOMER Administration Senna/Docusate Sodium 2 tab 09/14/23 22:00 09/14/23 22:36 Sennosides/Docusate 8.6-50mg 1 Tab Tablet PO 09/13/24 21:59 Not Given QHS HOMER Sennosides 2 tab 09/15/23 12:00 Sennosides 8.6 Mg Tablet PO 09/14/24 11:59 DAILY@12 PRN If no BM in 2 days Sodium Chloride 0 ml 09/14/23 17:55 Sodium Chloride 0.9 % 10 Ml Syringe IV-PUSH 09/13/24 17:54 PRN PRN Flush Exam Physical Exam Vital Signs: Temp Pulse Resp BP Pulse Ox O2 Del Method 97.7 F 75 20 154/79 H 95 Room Air 09/15/23 05:06 09/15/23 05:06 09/15/23 05:06 09/15/23 05:06 09/15/23 05:06 09/15/23 05:06 Narrative: CONST- alert, in bed, no acute distress HEAD- normocephalic and atraumatic EENT- sclera nonicteric and conjunctiva nonerythemic, moist oral mucosa, pharynxclear NECK- supple, no cervical lymphadenopathy CARDIAC- RRR no abnormal heart tones PULM- diminished without wheeze or rhonchi, RA, no accessory muscle use or coughnoted ABD- S/NT, NABS, obese EXTREM- no edema BLE, calves nontender SKIN- W/D, good turgor, mid back spinal incision covered with dressing with surrounding ecchymosis MS- MAEx4 spontaneously with equal strength but generalized weakness NEURO- A&Ox3, speech clear and tongue midline, equal facial symmetry PSYCH-mood and behavior appropriate Results Lab Results Labs: Laboratory Results - last 72 hr 09/15/23 05:09: POC Glucose 89 09/15/23 05:03: PHA Creatinine Clear 118.72, Sodium 134 L, Potassium 3.9, Chloride 99, Carbon Dioxide 28.2, Anion Gap 10.7, BUN 24, Creatinine 0.80, Est GFR (CKD-EPI) > 60.0, Glucose 97, Calcium 8.9, Total Bilirubin 1.9 H, AST 18, ALT 19, Alkaline Phosphatase 99, Total Protein 5.4 L, Albumin 3.0L, Globulin 2.4, Albumin/Globulin Ratio 1.3, Prealbumin 14.9 L 09/15/23 05:03: Corrected WBC 13.4 H, Uncorrected WBC Count 13.4 H, RBC 4.06, Hgb 12.9 L, Hct 36.8 L, MCV 90.6, MCH 31.7, MCHC 35.0, RDW 14.1, Plt Count 300, MPV 7.7, Neut % (Auto) 76.7, Lymph % (Auto) 12.8, [place]lee % (Auto) 9.0, Eos % (Auto) 1.1, Baso % (Auto) 0.4, Nucleat RBC Rel Count 0.1, Neut # (Auto) 10.3 H, Lymph # (Auto) 1.7, Green[place] # (Auto) 1.2 H, Eos # (Auto) 0.1, Baso # (Auto) 0.1 09/14/23 21:51: POC Glucose 85, POC Glucose Comment Will notify dr/collections attorney & Plan Assessment/Plan (1) Hypertension: (2) Diabetes mellitus, type 2: (3) S/P lumbar fusion: Plan [place] Lumbar vertebral fracture s/p T11-L4 fusion 09/08/2023 -Further POC per PMR team for rehabilitative therapy, pain control bowel regimen, DVT PPx, surgicalwound care -please address any postoperative questions/concerns to neurosurgery team at [facility] Chronic conditions 1. Hypertension-reported to have been seen by cardiology services while at [facility] with adjustments to medication while there, continue amlodipine, carvedilol, furosemide, hydralazine. TrendBPs and titrate as indicated, will increase hydralazine for now 2. Diabetes-glipizide, SSI coverage and fingerstick, check A1c 3. Gout?allopurinol Attending Attestation: I agree with the above documentation noted by Yuliya Mosley. Plan of carereflects my direct input. Documented By: Yuliya Mosley APRN 08/28 06/20 1630 Signed By: <Electronically signed by FERMÍN Mosley> 09/15/23 1756 <Electronically signed by Joshua Kyle MD> 09/17/23 1704 [facility] Work Phone: 1(371) 634-728212-20-2023 Progress note Author Richard Escoto [facility] September 16, 2023 12:26pmNote Date/TimeDece2022 12:25pm[place] [address] Physiatry(Rehab) Progress Note Signed Patient: Faby Herrera MR#: [id number] : 1950 Acct:[id number] Age/Sex: 73 / M Adm Date: 3 Loc: Room: 8I7363-9 Type: ADM IN Attending Dr: Richard Escoto MD Copies to: ~ Date of Service: 09/16/2023 Subjective Subjective Narrative: Mr. Herrera is a 73 year old male with past medical history of hypertension, hyperlipidemia, type 2 diabetes, obesity, admitted to [facility] inpatient rehab with functional decline secondary to L1-L2 fracture s/p T11-L4 fusion. Patient reports sustaining a fall at home after receiving COVID and flu boosters. He was unable to get off the floor even with assistance from his family. Patient [facility] andadmitted for further workup. Unfortunately, he sustained another fall while in the hospital bathroom. He thinks he is lost his footing and fell onto his right side. Denies head injury/loss of consciousness. Imaging was obtained which demonstrated acute transverse fracture of the lower endplate of L1 with findingshighly suggestive of interruption of anterior spinal ligament. He was transferred to [facility] for neurosurgical services. On 09/08/2023 patient underwent percutaneous T11-L4 fusion with pedicle screws and dual rods. No major complications postoperatively. Antihypertensive regimen was adjusted by inpatient cardiology. Patient had also developed mild leukocytosis with unremarkable infectious workup. Patient was recommended acute rehab for strengthening. On arrival he is alert, oriented, cooperative with assessment. He is resting in bed on his right side reports no major discomfort at rest. Back incision is covered with dry dressingwith scant sanguinous drainage on the dressing and surrounding p ostoperative ecchymosis.. He denies tenderness to palpation. Reports no cardiopulmonary complaints. BP reasonably controlled at this time. Admits to constipation for 4 to 5 days. Some abdominal discomfort but no nauseaor vomiting. He willreceive a laxative today. Abdominal x-ray if no result orpersisting abdominal discomfort or other GI symptoms. Interval History: C/o low abdominal pain wrapping to back. This is an ongoing issue since fall. CT A/P w/wo contrast in [place] was non-acute. He did have BM today. He is not taking pain medication and refused it at outside hospital as well. We discussed this possibly being referred pain from his back. Abdomen is soft, non-tender. No vomiting. Review of Systems Review of Systems All other systems reviewed & are negative unless noted below or in HPI Exam Physical Exam Vital Signs: Temp Pulse Resp BP Pulse Ox O2 Del Method 97.8 F 86 18 141/67 H 93 L Room Air 09/16/23 05:52 09/16/23 05:52 09/16/23 05:52 09/16/23 05:52 09/16/23 05:52 09/16/23 05:52 Narrative: General: Awake, alert, oriented x3 HENT: Normal to inspection, normocephalic, atraumatic Eyes: PERRL, normal conjunctiva and sclera Neck: Normal ROM, normal visual inspection. Trachea midline. Cardio: Regular heart rate and rhythm Respiratory: Clear to auscultation bilaterally. Normal respiratory effort. No respiratory distress. GI: Abdomen soft, nontender, nondistended, active bowel sounds x4 quadrants : No issues Skin: Thoracic back incision, covered with dry dressing. Scant dried sanguinousdrainage noted on the dressing. Neuro: CN II-XII intact. Strength 3+ /5 bilateral lower extremities, some numbness bilaterally. Extremities: No edema, erythema, cyanosis Psych: Mood and affect appropriate. Normal speech. Objective Labs 09/15/23 05:03 09/15/23 05:03 Labs: Laboratory Results - last 24 hr 09/15/23 09/15/23 09/15/23 05:03 15:06 20:01 POC Glucose 94 POC Glucose Comment Estimat Average Glucose 151 Hemoglobin A1c 6.9 H Urine Color Yellow Urine Appearance Turbid A Urine pH 7.5 Ur Specific [place] 1.013 Urine Protein Negative Urine Glucose (UA) Normal Urine Ketones 1+ H Urine Occult Blood Negative Urine Nitrite Negative Urine Bilirubin Negative Urine Urobilinogen >=2 H Ur Leukocyte Esterase 1+ H Urine RBC 3-4 Urine WBC 1-2 Ur Squamous Epith Cells 0-1 Urine Bacteria None seen Hyaline Casts 0-8 09/16/23 09/16/23 05:48 11:51 POC Glucose 100 347 POC Glucose Comment Glu2: cleaned meter Estimat Average Glucose Hemoglobin A1c Urine Color Urine Appearance Urine pH Ur Specific [place] Urine Protein Urine Glucose (UA) Urine Ketones Urine Occult Blood Urine Nitrite Urine Bilirubin Urine Urobilinogen Ur Leukocyte Esterase Urine RBC Urine WBC Ur Squamous Epith Cells Urine Bacteria Hyaline Casts Medications and Allergies Allergies and Active Meds: Allergies No Known Allergies Allergy (Verified 09/14/23 21:24) Active Medications Generic Name Dose Route Start Last Admin Trade Name Freq PRN Reason Stop Dose Admin Acetaminophen 500 mg 09/14/23 17:55 09/16/23 09:47 Acetaminophen 500 Mg Tablet PO 09/13/24 17:54 500 mg Q4H PRN Administration Pain Al Hydrox/Mg Hydrox/Simethicone 30 ml 09/14/23 17:55 Mag Hydrox/Al Hydrox/Simeth 30 Ml Udc PO 09/13/24 17:54 Q4H PRN Indigestion Allopurinol 300 mg 09/15/23 09:00 09/16/23 08:01 Allopurinol 300 Mg Tablet PO 09/14/24 08:59 300 mg DAILY HOMER Administration Amlodipine Besylate 10 mg 09/15/23 09:00 09/16/23 08:01 Amlodipine 10 Mg Tablet PO 09/14/24 08:59 10 mg DAILY HOMER Administration Bisacodyl 10 mg 09/14/23 17:55 Bisacodyl 10 Mg Supp.Rect MD 09/13/24 17:54 DAILY PRN Constipation Calcium Carbonate 1 tab 09/14/23 21:00 09/16/23 08:01 Calcium Carbonate/Vitamin D3 500 Mg/200 Unit Tablet PO 09/13/24 20:59 1 tab BID HOMER Administration Carvedilol 12.5 mg 09/14/23 21:00 09/16/23 08:01 Carvedilol 12.5 Mg Tablet PO 09/13/24 20:59 12.5 mg BID HOMER Administration Docusate Sodium 100 mg 09/14/23 17:55 Docusate 100 Mg Capsule PO 09/13/24 17:54 BID PRN Constipation Docusate Sodium 283 mg 09/14/23 17:55 Docusate Enema 283 Mg/5 Ml Enema MD 09/13/24 17:54 DAILY PRN Constipation Enoxaparin Sodium 40 mg 09/15/23 09:00 09/16/23 08:02 Enoxaparin 40 Mg/0.4 Ml Syringe SUBCUT 09/14/24 08:59 40 mg DAILY OHMER Administration Furosemide 20 mg 09/15/23 09:00 09/16/23 08:01 Furosemide 20 Mg Tablet PO 09/14/24 08:59 20 mg DAILY HOMER Administration Glipizide 10 mg 09/15/23 08:00 09/16/23 08:01 Glipizide 5 Mg Tablet PO 09/14/24 07:59 10 mg DAILY@0800 HOMER Administration Hydralazine HCl 25 mg 09/15/23 22:00 09/16/23 08:01 Hydralazine 25 Mg Tablet PO 09/14/24 21:59 25 mg TID HOMER Administration Insulin Aspart 0 units 09/15/23 22:00 09/16/23 08:02 Insulin Aspart 300 Units/3 Ml Insuln.Pen SUBCUT 09/14/24 21:59 Not Given ACHS [facility] Protocol Lactulose 30 gm 09/14/23 17:55 Lactulose 20 Gm/30 Ml Udc PO 09/13/24 17:54 DAILY PRN Constipation Lidocaine 2 patch 09/15/23 09:00 09/16/23 08:02 Lidocaine 4% Adh..Patch TOPICAL 09/14/24 08:59 2 patch DAILY HOMER Administration Methocarbamol 500 mg 09/14/23 22:00 09/16/23 08:01 Methocarbamol 500 Mg Tablet PO 09/13/24 21:59 500 mg TID HOMER Administration Oxycodone HCl 5 mg 09/16/23 09:37 09/16/23 11:32 Oxycodone Ir 5 Mg Tablet PO 5 mg Q4H PRN Administration Pain Scale 7 - 10 Pantoprazole Sodium 40 mg 09/16/23 10:00 09/16/23 10:50 Pantoprazole 40 Mg Tablet.Dr PO 09/15/24 09:59 40 mg BID HOMER Administration Polyethylene Glycol 17 gm 09/14/23 21:00 09/16/23 08:02 Polyethylene Glycol 3350 17 Gm Powd.Pack PO 09/13/24 20:59 17 gm BID HOMER Administration Potassium Chloride 10 meq 09/15/23 09:00 09/16/23 08:01 Potassium Chloride Er 10 Meq Tablet.Er PO 09/14/24 08:59 10 meq DAILY HOMER Administration Senna/Docusate Sodium 2 tab 09/14/23 22:00 09/15/23 22:00 Sennosides/Docusate 8.6-50mg 1 Tab Tablet PO 09/13/24 21:59 2 tab QHS HOMER Administration Sennosides 2 tab 09/15/23 12:00 Sennosides 8.6 Mg Tablet PO 09/14/24 11:59 DAILY@12 PRN If no BM in 2 days Sodium Chloride 0 ml 09/14/23 17:55 Sodium Chloride 0.9 % 10 Ml Syringe IV-PUSH 09/13/24 17:54 PRN PRN Flush Assessment/Plan Assessment/Plan (1) Lumbar vertebral fracture: (2) S/P lumbar fusion: (3) Diabetes mellitus, type 2: (4) Hypertension: (5) Obesity, morbid, BMI 40.0-49.9: (6) Impaired mobility and activities of daily living: (7) Leukocytosis: Plan Patient is a 73-year-old male presented to acute inpatient rehabilitation unit with functional decline secondary to L1 and L2 fracture s/p T11-L4 fusion. * BM today but still c/o intermittent wrapping lower abdominal pain, which has been present since fall initially. Workup in [place] included CT A/P w/wo contrast non-acute * Check CT A/P today * Encouraged use of pain medication if needed as this could be referred pain from his back. Consider low dose of gabapentin if persists. * Working with PT/OT, fair tolerance. Patient education Pressure ulcer prophylaxis; encourage mobilization, frequent postural changes, pressure-relief techniques DVT prophylaxis Encourage deep breathing exercise incentive spirometry. Monitor bladder. Toileting schedule. Continue current bladder management, with scans as needed and CIC if needed. Start bowel care program every day to obtain continence, prevent ileus. Maintain fall precautions Gait and balance retraining Functional training and self-care and home management, including activities of daily living and instrumental activities of daily living Provision of the necessary gait aids and functional adaptive equipment to enhance the patient's a functional mandaen Ensure adequate nutrition and hydration Sleep: No issues Discharge planning: Home with family in 7 to 14 days. I completed a substantive portion of this encounter, the medical decision makingportion of this note in its entirety, including Allied health note review, nursing note review, risk management consultant note review,discussion with nursing and case management, and more than 50% of my time was spent on counseling and coordination of care, time spent 30 minutes Patient was personally seen by me, Dr. Escoto, on the day of encounter, I reviewed the history and the relevant portions of the chart, including current orders, allied health and risk management consultant notes, labs/imaging and performed anderson elements of exam and I formulated the plan of care and facilitated the medical decision making. Documented By: Richard Escoto MD 09/16/231220 Signed By: <Electronically signed by Richard Escoto MD> 09/16/23 1226 [facility] Work Phone: 1(955) 548-303912-19-2023 History and physical note Author Richard Escoto [facility] September 15, 2023 2:48pmNote Date/TimeDecember 2022 11:47[place] [address] Physiatry (Rehab) H&P Signed Patient: Faby Herrera MR#: [id number] : 1950 Acct:[id number] Age/Sex: 73 / M Adm Date: 3 Loc: Room: [address] [place] [address] Type: ADM IN Attending Dr: Richard Escoto MD Copies to: FERMÍN Soler MD NO FAMILY PHYSICIAN~ Date of Service: 09/15/2023 HPI The patient was seen and examined on: 09/15/23 Etiologic Diagnosis/Impairment Group: 08.9 Chief complaint: pain, impaired function History of Present Illness: Mr. Herrera is a 73 year old male with past medical history of hypertension, hyperlipidemia, type 2 diabetes, obesity, admitted to [facility] inpatient rehab with functional decline secondary to L1-L2 fracture s/p T11-L4 fusion. Patient reports sustaining a fall at home after receiving COVID and flu boosters. He was unable to get off the floor even with assistance from his family. Patient was brought to [facility] andadmitted for further workup. Unfortunately, he sustained another fall while in the hospital bathroom. He thinks he is lost his footing and fell onto his right side. Denies head injury/loss of consciousness. Imaging was obtained which demonstrated acute transverse fracture of the lower endplate of L1 with findingshighly suggestive of interruption of anterior spinal ligament. He was transferred to [facility] for neurosurgical services. On 09/08/2023 patient underwent percutaneous T11-L4 fusion with pedicle screws and dual rods. No major complications postoperatively. Antihypertensive regimen was adjusted by inpatient cardiology. Patient had also developed mild leukocytosis with unremarkable infectious workup. Patient was recommended acute rehab for strengthening. On arrival he is alert, oriented, cooperative with assessment. He is resting in bed on his right side reports no major discomfort at rest. Back incision is covered with dry dressingwith scant sanguinous drainage on the dressing and surrounding p ostoperative ecchymosis.. He denies tenderness to palpation. Reports no cardiopulmonary complaints. BP reasonably controlled at this time. Admits to constipation for 4 to 5 days. Some abdominal discomfort but no nauseaor vomiting. He willreceive a laxative today. Abdominal x-ray if no result orpersisting abdominal discomfort or other GI symptoms. [facility] Medical History (Updated 09/15/23 @ 12:28 by Ada Segura APRN) Compression fracture Diabetes mellitus, type 2 Hypertension Social History Smoking Status: Never smoker Substance Use Type: None Review of Systems Review of Systems All other systems reviewed & are negative unless noted below or in HPI Meds Medications and Allergies Allergies No Known Allergies Allergy (Verified 09/14/23 21:24) Home and Active Meds: Home Medications allopurinol 300 mg tablet 300 mg PO DAILY 09/14/23 [History Confirmed 09/14/23] amlodipine 10 mg tablet 10 mg PO DAILY 09/14/23 [History Confirmed 09/14/23] calcium carbonate 500 mg-vitamin D3 5 mcg (200 unit) tablet 1 tab PO BID 09/14/23 [History Confirmed 09/14/23] carvedilol 12.5 mg tablet 12.5 mg PO BID 09/14/23 [History Confirmed 09/14/23] enoxaparin 40 mg/0.4 mL subcutaneous syringe 40 mg subcut DAILY 09/14/23 [History Confirmed 09/14/23] famotidine 20 mg tablet 20 mg PO BID 09/14/23 [History Confirmed 09/14/23] furosemide 20 mg tablet 20 mg PO DAILY 09/14/23 [History Confirmed 09/14/23] glipizide 10 mg tablet 10 mg PO DAILY 09/14/23 [History Confirmed 09/14/23] hydralazine 10 mg tablet 10 mg PO QID 09/14/23 [History Confirmed 09/14/23] lidocaine 5 % topical patch 2 patch topical DAILY 09/14/23 [History Confirmed 09/14/23] methocarbamol 500 mg tablet 500 mg PO TID 09/14/23 [History Confirmed 09/14/23] oxycodone 5 mg tablet 5 mg PO Q4H PRN Pain 09/14/23 [History Confirmed 09/14/23] polyethylene glycol 3350 17 gram oral powder packet 17 g PO BID 09/14/23 [History Confirmed 09/14/23] potassium chloride 10 mEq tablet,extended release 10 meq PO DAILY 09/14/23 [History Confirmed 09/14/23] sennosides 8.6 mg-docusate sodium 50 mg tablet 2 tab-cap PO QHS 09/14/23 [History Confirmed 09/14/23] Active Medications Acetaminophen (Acetaminophen 500 Mg Tablet) 500 mg PO Q4H PRN PRN Reason: Pain Stop: 09/13/24 17:54 Al Hydrox/Mg Hydrox/Simethicone (Mag Hydrox/Al Hydrox/Simeth 30 Ml Udc) 30 ml PO Q4H PRN PRN Reason: Indigestion Stop: 09/13/24 17:54 Allopurinol (Allopurinol 300 Mg Tablet) 300 mg PO DAILY HOMER Stop: 09/14/24 08:59 Last Admin: 09/15/23 08:06 Dose: 300 mg Amlodipine Besylate (Amlodipine 10 Mg Tablet) 10 mg PO DAILY HOMER Stop: 09/14/24 08:59 Last Admin: 09/15/23 08:06 Dose: 10 mg Bisacodyl (Bisacodyl 10 Mg Supp.Rect) 10 mg MD DAILY PRN PRN Reason: Constipation Stop: 09/13/24 17:54 Calcium Carbonate (Calcium Carbonate/Vitamin D3 500 Mg/200 Unit Tablet) 1 tab PO BID HOMER Stop: 09/13/24 20:59 Last Admin: 09/15/23 08:06 Dose: 1 tab Carvedilol (Carvedilol 12.5 Mg Tablet) 12.5 mg PO BID HOMER Stop: 09/13/24 20:59 Last Admin: 09/15/23 08:06 Dose: 12.5 mg Docusate Sodium (Docusate 100 Mg Capsule) 100 mg PO BID PRN PRN Reason: Constipation Stop: 09/13/24 17:54 Docusate Sodium (Docusate Enema 283 Mg/5 Ml Enema) 283 mg MD DAILY PRN PRN Reason: Constipation Stop: 09/13/24 17:54 Enoxaparin Sodium (Enoxaparin 40 Mg/0.4 Ml Syringe) 40 mg SUBCUT DAILY HOMER Stop: 09/14/24 08:59 Last Admin: 09/15/23 08:06 Dose: 40 mg Famotidine (Famotidine 20 Mg Tablet) 20 mg PO BID HOMER Stop: 09/13/24 20:59 Last Admin: 09/15/23 08:06 Dose: 20 mg Furosemide (Furosemide 20 Mg Tablet) 20 mg PO DAILY HOMER Stop: 09/14/24 08:59 Last Admin: 09/15/23 08:05 Dose: 20 mg Glipizide (Glipizide 5 Mg Tablet) 10 mg PO DAILY@0800 HOMER Stop: 09/14/24 07:59 Last Admin: 09/15/23 08:06 Dose: 10 mg Hydralazine HCl (Hydralazine 10 Mg Tablet) 10 mg PO QID HOMER Stop: 09/13/24 17:59 Last Admin: 09/15/23 08:06 Dose: 10 mg Lactulose (Lactulose 20 Gm/30 Ml Udc) 30 gm PO DAILY PRN PRN Reason: Constipation Stop: 09/13/24 17:54 Lidocaine (Lidocaine 4% Adh..Patch) 2 patch TOPICAL DAILY [facility] Stop: 09/14/24 08:59 Last Admin: 09/15/23 08:07 Dose: 2 patch Methocarbamol (Methocarbamol 500 Mg Tablet) 500 mg PO TID [facility] Stop: 09/13/24 21:59 Last Admin: 09/15/23 08:06 Dose: 500 mg Oxycodone HCl (Oxycodone Ir 5 Mg Tablet) 5 mg PO Q4H PRN PRN Reason: Pain Last Admin: 09/14/23 22:35 Dose: 5 mg Polyethylene Glycol (Polyethylene Glycol 3350 17 Gm Powd.Pack) 17 gm PO BID [facility] Stop: 09/13/24 20:59 Last Admin: 09/15/23 08:07 Dose: Not Given Potassium Chloride (Potassium Chloride Er 10 Meq Tablet.Er) 10 meq PO DAILY [facility] Stop: 09/14/24 08:59 Last Admin: 09/15/23 08:06 Dose: 10 meq Senna/Docusate Sodium (Sennosides/Docusate 8.6-50mg 1 Tab Tablet) 2 tab PO QHS [facility] Stop: 09/13/24 21:59 Last Admin: 09/14/23 22:36 Dose: Not Given Sennosides (Sennosides 8.6 Mg Tablet) 2 tab PO DAILY@12 PRN PRN Reason: If no BM in 2 days Stop: 09/14/24 11:59 Sodium Chloride (Sodium Chloride 0.9 % 10 Ml Syringe) 0 ml IV-PUSH PRN PRN PRN Reason: Flush Stop: 09/13/24 17:54 Exam Physical Exam Vital Signs: Temp Pulse Resp BP Pulse Ox O2 Del Method 97.7 F 75 20 154/79 H 95 Room Air 09/15/23 05:06 09/15/23 05:06 09/15/23 05:06 09/15/23 05:06 09/15/23 05:06 09/15/23 10:27 Narrative: General: Awake, alert, oriented x3 HENT: Normal to inspection, normocephalic, atraumatic Eyes: PERRL, normal conjunctiva and sclera Neck: Normal ROM, normal visual inspection. Trachea midline. Cardio: Regular heart rate and rhythm Respiratory: Clear to auscultation bilaterally. Normal respiratory effort. No respiratory distress. GI: Abdomen soft, nontender, nondistended, active bowel sounds x4 quadrants : No issues Skin: Thoracic back incision, covered with dry dressing. Scant dried sanguinousdrainage noted on the dressing. Neuro: CN II-XII intact. Strength 3+ /5 bilateral lower extremities, some numbness bilaterally. Extremities: No edema, erythema, cyanosis Psych: Mood and affect appropriate. Normal speech. Results Labs Labs: Laboratory Results - last 24 hr 09/14/23 09/15/23 09/15/23 21:51 05:03 05:03 Corrected WBC 13.4 H Uncorrected WBC Count 13.4 H RBC 4.06 Hgb 12.9 L Hct 36.8 L MCV 90.6 MCH 31.7 MCHC 35.0 RDW 14.1 Plt Count 300 MPV 7.7 Neut % (Auto) 76.7 Lymph % (Auto) 12.8 [place] % (Auto) 9.0 Eos % (Auto) 1.1 Baso % (Auto) 0.4 Nucleat RBC Rel Count 0.1 Neut # (Auto) 10.3 H Lymph # (Auto) 1.7 [place] # (Auto) 1.2 H Eos # (Auto) 0.1 Baso # (Auto) 0.1 PHA Creatinine Clear 118.72 Sodium 134 L Potassium 3.9 Chloride 99 Carbon Dioxide 28.2 Anion Gap 10.7 BUN 24 Creatinine 0.80 Est GFR (CKD-EPI) > 60.0 Glucose 97 POC Glucose 85 POC Glucose Comment Will notify dr/rn Calcium 8.9 Total Bilirubin 1.9 H AST 18 ALT 19 Alkaline Phosphatase 99 Total Protein 5.4 L Albumin 3.0 L Globulin 2.4 Albumin/Globulin Ratio 1.3 Prealbumin 14.9 L 09/15/23 05:09 Corrected WBC Uncorrected WBC Count RBC Hgb Hct MCV MCH MCHC RDW Plt Count MPV Neut % (Auto) Lymph % (Auto) [place] % (Auto) Eos % (Auto) Baso % (Auto) Nucleat RBC Rel Count Neut # (Auto) Lymph # (Auto) [place] # (Auto) Eos # (Auto) Baso # (Auto) PHA Creatinine Clear Sodium Potassium Chloride Carbon Dioxide Anion Gap BUN Creatinine Est GFR (CKD-EPI) Glucose POC Glucose 89 POC Glucose Comment Calcium Total Bilirubin AST ALT Alkaline Phosphatase Total Protein Albumin Globulin Albumin/Globulin Ratio Prealbumin Additional Results Results Comment: I reviewed clinical lab tests, radiology reports and obtained and summated medical records and haveordered follow up lab tests and imaging studies as needed for rehabilitation care. Functional Status Prior Level of Function Narrative: Previously independent Current Level of Function Narrative: Mod assist for bed mobility and transfers. Ambulatory a few feet with a rollingwalker and assistance. Individualized Plan of Care Individualized Plan of Care Plan of Care: Individualized Overall Plan of Care: Admit Date/Time: September 14, 2023 Expected LOS: 14 days Expected Discharge Destination: Home Rehabilitation IGC: 08.9 Primary Diagnosis: Status post T11-L4 fusion for complicated L1-L2 fracture withspinous ligament injury Patient?s/Family?s anticipated outcomes/personal goals: To have patient become more independent and to return home. Medical/ Functional Prognosis: Good Anticipated Functional Outcomes/Goals and Interventions: -Therapy Functional Outcome/Goal: Mobility/Locomotion: Patient likely to be independent with ambulation with assistive device. Anticipated interventions: Physician management, PT, OT, Dietitian, Rehab Nursing - Therapy Functional Outcome/Goal: Self Care: Patient likely to be functionally independent for activities of daily living using assistive / adaptive equipment as needed. Anticipated interventions: Physician management, PT, OT, Dietitian, Rehab Nursing - Therapy Functional Outcome/Goal: Bladder/Bowel Management: Patient likely to be independent with bladder care and independent with bowel care. Anticipated interventions: Physician management, PT, OT, Dietitian, Rehab Nursing -Therapy Functional Outcome/Goal: Communication/Cognition: Patient will be able to communicate fully and be safe cognitively. Anticipated interventions: Physician management, PT, OT, Dietitian, Rehab Nursing -Therapy Functional Outcome/Goal: Patient will be independent for bed mobility and transfers Anticipated interventions: Physician management, PT, OT, Dietitian, Rehab Nursing -Therapy Functional Outcome/Goal: Patient will improve endurance to be able to tolerate all daily self care activities and avocational activities. Anticipated interventions: Physician management, PT, OT, Nutrition, Rehab Nursing -Therapy Functional Outcome/Goal: Patient will understand and assimilate / integrate education regarding management of their medical conditions to maintainhealth and wellbeing. Anticipated interventions: Physician management, PT, OT, Dietitian, Rehab Nursing Required Therapy PT: 1.5 hour per day at least 5 days per week with additional therapy on as needed basis. Comments: PT to improve pt's strength, endurance, bed mobility, transfers (sit- stand), standing balance, gait quality on level surfaces and stairs, coordination and functional ADL skills. Will also work to improve pt's safety awareness during transfers and ambulation. OT: 1.5 hour per day at least 5 days per week with additional therapy on as needed basis. Comments: OT for basic ADL re-training (bathing, dressing, toileting, continence, grooming, feeding, transferring), to increase activity tolerance andfunctional mobility and to evaluate for adaptive and assistive devices. Will work to improve pt's endurance and educate pt on fall prevention and energy conservation techniques-pacing strategies and proper breathing techniques duringfunctional tasks. Other: Nutrition, Rehab nursing, Wound, P&O RATIONALE FOR IRF ADMISSION: Patient has both medical and functional complexities that require 24 hour daily monitoring and intervention from Surface [employer] Weapons Officer as well as other consulting physicians including internal medicine as well as 24 hour daily choreography director nursing - for medical safe / optimal manageme nt. Patient requires interdisciplinary therapy team rehabilitation care including OT, PT, SW, RehabNursing, requires and can tolerate at least 3 hoursof daily OT and PT therapy at least 5 days weekly. The following medical conditions significantly impact the rehabilitation process and are being addressed daily and can not be managed at home or in a lesser intense medical setting: Refer to above problem oriented plan of care Assessment/Plan (1) Lumbar vertebral fracture: (2) S/P lumbar fusion: (3) Diabetes mellitus, type 2: (4) Hypertension: (5) Obesity, morbid, BMI 40.0-49.9: (6) Impaired mobility and activities of daily living: (7) Leukocytosis: Plan Patient is a 73-year-old male presented to acute inpatient rehabilitation unit with functional decline secondary to L1 and L2 fracture s/p T11-L4 fusion. * Trend vitals. Uncontrolled hypertension while at [facility]. Numerous medication adjustments per cardiology team. * Continue current pain regimen. * Give lactulose 30 g x 1 for complaints of constipation. Obtain an abdominal x- ray if C/L abdominal pain, new nausea or vomiting. * Mild leukocytosis on admission, 13.4 from 12.7 on 09/14/2023. No obvious signs of infection. Afebrile. Will obtain a UA. Patient education Pressure ulcer prophylaxis; encourage mobilization, frequent postural changes, pressure-relief techniques DVT prophylaxis Encourage deep breathing exercise incentive spirometry. Monitor bladder. Toileting schedule. Continue current bladder management, with scans as needed and CIC if needed. Start bowel care program every day to obtain continence, prevent ileus. Maintain fall precautions Gait and balance retraining Functional training and self-care and home management, including activities of daily living and instrumental activities of daily living Provision of the necessary gait aids and functional adaptive equipment to enhance the patient's a functional mandaen Ensure adequate nutrition and hydration Sleep: No issues Discharge planning: Home with family in 7 to 14 days. I spent greater than 45 minutes for services, including mqwv-by-yupw encounter with the patient, discussion of the case, plan of care, and exam; and rkibmem-re-yzic activities, such as reviewing pertinent risk management consultant documentation, recent therapy notes, laboratory and radiology studies, and discussion of case with care team including physician, nursing, pillowcase folder, and therapists. More than 50 % of time was spent on patient/family counseling or coordination ofcare. I completed a substantive portion of this encounter, the medical decision makingportion of this note in its entirety, including Allied health note review, nursing note review, risk management consultant note review,discussion with nursing and case management, and more than 50% of my time was spent on counseling and coordination of care, time spent 70 minutes Patient was personally seen by me, Dr. Escoto, on the day of encounter, within 24hours of rehab admission, reviewed the history and the relevant portions of the chart, including current orders, alliedhealth and risk management consultant notes, labs/imaging and performed anderson elements of exam and I formulated the plan of care and facilitated the medical decision making. Documented By: Ada Segura APRN 09/15/23 1 146 Signed By: <Electronically signed by FERMÍN Segura> 09/15/23 1230 <Electronically signed by Richard Escoto MD> 09/15/23 1442 [facility] Work Phone: [phone]) 500-669312-01-2023 History general Narrative - Reported* Type Description Date Medical History Hypertension Medical HistoryHigh cholesterolSurgical HistoryThoracolumbar spinal fusion: V25-Y767/2023 [employer] Other 12-01-2023 History general Narrative - Reported* Type Description Date Medical History Hypertension Medical HistoryHigh cholesterolSurgical HistoryThoracolumbar spinal fusion: [id number] Historysee surgical hx [employer] Other 11-13-2023 Evaluation note* Encounter Date Diagnosis Assessment Notes Treatment Notes Treatment Clinical Notes Jul, Primary hypertension (ICD-10 - I 10) This patient is instructed to consume a healthy, low-fat, low-salt diet. They are also encouraged to continue exercise to achieve/maintain a normal BMI. Patient is instructed on home BP measurements: - rest for 5 minutes w/o talking- positioned w/ feeton floor and arm supported- average best 2/3 readings w/ goal < 135/85 _update office in couple weeks Jul,Type 2 diabetes mellitus with diabetic polyneuropathy, without long- term current use of insulin (ICD-10 - E11.42)Inspect feet daily for cuts and calluses.Recommend diabetic shoes and inserts to prevent callus formation.Fall precautions. Jul,Type 2 diabetes mellitus with hyperglycemia, without long-term current use of insulin (ICD-10 - E11.65)This patient is following a comprehensive diabetic treatment [...] Microalbumin, Dilated eye exam and Foot exam Jul,hronic venous insufficiency (ICD-10 - I87.2)Avoid salt and elevate lower extremities, support stockings, inspect legs and feet daily for blisters and ulcerations. Jul,ure hypercholesterolemia (ICD-10 - E78.00)Instructed on diet and exercise with continued statin therapy.Discussed the beneficial effects of lo wering cholesterol in reducing the risk for cerebrovascular and cardiovascular disease. Jul,Medicare annual wellness visit, subsequent (ICD-10 - Z00.00) [...] reviewed and amended by provider signed below. Jul,Lumbar spondylosis (ICD-10 - M47.816)The patient is instructed to avoid bending, twisting or lifting. They are to use intermittent heat and ice as needed. They may schedule a massage or gentle manipulation. They may safely use Tylenol as needed. Jul,Morbid (severe) obesity due to excess calories (ICD-10 - E66.01)This patient has been instructed on a low-fat, high-fiber diet. They are instructed to reduce calories, portion sizes and snacks. It is recommended that they exercise for 30 minutes, 3-5 times weekly. Jul,ody mass index [BMI] 40.0-44.9, adult (ICD-10 - Z68.41) Jul,olon cancer screening (ICD-10 - Z12.11)[facility] Jul,Screening PSA (prostate specific antigen) (ICD-10 - Z12.5)Will send for PSA and if none done, will schedule. May be ordered by Jul,Intrahepatic cholestasis (ICD-10 - K76.89)Elevate Alk Phos and Bilirubin w/ normal ALT/AST Liver/[facility] [employer] Other 07-11-2023 Evaluation note* Encounter Date Diagnosis Assessment Notes Treatment Notes Treatment Clinical Notes Mar, Type 2 diabetes susan itus with hyperglycemia, without long-term current use of [...] Microalbumin, Dilated eye exam and Foot exam Mar,rimary hypertension (ICD-10 - I10)This patient is instructed to consume a healthy, low-fat, low-salt diet. They are also encouraged to continue exercise to achieve/maintain a normal BMI. Mar,Type 2 diabetes mellitus with diabetic polyneuropathy, without long- term current use of insulin (ICD-10 - E11.42)Inspect feet daily for cuts and calluses.Recommend diabetic shoes and inserts to prevent callus formation.Fall precautions. Mar,ure hypercholesterolemia (ICD-10 - E78.00) Mar,hronic venous insufficiency (ICD-10 - I87.2)Avoid salt and elevate lower extremities, support stockings, inspect legs and feet daily for blisters and ulcerations. Mar,Hx of gout (ICD-10 - Z87.39)Diet instructions, no flares in past year Continue urate lowering treatment Mar,enign prostatic hyperplasia with lower urinary tract symptoms (ICD- 10 - N40.1)Symptoms tolerable, PSA and CARLA yearly Mar,Nocturia (ICD-10 - R35.1) Mar,Elevated PSA (ICD-10 - R97.20)States was given medication to lower PSA He did not ever see a Urologist He denies hx of TRUS/bx or TURP [facility] Other 04-21-2023 Evaluation note* Encounter Date Diagnosis Assessment Notes Treatment Notes Treatment Clinical Notes Dec, Chronic venous insufficiency (IC D-10 - I87.2) Dec,Hx of gout (ICD-10 - Z87.39) Dec,Type 2 diabetes mellitus with hyperglycemia, without long-term current use of insulin (ICD-10 - E11.65) [facility] Other 02-28-2023 Evaluation note* Encounter Date Diagnosis Assessment Notes Treatment Notes Treatment Clinical Notes Oct, Hx of gout (ICD-10 - Z87.39) Oct,Type 2 diabetes mellitus with hyperglycemia, without long-term current use of insulin (ICD-10 - E11.65) Oct,hronic venous insufficiency (ICD-10 - I87.2) Oct,rimary hypertension (ICD-10 - I10) Oct,Type 2 diabetes mellitus with diabetic polyneuropathy, without long- term current use of insulin (ICD-10 - E11.42) [facility] Other 01-31-2023 Evaluation note* Encounter Date Diagnosis Assessment Notes Treatment Notes Treatment Clinical Notes Sep, Hx of gout (ICD-10 - Z87.39) Sep,Type 2 diabetes mellitus with hyperglycemia, without long-term current use of insulin (ICD-10 - E11.65) Sep,hronic venous insufficiency (ICD-10 - I87.2) [facility] Other 01-24-2023 Evaluation note* Encounter Date Diagnosis Assessment Notes Treatment Notes Treatment Clinical Notes Sep, Primary hypertension (ICD-10 - I 10) This patient is instructed to consume a healthy, low-fat, low-salt diet. They are also encouraged to continue exercise to achieve/maintain a normal BMI. Sep,ure hypercholesterolemia (ICD-10 - E78.00)Diet and exercise Sep,Type 2 diabetes mellitus with hyperglycemia, without long-term current use of insulin (ICD-10 - E11.65)This patient is following a comprehensive diabetic treatment [...] office visit. Last A1C 6.5% Jun, 2022 Sep,Type 2 diabetes mellitus with diabetic polyneuropathy, without long- term current use of insulin (ICD-10 - E11.42)Inspect feet daily for calluses and ulcerations. Recommended proper shoes and inserts to prevent callus formation. Fall precautions Sep,hronic venous insufficiency (ICD-10 - I87.2)Avoid salt and elevate lower extremities, support stockings, inspect legs and feet daily for blisters and ulcerations. Sep,rimary osteoarthritis of left knee (ICD-10 - M17.12)Quad exercises, ice/heat and Voltaren Gel. XR to assess joint space Sep,Morbid obesity (ICD-10 - E66.01)This patient has been instructed on a low-fat, high-fiber diet. They are instructed to reduce calories, portion sizes and snacks. It is recommended that they exercise for 30 minutes, 3-5 times weekly. Sep,Elevated PSA (ICD-10 - R97.20)Hx of Urology referral w/o TRUS/Bx Sep,Hx of gout (ICD-10 - Z87.39)No acute gout attacks in past year. Diet instructions, continue urate lowering therapy [employer] Other Discharge summary Author Richard Escoto [facility] October 07, 2023 2:46pmNote Date/TimeJan2023 2:35[place] [address] Discharge Summary Signed Patient: Faby Herrera MR#: [id number] : 1950 Acct:[id number] Age/Sex: 73 / M Adm Date: 3 Loc: Room: [address] [place] [address]: Richard Escoto MD Copies to: Richard Escoto MD NO FAMILY PHYSICIAN~ Providers Date of Discharge: 10/07/23 Discharging Provider: Richard Escoto Primary Care Provider: PHYSICIAN NO FAMILY Consults: 09/14/23 17:55 Consult to Adult Hospitalist Routine Consult to Dietitian Routine Consult to Occupational Therapy Routine Consult to Physical Therapy Routine Speech Admit Screen Routine Discharge Diagnosis (1) Lumbar vertebral fracture: (2) S/P lumbar fusion: (3) Diabetes mellitus, type 2: (4) Hypertension: (5) Obesity, morbid, BMI 40.0-49.9: (6) Impaired mobility and activities of daily living: (7) Leukocytosis: Final Diagnosis Final Discharge Diagnosis: as above Summary Hospital Course Hospital course: Mr. Herrera is a 73 year old male with past medical history of hypertension, hyperlipidemia, type 2 diabetes, obesity, admitted to [facility] inpatient rehab with functional decline secondary to L1-L2 fracture s/p T11-L4 fusion. Patient reports sustaining a fall at home after receiving COVID and flu boosters.? He was unable toget off the floor even with assistance from his family.? Patient was brought to [facility] and admitted for further workup.? Unfortunately, he sustained another fall while in the hospital bathr oom.? He thinks he is lost his footing and fell onto his right side.? Denies head injury/loss of consciousness.? Imaging was obtained which demonstrated acute transverse fracture of the lower endplate of L1 with findingshighly suggestive of interruption of anterior spinal ligament.? He was transferred to [facility] for neurosurgical services. On 09/08/2023 patient underwent percutaneous T11-L4 fusion with pedicle screws and dual rods.? No major complications postoperatively.? Antihypertensive regimen was adjusted by inpatient cardiology.?Patient had also developed mild leukocytosis with unremarkable infectious workup. Patient was recommended acute rehab for strengthening.? On arrival he is alert, oriented, cooperative with assessment.? He is resting in bed on his right side reports no major discomfort at rest.? Back incision is covered with dry dressingwith scant sanguinous drainage on the dressing and surrounding postoperative ecchymosis..? He denies tenderness to palpation. Reports no cardiopulmonary complaints.? BP reasonably controlled at this time. Admits to constipation for 4 to 5 days.? Some abdominal discomfort but no nauseaor vomiting.? He will receive a laxative today.? Abdominal x-ray if no result orpersisting abdominal discomfort or other GI symptoms. Rehabilitation stay: Patient tolerated rehabilitation stay without significant complication. Participated in 3 hours of multidisciplinary therapy at least 5 days/week. He made appropriate functional progress. He was nearly independent all mobility and self-care at discharge. We had some difficulty with his insurance obt [facility]. His family was anxious about their ability to care for him at home despite his lack of assistance required. He was ultimately discharged to shelter facility in stable condition on October 07. Repeat imaging of his spine demonstrated stable hardware and redemonstrated fracture pattern. He had a CT scan of his abdomen pelvis to workup some chronic abdominal discomfort,this was also unremarkable. Condition Condition at Discharge: Fair Time Spent with Patient Time spent providing/coordinating discharge services (# min): 40 Diagnostic Studies Completed and Pending Studies Labs on day of discharge: 10/07/23 05:37: POC Glucose 110 10/06/23 17:10: POC Glucose 90 Exam Physical Exam Vital Signs: Temp Pulse Resp BP Pulse Ox O2 Del Method 97.8 F 87 18 112/60 97 Room Air 10/07/23 11:08 10/07/23 11:08 10/07/23 11:08 10/07/23 11:08 10/07/23 11:08 10/07/23 11:08 Narrative: General: Awake, alert, oriented x3 HENT: Normal to inspection, normocephalic, atraumatic Eyes: PERRL, normal conjunctiva and sclera Neck: Normal ROM, normal visual inspection. Trachea midline. Cardio: Regular heart rate and rhythm Respiratory: Clear to auscultation bilaterally. Normal respiratory effort. No respiratory distress. GI: Abdomen soft, nontender, nondistended, active bowel sounds x4 quadrants : No issues Skin: Thoracic back incision, covered with dry dressing. Neuro: CN II-XII intact. Strength 5 /5 bilateral lower extremities, some numbness bilaterally. Limited ROM. Extremities: No edema, erythema, cyanosis Psych: Mood and affect appropriate. Normal speech. Discharge Plan Discharge Plan Patient Disposition: Jail Facility Activity: Ambulate as Tolerated Diet: Diabetic Comment: 2000 calories a day, carb consistent. Additional Instructions: -Code status: Full code. -Allergies: NKA/NKDA. -Activity: Ambulate as tolerated. No lifting, bending, carrying, twisting, or bending for 2 weeks after surgery. Avoid strenuous activity. No driving until cleared by physician, may ride in car. -Diet: Diabetic, 2000 calories a day, carb consistent diet. -Check fingerstick blood sugars twice daily, prior to breakfast and dinner. -Administer pills whole in applesauce. -Wound care to posterior back incision: May leave open to air as long as there is no drainage present. May shower, but no soaking/submerging, or scrubbing incision until fully healed, or told otherwise by Surgeon. -PT/OT to evaluate and treat at shelter facility. Prescriptions: New cyclobenzaprine 10 mg Tablet 10 mg PO Q8HR PRN (Reason: Spasms) Qty: 0 0RF sennosides [Senna Laxative] 8.6 mg Tablet 2 tab PO DAILY@12 PRN (Reason: If no BM in 2 days) Qty: 0 0RF acetaminophen 500 mg Tablet 1,000 mg PO TID Qty: 0 0RF pantoprazole 40 mg Tablet,Delayed Release (Dr/Ec) 40 mg PO BID Qty: 0 0RF docusate sodium 100 mg Capsule 100 mg PO BID Qty: 0 0RF hydralazine 50 mg Tablet 50 mg PO TID Qty: 0 0RF alum-mag hydroxide-simeth [Mag-Al Plus] 200-200-20 mg/5 mL Suspension 30 ml PO Q4H PRN (Reason: Indigestion) Qty: 0 0RF diclofenac sodium 1 % Gel 1 g topical BID PRN (Reason: pain) Qty: 0 0RF melatonin 5 mg Tablet 5 mg PO QHS Qty: 0 0RF docusate sodium [Enemeez] 283 mg/5 mL Enema 283 mg MD DAILY PRN (Reason: Constipation) Qty: 0 0RF lactulose 20 gram/30 mL Solution 30 g PO DAILY PRN (Reason: Constipation) Qty: 0 0RF RisaQuad 8 billion cell Capsule 1 cap PO DAILY Qty: 0 0RF Continued hydralazine 10 mg Tablet 10 mg PO QID carvedilol 12.5 mg Tablet 12.5 mg PO BID Rx Instructions: must administer with a meal/food glipizide 10 mg Tablet 10 mg PO DAILY amlodipine 10 mg Tablet 10 mg PO DAILY allopurinol 300 mg Tablet 300 mg PO DAILY furosemide 20 mg Tablet 20 mg PO DAILY enoxaparin 40 mg/0.4 mL Syringe 40 mg SUBCUT DAILY calcium carbonate-vitamin D3 500 mg-5 mcg (200 unit) Tablet 1 tab PO BID sennosides-docusate sodium 8.6-50 mg Tablet 2 tab-cap PO QHS potassium chloride 10 mEq Tablet Extended Release 10 meq PO DAILY lidocaine 5 % Adhesive Patch,Medicated 2 patch TOPICAL DAILY Rx Instructions: leave on most painful area for up to 12 hrs Discontinued famotidine 20 mg Tablet 20 mg PO BID methocarbamol 500 mg Tablet 500 mg PO TID polyethylene glycol 3350 17 gram Powder In Packet 17 g PO BID oxycodone [Roxicodone] 5 mg Tablet 5 mg PO Q4H PRN (Reason: Pain) Other Ambulatory Orders: Initiate Home Health (Routine) Timeframe: 20230930 Location: Determined by Patient Ordered By: Richard MATA Home Medical Equipment (Routine) Timeframe: 20230929 Location: Determined by Patient Ordered By: Richard MATA Home Medical Equipment (Routine) Timeframe: 20230929 Location: Determined by Patient Ordered By: Richard MATA Home Medical Equipment (Routine) Timeframe: 20230923 Location: Determined by Patient Ordered By: Richard Escoto Follow Up: Lucio Green MD [Other] - 10/27/23 1:45 pm Deep Abbasi DO [Referring] - (Call to schedule a follow up with PCP within 1 to 2 weeks of discharge) Richard Escoto MD [Active Staff] - (Follow up with rehab physician as/if needed) Documented By: Richard Escoto MD 10/07/231434 Signed By: <Electronically signed by Richard Escoto MD> 10/07/23 1446 [facility] Work Phone: Evaluation + Plan note Future Appointments Appointment Date:04/24/2025 11:15:00 AM Scheduled Provider:Cassius SIMS MD Location:[facility] Appointment Type:URO Office Visit [facility] evaluation + Plan note Future Appointments Appointment Date:10/27/2025 10:00:00 AM Scheduled Provider: Location:[facility] Appointment Type:URO Nurse Visit Appointment Date:11/03/2025 10:45:00 AM Scheduled Provider:Cassius SIMS MD Location:[facility] Appointment Type:URO Office Visit Diagnostic Tests Pending * PSA Total 04/24/25 Future Scheduled Tests Laboratory* PSA Free & Total 10/25/25 [facility] evallcveew noteNo [employer] Other evalusxuqu note* Diagnosis Onset Date Resolution Status Diabetes mellitus, type 2 acuteHypertensionacuteImpaired mobility and activities of daily livingacute LeukocytosisacuteLumbar vertebral fractureacuteObesity, morbid, BMI 40.0-49.9 acuteS/P lumbar fusionacute [facility] Work Phone: Evalumwboi note* Diagnosis Onset Date Resolution Status Chronic venous insufficiency acuteElevated cholesterolacuteGastroesophageal reflux disease with esophagitis without hemorrhageacuteLumbar spondylosisacutePrimary hypertensionacuteType 2 diabetes mellitus with diabetic polyneuropathyacuteType 2 diabetes mellitus with hyperglycemiaacute [facility] Work Phone: Evalugqrea note* Diagnosis S/P lumbar fusion- Primary Arthrodesis status [facility] Diagnosis S/P lumbar fusion- Primary Arthrodesis status Muscle spasm Spasm of muscle [facility] Diagnosis S/P lumbar fusion Arthrodesis status documented [facility] Diagnosis S/P lumbar fusion Arthrodesis status documented [facility] Diagnosis S/P lumbar fusion Arthrodesis status documented [facility] Diagnosis Onset Date Resolution Status Admit Date Chronic venous insufficiency acuteMarch 2024 1:21pmElevated cholesterolacuteMarch 2024 1:21pm Gastroesophageal reflux disease with esophagitis without hemorrhageacuteMarch 2024 1:21pmLumbar spondylosisacuteMarch 2024 1:21pmPrimary hypertensionacuteMarch 2024 1:21pmType 2 diabetes mellitus with diabetic polyneuropathyacuteMarch 2024 1:21pmType 2 diabetes mellitus with hyperglycemiaacuteMarch 2024 1:21pm [facility] Work Phone: Evaluation note* Diagnosis Onset Date Resolution Status Admit Date Elevated cholesterol acuteJuly 2024 2:28pmElevated PSAacuteJuly 2024 2:28pm Gastroesophageal reflux disease with esophagitis without hemorrhageacuteJuly 2024 2:28pmLumbar spondylosisacuteJuly 2024 2:28pmPrimary hypertensionacuteJuly 2024 2:28pmType 2 diabetes mellitus with diabetic polyneuropathyacuteJuly 2024 2:28pmType 2 diabetes mellitus with hyperglycemiaacuteJuly 2024 2:28pm [facility] Work Phone: History general Narrative - Reported* Type Description Date Medical History Hypertension Medical HistoryHigh cholesterol [employer] Other History general Narrative - Reported* Type Description Date Medical History Hypertension Medical HistoryHigh cholesterolMedical [id number] HistoryLumbar spondylosisMedical HistoryGERDMedical HistoryObesitySurgical History Thoracolumbar spinal fusion: [id number]-[id number]/2022Hospitalization Historysee surgical hx [facility] Other Hospital course Narrative No data available for this section [facility] Hospital Discharge instructions No data available for this section [facility] InstructionsNot on filedocumented in this encounter [facility] filedocumented in this encounter [facility] filedocumented in this encounter [facility] on filedocumented in this encounter [facility] No data available for this section [facility] reason for referral (narrative)No reason for referral information available[facility] Work [facility]: Summary Purpose Family History No Family History Records Found Relationship Condition Age at Onset Recorded Date/T radha father Unknown Not SpecifiedDeceasedUnknown Relationship Condition Age at Onset Recorded Date/T radha father Unknown motherDeceasedUnknown Advance Directives No Advanced Directives Records Found Advance Directive Response Recorded Date/ Time Advance Directives No August 11:58am Advance Directive Response Recorded Date/ Time Advance Directives No August 12:58pm Code StatusDate ActivatedDate InactivatedCommentsFull Code09/04/2023 9:49 PM 09/14/2023 8:26 PMDate ActivatedDate MuhdftlfeafPvarpchr39/8/2023 9:49 PM 09/14/2023 8:26 PMCode StatusDate ActivatedDate InactivatedCommentsFull Code 09/04/2023 9:49 PM09/14/2023 8:26 PMDate ActivatedDate InactivatedComments 09/04/2023 9:49 PM09/14/2023 8:26 PM Chief Complaint and Reason for Visit Chief Complaint L1 & L2 Fractures s/ p T11-L4 Fusion Reason for Visit Diabetes mellitus, t ype 2 Hypertension Impaired mobility and activities of daily living Leukocytosis Lumbar vertebral fracture Obesity, morbid, BMI 40.0-49.9 S/P lumbar fusion Chief Complaint [facility] upReason for VisitChronic venous insufficiency Elevated cholesterol Gastroesophageal reflux disease with esophagitis without hemorrhage Lumbar spondylosis Primary hypertension Type 2 diabetes mellitus with diabetic polyneuropathy Type 2 diabetes mellitus with hyperglycemia Chief Complaint 3 month f/u Reason for Visit Chronic venous insuf ficiency Elevated cholesterol Gastroesophageal reflux disease with esophagitis without hemorrhage Lumbar spondylosis Primary hypertension Type 2 diabetes mellitus with diabetic polyneuropathy Type 2 diabetes mellitus with hyperglycemia Chief Complaint Admit Date 4 month f/u December 05, 2024 1:2 1pm Reason for Visit Admit Date Chronic venous insufficiency December 05, 2024 1:21pm Elevated cholesterol December 05, 2024 1: 21pm Gastroesophageal reflux dise ase with esophagitis without hemorrhage December 05, 2024 1:21pm Lumbar spondylosis December 05, 2024 1:2 1pm Primary hypertension December 05, 2024 1: 21pm Type 2 diabetes mellitus with diabetic p olyneuropathy December 05, 2024 1:21pm Type 2 diabetes mellitus with hyperglyce tiffanie December 05, 2024 1:21pm Chief Complaint Admit Date 4 month/VM Box Full 03/21April 19, 2025 2:28pm Reason for Visit Admit Date Elevated cholesterol April 19, 2025 2:2 8pm Elevated PSA April 19, 2025 2:28 pm Gastroesophageal reflux dise ase with esophagitis without hemorrhage April 19, 2025 2:28pm Lumbar spondylosis April 19, 2025 2:28 pm Primary hypertension April 19, 2025 2:2 8pm Type 2 diabetes mellitus with diabetic p olyneuropathy April 19, 2025 2:28pm Type 2 diabetes mellitus with hyperglyce tiffanie April 19, 2025 2:28pm Chief Complaint Admit Date month/VM Box Full 03/21April 19, 2025 2:28pm R97.20 May 30, 2025 3:54pm Reason for Visit Admit Date Benign prostatic hyperplasia with lower urinary tract symptoms April 19, 2025 2:28pm Elevated cholesterol April 19, 2025 2:2 8pm Elevated PSA April 19, 2025 2:28 pm Gastroesophageal reflux dise ase with esophagitis without hemorrhage April 19, 2025 2:28pm Lumbar spondylosis April 19, 2025 2:28 pm Primary hypertension April 19, 2025 2:2 8pm Type 2 diabetes mellitus with diabetic p olyneuropathy April 19, 2025 2:28pm Type 2 diabetes mellitus with hyperglyce tiffanie April 19, 2025 2:28pm Reason for Referral SpecialtyDiagnoses / ProceduresReferred By ContactReferred To Contact Rehabilitation Diagnoses Muscle spasm S/P lumbar fusion 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, 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 [address] [facility] [address] [place] [address] [facility] [address] [place] [address] Referral IDStatusReasonStart DateExpiration DateVisits RequestedVisits [id number] Specialty Services Required /[id number] / ProceduresReferred By ContactReferred To Contact Diagnoses S/P lumbar fusion Lucio Green MD [address] [facility] [address] [place] [address] Referral IDStatusReasonStart DateExpiration DateVisits RequestedVisits [id number]/23/202412/31/209911 Additional Source Comments (unrecognized sect ion and content) No Status Records FoundNo Status Records FoundNo Status Records FoundNo Status Records Found INFORMATION SOURCE (unrecogn ized section and content) DATE CREATED AUTHOR 10/11/2021 [facility] DATE CREATED AUTHOR AUTHOR'S ORGANIZ ATION 04/25/2025 [facility] DATE CREATED AUTHOR AUTHOR'S ORGANIZ ATION 06/10/2025 [facility] DATE CREATED AUTHOR AUTHOR'S ORGANIZ ATION 07/08/2025 [facility] REASON FOR VISIT (unrecogniz ed section and content) ReasonOnset UufaNamuukogJxhtlvcaiap09/28/2023ReasonCommentsFollow-up3 momth follow up xrays priorReasonCommentsPost-op6 WeekPerc. FusionReasonCommentsMed Refill Care Teams (unrecognized sec tion and content) Team Status: Active Member Role Status Dates Deep Abbasi DO Primary Care Provider Active Team Status: Inactive Member Role Status Dates Deep Abbasi DO Primary Care Provider Active Start: April 19, 2025 End: April 19endhara Chandu DOAttaristides ProviderActiveStart: April 19, 2025 End: April 19, 2025 Team Status: Inactive Member Role Status Dates Deep Abbasi DO Primary Care Provider Active Start: May 30, 2025 End: May 30, 2025Patricsegundo Sims MDAttaristides ProviderActiveStart: May 30, 2025 End: May 30, 2025 Team Status: Active Member Role Status Dates Deep Abbasi DO Primary Care Provider Active Start: January 31, 2025 Deep Abbasi DOAttaristides ProviderActiveStart: January 31, 2025 Team Status: Active Member Role Status Dates PHYSICIAN NO FAMILY Primary Care Provider Active Team Status: Inactive Member Role Status Dates PHYSICIAN NO FAMILY Primary Care Provider Active Yosvany Aponte Provider, Attending ProviderActiveAna Dooley RN Other ProviderActiveDecaryl Renteria RNOther ProviderActiveKiya Moon , LEEROY Other ProviderActiveMicmarisel Penn RNOther ProviderActiveThalia Rizo RNOther ProviderActiveMokimberly Villalta RNOther ProviderActiveJerri Beaulieu MD Other ProviderActiveLisa M Dials , APRNOther ProviderActiveRonobiepifanio Swann , Other ProviderActiveMusalicia Andrade MDOther ProviderActiveTawanda Ziegler , DOOther ProviderActiveAlexandre Dunn MDOther ProviderActiveDonna Ruff MDOther ProviderActiveLyjenn Mosley , APRNOther ProviderActiveDuane Aguila MDOther ProviderActiveBareddy Owusu MDOther ProviderActiveRikki Bland MDOther ProviderActiveJohn Cabral MDOther ProviderActiveMicjack Penn DOOther ProviderActiveFirluzmaria Breaux MDOther ProviderActiveEargiovanny Rodriges MDOther ProviderActiveAmy Nohemy HendricksonIgnacio , OVEN HEATER-COther ProviderActiveJoshua Kyle MDOther ProviderActiveSergio Castro MDOther ProviderActiveRodney Huff MDOther ProviderActiveAnoPaula MDOther ProviderActiveMargo Solis , DO Other ProviderActiveNeal R Miriam , DOOther ProviderActiveAnthony Shweta Miniaci , DOOther ProviderActiveLinda Kristen , APRNOther ProviderActiveBakari Gao , DO Other ProviderActiveObaydah Shweta Friedman MDOther ProviderActivePaula Vazquez Rea , APRNOther ProviderActiveAlicia Camryn Diaz , APRNOther ProviderActiveAlaibeth Blake MDOther ProviderActiveDaroly Wang MDOther ProviderActivePatricia Segundo Conde , APRNOther ProviderActiveYajuan Del Angel , DOOther ProviderActiveSacj Escoto , LEEROYOther ProviderActive Team Status: Inactive Member Role Status Dates Deep Abbasi DO Attending Provider Active Sta rt: October 26, 2023 End: October 26, 2023 Team Status: Inactive Member Role Status Dates Deep Abbasi DO Primary Care Provide r, Attending Provider Active Start: January 12, 2024 End: January 12, 2024 Team Status: Inactive Member Role Status Dates Deep Abbasi DO Primary Care Provide r, Attending Provider Active Start: April 27, 2024 End: April 27, 2024Team MemberRelationshipSpecialtyStart DateEnd Date Deep Abbasi DO [address] [place] [address] PCP - GeneralInternal Fbpktapn38/8/23Team MemberRelationshipSpecialtyStart Date End Date Deep Abbasi DO [address] [place] [address] PCP - GeneralInternal Wufzngvc88/8/23Team MemberRelationshipSpecialtyStart Date End Date Deep Abbasi DO [address] [place] [address] PCP - GeneralInternal Gtyjhzcq96/8/23Team MemberRelationshipSpecialtyStart Date End Date Deep Abbasi DO [address] [place] [address] PCP - GeneralInternal Uztuyshz97/8/23Team MemberRelationshipSpecialtyStart Date End Date Deep Abbasi DO [address] [place] [id number] PCP - GeneralInternal Mkbizgyu08/8/23Team MemberRelationshipSpecialtyStart Date End Date Deep Abbasi DO [address] [place] [address] PCP - [facility]09/04/23 Team Status: Inactive Member Role Status Dates Deep Abbasi DO Primary Care Provide r, Attending Provider Active Start: December 05, 2024 End: December 05, 2024 Goals (unrecognized section and content) Goals may be documented in a n alternate section FOR RECORDS PERTAINING TO PATIENTS WHO ARE [...] BE BASED ON THE PRIMARY CLINICAL RECORDS. [employer] provides no warranty or guarantee of the accuracy or completeness of information in this document.
[2025-08-07 15:49] LABS: Alanine Aminotransferase 32 U/L (16-63); Anion Gap 11.1; Aspartate Amino Transferase 15 U/L (15-37); Blood Urea Nitrogen 32.0 mg/dL (7.0-18.0); Calcium 9.3 mg/dL (8.5-10.1); Carbon Dioxide 27.9 mmol/L (21.0-32.0); Chloride 109 mmol/L (98-107); Estimated GFR (African America >60 (>=60 mL/min/1.73m^2); Estimated GFR (Non-African Ame 60 (>=60 mL/min/1.73m^2); Glucose 209 mg/dL (74-106); Potassium 4.0 mmol/L (3.5-5.1); Sodium 144 mmol/L (136-145)
== END 2025-08-07 14:08 | disposition home or self-care (01) ==
LOC: LAB 14:13
PROVIDERS: PCP Internal Medicine; Visit Provider Internal Medicine
DX: E78.00 Pure hypercholesterolemia, unspecified (principal); I10 Essential (primary) hypertension; E11.65 Type 2 diabetes mellitus with hyperglycemia
CPT/HCPCS: 36415; 80048; 84450; 84460